=== PATIENT | male | born 1930 | race African-American/Black ===

== ENCOUNTER 2017-08-06 17:49 | Inpatient (IN) | payer MEDICARE, BC ==
[2017-08-06] MEDS ORDERED: SODIUM CHLORIDE 0.9% 1,000 ML IV STA ×2 (17:52)
[2017-08-06 18:19] LABS: Basophils % (A) 0 %; Eosinophils # (A) 0.1 k/uL (0-0.7); Eosinophils % (A) 3 %; HCT 37.2 % (39.0-53.0); HGB 11.6 gm/dL (13.0-17.5); Hypochromasia Slight; Lymphocytes # (A) 0.7 k/uL (1.0-4.8); Lymphocytes % (A) 13 %; MCH 28.9 pg (25.0-35.0); MCHC 31.3 g/dL (31.0-37.0); MCV 92.4 fL (80.0-100.0); Mean Platelet Volume 8.9; Monocytes # (A) 0.3 k/uL (0-1.0); Monocytes % (A) 6 %; Neutrophils # (A) 3.9 k/uL (1.3-7.7); Neutrophils % (A) 78 %; Platelet Count 197 k/uL (150-450); RBC 4.03 m/uL (4.30-5.90); RDW 12.7 % (11.5-15.5)
[2017-08-06 18:29] LABS: Albumin 2.3 g/dL (3.5-5.0); Calcium 7.7 mg/dL (8.4-10.2); Magnesium 2.5 mg/dL (1.6-2.3); Potassium 5.9 mmol/L (3.5-5.1); Total Bilirubin 1.3 mg/dL (0.2-1.3); Total Protein 5.1 g/dL (6.3-8.2)
[2017-08-06 18:39] LABS: INR 1.3 (<1.2); Partial Thromboplastin Time 25.7 sec (22.0-30.0); Prothrombin Time 12.4 sec (9.0-12.0)
[2017-08-06 18:50] LABS: Creatine Kinase MB 1.2 ng/mL (0.0-2.4); Troponin I 0.021 ng/mL (0.000-0.034)
--- NOTE | 2017-08-06 19:01 | XR ---
EXAMINATION TYPE: XR abdomen acute w cxr DATE OF EXAM: 08/06/2017 COMPARISON: 12/07/2015 HISTORY: 87-year-old male rectal bleed, pain TECHNIQUE: 3 views FINDINGS: Frontal view of the chest shows borderline heart size. Aorta and pulmonary vasculature within normal limits. Right hilar nodularity appears to correspond to thoracic spondylotic change given slight curtis ent rotation and rightward scoliosis. No consolidation or pleural effusion. No evidence for free intraperitoneal air. No dilated small bowel or air-fluid levels. Gaseous small and large bowel loops. Surgical clips in the upper abdomen. Degenerative changes lower lumbar spine. Partially visualized bilateral total hip arthroplasties, prominent heterotopic ossification on the le ft, and eccentric wear of the plastic liner at the right hip and periprosthetic lucency along the thomas tabular cup component on the right. IMPRESSION: 1. Chest: Borderline heart size. Thoracic spondylosis projecting at the right hilar region accounting for the nodular densities. 2. Abdomen: No evidence for free air or bowel obstruction. Gaseous bowel loops. 3. Note severe wear of the plastic liner at the right hip replacement. Possible particle disease kourtney g the superior aspect of the acetabular cup component.
--- NOTE | 2017-08-06 19:26 | ED ---
GI Bleed HPI - General Chief complaint: GI Bleed Stated complaint: Rectal Bleeding Time Seen by Provider: 08/06/17 17:49 Source: patient, RN notes reviewed Mode of arrival: EMS Limitations: no limitations - History of Present Illness Initial comments: This is a 87-year-old male with a history of heart disease and [place] hypertension and hyperlipidemia bilateral hip repairs/replacement who is brought in by EMS tonight because of the onset of GI bleeding. Per his son and the patient patient started having burgundy colored stools earlier today. He does complain some episodes being tired no chest pain fevers chills nausea vomiting sweats. No prior history of GI bleeds upper or lower. No other modifying conditions MD complaint: gross hematochezia - Related Data Home Medications Medication Instructions Recorded Confirmed Atorvastatin Calcium [Lipitor] 20 mg PO HS 12/07/15 08/06/17 Brimonidine Tartrate/Timolol 1 drop RIGHT EYE BID 12/07/15 08/06/17 [Combigan 0.2%-0.5% Eye Drops] Latanoprost Ophth [Xalatan 0.005%] 1 drop RIGHT EYE HS 12/07/15 08/06/17 Lisinopril [Zestril] 10 mg PO DAILY 12/07/15 08/06/17 Magnesium Oxide [Mag-Ox] 400 mg PO HS 12/07/15 08/06/17 Aspirin [Adult Low Dose Aspirin EC] 81 mg PO 08/06/17 Ergocalciferol (Vitamin D2) 50,000 unit PO 08/06/17 [Vitamin D2] Furosemide [Lasix] 20 mg PO DAILY 08/06/17 08/06/17 Allergies Allergy/AdvReac Type Severity Reaction Status Date / Time No Known Allergies Allergy Verified 12/07/15 16:48 Review of Systems ROS Statement: Those systems with pertinent positive or pertinent negative responses have been documented in the HPI. ROS Other: All systems not noted in ROS Statement are negative. 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 Pt has hx of stomach ulcers and hx of osteogenesis imperfecta. Last Myocardial Infarction Date:: 01/2014 History of Any Multi-Drug Resistant Organisms: None Reported Past Surgical History: Joint Replacement, Orthopedic Surgery Additional Past Surgical History / Comment(s): Pt has had b/l hip replacement 6 times and elbow surgery. 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 Pt is unable to straighten arms completely. Past Anesthesia/Blood Transfusion Reactions: No Reported Reaction Past Psychological History: No Psychological Hx Reported Smoking Status: Former smoker Past Alcohol Use History: None Reported Past Drug Use History: None Reported General Exam - General Exam Comments Initial Comments: This is a well-developed sec appearing male with some evidence of contractures. Limitations: no limitations General appearance: alert, lethargic Head exam: Present: atraumatic, normocephalic, normal inspection Eye exam: Present: normal appearance, PERRL, EOMI. Absent: scleral icterus, conjunctival injection, periorbital swelling ENT exam: Present: mucous membranes dry Neck exam: Present: normal inspection. Absent: tenderness, meningismus, lymphadenopathy Respiratory exam: Present: decreased breath sounds. Absent: respiratory distress, wheezes, rales, rhonchi, stridor Cardiovascular Exam: Present: regular rate, normal rhythm, normal heart sounds. Absent: systolic murmur, diastolic murmur, rubs, gallop, clicks GI/Abdominal exam: Present: soft, normal bowel sounds. Absent: distended, tenderness, guarding, rebound, rigid, bruit, pulsatile mass, hernia Rectal exam: Present: other (Gross burgundy-colored stool seen on the patient. Anal area as well as on his diaper.). Absent: normal inspection Extremities exam: Present: normal inspection, full ROM, normal capillary refill. Absent: tenderness, pedal edema, joint swelling, calf tenderness Back exam: Present: normal inspection Neurological exam: Present: alert, oriented X3, CN II-XII intact Psychiatric exam: Present: normal affect, normal mood Skin exam: Present: warm, dry, intact, normal color. Absent: rash Course Vital Signs 08/06/17 08/06/17 08/06/17 17:56 18:56 20:00 Temperature 97.3 F L 97.4 F L Pulse Rate 75 68 72 Respiratory 18 18 18 Rate Blood Pressure 107/53 152/68 165/73 O2 Sat by Pulse 100 98 98 Oximetry Medical Decision Making - Medical Decision Making I did discuss findings with the patient family members patient will be admitted for evaluation of GI bleed. He is a visiting physician patient will be admitted to the hospitalist service with GI consultation - Lab Data Result diagrams: 08/06/17 18:05 08/06/17 18:05 Lab Results 08/06/17 08/06/17 08/06/17 Range/Units 18:05 18:05 18:05 WBC 5.0 (3.8-10.6) k/uL RBC 4.03 L (4.30-5.90) m/uL Hgb 11.6 L (13.0-17.5) gm/dL Hct 37.2 L (39.0-53.0) % MCV 92.4 (80.0-100.0) fL MCH 28.9 (25.0-35.0) pg MCHC 31.3 (31.0-37.0) g/dL RDW 12.7 (11.5-15.5) % Plt Count 197 (150-450) k/uL Neutrophils % 78 % Lymphocytes % 13 % Monocytes % 6 % Eosinophils % 3 % Basophils % 0 % Neutrophils # 3.9 (1.3-7.7) k/uL Lymphocytes # 0.7 L (1.0-4.8) k/uL Monocytes # 0.3 (0-1.0) k/uL Eosinophils # 0.1 (0-0.7) k/uL Basophils # 0.0 (0-0.2) k/uL Hypochromasia Slight PT (9.0-12.0) sec INR (<1.2) APTT (22.0-30.0) sec Sodium 142 (137-145) mmol/L Potassium 5.9 H (3.5-5.1) mmol/L Chloride 98 (98-107) mmol/L Carbon Dioxide 39 H (22-30) mmol/L Anion Gap 5 mmol/L BUN 60 H (9-20) mg/dL Creatinine 1.00 (0.66-1.25) mg/dL Est GFR (CKD-EPI)AfAm 79 (>60 ml/min/1.73 sqM) Est GFR (CKD-EPI)NonAf 68 (>60 ml/min/1.73 sqM) Glucose 98 (74-99) mg/dL Calcium 7.7 L (8.4-10.2) mg/dL Magnesium 2.5 H (1.6-2.3) mg/dL Total Bilirubin 1.3 (0.2-1.3) mg/dL AST 17 (17-59) U/L ALT 20 L (21-72) U/L Alkaline Phosphatase 40 (38-126) U/L Ammonia (<30) umol/L Total Creatine Kinase 47 L (55-170) U/L CK-MB (CK-2) 1.2 (0.0-2.4) ng/mL CK-MB (CK-2) Rel Index 2.6 Troponin I 0.021 (0.000-0.034) ng/mL Total Protein 5.1 L (6.3-8.2) g/dL Albumin 2.3 L (3.5-5.0) g/dL Lipase 68 (23-300) U/L Blood Type Blood Type Confirm Blood Type Recheck Antibody Screen Spec Expiration Date 08/06/17 08/06/17 08/06/17 Range/Units 18:05 18:05 18:05 WBC (3.8-10.6) k/uL RBC (4.30-5.90) m/uL Hgb (13.0-17.5) gm/dL Hct (39.0-53.0) % MCV (80.0-100.0) fL MCH (25.0-35.0) pg MCHC (31.0-37.0) g/dL RDW (11.5-15.5) % Plt Count (150-450) k/uL Neutrophils % % Lymphocytes % % Monocytes % % Eosinophils % % Basophils % % Neutrophils # (1.3-7.7) k/uL Lymphocytes # (1.0-4.8) k/uL Monocytes # (0-1.0) k/uL Eosinophils # (0-0.7) k/uL Basophils # (0-0.2) k/uL Hypochromasia PT 12.4 H (9.0-12.0) sec INR 1.3 H (<1.2) APTT 25.7 (22.0-30.0) sec Sodium (137-145) mmol/L Potassium (3.5-5.1) mmol/L Chloride (98-107) mmol/L Carbon Dioxide (22-30) mmol/L Anion Gap mmol/L BUN (9-20) mg/dL Creatinine (0.66-1.25) mg/dL Est GFR (CKD-EPI)AfAm (>60 ml/min/1.73 sqM) Est GFR (CKD-EPI)NonAf (>60 ml/min/1.73 sqM) Glucose (74-99) mg/dL Calcium (8.4-10.2) mg/dL Magnesium (1.6-2.3) mg/dL Total Bilirubin (0.2-1.3) mg/dL AST (17-59) U/L ALT (21-72) U/L Alkaline Phosphatase (38-126) U/L Ammonia <9 (<30) umol/L Total Creatine Kinase (55-170) U/L CK-MB (CK-2) (0.0-2.4) ng/mL CK-MB (CK-2) Rel Index Troponin I (0.000-0.034) ng/mL Total Protein (6.3-8.2) g/dL Albumin (3.5-5.0) g/dL Lipase (23-300) U/L Blood Type B Positive Blood Type Confirm Blood Type Recheck CABO Indicated Antibody Screen NEGATIVE Spec Expiration Date 08/09/2017 - 230408/06/17 Range/Units 18:08 WBC (3.8-10.6) k/uL RBC (4.30-5.90) m/uL Hgb (13.0-17.5) gm/dL Hct (39.0-53.0) % MCV (80.0-100.0) fL MCH (25.0-35.0) pg MCHC (31.0-37.0) g/dL RDW (11.5-15.5) % Plt Count (150-450) k/uL Neutrophils % % Lymphocytes % % Monocytes % % Eosinophils % % Basophils % % Neutrophils # (1.3-7.7) k/uL Lymphocytes # (1.0-4.8) k/uL Monocytes # (0-1.0) k/uL Eosinophils # (0-0.7) k/uL Basophils # (0-0.2) k/uL Hypochromasia PT (9.0-12.0) sec INR (<1.2) APTT (22.0-30.0) sec Sodium (137-145) mmol/L Potassium (3.5-5.1) mmol/L Chloride (98-107) mmol/L Carbon Dioxide (22-30) mmol/L Anion Gap mmol/L BUN (9-20) mg/dL Creatinine (0.66-1.25) mg/dL Est GFR (CKD-EPI)AfAm (>60 ml/min/1.73 sqM) Est GFR (CKD-EPI)NonAf (>60 ml/min/1.73 sqM) Glucose (74-99) mg/dL Calcium (8.4-10.2) mg/dL Magnesium (1.6-2.3) mg/dL Total Bilirubin (0.2-1.3) mg/dL AST (17-59) U/L ALT (21-72) U/L Alkaline Phosphatase (38-126) U/L Ammonia (<30) umol/L Total Creatine Kinase (55-170) U/L CK-MB (CK-2) (0.0-2.4) ng/mL CK-MB (CK-2) Rel Index Troponin I (0.000-0.034) ng/mL Total Protein (6.3-8.2) g/dL Albumin (3.5-5.0) g/dL Lipase (23-300) U/L Blood Type Blood Type Confirm B Positive Blood Type Recheck Antibody Screen Spec Expiration Date - Radiology Data Radiology results: report reviewed (Imaging shows no acute findings), image reviewed Disposition Clinical Impression: GI bleed, Chronic anemia, Prerenal azotemia Disposition: ADMITTED IP TO THIS [facility] Condition: Stable Referrals: Wellington Beck MD [Primary Care Provider] - 1-2 days
[2017-08-06] MEDS ORDERED: PANTOPRAZOLE 40 MG/10 ML VIAL IVP STA (20:14)
[2017-08-06] MEDS ORDERED: ONDANSETRON 4 MG/2 ML VIAL IVP PRN (20:15)
[2017-08-06] MEDS ORDERED: NALOXONE 0.4 MG/ML 1 ML VIAL IV PRN (20:15)
[2017-08-06] MEDS: LATANOPROST 0.005% OPHTH DROPS 2.5 ML BTL RIGHT EYE SCH (22:34)
[2017-08-06] MEDS: TIMOLOL 0.5% OPHTH DROPS 5 ML BTL RIGHT EYE SCH (22:34)
[2017-08-06] MEDS: SODIUM CHLORIDE 0.9% 1,000 ML IV SCH (22:34)
[2017-08-06] MEDS: BRIMONIDINE TARTRATE 0.2% DROPS 5 ML BTL RIGHT EYE SCH (22:34)
[2017-08-06] MEDS: PANTOPRAZOLE 40 MG/10 ML VIAL IV SCH (22:34)
[2017-08-06 22:59] LABS: Glucose,Whole Blood 114 mg/dL (75-99)
[2017-08-06 23:35] LABS: Basophils % (A) 0 %; Eosinophils # (A) 0.1 k/uL (0-0.7); Eosinophils % (A) 1 %; HCT 27.6 % (39.0-53.0); Hypochromasia Slight; Lymphocytes # (A) 0.9 k/uL (1.0-4.8); Lymphocytes % (A) 15 %; MCH 28.8 pg (25.0-35.0); MCHC 31.1 g/dL (31.0-37.0); MCV 92.7 fL (80.0-100.0); Mean Platelet Volume 8.3; Monocytes # (A) 0.3 k/uL (0-1.0); Monocytes % (A) 5 %; Neutrophils # (A) 4.5 k/uL (1.3-7.7); Neutrophils % (A) 78 %; Platelet Count 181 k/uL (150-450); RBC 2.97 m/uL (4.30-5.90); RDW 12.4 % (11.5-15.5); WBC 5.8 k/uL (3.8-10.6)
[2017-08-06 23:37] LABS: HGB 8.6 gm/dL (13.0-17.5)
[2017-08-07 02:57] LABS: Appearance,Urine Clear (Clear); Bilirubin,Urine Negative (Negative); Blood,Urine Negative (Negative); Color,Urine Yellow; Glucose,Urine (UA) Negative (Negative); Ketones,Urine Negative (Negative); Leukocyte Esterase,Urine Negative (Negative); Nitrite,Urine Negative (Negative); PH, Urine 5.5 (5.0-8.0); Protein,Urine Negative (Negative); Specific Gravity,Urine 1.019 (1.001-1.035); Urobilinogen,Urine <2.0 mg/dL (<2.0)
[2017-08-07 04:04] LABS: Basophils % (A) 0 %; Eosinophils # (A) 0.1 k/uL (0-0.7); Eosinophils % (A) 2 %; HCT 29.6 % (39.0-53.0); HGB 8.9 gm/dL (13.0-17.5); Hypochromasia Marked; Lymphocytes # (A) 0.5 k/uL (1.0-4.8); Lymphocytes % (A) 11 %; MCH 28.3 pg (25.0-35.0); MCHC 29.9 g/dL (31.0-37.0); MCV 94.7 fL (80.0-100.0); Mean Platelet Volume 8.6; Monocytes # (A) 0.2 k/uL (0-1.0); Monocytes % (A) 5 %; Neutrophils # (A) 4.1 k/uL (1.3-7.7); Neutrophils % (A) 82 %; Platelet Count 185 k/uL (150-450); RBC 3.13 m/uL (4.30-5.90); RDW 12.8 % (11.5-15.5); WBC 4.9 k/uL (3.8-10.6)
[2017-08-07 04:13] LABS: Calcium 7.1 mg/dL (8.4-10.2); Magnesium 2.4 mg/dL (1.6-2.3); Phosphorus 3.3 mg/dL (2.5-4.5)
[2017-08-07] MEDS ORDERED: INSULIN REGULAR 100 UNIT/ML VIAL IV ONE (06:36)
[2017-08-07] MEDS ORDERED: SODIUM BICARB 8.4% 50 ML VIAL (1 MEQ/ML) IV ONE (06:37)
[2017-08-07] MEDS ORDERED: DEXTROSE 50%-WATER 50 ML SYRINGE IVP STA (06:38)
[2017-08-07] MEDS ORDERED: CALCIUM GLUCONATE 1,000 MG in SODIUM CHLORIDE 0.9% 100 ML IVPB ONE (06:38)
[2017-08-07 06:50] LABS: Glucose,Whole Blood 105 mg/dL (75-99)
[2017-08-07] MEDS ORDERED: SODIUM BICARB 8.4% 50 ML SYR (1 MEQ/ML) IV ONE (07:00)
[2017-08-07] MEDS: SODIUM CHLORIDE 0.9% 1,000 ML IV SCH ×3 (07:11→21:43)
[2017-08-07] MEDS: PANTOPRAZOLE 40 MG/10 ML VIAL IV SCH ×2 (08:24→21:44)
[2017-08-07] MEDS: BRIMONIDINE TARTRATE 0.2% DROPS 5 ML BTL RIGHT EYE SCH ×2 (08:24→21:44)
[2017-08-07] MEDS: TIMOLOL 0.5% OPHTH DROPS 5 ML BTL RIGHT EYE SCH ×2 (08:24→21:44)
[2017-08-07] MEDS ORDERED: SODIUM CHLORIDE 0.9% 1,000 ML IV ONE ×3 (10:17→17:27)
--- NOTE | 2017-08-07 10:28 | P.CNPUL ---
History of Present Illness Consult date: 08/07/17 History of present illness: This is a very lethargic 87-year-old male patient who was brought in yesterday to the [facility] department because of episodes of GI bleed. The patient presented to the emergency department with painless GI bleed. The patient apparently had burgundy colored stool earlier on that day. On admission, he had a normal blood pressure of 107/53 would doubt any tachycardia. Initial hemoglobin was 11.6. His BUN was elevated at 60 and he had a potassium level of 5.9. Subsequently, he had 3 further episodes of bloody stool that occurred in the intensive care unit overnight. Hemoglobin dropped down to 8.9 and the patient has not been transfused yet. Overall he has received a total of 1 L of IV fluid and the patient is currently on a maintenance of 125 mL an hour. No coffee-ground emesis. No hematemesis. No bright red blood per rectum. The patient does not volunteer much of history. According to him he doesn't drink alcohol in excess. He has been on a combination of aspirin and Plavix regarding previous history of cardiac disease and coronary artery disease and previous [place]. Apparently had refused further care and I'm not sure if he has had any previous cardiac catheterization on evaluations. The patient coags were slightly elevated with an INR of 1.3, PTT was within normal limits, platelets are also within normal limits. He is slow in answering questions. He knows that he is in the hospital. He denies having any major chest pain or respiratory distress. Cardiac enzymes were negative. EKG not showing any acute abnormalities. No open wounds or sores. According to the history is been on oxygen at home and probably his underlying COPD and addition. Currently is on oxygen at 3 L/m nasal cannula. He is moving all 4 extremities. No focal neurological deficit. He is currently nothing by mouth for now. He has remote history of gastric ulcers however he hasn't had any recent history of bleeding. I interviewed the son and I was told that the patient is able to walk however his gait has been progressively getting worse and he has become unsteady. He always was a finger his current BMI 16.2. Apparently his been able to eat well and swallow without any major difficulties. Review of Systems Constitutional: Reports lethargy, Reports weakness Eyes: right blurred vision, right decreased vision, right loss of vision, left bulging eye Ears: deny: ear discharge, earache, tinnitus Ears, nose, mouth and throat: Denies headache, Denies sore throat Cardiovascular: Denies chest pain, Denies shortness of breath Respiratory: Denies cough Gastrointestinal: Reports BRBPR Genitourinary: Reports as per HPI Musculoskeletal: Reports as per HPI Musculoskeletal: absent: ankle pain, ankle stiffness, ankle swelling Integumentary: Denies pruritus, Denies rash Neurological: Reports weakness Psychiatric: Denies anxiety, Denies depression Endocrine: Denies fatigue, Denies weight change Hematologic/Lymphatic: Reports as per HPI Allergic/Immunologic: Reports as per HPI Past Medical History Past Medical History: Coronary Artery Disease (CAD), Eye Disorder, Hyperlipidemia, Hypertension, Myocardial Infarction ([place]) Additional Past Medical History / Comment(s): COPD and chronic hypoxic respiratory failure maintained on oxygen at 3 L at home, Pt had CAD and a previous [place] in Jan 2014 maintained on a combination of ASA and plavix, gastric/ stomach ulcers and hx of osteogenesis imperfecta, Blind in the right eye, HTn, hyperlipidemia and he is a exsmoker. Last Myocardial Infarction Date:: 01/2014 History of Any Multi-Drug Resistant Organisms: None Reported Past Surgical History: Joint Replacement, Orthopedic Surgery Additional Past Surgical History / Comment(s): Pt has had b/l hip replacement 6 times and elbow surgery. 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 Pt is unable to straighten arms completely. Past Anesthesia/Blood Transfusion Reactions: No Reported Reaction Past Psychological History: No Psychological Hx Reported Smoking Status: Former smoker Past Alcohol Use History: None Reported Past Drug Use History: None Reported Medications and Allergies Home Medications Medication Instructions Recorded Confirmed Type Atorvastatin Calcium [Lipitor] 20 mg PO DAILY 12/07/15 08/07/17 History Magnesium Oxide [Mag-Ox] 400 mg PO DAILY 12/07/15 08/07/17 History Ergocalciferol (Vitamin D2) 50,000 unit PO Q7D 08/06/17 08/07/17 History [Vitamin D2] Furosemide [Lasix] 20 mg PO DAILY 08/06/17 08/07/17 History Aspirin EC [Ecotrin Low Dose] 81 mg PO DAILY 08/07/17 08/07/17 History Budesonide [Pulmicort] 0.5 mg INHALATION RT-QID PRN 08/07/17 08/07/17 History Carvedilol [Coreg] 12.5 mg PO BID 08/07/17 08/07/17 History Clopidogrel [Plavix] 75 mg PO DAILY 08/07/17 08/07/17 History Ipratropium-Albuterol Nebulize 3 ml INHALATION RT-QID PRN 08/07/17 08/07/17 History [Duoneb 0.5 mg-3 mg/3 ml Soln] Lisinopril [Zestril] 10 mg PO DAILY 08/07/17 08/07/17 History Allergies Allergy/AdvReac Type Severity Reaction Status Date / Time No Known Allergies Allergy Verified 08/07/17 09:09 Physical Exam Vitals: Vital Signs Temp Pulse Pulse Pulse Resp BP BP 08/07/17 08:30 76 16 115/36 08/07/17 08:00 97.8 F 78 20 97/30 08/07/17 07:00 76 36 H 118/48 08/07/17 06:30 77 24 146/35 08/07/17 06:00 74 9 L 149/46 08/07/17 05:30 75 25 H 121/29 08/07/17 05:00 76 46 H 107/26 08/07/17 04:30 73 23 110/34 08/07/17 04:00 96 F L 73 70 23 145/45 08/07/17 03:30 73 64 H 96/40 08/07/17 03:00 73 25 H 123/42 08/07/17 02:30 72 58 H 102/38 08/07/17 02:00 80 57 H 112/50 08/07/17 01:30 70 22 105/47 08/07/17 01:00 73 18 91/31 08/07/17 00:30 70 21 100/30 08/07/17 00:00 71 53 H 108/37 08/06/17 23:36 71 23 106/45 08/06/17 23:30 73 20 106/45 08/06/17 23:20 73 26 H 08/06/17 23:10 73 18 08/06/17 23:00 98.3 F 73 70 20 106/43 08/06/17 22:56 08/06/17 22:20 98.2 F 82 106/69 08/06/17 20:45 98.2 F 72 16 153/67 08/06/17 20:00 97.4 F L 72 18 165/73 08/06/17 18:56 68 18 152/68 08/06/17 17:56 97.3 F L 75 18 107/53 Pulse Ox 08/07/17 08:30 100 08/07/17 08:00 99 08/07/17 07:00 100 08/07/17 06:30 96 08/07/17 06:00 95 08/07/17 05:30 96 08/07/17 05:00 98 08/07/17 04:30 08/07/17 04:00 98 08/07/17 03:30 99 08/07/17 03:00 95 08/07/17 02:30 98 08/07/17 02:00 100 08/07/17 01:30 100 08/07/17 01:00 99 08/07/17 00:30 98 08/07/17 00:00 100 08/06/17 23:36 100 08/06/17 23:30 100 08/06/17 23:20 100 08/06/17 23:10 100 08/06/17 23:00 100 08/06/17 22:56 87 L 08/06/17 22:20 08/06/17 20:45 99 08/06/17 20:00 98 08/06/17 18:56 98 08/06/17 17:56 100 Intake and Output 08/06/17 08/07/17 08/07/17 22:59 06:59 14:59 Intake Total 875 375 Output Total 270 45 Balance 605 330 Intake: IV 875 375 Sodium Chloride 0.9% 1, 875 375 000 ml @ 125 mls/hr IV . Q8H [facility] Rx#:[id number] Output: Urine 270 45 Other: Voiding Method Self-Catheterization Indwelling Catheter Weight 46.72 kg 45.5 kg 45.5 kg The patient is very cachectic and emaciated with a body mass index of 16.2. He is a bit lethargic yet he is arousable and he follows some simple commands. His very slow in answering questions. He is aware of his surroundings and he knows that he is in the hospital. No agitation. Resting comfortably in bed. The patient has temporal wasting. The patient has diffuse muscle atrophy and significant loss in total body protein mass both in his upper and lower extremities. Head exam was generally normal. There was no scleral icterus or corneal arcus. Mucous membranes were moist.Neck was supple and without jugular venous distension, thyromegaly, or carotid bruits. Carotids were easily palpable bilaterally. There was no adenopathy.Lungs were clear to auscultation and percussion, and with normal diaphragmatic excursion. No wheezes or rales were noted. Breath sounds are diminished in lung bases and there is no wheezes or rhonchi this point.Cardiac exam revealed the PMI to be normally situated and sized. The rhythm was regular and no extrasystoles were noted during several minutes of auscultation. The first and second heart sounds were normal and physiologic splitting of the second heart sound was noted. There were no murmurs , rubs, clicks, or gallops. Abdomen is soft and there is a pulsatile aorta can be felt in the midabdomen however this is probably a reflection of his underlying significant weight loss and absent abdominal fat. No direct tenderness or rebound tensile guarding at this point.Examination of the extremities revealed easily palpable radial, femoral and pedal pulses. There was no cyanosis, clubbing or edema.Examination of the skin revealed no evidence of significant rashes, suspicious appearing nevi or other concerning lesions. Neurologically is awake and alert and is following commands and moving all 4 extremities without any limitation. Results - Laboratory Findings CBC and BMP: 08/07/17 03:29 08/07/17 03:29 PT/INR, D-dimer PT 12.4 sec (9.0-12.0) H 08/06/17 18:05 INR 1.3 (<1.2) H 08/06/17 18:05 Abnormal lab findings: Abnormal Labs 08/06/17 08/06/17 08/06/17 18:05 18:05 18:05 RBC 4.03 L Hgb 11.6 L Hct 37.2 L MCHC Lymphocytes # 0.7 L PT INR Potassium 5.9 H Carbon Dioxide 39 H BUN 60 H Glucose POC Glucose (mg/dL) Calcium 7.7 L Magnesium 2.5 H ALT 20 L Total Creatine Kinase 47 L Total Protein 5.1 L Albumin 2.3 L 04/15/18 04/15/18 04/15/18 18:05 22:57 23:13 RBC 2.97 L Hgb 8.6 L D Hct 27.6 L MCHC Lymphocytes # 0.9 L PT 12.4 H INR 1.3 H Potassium Carbon Dioxide BUN Glucose POC Glucose (mg/dL) 114 H Calcium Magnesium ALT Total Creatine Kinase Total Protein Albumin 08/07/17 08/07/17 08/07/17 03:29 03:29 06:47 RBC 3.13 L Hgb 8.9 L Hct 29.6 L MCHC 29.9 L Lymphocytes # 0.5 L PT INR Potassium 6.0 H Carbon Dioxide 37 H BUN 64 H Glucose 122 H POC Glucose (mg/dL) 105 H Calcium 7.1 L Magnesium 2.4 H ALT Total Creatine Kinase Total Protein Albumin - Diagnostic Findings Chest x-ray: image reviewed Assessment and Plan Plan: Assessment 1 GI bleeding likely of an upper GI source. The patient is known to have gastric ulcer. Currently is on a combination of aspirin and Plavix. No significant coagulopathy. Liver function tests and platelet count is also within normal limits. The patient had several episodes of GI bleed and current hemoglobin is down to 8.9. 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 Repeat potassium levels. Monitor hemoglobin. No transfusion unless there is a further drop in hemoglobin. GI is on the case and were planning an EGD within next 24-48 hours. Keep the patient nothing by mouth for now. SCDs to the lower extremities. IV Protonix. Hold aspirin. Hold Plavix. Continue oxygen at 3 L/ m nasal cannula. We'll continue to follow. He'll be kept in ICU for further monitoring.
--- NOTE | 2017-08-07 10:58 | P.CONS ---
History of Present Illness - Reason for Consult Consult date: 08/07/17 GI bleed Requesting physician: Dimas Whitten - History of Present Illness 87-year-old gentleman PMH CAD, COPD, hyperlipidemia, [place], hypertension, possible peptic ulcer disease, right eye blindness, admitted with burgundy colored bowel movements. Patient is obtunded unable to provide history. History obtained from medical records and nursing staff. Apparently patient's son witnessed burgundy colored bowel movements yesterday. Nursing states he had 2 bowel movements burgundy in color this morning. Unsure if patient has a history of EGD colonoscopy or GI bleeds. Patient's temperature was low placed on Irena hugger overnight. Admission hemoglobin 11.6 presently 8.9. MCV 94. Platelet 185. INR 1.3. BUN 60. Creatinine 1.0. No blood transfusions. Hemodynamically stable. No reports of hematemesis or melena. His overall appearance is cachectic with a BMI of 16; 45.5 kg. Home medications include Plavix and baby aspirin daily. Review of Systems Reviewed from medical records Constitutional: Denies fever, chills, sweats, weight gain, or loss. Son reports weakness. HEENT: Negative for migraines, blurred vision or loss, earaches, drainage, tinnitus, oral mucosal lesions, dysphagia, or odynophagia. Cardiac: Negative for chest pain, arrhythmias, or palpitation. Respiratory: Negative for shortness of breath, hemoptysis, cough, or sputum production. Gastrointestinal: See HPI for pertinent findings. Genitourinary: Negative for hematuria, urgency, frequency, polyuria, dysuria, or penile discharge. Musculoskeletal: Negative for muscle aches, swelling, arthritis, and arthralgias. Neurologic: Negative for stroke or TIA. Endocrine: Negative for thyroid problems. Skin: Negative for rash or itching. Psychiatric: Negative history for depression and anxiety ROS unobtainable: due to mental status Past Medical History Past Medical History: Coronary Artery Disease (CAD), Eye Disorder, Hyperlipidemia, Hypertension, Myocardial Infarction ([place]) Additional Past Medical History / Comment(s): COPD and chronic hypoxic respiratory failure maintained on oxygen at 3 L at home, Pt had CAD and a previous [place] in Jan 2014 maintained on a combination of ASA and plavix, gastric/ stomach ulcers and hx of osteogenesis imperfecta, Blind in the right eye, HTn, hyperlipidemia and he is a exsmoker. Last Myocardial Infarction Date:: 01/2014 History of Any Multi-Drug Resistant Organisms: None Reported Past Surgical History: Joint Replacement, Orthopedic Surgery Additional Past Surgical History / Comment(s): Pt has had b/l hip replacement 6 times and elbow surgery. 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 Pt is unable to straighten arms completely. Past Anesthesia/Blood Transfusion Reactions: No Reported Reaction Past Psychological History: No Psychological Hx Reported Smoking Status: Former smoker Past Alcohol Use History: None Reported Past Drug Use History: None Reported Medications and Allergies Home Medications Medication Instructions Recorded Confirmed Type Atorvastatin Calcium [Lipitor] 20 mg PO DAILY 12/07/15 08/07/17 History Magnesium Oxide [Mag-Ox] 400 mg PO DAILY 12/07/15 08/07/17 History Ergocalciferol (Vitamin D2) 50,000 unit PO Q7D 08/06/17 08/07/17 History [Vitamin D2] Furosemide [Lasix] 20 mg PO DAILY 08/06/17 08/07/17 History Aspirin EC [Ecotrin Low Dose] 81 mg PO DAILY 08/07/17 08/07/17 History Budesonide [Pulmicort] 0.5 mg INHALATION RT-QID PRN 08/07/17 08/07/17 History Carvedilol [Coreg] 12.5 mg PO BID 08/07/17 08/07/17 History Clopidogrel [Plavix] 75 mg PO DAILY 08/07/17 08/07/17 History Ipratropium-Albuterol Nebulize 3 ml INHALATION RT-QID PRN 08/07/17 08/07/17 History [Duoneb 0.5 mg-3 mg/3 ml Soln] Lisinopril [Zestril] 10 mg PO DAILY 08/07/17 08/07/17 History Allergies Allergy/AdvReac Type Severity Reaction Status Date / Time No Known Allergies Allergy Verified 08/07/17 09:09 Physical Exam Vitals: Vital Signs Temp Pulse Pulse Pulse Resp BP BP 08/07/17 08:30 76 16 115/36 08/07/17 08:00 97.8 F 78 20 97/30 08/07/17 07:00 76 36 H 118/48 08/07/17 06:30 77 24 146/35 08/07/17 06:00 74 9 L 149/46 08/07/17 05:30 75 25 H 121/29 08/07/17 05:00 76 46 H 107/26 08/07/17 04:30 73 23 110/34 08/07/17 04:00 96 F L 73 70 23 145/45 08/07/17 03:30 73 64 H 96/40 08/07/17 03:00 73 25 H 123/42 08/07/17 02:30 72 58 H 102/38 08/07/17 02:00 80 57 H 112/50 08/07/17 01:30 70 22 105/47 08/07/17 01:00 73 18 91/31 08/07/17 00:30 70 21 100/30 08/07/17 00:00 71 53 H 108/37 08/06/17 23:36 71 23 106/45 08/06/17 23:30 73 20 106/45 08/06/17 23:20 73 26 H 08/06/17 23:10 73 18 08/06/17 23:00 98.3 F 73 70 20 106/43 08/06/17 22:56 08/06/17 22:20 98.2 F 82 106/69 08/06/17 20:45 98.2 F 72 16 153/67 08/06/17 20:00 97.4 F L 72 18 165/73 08/06/17 18:56 68 18 152/68 08/06/17 17:56 97.3 F L 75 18 107/53 Pulse Ox 08/07/17 08:30 100 08/07/17 08:00 99 08/07/17 07:00 100 08/07/17 06:30 96 08/07/17 06:00 95 08/07/17 05:30 96 08/07/17 05:00 98 08/07/17 04:30 08/07/17 04:00 98 08/07/17 03:30 99 08/07/17 03:00 95 08/07/17 02:30 98 08/07/17 02:00 100 08/07/17 01:30 100 08/07/17 01:00 99 08/07/17 00:30 98 08/07/17 00:00 100 08/06/17 23:36 100 08/06/17 23:30 100 08/06/17 23:20 100 08/06/17 23:10 100 08/06/17 23:00 100 08/06/17 22:56 87 L 08/06/17 22:20 08/06/17 20:45 99 08/06/17 20:00 98 08/06/17 18:56 98 08/06/17 17:56 100 Intake and Output 08/06/17 08/07/17 08/07/17 22:59 06:59 14:59 Intake Total 875 375 Output Total 270 45 Balance 605 330 Intake: IV 875 375 Sodium Chloride 0.9% 1, 875 375 000 ml @ 125 mls/hr IV . Q8H [facility] Rx#:[id number] Output: Urine 270 45 Other: Voiding Method Self-Catheterization Indwelling Catheter Weight 46.72 kg 45.5 kg 45.5 kg General appearance: The patient is confused unable to converse does respond to his name. Overall appearance is cachectic. HET: Head is normocephalic and atraumatic. Pupils are equal and reactive. Oropharynx is clear without lesions. Neck: Supple without lymphadenopathy. Trachea midline. Heart: S1 S2. Regular rate and rhythm. Lungs: No crackles or wheezes are heard. Abdomen: Soft, nontender, nondistended with bowel sounds. No peritoneal signs. No palpable organomegaly or masses. Extremities: Normal skin color and turgor. No cyanosis, rash, ulceration, clubbing, or edema. Radial and pedal pulses are 2/4 bilaterally. Neurological: No focal deficits. Strength and sensation are grossly intact. Results CBC & Chem 7: 08/07/17 03:29 08/07/17 03:29 Labs: Abnormal Lab Results - Last 24 Hours (Table) 08/06/17 08/06/17 08/06/17 Range/Units 18:05 18:05 18:05 RBC 4.03 L (4.30-5.90) m/uL Hgb 11.6 L (13.0-17.5) gm/dL Hct 37.2 L (39.0-53.0) % MCHC (31.0-37.0) g/dL Lymphocytes # 0.7 L (1.0-4.8) k/uL PT (9.0-12.0) sec INR (<1.2) Potassium 5.9 H (3.5-5.1) mmol/L Carbon Dioxide 39 H (22-30) mmol/L BUN 60 H (9-20) mg/dL Glucose (74-99) mg/dL POC Glucose (mg/dL) (75-99) mg/dL Calcium 7.7 L (8.4-10.2) mg/dL Magnesium 2.5 H (1.6-2.3) mg/dL ALT 20 L (21-72) U/L Total Creatine Kinase 47 L (55-170) U/L Total Protein 5.1 L (6.3-8.2) g/dL Albumin 2.3 L (3.5-5.0) g/dL 08/06/17 08/06/17 08/06/17 Range/Units 18:05 22:57 23:13 RBC 2.97 L (4.30-5.90) m/uL Hgb 8.6 L D (13.0-17.5) gm/dL Hct 27.6 L (39.0-53.0) % MCHC (31.0-37.0) g/dL Lymphocytes # 0.9 L (1.0-4.8) k/uL PT 12.4 H (9.0-12.0) sec INR 1.3 H (<1.2) Potassium (3.5-5.1) mmol/L Carbon Dioxide (22-30) mmol/L BUN (9-20) mg/dL Glucose (74-99) mg/dL POC Glucose (mg/dL) 114 H (75-99) mg/dL Calcium (8.4-10.2) mg/dL Magnesium (1.6-2.3) mg/dL ALT (21-72) U/L Total Creatine Kinase (55-170) U/L Total Protein (6.3-8.2) g/dL Albumin (3.5-5.0) g/dL 08/07/17 08/07/17 08/07/17 Range/Units 03:29 03:29 06:47 RBC 3.13 L (4.30-5.90) m/uL Hgb 8.9 L (13.0-17.5) gm/dL Hct 29.6 L (39.0-53.0) % MCHC 29.9 L (31.0-37.0) g/dL Lymphocytes # 0.5 L (1.0-4.8) k/uL PT (9.0-12.0) sec INR (<1.2) Potassium 6.0 H (3.5-5.1) mmol/L Carbon Dioxide 37 H (22-30) mmol/L BUN 64 H (9-20) mg/dL Glucose 122 H (74-99) mg/dL POC Glucose (mg/dL) 105 H (75-99) mg/dL Calcium 7.1 L (8.4-10.2) mg/dL Magnesium 2.4 H (1.6-2.3) mg/dL ALT (21-72) U/L Total Creatine Kinase (55-170) U/L Total Protein (6.3-8.2) g/dL Albumin (3.5-5.0) g/dL Assessment and Plan (1) GI bleed Narrative/Plan: 87-year-old male presents with burgundy colored bowel movements etiology unclear possible colonic diverticular bleed possible peptic ulcer disease. Current Visit: Yes Status: Acute Code(s): K92.2 - GASTROINTESTINAL HEMORRHAGE, UNSPECIFIED SNOMED Code(s): 89391005 (2) Acute blood loss anemia Current Visit: Yes Status: Acute Code(s): D62 - ACUTE POSTHEMORRHAGIC ANEMIA SNOMED Code(s): 376244907 (3) Cachexia Current Visit: Yes Status: Acute Code(s): R64 - CACHEXIA SNOMED Code(s): 358472111 Plan: 1. Continue Protonix 40 mg twice daily. CBC BMP at noon. At this time colonoscopy is not recommended considering patient's confusion; most likely will not drink/tolerate prep. Consideration for inpatient EGD if agreeable with his son; tinge in on clinical course. If patient has accelerated rectal bleeding recommended tagged RBC scan rule out colonic source. We'll continue to follow with you. Thank you for this kind referral and the opportunity to participate in the care of your patient. This consultation was discussed with Dr. Mancuso. The impression and plan of care have been directed as dictated.
[2017-08-07] MEDS ORDERED: IPRATROPIUM-ALBUTEROL 3 ML NEB INHALATION PRN (12:06)
[2017-08-07] MEDS ORDERED: BUDESONIDE 0.5 MG/2 ML NEBU INHALATION PRN (12:06)
[2017-08-07 12:11] LABS: Basophils % (A) 0 %; Eosinophils # (A) 0.1 k/uL (0-0.7); Eosinophils % (A) 0 %; HCT 26.3 % (39.0-53.0); HGB 7.8 gm/dL (13.0-17.5); Hypochromasia Marked; Lymphocytes # (A) 0.8 k/uL (1.0-4.8); Lymphocytes % (A) 7 %; MCH 28.2 pg (25.0-35.0); MCHC 29.8 g/dL (31.0-37.0); MCV 94.7 fL (80.0-100.0); Mean Platelet Volume 10.2; Monocytes # (A) 0.6 k/uL (0-1.0); Monocytes % (A) 5 %; Neutrophils # (A) 9.7 k/uL (1.3-7.7); Neutrophils % (A) 87 %; Platelet Count 183 k/uL (150-450); RBC 2.77 m/uL (4.30-5.90); WBC 11.2 k/uL (3.8-10.6)
[2017-08-07] MEDS ORDERED: DEXTROSE 50%-WATER 50 ML SYRINGE IVP ONE (12:49)
[2017-08-07 13:07] LABS: Glucose,Whole Blood 233 mg/dL (75-99)
--- NOTE | 2017-08-07 13:50 | P.HPIM ---
History of Present Illness 87-year-old male came in with 3 episodes of dark burgundy stools. Patient is admitted for upper GI bleed. Patient is poor his poor historian patient apparently had acute myocardial infarction and patient was started on aspirin and Plavix no intervention was done at the time I have to get in touch with the family members regarding his overall goals of care patient came from home appears to have some baseline dementia patient barely use many history denied any abdominal pain denied any nausea vomiting. Patient's hemoglobin dropped from 10.5-8.7 patient is on IV fluids at this time patient is presently untreated as far today here does use oxygen at home for COPD. This was evaluated by gastroneurology as well as pulmonology. Review of Systems Unable to obtain due to his clinical condition Past Medical History Past Medical History: Coronary Artery Disease (CAD), Eye Disorder, Hyperlipidemia, Hypertension, Myocardial Infarction ([place]) Additional Past Medical History / Comment(s): COPD and chronic hypoxic respiratory failure maintained on oxygen at 3 L at home, Pt had CAD and a previous [place] in Jan 2014 maintained on a combination of ASA and plavix, gastric/ stomach ulcers and hx of osteogenesis imperfecta, Blind in the right eye, HTn, hyperlipidemia and he is a exsmoker. Last Myocardial Infarction Date:: 01/2014 History of Any Multi-Drug Resistant Organisms: None Reported Past Surgical History: Joint Replacement, Orthopedic Surgery Additional Past Surgical History / Comment(s): Pt has had b/l hip replacement 6 times and elbow surgery. 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 Pt is unable to straighten arms completely. Past Anesthesia/Blood Transfusion Reactions: No Reported Reaction Past Psychological History: No Psychological Hx Reported Smoking Status: Former smoker Past Alcohol Use History: None Reported Past Drug Use History: None Reported Medications and Allergies Home Medications Medication Instructions Recorded Confirmed Type Atorvastatin Calcium [Lipitor] 20 mg PO DAILY 12/07/15 08/07/17 History Magnesium Oxide [Mag-Ox] 400 mg PO DAILY 12/07/15 08/07/17 History Ergocalciferol (Vitamin D2) 50,000 unit PO Q7D 08/06/17 08/07/17 History [Vitamin D2] Furosemide [Lasix] 20 mg PO DAILY 08/06/17 08/07/17 History Aspirin EC [Ecotrin Low Dose] 81 mg PO DAILY 08/07/17 08/07/17 History Budesonide [Pulmicort] 0.5 mg INHALATION RT-QID PRN 08/07/17 08/07/17 History Carvedilol [Coreg] 12.5 mg PO BID 08/07/17 08/07/17 History Clopidogrel [Plavix] 75 mg PO DAILY 08/07/17 08/07/17 History Ipratropium-Albuterol Nebulize 3 ml INHALATION RT-QID PRN 08/07/17 08/07/17 History [Duoneb 0.5 mg-3 mg/3 ml Soln] Lisinopril [Zestril] 10 mg PO DAILY 08/07/17 08/07/17 History Allergies Allergy/AdvReac Type Severity Reaction Status Date / Time No Known Allergies Allergy Verified 08/07/17 09:09 Physical Exam Vitals: Vital Signs Temp Pulse Pulse Pulse Resp BP BP 08/07/17 11:00 71 24 129/49 08/07/17 10:00 79 20 122/39 08/07/17 09:00 78 20 110/39 08/07/17 08:30 76 16 115/36 08/07/17 08:00 97.8 F 78 20 97/30 08/07/17 07:00 76 36 H 118/48 08/07/17 06:30 77 24 146/35 08/07/17 06:00 74 9 L 149/46 08/07/17 05:30 75 25 H 121/29 08/07/17 05:00 76 46 H 107/26 08/07/17 04:30 73 23 110/34 08/07/17 04:00 96 F L 73 70 23 145/45 08/07/17 03:30 73 64 H 96/40 08/07/17 03:00 73 25 H 123/42 08/07/17 02:30 72 58 H 102/38 08/07/17 02:00 80 57 H 112/50 08/07/17 01:30 70 22 105/47 08/07/17 01:00 73 18 91/31 08/07/17 00:30 70 21 100/30 08/07/17 00:00 71 53 H 108/37 08/06/17 23:36 71 23 106/45 08/06/17 23:30 73 20 106/45 08/06/17 23:20 73 26 H 04/15/18 23:10 73 18 08/06/17 23:00 98.3 F 73 70 20 106/43 08/06/17 22:56 08/06/17 22:20 98.2 F 82 106/69 08/06/17 20:45 98.2 F 72 16 153/67 08/06/17 20:00 97.4 F L 72 18 165/73 08/06/17 18:56 68 18 152/68 08/06/17 17:56 97.3 F L 75 18 107/53 Pulse Ox 08/07/17 11:00 100 08/07/17 10:00 100 08/07/17 09:00 100 08/07/17 08:30 100 08/07/17 08:00 99 08/07/17 07:00 100 08/07/17 06:30 96 08/07/17 06:00 95 08/07/17 05:30 96 08/07/17 05:00 98 08/07/17 04:30 08/07/17 04:00 98 08/07/17 03:30 99 08/07/17 03:00 95 08/07/17 02:30 98 08/07/17 02:00 100 08/07/17 01:30 100 08/07/17 01:00 99 08/07/17 00:30 98 08/07/17 00:00 100 08/06/17 23:36 100 08/06/17 23:30 100 08/06/17 23:20 100 08/06/17 23:10 100 08/06/17 23:00 100 08/06/17 22:56 87 L 08/06/17 22:20 08/06/17 20:45 99 08/06/17 20:00 98 08/06/17 18:56 98 08/06/17 17:56 100 Intake and Output 08/06/17 08/07/17 08/07/17 22:59 06:59 14:59 Intake Total 875 500 Output Total 270 75 Balance 605 425 Intake: IV 875 500 Sodium Chloride 0.9% 1, 875 500 000 ml @ 125 mls/hr IV . Q8H [facility] Rx#:[id number] Output: Urine 270 75 Other: Voiding Method Self-Catheterization Indwelling Catheter Weight 46.72 kg 45.5 kg 45.5 kg PHYSICAL EXAMINATION: GENERAL: The patient is drowsy arousable unable test his orientation, not in any acute distress. Thin built HEENT: Pupils are round and equally reacting to light. EOMI. No scleral icterus. Patient does have conjunctival pallor. Normocephalic, atraumatic. No pharyngeal erythema. No thyromegaly. CARDIOVASCULAR: S1 and S2 present. No murmurs, rubs, or gallops. PULMONARY: Chest is clear to auscultation, no wheezing or crackles. ABDOMEN: Soft, nontender, nondistended, normoactive bowel sounds. No palpable organomegaly. MUSCULOSKELETAL: No joint swelling or deformity. EXTREMITIES: No cyanosis, clubbing, or pedal edema. NEUROLOGICAL: Gross neurological examination did not reveal any focal deficits. SKIN: No rashes. Results CBC & Chem 7: 08/07/17 12:00 08/07/17 12:00 Labs: Abnormal Lab Results - Last 24 Hours (Table) 08/06/17 08/06/17 08/06/17 Range/Units 18:05 18:05 18:05 WBC (3.8-10.6) k/uL RBC 4.03 L (4.30-5.90) m/uL Hgb 11.6 L (13.0-17.5) gm/dL Hct 37.2 L (39.0-53.0) % MCHC (31.0-37.0) g/dL Neutrophils # (1.3-7.7) k/uL Lymphocytes # 0.7 L (1.0-4.8) k/uL PT (9.0-12.0) sec INR (<1.2) Sodium (137-145) mmol/L Potassium 5.9 H (3.5-5.1) mmol/L Chloride (98-107) mmol/L Carbon Dioxide 39 H (22-30) mmol/L BUN 60 H (9-20) mg/dL Glucose (74-99) mg/dL POC Glucose (mg/dL) (75-99) mg/dL Calcium 7.7 L (8.4-10.2) mg/dL Magnesium 2.5 H (1.6-2.3) mg/dL ALT 20 L (21-72) U/L Total Creatine Kinase 47 L (55-170) U/L Total Protein 5.1 L (6.3-8.2) g/dL Albumin 2.3 L (3.5-5.0) g/dL 08/06/17 08/06/17 08/06/17 Range/Units 18:05 22:57 23:13 WBC (3.8-10.6) k/uL RBC 2.97 L (4.30-5.90) m/uL Hgb 8.6 L D (13.0-17.5) gm/dL Hct 27.6 L (39.0-53.0) % MCHC (31.0-37.0) g/dL Neutrophils # (1.3-7.7) k/uL Lymphocytes # 0.9 L (1.0-4.8) k/uL PT 12.4 H (9.0-12.0) sec INR 1.3 H (<1.2) Sodium (137-145) mmol/L Potassium (3.5-5.1) mmol/L Chloride (98-107) mmol/L Carbon Dioxide (22-30) mmol/L BUN (9-20) mg/dL Glucose (74-99) mg/dL POC Glucose (mg/dL) 114 H (75-99) mg/dL Calcium (8.4-10.2) mg/dL Magnesium (1.6-2.3) mg/dL ALT (21-72) U/L Total Creatine Kinase (55-170) U/L Total Protein (6.3-8.2) g/dL Albumin (3.5-5.0) g/dL 08/07/17 08/07/17 08/07/17 Range/Units 03:29 03:29 06:47 WBC (3.8-10.6) k/uL RBC 3.13 L (4.30-5.90) m/uL Hgb 8.9 L (13.0-17.5) gm/dL Hct 29.6 L (39.0-53.0) % MCHC 29.9 L (31.0-37.0) g/dL Neutrophils # (1.3-7.7) k/uL Lymphocytes # 0.5 L (1.0-4.8) k/uL PT (9.0-12.0) sec INR (<1.2) Sodium (137-145) mmol/L Potassium 6.0 H (3.5-5.1) mmol/L Chloride (98-107) mmol/L Carbon Dioxide 37 H (22-30) mmol/L BUN 64 H (9-20) mg/dL Glucose 122 H (74-99) mg/dL POC Glucose (mg/dL) 105 H (75-99) mg/dL Calcium 7.1 L (8.4-10.2) mg/dL Magnesium 2.4 H (1.6-2.3) mg/dL ALT (21-72) U/L Total Creatine Kinase (55-170) U/L Total Protein (6.3-8.2) g/dL Albumin (3.5-5.0) g/dL 08/07/17 08/07/17 08/07/17 Range/Units 12:00 12:00 13:05 WBC 11.2 H (3.8-10.6) k/uL RBC 2.77 L (4.30-5.90) m/uL Hgb 7.8 L (13.0-17.5) gm/dL Hct 26.3 L (39.0-53.0) % MCHC 29.8 L (31.0-37.0) g/dL Neutrophils # 9.7 H (1.3-7.7) k/uL Lymphocytes # 0.8 L (1.0-4.8) k/uL PT (9.0-12.0) sec INR (<1.2) Sodium 148 H (137-145) mmol/L Potassium (3.5-5.1) mmol/L Chloride 108 H (98-107) mmol/L Carbon Dioxide 36 H (22-30) mmol/L BUN 57 H (9-20) mg/dL Glucose 41 L* (74-99) mg/dL POC Glucose (mg/dL) 233 H (75-99) mg/dL Calcium 7.0 L (8.4-10.2) mg/dL Magnesium (1.6-2.3) mg/dL ALT (21-72) U/L Total Creatine Kinase (55-170) U/L Total Protein (6.3-8.2) g/dL Albumin (3.5-5.0) g/dL Microbiology - Last 24 Hours (Table) 08/07/17 02:10 Urine Culture - Preliminary Urine,Catheterized Thrombosis Risk Factor Assmnt - Choose All That Apply Any of the Below Risk Factors Present?: No Other Risk Factors: Yes Each Risk Factor Represents 2 Points: Age 61-74 years Other congenital or acquired thrombophilia - If yes, enter type in comment: No Thrombosis Risk Factor Assessment Total Risk Factor Score: 2 Thrombosis Risk Factor Assessment Level: Low Risk Assessment and Plan Plan: -Acute blood last anemia from GI bleed most probably upper GI bleed aspirin and Plavix will be held patient on Protonix -Coronary artery disease without any previous intervention antiplatelet therapy need to be held because of the GI bleed -Acute kidney injury secondary to GI bleed continue with IV fluids -COPD without any acute exacerbation and patient does have chronic hypercapnic respiratory failure and uses 2 L -Coronary artery disease -Hyperlipidemia -Hypertension History of osteogenesis imperfecta Hyperkalemia patient is on normal saline and also received calcium gluconate and D50 because of the multiple bowel movements are not giving him any Rate at this time we'll repeat lites tomorrow -Moderate protein calorie malnutrition -Possible baseline moderate to severe dementia
[2017-08-07 13:57] LABS: Glucose,Whole Blood 165 mg/dL (75-99)
[2017-08-07 16:07] LABS: Glucose,Whole Blood 127 mg/dL (75-99)
[2017-08-07 19:39] LABS: Glucose,Whole Blood 95 mg/dL (75-99)
[2017-08-07] MEDS: LATANOPROST 0.005% OPHTH DROPS 2.5 ML BTL RIGHT EYE SCH (21:44)
[2017-08-08 00:40] LABS: Glucose,Whole Blood 89 mg/dL (75-99)
[2017-08-08 03:24] LABS: Basophils % (A) 0 %; Eosinophils # (A) 0.1 k/uL (0-0.7); Eosinophils % (A) 1 %; HCT 24.1 % (39.0-53.0); HGB 7.4 gm/dL (13.0-17.5); Hypochromasia Marked; Lymphocytes # (A) 0.7 k/uL (1.0-4.8); Lymphocytes % (A) 5 %; MCHC 30.6 g/dL (31.0-37.0); MCV 94.8 fL (80.0-100.0); Mean Platelet Volume 8.5; Monocytes # (A) 0.6 k/uL (0-1.0); Monocytes % (A) 4 %; Neutrophils # (A) 11.2 k/uL (1.3-7.7); Neutrophils % (A) 89 %; Platelet Count 210 k/uL (150-450); RBC 2.54 m/uL (4.30-5.90); RDW 12.9 % (11.5-15.5); WBC 12.6 k/uL (3.8-10.6)
[2017-08-08 03:35] LABS: Calcium 6.7 mg/dL (8.4-10.2); Magnesium 2.1 mg/dL (1.6-2.3); Phosphorus 3.5 mg/dL (2.5-4.5)
[2017-08-08 04:24] LABS: Glucose,Whole Blood 90 mg/dL (75-99)
[2017-08-08] MEDS: SODIUM CHLORIDE 0.9% 1,000 ML IV SCH (06:23)
[2017-08-08 08:01] LABS: Glucose,Whole Blood 86 mg/dL (75-99)
--- NOTE | 2017-08-08 08:12 | XR ---
EXAMINATION TYPE: XR chest 1V DATE OF EXAM: 08/08/2017 COMPARISON: Prior chest x-ray 08/06/2017, 12/07/2015 HISTORY: Exertional dyspnea TECHNIQUE: Single frontal view of the chest is obtained. FINDINGS: Increased density at the lung bases obscures the hemidiaphragms. No evident pneumothorax. Heart is enlarged. Prominent lung volume may be indicative of underlying COPD. There are overlying ca rdiac leads. Thoracic spondylosis again noted. IMPRESSION: There may be basilar atelectasis versus pneumonia and associated effusion. Cardiomegaly. Follow-up recommended.
[2017-08-08] MEDS: TIMOLOL 0.5% OPHTH DROPS 5 ML BTL RIGHT EYE SCH ×2 (08:17→21:48)
[2017-08-08] MEDS: PANTOPRAZOLE 40 MG/10 ML VIAL IV SCH ×2 (08:17→21:48)
[2017-08-08] MEDS: BRIMONIDINE TARTRATE 0.2% DROPS 5 ML BTL RIGHT EYE SCH ×2 (08:18→21:47)
--- NOTE | 2017-08-08 10:47 | P.PN ---
Subjective Progress Note Date: 08/08/17 Principal diagnosis: GI bleed No further bleeding greater than 24 hours. Hemoglobin 7.4. More alert talking answering questions appropriately. BUN and creatinine improved. Afebrile. Denies abdominal pain. Objective - Vital Signs Vital signs: Vital Signs Temp 98 F 08/08/17 08:00 Pulse 86 08/08/17 10:00 Resp 24 08/08/17 10:00 BP 132/39 08/08/17 10:00 Pulse Ox 99 08/08/17 10:00 Intake & Output 08/07/17 08/08/17 08/08/17 18:59 06:59 18:59 Intake Total 2625 1875 400 Output Total 285 510 205 Balance 2340 1365 195 Weight 45.5 kg 52.7 kg Intake: IV 2625 1875 400 Dextrose 5% in Water 1, 150 000 ml @ 75 mls/hr IV . [id number] Rx#:[id number] Sodium Chloride 0.9% 1, 1125 1375 250 000 ml @ 125 mls/hr IV . Q8H [facility] Rx#:[id number] Sodium Chloride 0.9% 1, 1500 500 000 ml @ 500 mls/hr IV . Q2H [facility] Rx#:[id number] Output: Urine 285 510 205 Other: Voiding Method Indwelling Catheter Indwelling Catheter Indwelling Catheter - Exam General appearance: The patient is alert, oriented, in no acute distress. Overall cachectic appearance. HET: Head is normocephalic and atraumatic. Pupils are equal and reactive. Oropharynx is clear without lesions. Neck: Supple without lymphadenopathy. Trachea midline. Heart: S1 S2. Regular rate and rhythm. Lungs: No crackles or wheezes are heard. Abdomen: Soft, nontender, nondistended with bowel sounds. No peritoneal signs. No palpable organomegaly or masses. Extremities: Normal skin color and turgor. No cyanosis, rash, ulceration, clubbing, or edema. Radial and pedal pulses are 2/4 bilaterally. Neurological: No focal deficits. Strength and sensation are grossly intact. - Labs CBC & Chem 7: 08/08/17 03:11 08/08/17 03:11 Labs: Abnormal Lab Results - Last 24 Hours (Table) 08/07/17 08/07/17 08/07/17 Range/Units 12:00 12:00 13:05 WBC 11.2 H (3.8-10.6) k/uL RBC 2.77 L (4.30-5.90) m/uL Hgb 7.8 L (13.0-17.5) gm/dL Hct 26.3 L (39.0-53.0) % MCHC 29.8 L (31.0-37.0) g/dL Neutrophils # 9.7 H (1.3-7.7) k/uL Lymphocytes # 0.8 L (1.0-4.8) k/uL Sodium 148 H (137-145) mmol/L Chloride 108 H (98-107) mmol/L Carbon Dioxide 36 H (22-30) mmol/L BUN 57 H (9-20) mg/dL Glucose 41 L* (74-99) mg/dL POC Glucose (mg/dL) 233 H (75-99) mg/dL Calcium 7.0 L (8.4-10.2) mg/dL 08/07/17 08/07/17 08/08/17 Range/Units 13:55 16:04 03:11 WBC 12.6 H (3.8-10.6) k/uL RBC 2.54 L (4.30-5.90) m/uL Hgb 7.4 L (13.0-17.5) gm/dL Hct 24.1 L (39.0-53.0) % MCHC 30.6 L (31.0-37.0) g/dL Neutrophils # 11.2 H (1.3-7.7) k/uL Lymphocytes # 0.7 L (1.0-4.8) k/uL Sodium (137-145) mmol/L Chloride (98-107) mmol/L Carbon Dioxide (22-30) mmol/L BUN (9-20) mg/dL Glucose (74-99) mg/dL POC Glucose (mg/dL) 165 H 127 H (75-99) mg/dL Calcium (8.4-10.2) mg/dL 08/08/17 Range/Units 03:11 WBC (3.8-10.6) k/uL RBC (4.30-5.90) m/uL Hgb (13.0-17.5) gm/dL Hct (39.0-53.0) % MCHC (31.0-37.0) g/dL Neutrophils # (1.3-7.7) k/uL Lymphocytes # (1.0-4.8) k/uL Sodium 149 H (137-145) mmol/L Chloride 114 H (98-107) mmol/L Carbon Dioxide (22-30) mmol/L BUN 48 H (9-20) mg/dL Glucose (74-99) mg/dL POC Glucose (mg/dL) (75-99) mg/dL Calcium 6.7 L (8.4-10.2) mg/dL Microbiology - Last 24 Hours (Table) 08/07/17 02:10 Urine Culture - Preliminary Urine,Catheterized Assessment and Plan (1) GI bleed Narrative/Plan: 87-year-old male presents with burgundy colored bowel movements etiology unclear possible colonic diverticular bleed possible peptic ulcer disease. Current Visit: Yes Status: Acute Code(s): K92.2 - GASTROINTESTINAL HEMORRHAGE, UNSPECIFIED SNOMED Code(s): 82901484 (2) Acute blood loss anemia Current Visit: Yes Status: Acute Code(s): D62 - ACUTE POSTHEMORRHAGIC ANEMIA SNOMED Code(s): 866138419 (3) Cachexia Current Visit: Yes Status: Acute Code(s): R64 - CACHEXIA SNOMED Code(s): 523470845 Plan: 1. Clear liquid diet today. Will evaluate daily. Possible EGD colonoscopy 2- 3 days contingent on clinical course. Assessment and plan a care was discussed with aircraft maintenance manager Dr. Madden. Continue to monitor CBC and continue GI prophylaxis. Assessment and plan a care discussed with Dr. Mancuso
[2017-08-08] MEDS: DEXTROSE 5% IN WATER 1,000 ML IV SCH ×2 (11:39→21:51)
[2017-08-08 12:01] LABS: Glucose,Whole Blood 108 mg/dL (75-99)
--- NOTE | 2017-08-08 12:35 | P.PN ---
Subjective Progress Note Date: 08/08/17 Principal diagnosis: GI bleeding, clammy upper GI source. Blood loss anemia, acute kidney injury This is a very lethargic 87-year-old male patient who was brought in yesterday to the [facility] department because of episodes of GI bleed. The patient presented to the emergency department with painless GI bleed. The patient apparently had burgundy colored stool earlier on that day. On admission, he had a normal blood pressure of 107/53 would doubt any tachycardia. Initial hemoglobin was 11.6. His BUN was elevated at 60 and he had a potassium level of 5.9. Subsequently, he had 3 further episodes of bloody stool that occurred in the intensive care unit overnight. Hemoglobin dropped down to 8.9 and the patient has not been transfused yet. Overall he has received a total of 1 L of IV fluid and the patient is currently on a maintenance of 125 mL an hour. No coffee-ground emesis. No hematemesis. No bright red blood per rectum. The patient does not volunteer much of history. According to him he doesn't drink alcohol in excess. He has been on a combination of aspirin and Plavix regarding previous history of cardiac disease and coronary artery disease and previous SD. Apparently had refused further care and I'm not sure if he has had any previous cardiac catheterization on evaluations. The patient coags were slightly elevated with an INR of 1.3, PTT was within normal limits, platelets are also within normal limits. He is slow in answering questions. He knows that he is in the hospital. He denies having any major chest pain or respiratory distress. Cardiac enzymes were negative. EKG not showing any acute abnormalities. No open wounds or sores. According to the history is been on oxygen at home and probably his underlying COPD and addition. Currently is on oxygen at 3 L/m nasal cannula. He is moving all 4 extremities. No focal neurological deficit. He is currently nothing by mouth for now. He has remote history of gastric ulcers however he hasn't had any recent history of bleeding. I interviewed the son and I was told that the patient is able to walk however his gait has been progressively getting worse and he has become unsteady. He always was a finger his current BMI 16.2. Apparently his been able to eat well and swallow without any major difficulties. 08/08/2017 patient seen in follow-up in the intensive care unit. He is more awake and alert, and more responsive today. Denies any distress, denies any chest pain or dyspnea, denies any abdominal discomfort. He has not had any further episodes of GI bleeding, no hematemesis, no melena. He has remained hemodynamically stable, has not required any vasopressor support, has not required any blood transfusions this admission. Today's hemoglobin is 7.4, it is stable, WBCs 12.6. Renal profile is improving, BUN is down to 48, creatinine is down to 1.20. Serum sodium is up to 149, patient was given 2 L of IV 0.9 normal saline boluses yesterday. He remains nothing by mouth at this time, GI service is Following. We'll possibly do an EGD and possible colonoscopy once the patient is more stable, and physically less debilitated. Will initiate clear liquid diet today. We'll continue to monitor hemoglobin, and continue monitoring for recurrence of GI bleeding. Patient is currently on 2 L per nasal cannula with O2 sat at 98%. Lung sounds are positive for bibasilar rhonchi, patient will begin incentive spirometry, but denies any respiratory complaints at this time. Objective - Vital Signs Vital signs: Vital Signs Temp 98 F 08/08/17 08:00 Pulse 86 08/08/17 10:00 Resp 24 08/08/17 10:00 BP 132/39 08/08/17 10:00 Pulse Ox 99 08/08/17 10:00 Intake & Output 08/07/17 08/08/17 08/08/17 18:59 06:59 18:59 Intake Total 2625 1875 400 Output Total 285 510 205 Balance 2340 1365 195 Weight 45.5 kg 52.7 kg Intake: IV 2625 1875 400 Dextrose 5% in Water 1, 150 000 ml @ 75 mls/hr IV . [id number] [facility] Rx#:[id number] Sodium Chloride 0.9% 1, 1125 1375 250 000 ml @ 125 mls/hr IV . Q8H [facility] Rx#:[id number] Sodium Chloride 0.9% 1, 1500 500 000 ml @ 500 mls/hr IV . Q2H [facility] Rx#:[id number] Output: Urine 285 510 205 Other: Voiding Method Indwelling Catheter Indwelling Catheter Indwelling Catheter - Exam The patient is very cachectic and emaciated with a body mass index of 16.2. He is more arousable. More responsive. He is aware of his surroundings and he knows that he is in the hospital. No agitation. Resting comfortably in bed. The patient has temporal wasting. The patient has diffuse muscle atrophy and significant loss in total body protein mass both in his upper and lower extremities. Head exam was generally normal. There was no scleral icterus or corneal arcus. Mucous membranes were moist.Neck was supple and without jugular venous distension, thyromegaly, or carotid bruits. Carotids were easily palpable bilaterally. There was no adenopathy.Lungs sounds are positive for a few scattered rhonchi in bilateral bases, and with normal diaphragmatic excursion. No wheezes or rales were noted. Breath sounds are diminished in lung bases and there is no wheezes or rhonchi this point.Cardiac exam revealed the PMI to be normally situated and sized. The rhythm was regular and no extrasystoles were noted during several minutes of auscultation. The first and second heart sounds were normal and physiologic splitting of the second heart sound was noted. There were no murmurs, rubs, clicks, or gallops. Abdomen is soft and there is a pulsatile aorta can be felt in the midabdomen however this is probably a reflection of his underlying significant weight loss and absent abdominal fat. No direct tenderness or rebound tensile guarding at this point.Examination of the extremities revealed easily palpable radial, femoral and pedal pulses. There was no cyanosis, clubbing or edema.Examination of the skin revealed no evidence of significant rashes, suspicious appearing nevi or other concerning lesions. Neurologically is awake and alert and is following commands and moving all 4 extremities without any limitation. - Labs CBC & Chem 7: 08/08/17 03:11 08/08/17 03:11 Labs: Abnormal Lab Results - Last 24 Hours (Table) 08/07/17 08/07/17 08/07/17 Range/Units 12:00 13:05 13:55 WBC (3.8-10.6) k/uL RBC (4.30-5.90) m/uL Hgb (13.0-17.5) gm/dL Hct (39.0-53.0) % MCHC (31.0-37.0) g/dL Neutrophils # (1.3-7.7) k/uL Lymphocytes # (1.0-4.8) k/uL Sodium 148 H (137-145) mmol/L Chloride 108 H (98-107) mmol/L Carbon Dioxide 36 H (22-30) mmol/L BUN 57 H (9-20) mg/dL Glucose 41 L* (74-99) mg/dL POC Glucose (mg/dL) 233 H 165 H (75-99) mg/dL Calcium 7.0 L (8.4-10.2) mg/dL 08/07/17 08/08/17 08/08/17 Range/Units 16:04 03:11 03:11 WBC 12.6 H (3.8-10.6) k/uL RBC 2.54 L (4.30-5.90) m/uL Hgb 7.4 L (13.0-17.5) gm/dL Hct 24.1 L (39.0-53.0) % MCHC 30.6 L (31.0-37.0) g/dL Neutrophils # 11.2 H (1.3-7.7) k/uL Lymphocytes # 0.7 L (1.0-4.8) k/uL Sodium 149 H (137-145) mmol/L Chloride 114 H (98-107) mmol/L Carbon Dioxide (22-30) mmol/L BUN 48 H (9-20) mg/dL Glucose (74-99) mg/dL POC Glucose (mg/dL) 127 H (75-99) mg/dL Calcium 6.7 L (8.4-10.2) mg/dL 08/08/17 Range/Units 11:59 WBC (3.8-10.6) k/uL RBC (4.30-5.90) m/uL Hgb (13.0-17.5) gm/dL Hct (39.0-53.0) % MCHC (31.0-37.0) g/dL Neutrophils # (1.3-7.7) k/uL Lymphocytes # (1.0-4.8) k/uL Sodium (137-145) mmol/L Chloride (98-107) mmol/L Carbon Dioxide (22-30) mmol/L BUN (9-20) mg/dL Glucose (74-99) mg/dL POC Glucose (mg/dL) 108 H (75-99) mg/dL Calcium (8.4-10.2) mg/dL Microbiology - Last 24 Hours (Table) 08/07/17 02:10 Urine Culture - Final Urine,Catheterized Assessment and Plan Plan: Assessment: 1 GI bleeding likely of an upper GI source. The patient is known to have gastric ulcer. Patient looks remain on hold. No significant coagulopathy. Liver function tests and platelet count is also within normal limits. The patient had several episodes of GI bleed and current hemoglobin is down to 7.4. Hemodynamically stable 2 acute kidney injury, with elevation of the BUN, likely secondary to GI bleed 3 blood loss anemia with a hemoglobin of 7.4 4 acute hyperkalemia doubt any EKG changes, treated with calcium gluconate and D50 and insulin and he is also being hydrated with IV fluids and the repeat potassium will be obtained. 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 Hemoglobin is stable, at 7.4. Remains hemodynamically stable, has not required any blood transfusions this admission. Appears to be more alert, and responsive today's exam. Denies any acute complaints, denies any dyspnea and chest pain. We spoke to the GI service today, 30 in the plan is to initiate clear liquid diet today, and monitor for recurrence of GI bleeding. Continue monitor hemoglobin, signs, patient is stable to be transferred out of intensive care unit today to a monitored bed. I performed a history & physical examination of the patient and discussed their management with my nurse practitioner, Anya Barahona. I reviewed the nurse practitioner's note and agree with the documented findings and plan of care. Lung sounds are positive for a few rhonchi. The findings and the impression was discussed with the patient. I attest to the documentation by the nurse practitioner. Time with Patient: Greater than 30
--- NOTE | 2017-08-08 15:48 | P.PN ---
Subjective 85-year-old the female admitted for right GI bleed patient doesn't have any more bleed since patient patient will be transferred out of ICU patient's hemoglobin remained stable patient started eating today. I do not know his baseline mental status unable to discuss with the the son. CODE STATUS was discussed with his son by Dr. Madden. Unsure whether patient has dementia whether it's advanced are not. For now but I saw the patient patient is eating well. Probably the best idea would be once he is stable enough patient can be resumed on antiplatelet therapy if agreeable by gastroenterology and discharged to subacute rehabilitation. Patient mostly nonverbal Objective - Vital Signs Vital signs: Vital Signs Temp 97.9 F 08/08/17 12:00 Pulse 77 08/08/17 15:00 Resp 21 08/08/17 15:00 BP 128/49 08/08/17 15:00 Pulse Ox 91 L 08/08/17 15:00 Intake & Output 08/07/17 08/08/17 08/08/17 18:59 06:59 18:59 Intake Total 2625 1875 775 Output Total 285 510 400 Balance 2340 1365 375 Weight 45.5 kg 52.7 kg Intake: IV 2625 1875 775 Dextrose 5% in Water 1, 525 000 ml @ 75 mls/hr IV . [id number] [facility] Rx#:[id number] Sodium Chloride 0.9% 1, 1125 1375 250 000 ml @ 125 mls/hr IV . Q8H [facility] Rx#:[id number] Sodium Chloride 0.9% 1, 1500 500 000 ml @ 500 mls/hr IV . Q2H [facility] Rx#:[id number] Output: Urine 285 510 400 Other: Voiding Method Indwelling Catheter Indwelling Catheter Indwelling Catheter - Exam PHYSICAL EXAMINATION: GENERAL: The patient is alert, unable to assess his orientation patient is a severely cachectic thin built with temporal wasting diffuse muscle atrophy HEENT: Pupils are round and equally reacting to light. EOMI. No scleral icterus. No conjunctival pallor. Normocephalic, atraumatic. No pharyngeal erythema. No thyromegaly. CARDIOVASCULAR: S1 and S2 present. No murmurs, rubs, or gallops. PULMONARY: Chest is clear to auscultation, no wheezing or crackles. ABDOMEN: Soft, nontender, nondistended, normoactive bowel sounds. No palpable organomegaly. MUSCULOSKELETAL: No joint swelling or deformity. EXTREMITIES: No cyanosis, clubbing, or pedal edema. NEUROLOGICAL: Unable to assess SKIN: No rashes. - Labs CBC & Chem 7: 08/08/17 03:11 08/08/17 03:11 Labs: Abnormal Lab Results - Last 24 Hours (Table) 08/07/17 08/08/17 08/08/17 Range/Units 16:04 03:11 03:11 WBC 12.6 H (3.8-10.6) k/uL RBC 2.54 L (4.30-5.90) m/uL Hgb 7.4 L (13.0-17.5) gm/dL Hct 24.1 L (39.0-53.0) % MCHC 30.6 L (31.0-37.0) g/dL Neutrophils # 11.2 H (1.3-7.7) k/uL Lymphocytes # 0.7 L (1.0-4.8) k/uL Sodium 149 H (137-145) mmol/L Chloride 114 H (98-107) mmol/L BUN 48 H (9-20) mg/dL POC Glucose (mg/dL) 127 H (75-99) mg/dL Calcium 6.7 L (8.4-10.2) mg/dL 08/08/17 Range/Units 11:59 WBC (3.8-10.6) k/uL RBC (4.30-5.90) m/uL Hgb (13.0-17.5) gm/dL Hct (39.0-53.0) % MCHC (31.0-37.0) g/dL Neutrophils # (1.3-7.7) k/uL Lymphocytes # (1.0-4.8) k/uL Sodium (137-145) mmol/L Chloride (98-107) mmol/L BUN (9-20) mg/dL POC Glucose (mg/dL) 108 H (75-99) mg/dL Calcium (8.4-10.2) mg/dL Microbiology - Last 24 Hours (Table) 08/07/17 02:10 Urine Culture - Final Urine,Catheterized Assessment and Plan Plan: -Acute blood last anemia from GI bleed most probably upper GI bleed aspirin and Plavix will be held patient on Protonix . Whenever gastroenterology believes it 's appropriate patient can be resumed back on aspirin and/or Plavix. No more GI bleed patient will transfer out of ICU -Coronary artery disease without any previous intervention antiplatelet therapy need to be held because of the GI bleed -Acute kidney injury secondary to GI bleed continue with IV fluids -COPD without any acute exacerbation and patient does have chronic hypercapnic respiratory failure and uses 2 L -Coronary artery disease -Hyperlipidemia -Hypertension History of osteogenesis imperfecta Hyperkalemia patient is on normal saline and also received calcium gluconate and D50 because of the multiple bowel movements are not giving him any Rate at this time we'll repeat lites tomorrow -Moderate protein calorie malnutrition -Possible baseline moderate dementia
[2017-08-08 16:58] LABS: Glucose,Whole Blood 158 mg/dL (75-99)
[2017-08-08 21:45] LABS: Glucose,Whole Blood 163 mg/dL (75-99)
[2017-08-08] MEDS: LATANOPROST 0.005% OPHTH DROPS 2.5 ML BTL RIGHT EYE SCH (21:48)
[2017-08-09 05:32] LABS: Glucose,Whole Blood 247 mg/dL (75-99)
[2017-08-09] MEDS: INSULIN ASPART 100 UNIT/ML 1 ML 10 ML VIAL SQ SCH ×4 (06:07→21:06)
[2017-08-09 08:15] LABS: Basophils % (A) 0 %; Eosinophils # (A) 0.1 k/uL (0-0.7); Eosinophils % (A) 1 %; HCT 22.5 % (39.0-53.0); Hypochromasia Marked; Lymphocytes # (A) 0.6 k/uL (1.0-4.8); Lymphocytes % (A) 5 %; MCH 27.8 pg (25.0-35.0); MCHC 28.5 g/dL (31.0-37.0); MCV 97.6 fL (80.0-100.0); Mean Platelet Volume 8.6; Monocytes # (A) 0.5 k/uL (0-1.0); Monocytes % (A) 4 %; Neutrophils # (A) 11.2 k/uL (1.3-7.7); Neutrophils % (A) 91 %; Platelet Count 232 k/uL (150-450); RBC 2.31 m/uL (4.30-5.90); RDW 13.6 % (11.5-15.5); WBC 12.3 k/uL (3.8-10.6)
[2017-08-09 08:17] LABS: HGB 6.4 gm/dL (13.0-17.5)
--- NOTE | 2017-08-09 08:24 | XR ---
EXAMINATION TYPE: XR chest 1V DATE OF EXAM: 08/09/2017 COMPARISON: Prior chest x-ray 08/08/2017 HISTORY: Exertional dyspnea TECHNIQUE: Single frontal view of the chest is obtained. FINDINGS: Retrocardiac density obscures the left hemidiaphragm. Increased density also noted at the right lung base. Surgical clips are present in the upper abdomen. Heart remains enlarged. No evident pneumothorax. Patient is rotated. IMPRESSION: Basilar effusions and associated atelectasis, correlate to exclude pneumonia. [facility]omega ly. Follow-up recommended.
[2017-08-09 08:27] LABS: Magnesium 2.3 mg/dL (1.6-2.3); Phosphorus 2.5 mg/dL (2.5-4.5); Potassium 4.6 mmol/L (3.5-5.1)
[2017-08-09 08:33] LABS: Calcium 6.4 mg/dL (8.4-10.2)
--- NOTE | 2017-08-09 09:04 | P.PN ---
Subjective Progress Note Date: 08/09/17 Principal diagnosis: GI bleed No further bleeding however hemoglobin decreased to 6.4 this morning. BUN slightly improved to 42. Alert talking answering questions appropriately. BUN and creatinine improved. Afebrile. Denies abdominal pain. Objective - Vital Signs Vital signs: Vital Signs Temp 97.9 F 08/09/17 07:26 Pulse 65 08/09/17 07:26 Resp 20 08/09/17 07:26 BP 103/49 08/09/17 07:26 Pulse Ox 96 08/09/17 07:26 Intake & Output 08/08/17 08/09/17 08/09/17 18:59 06:59 18:59 Intake Total 850 1200 Output Total 490 600 Balance 360 600 Intake: IV 775 1200 Dextrose 5% in Water 1, 525 1200 000 ml @ 75 mls/hr IV . [id number] [facility] Rx#:[id number] Sodium Chloride 0.9% 1, 250 000 ml @ 125 mls/hr IV . Q8H [facility] Rx#:[id number] Intake, IV Titration 75 Amount Dextrose 5% in Water 1, 75 000 ml @ 75 mls/hr IV . [id number] [facility] Rx#:[id number] Output: Urine 490 600 Other: Voiding Method Indwelling Catheter Indwelling Catheter - Exam General appearance: The patient is alert, oriented, in no acute distress. Overall cachectic appearance. HET: Head is normocephalic and atraumatic. Pupils are equal and reactive. Oropharynx is clear without lesions. Neck: Supple without lymphadenopathy. Trachea midline. Heart: S1 S2. Regular rate and rhythm. Lungs: No crackles or wheezes are heard. Abdomen: Soft, nontender, nondistended with bowel sounds. No peritoneal signs. No palpable organomegaly or masses. Extremities: Normal skin color and turgor. No cyanosis, rash, ulceration, clubbing, or edema. Radial and pedal pulses are 2/4 bilaterally. Neurological: No focal deficits. Strength and sensation are grossly intact. - Labs CBC & Chem 7: 08/09/17 07:24 08/09/17 07:24 Labs: Abnormal Lab Results - Last 24 Hours (Table) 08/06/17 08/08/17 08/08/17 Range/Units 18:05 11:59 16:37 WBC (3.8-10.6) k/uL RBC (4.30-5.90) m/uL Hgb (13.0-17.5) gm/dL Hct (39.0-53.0) % MCHC (31.0-37.0) g/dL Neutrophils # (1.3-7.7) k/uL Lymphocytes # (1.0-4.8) k/uL Sodium (137-145) mmol/L Chloride (98-107) mmol/L Carbon Dioxide (22-30) mmol/L BUN (9-20) mg/dL Glucose (74-99) mg/dL POC Glucose (mg/dL) 108 H 158 H (75-99) mg/dL Calcium (8.4-10.2) mg/dL Crossmatch See Detail 08/08/17 08/09/17 08/09/17 Range/Units 21:35 05:30 07:24 WBC 12.3 H (3.8-10.6) k/uL RBC 2.31 L (4.30-5.90) m/uL Hgb 6.4 L* (13.0-17.5) gm/dL Hct 22.5 L (39.0-53.0) % MCHC 28.5 L (31.0-37.0) g/dL Neutrophils # 11.2 H (1.3-7.7) k/uL Lymphocytes # 0.6 L (1.0-4.8) k/uL Sodium (137-145) mmol/L Chloride (98-107) mmol/L Carbon Dioxide (22-30) mmol/L BUN (9-20) mg/dL Glucose (74-99) mg/dL POC Glucose (mg/dL) 163 H 247 H (75-99) mg/dL Calcium (8.4-10.2) mg/dL Crossmatch 08/09/17 Range/Units 07:24 WBC (3.8-10.6) k/uL RBC (4.30-5.90) m/uL Hgb (13.0-17.5) gm/dL Hct (39.0-53.0) % MCHC (31.0-37.0) g/dL Neutrophils # (1.3-7.7) k/uL Lymphocytes # (1.0-4.8) k/uL Sodium 146 H (137-145) mmol/L Chloride 110 H (98-107) mmol/L Carbon Dioxide 33 H (22-30) mmol/L BUN 42 H (9-20) mg/dL Glucose 152 H (74-99) mg/dL POC Glucose (mg/dL) (75-99) mg/dL Calcium 6.4 L* (8.4-10.2) mg/dL Crossmatch Microbiology - Last 24 Hours (Table) 08/07/17 02:10 Urine Culture - Final Urine,Catheterized Assessment and Plan (1) GI bleed Narrative/Plan: 87-year-old male presents with burgundy colored bowel movements etiology unclear possible colonic diverticular bleed possible peptic ulcer disease. Current Visit: Yes Status: Acute Code(s): K92.2 - GASTROINTESTINAL HEMORRHAGE, UNSPECIFIED SNOMED Code(s): 55852955 (2) Acute blood loss anemia Narrative/Plan: Hemoglobin dropped to 6.4 this morning without overt bleeding. Current Visit: Yes Status: Acute Code(s): D62 - ACUTE POSTHEMORRHAGIC ANEMIA SNOMED Code(s): 606836489 (3) Cachexia Current Visit: Yes Status: Acute Code(s): R64 - CACHEXIA SNOMED Code(s): 829800928 Plan: 1. Nothing by mouth except medications. Continue with IV Protonix twice daily. CBC every 6 hours. EGD evaluation tomorrow possible colonoscopy during this hospitalization pending EGD evaluation. Blood transfusion ordered. We'll follow closely. Assessment and plan a care discussed with Dr. Mancuso
[2017-08-09] MEDS: PANTOPRAZOLE 40 MG/10 ML VIAL IV SCH ×2 (09:44→21:28)
[2017-08-09] MEDS: TIMOLOL 0.5% OPHTH DROPS 5 ML BTL RIGHT EYE SCH ×2 (09:44→21:29)
[2017-08-09] MEDS: BRIMONIDINE TARTRATE 0.2% DROPS 5 ML BTL RIGHT EYE SCH ×2 (09:44→21:29)
[2017-08-09 11:42] LABS: Glucose,Whole Blood 74 mg/dL (75-99)
[2017-08-09] MEDS: DEXTROSE 5% IN WATER 1,000 ML IV SCH (14:49)
[2017-08-09] MEDS: CALCIUM GLUCONATE 1,000 MG in SODIUM CHLORIDE 0.9% 100 ML IVPB SCH ×2 (15:37→21:23)
[2017-08-09 16:02] LABS: Glucose,Whole Blood 76 mg/dL (75-99)
--- NOTE | 2017-08-09 16:49 | P.PN ---
Subjective Progress Note Date: 08/09/17 Principal diagnosis: GI bleeding. Anemia. Acute kidney injury. This is a very lethargic 87-year-old male patient who was brought in yesterday to the [facility] department because of episodes of GI bleed. The patient presented to the emergency department with painless GI bleed. The patient apparently had burgundy colored stool earlier on that day. On admission, he had a normal blood pressure of 107/53 would doubt any tachycardia. Initial hemoglobin was 11.6. His BUN was elevated at 60 and he had a potassium level of 5.9. Subsequently, he had 3 further episodes of bloody stool that occurred in the intensive care unit overnight. Hemoglobin dropped down to 8.9 and the patient has not been transfused yet. Overall he has received a total of 1 L of IV fluid and the patient is currently on a maintenance of 125 mL an hour. No coffee-ground emesis. No hematemesis. No bright red blood per rectum. The patient does not volunteer much of history. According to him he doesn't drink alcohol in excess. He has been on a combination of aspirin and Plavix regarding previous history of cardiac disease and coronary artery disease and previous TX. Apparently had refused further care and I'm not sure if he has had any previous cardiac catheterization on evaluations. The patient coags were slightly elevated with an INR of 1.3, PTT was within normal limits, platelets are also within normal limits. He is slow in answering questions. He knows that he is in the hospital. He denies having any major chest pain or respiratory distress. Cardiac enzymes were negative. EKG not showing any acute abnormalities. No open wounds or sores. According to the history is been on oxygen at home and probably his underlying COPD and addition. Currently is on oxygen at 3 L/m nasal cannula. He is moving all 4 extremities. No focal neurological deficit. He is currently nothing by mouth for now. He has remote history of gastric ulcers however he hasn't had any recent history of bleeding. I interviewed the son and I was told that the patient is able to walk however his gait has been progressively getting worse and he has become unsteady. He always was a finger his current BMI 16.2. Apparently his been able to eat well and swallow without any major difficulties. 08/08/2017 patient seen in follow-up in the intensive care unit. He is more awake and alert, and more responsive today. Denies any distress, denies any chest pain or dyspnea, denies any abdominal discomfort. He has not had any further episodes of GI bleeding, no hematemesis, no melena. He has remained hemodynamically stable, has not required any vasopressor support, has not required any blood transfusions this admission. Today's hemoglobin is 7.4, it is stable, WBCs 12.6. Renal profile is improving, BUN is down to 48, creatinine is down to 1.20. Serum sodium is up to 149, patient was given 2 L of IV 0.9 normal saline boluses yesterday. He remains nothing by mouth at this time, GI service is Following. We'll possibly do an EGD and possible colonoscopy once the patient is more stable, and physically less debilitated. Will initiate clear liquid diet today. We'll continue to monitor hemoglobin, and continue monitoring for recurrence of GI bleeding. Patient is currently on 2 L per nasal cannula with O2 sat at 98%. Lung sounds are positive for bibasilar rhonchi, patient will begin incentive spirometry, but denies any respiratory complaints at this time. The patient is seen again today 08/09/2017 in follow-up on the selective care unit. He was quite lethargic earlier today but is currently awake and alert. He is answering questions appropriately. He is confused as to place and time however. His hemoglobin dropped again today to 6.4. He is on his second unit of packed red blood cells. He has been hemodynamically stable thus far. He is maintaining good O2 saturations in the upper 90s on 3 L/m per nasal cannula. He denies any shortness of breath, cough or congestion. No fever. He is currently on D5W at 75 and muscles per hour. Receiving Protonix 40 mg IV twice a day. The plan is for EGD/colonoscopy in the a.m. Objective - Vital Signs Vital signs: Vital Signs Temp 97.6 F 08/09/17 14:48 Pulse 67 08/09/17 14:48 Resp 16 08/09/17 14:48 BP 110/43 08/09/17 14:48 Pulse Ox 98 08/09/17 13:03 Intake & Output 08/08/17 08/09/17 08/09/17 18:59 06:59 18:59 Intake Total 850 1200 1070 Output Total 490 600 Balance 980 702 4562 Weight 52.7 kg Intake: IV 775 1200 Dextrose 5% in Water 1, 525 1200 000 ml @ 75 mls/hr IV . [id number] [facility] Rx#:[id number] Sodium Chloride 0.9% 1, 250 000 ml @ 125 mls/hr IV . Q8H [facility] Rx#:[id number] Intake, IV Titration 75 450 Amount Dextrose 5% in Water 1, 75 450 000 ml @ 75 mls/hr IV . [id number] [facility] Rx#:[id number] Blood Product 620 Rc As-1 Unit 310 [id number] Rc As-1 Unit 310 [id number] Output: Urine 490 600 Other: Voiding Method Indwelling Catheter Indwelling Catheter Indwelling Catheter - Exam The patient is very cachectic and emaciated with a body mass index of 16.2. He is more arousable today. More responsive and answering questions appropriately. He is confused to place and time however.. No agitation. Resting comfortably in bed. The patient has temporal wasting. The patient has diffuse muscle atrophy and significant loss in total body protein mass both in his upper and lower extremities. Head exam was generally normal. There was no scleral icterus or corneal arcus. Mucous membranes were moist.Neck was supple and without jugular venous distension, thyromegaly, or carotid bruits. Carotids were easily palpable bilaterally. There was no adenopathy.Lungs sounds are positive for a few scattered rhonchi in bilateral bases, and with normal diaphragmatic excursion. No wheezes or rales were noted. Breath sounds are diminished in lung bases and there is no wheezes or rhonchi this point.Cardiac exam revealed the PMI to be normally situated and sized. The rhythm was regular and no extrasystoles were noted during several minutes of auscultation. The first and second heart sounds were normal and physiologic splitting of the second heart sound was noted. There were no murmurs, rubs, clicks, or gallops. Abdomen is soft and there is a pulsatile aorta can be felt in the midabdomen however this is probably a reflection of his underlying significant weight loss and absent abdominal fat. No direct tenderness or rebound tensile guarding at this point.Examination of the extremities revealed easily palpable radial, femoral and pedal pulses. There was no cyanosis, clubbing or edema.Examination of the skin revealed no evidence of significant rashes, suspicious appearing nevi or other concerning lesions. Neurologically is awake and alert and is following commands and moving all 4 extremities without any limitation. - Labs CBC & Chem 7: 08/09/17 07:24 08/09/17 07:24 Labs: Abnormal Lab Results - Last 24 Hours (Table) 08/06/17 08/08/17 08/08/17 Range/Units 18:05 16:37 21:35 WBC (3.8-10.6) k/uL RBC (4.30-5.90) m/uL Hgb (13.0-17.5) gm/dL Hct (39.0-53.0) % MCHC (31.0-37.0) g/dL Neutrophils # (1.3-7.7) k/uL Lymphocytes # (1.0-4.8) k/uL Sodium (137-145) mmol/L Chloride (98-107) mmol/L Carbon Dioxide (22-30) mmol/L BUN (9-20) mg/dL Glucose (74-99) mg/dL POC Glucose (mg/dL) 158 H 163 H (75-99) mg/dL Calcium (8.4-10.2) mg/dL Crossmatch See Detail 08/09/17 08/09/17 08/09/17 Range/Units 05:30 07:24 07:24 WBC 12.3 H (3.8-10.6) k/uL RBC 2.31 L (4.30-5.90) m/uL Hgb 6.4 L* (13.0-17.5) gm/dL Hct 22.5 L (39.0-53.0) % MCHC 28.5 L (31.0-37.0) g/dL Neutrophils # 11.2 H (1.3-7.7) k/uL Lymphocytes # 0.6 L (1.0-4.8) k/uL Sodium 146 H (137-145) mmol/L Chloride 110 H (98-107) mmol/L Carbon Dioxide 33 H (22-30) mmol/L BUN 42 H (9-20) mg/dL Glucose 152 H (74-99) mg/dL POC Glucose (mg/dL) 247 H (75-99) mg/dL Calcium 6.4 L* (8.4-10.2) mg/dL Crossmatch 08/09/17 Range/Units 11:30 WBC (3.8-10.6) k/uL RBC (4.30-5.90) m/uL Hgb (13.0-17.5) gm/dL Hct (39.0-53.0) % MCHC (31.0-37.0) g/dL Neutrophils # (1.3-7.7) k/uL Lymphocytes # (1.0-4.8) k/uL Sodium (137-145) mmol/L Chloride (98-107) mmol/L Carbon Dioxide (22-30) mmol/L BUN (9-20) mg/dL Glucose (74-99) mg/dL POC Glucose (mg/dL) 74 L (75-99) mg/dL Calcium (8.4-10.2) mg/dL Crossmatch Assessment and Plan Assessment: Assessment: 1 GI bleeding likely of an upper GI source. The patient is known to have gastric ulcer. No significant coagulopathy. Liver function tests and platelet count is also within normal limits. The patient had several episodes of GI bleed and current hemoglobin is down to 6.4. He did receive 2 units of packed red blood cells. Follow-up hemoglobin pending. Hemodynamically stable 2 acute kidney injury, with elevation of the BUN at 42, likely secondary to GI bleed, improving current creatinine 1.13. 3 blood loss anemia with a hemoglobin of 6.4 4 acute hyperkalemia doubt any EKG changes, treated with calcium gluconate and D50 and insulin and he is also being hydrated with IV fluids and the repeat potassium will be obtained. 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 Madden. His x-ray revealed basilar effusion and associated atelectasis. Continue bronchodilators. The patient is a bit more awake and alert today. Unfortunately his hemoglobin continued to drop down to 6.4. He is status post 2 units of packed red blood cells. The plan is now for EGD/colonoscopy in the a.m. We'll continue to follow. I, the cosigning physician, performed a history & physical examination of the patient. Lungs sounds crackles in the bilateral posterior bases. Maintaining good O2 saturations in the 90s on 3 L/m per nasal cannula. I discussed the assessment and plan of care with my nurse practitioner, Sunitha Dean. I attest to the above note as dictated by her.
--- NOTE | 2017-08-09 17:41 | P.PN ---
Subjective Progress Note Date: 08/09/17 Progress note being dictated for Dr. Kenney Interval history:85-year-old the female admitted for right GI bleed patient doesn't have any more bleed since patient patient will be transferred out of ICU patient's hemoglobin remained stable patient started eating today. I do not know his baseline mental status unable to discuss with the the son. CODE STATUS was discussed with his son by Dr. Madden. Unsure whether patient has dementia whether it's advanced are not. For now but I saw the patient patient is eating well. Probably the best idea would be once he is stable enough patient can be resumed on antiplatelet therapy if agreeable by gastroenterology and discharged to subacute rehabilitation. Patient mostly nonverbal 08/09/2017 hemoglobin dropped to 6.4, borderline hypotensive with no further bleeding noted. Denies abdominal pain. Patient transferred to telemetry unit, receiving 2 units of packed RBCs. Evaluated by GI and scheduled for EGD tomorrow. Gentle IV fluid hydration with renal function improving. Review systems unable to obtain as patient minimally converses Active Medications Albuterol/Ipratropium (Duoneb 0.5 Mg-3 Mg/3 Ml Soln) 3 ml INHALATION RT-QID [facility] Brimonidine Tartrate (Alphagan P 0.2% Ophth Soln) 1 drops RIGHT EYE BID [facility] Last Admin: 08/09/17 09:44 Dose: 1 drops Budesonide (Pulmicort) 1 mg INHALATION RT-BID [facility] Dextrose/Water (Dextrose 5%-Water Iv Soln) 1,000 mls @ 75 mls/hr IV .[id number] [facility] Last Admin: 08/09/17 14:49 Dose: Not Given Calcium Gluconate 1,000 mg/ (Sodium Chloride) 110 mls @ 100 mls/hr IVPB BID [facility] Stop: 08/09/17 22:05 Last Admin: 08/09/17 15:37 Dose: 100 mls/hr Insulin Aspart (Novolog) 0 unit SQ ACHS [facility] PRN Reason: Protocol Last Admin: 08/09/17 17:10 Dose: Not Given Latanoprost (Xalatan 0.005%) 1 drops RIGHT EYE HS [facility] Last Admin: 08/08/17 21:48 Dose: 1 drops Naloxone HCl (Narcan) 0.2 mg IV Q2M PRN PRN Reason: Opioid Reversal Ondansetron HCl (Zofran) 4 mg IVP Q8HR PRN PRN Reason: Nausea And Vomiting Pantoprazole Sodium (Protonix) 40 mg IV BID [facility] Last Admin: 08/09/17 09:44 Dose: 40 mg Timolol Maleate (Timoptic) 1 drops RIGHT EYE BID [facility] Last Admin: 08/09/17 09:44 Dose: 1 drops Objective - Vital Signs Vital signs: Vital Signs Temp 98.0 F 08/09/17 16:00 Pulse 70 08/09/17 16:00 Resp 15 08/09/17 16:00 BP 123/39 08/09/17 16:00 Pulse Ox 98 08/09/17 16:00 Intake & Output 08/08/17 08/09/17 08/09/17 18:59 06:59 18:59 Intake Total 850 1200 1070 Output Total 490 600 Balance 307 967 3707 Weight 52.7 kg Intake: IV 775 1200 Dextrose 5% in Water 1, 525 1200 000 ml @ 75 mls/hr IV . [id number] [facility] Rx#:[id number] Sodium Chloride 0.9% 1, 250 000 ml @ 125 mls/hr IV . Q8H [facility] Rx#:[id number] Intake, IV Titration 75 450 Amount Dextrose 5% in Water 1, 75 450 000 ml @ 75 mls/hr IV . [id number] [facility] Rx#:[id number] Blood Product 620 As-1 Unit 310 [id number] As-1 Unit 310 [id number] Output: Urine 490 600 Other: Voiding Method Indwelling Catheter Indwelling Catheter Indwelling Catheter - Exam GENERAL: The patient is alert, unable to assess his orientation patient is a severely cachectic thin built with temporal wasting diffuse muscle atrophy HEENT: Pupils are round and equally reacting to light. EOMI. No scleral icterus. No conjunctival pallor. Normocephalic, atraumatic. No pharyngeal erythema. No thyromegaly. CARDIOVASCULAR: S1 and S2 present. No murmurs, rubs, or gallops. PULMONARY: Chest is clear to auscultation, no wheezing or crackles. ABDOMEN: Soft, nontender, nondistended, normoactive bowel sounds. No palpable organomegaly. MUSCULOSKELETAL: No joint swelling or deformity. EXTREMITIES: No cyanosis, clubbing, or pedal edema. NEUROLOGICAL: Unable to assess SKIN: No rashes. - Labs CBC & Chem 7: 08/09/17 07:24 08/09/17 07:24 Labs: Abnormal Lab Results - Last 24 Hours (Table) 08/06/17 08/08/17 08/09/17 Range/Units 18:05 21:35 05:30 WBC (3.8-10.6) k/uL RBC (4.30-5.90) m/uL Hgb (13.0-17.5) gm/dL Hct (39.0-53.0) % MCHC (31.0-37.0) g/dL Neutrophils # (1.3-7.7) k/uL Lymphocytes # (1.0-4.8) k/uL Sodium (137-145) mmol/L Chloride (98-107) mmol/L Carbon Dioxide (22-30) mmol/L BUN (9-20) mg/dL Glucose (74-99) mg/dL POC Glucose (mg/dL) 163 H 247 H (75-99) mg/dL Calcium (8.4-10.2) mg/dL Crossmatch See Detail 08/09/17 08/09/17 08/09/17 Range/Units 07:24 07:24 11:30 WBC 12.3 H (3.8-10.6) k/uL RBC 2.31 L (4.30-5.90) m/uL Hgb 6.4 L* (13.0-17.5) gm/dL Hct 22.5 L (39.0-53.0) % MCHC 28.5 L (31.0-37.0) g/dL Neutrophils # 11.2 H (1.3-7.7) k/uL Lymphocytes # 0.6 L (1.0-4.8) k/uL Sodium 146 H (137-145) mmol/L Chloride 110 H (98-107) mmol/L Carbon Dioxide 33 H (22-30) mmol/L BUN 42 H (9-20) mg/dL Glucose 152 H (74-99) mg/dL POC Glucose (mg/dL) 74 L (75-99) mg/dL Calcium 6.4 L* (8.4-10.2) mg/dL Crossmatch Assessment and Plan Assessment: -Acute blood last anemia from GI bleed most probably upper GI bleed aspirin and Plavix will be held patient on Protonix . Whenever gastroenterology believes it 's appropriate patient can be resumed back on aspirin and/or Plavix. -Coronary artery disease without any previous intervention antiplatelet therapy need to be held because of the GI bleed -Acute kidney injury secondary to GI bleed -COPD without any acute exacerbation and patient does have chronic hypercapnic respiratory failure and uses 2 L -Coronary artery disease -Hyperlipidemia -Hypertension History of osteogenesis imperfecta -Moderate protein calorie malnutrition -Possible baseline moderate dementia -Hypocalcemia Plan: Continue on current medication regime , PPI, monitoring and symptomatic treatment. Patient to receive 2 units of packed RBCs. Calcium gluconate ordered. EGD scheduled for tomorrow as per GI. Close monitoring of hemoglobin with serial CBC every 6h. The impression and plan of care has been dictated as directed. : I performed a history and examination of this patient, discussed the same with the dictator. I agree with the dictator's note ,documented as a scribe. Any additional findings or plans will be noted.
[2017-08-09 18:23] LABS: Basophils % (A) 0 %; Eosinophils # (A) 0.3 k/uL (0-0.7); Eosinophils % (A) 2 %; HCT 29.6 % (39.0-53.0); Hypochromasia Marked; Lymphocytes # (A) 1.1 k/uL (1.0-4.8); Lymphocytes % (A) 6 %; MCH 29.3 pg (25.0-35.0); MCV 94.6 fL (80.0-100.0); Mean Platelet Volume 8.6; Monocytes # (A) 0.7 k/uL (0-1.0); Monocytes % (A) 4 %; Neutrophils # (A) 15.2 k/uL (1.3-7.7); Neutrophils % (A) 88 %; Platelet Count 197 k/uL (150-450); Poikilocytosis Slight; RBC 3.13 m/uL (4.30-5.90); WBC 17.3 k/uL (3.8-10.6)
[2017-08-09 18:24] LABS: HGB 9.2 gm/dL (13.0-17.5)
[2017-08-09] MEDS: cefTRIAXone IN SWFI 1,000 MG/10 ML SYRINGE IVP SCH (18:56)
[2017-08-09] MEDS: BUDESONIDE 1 MG/2 ML NEBU INHALATION SCH (19:05)
[2017-08-09] MEDS: IPRATROPIUM-ALBUTEROL 3 ML NEB INHALATION SCH (19:05)
[2017-08-09 20:26] LABS: Glucose,Whole Blood 40 mg/dL (75-99)
[2017-08-09] MEDS ORDERED: DEXTROSE 50%-WATER 50 ML SYRINGE IVP ONE ×2 (20:30→21:02)
[2017-08-09 20:51] LABS: Glucose,Whole Blood 84 mg/dL (75-99)
[2017-08-09] MEDS: LATANOPROST 0.005% OPHTH DROPS 2.5 ML BTL RIGHT EYE SCH (21:29)
[2017-08-09] MEDS: LACTATED RINGERS 1,000 ML IV SCH (23:28)
[2017-08-09 23:56] LABS: Glucose,Whole Blood 149 mg/dL (75-99)
[2017-08-10 00:10] LABS: Basophils % (A) 0 %; Eosinophils # (A) 0.3 k/uL (0-0.7); Eosinophils % (A) 2 %; HCT 28.4 % (39.0-53.0); HGB 8.4 gm/dL (13.0-17.5); Hypochromasia Marked; Lymphocytes # (A) 0.7 k/uL (1.0-4.8); Lymphocytes % (A) 6 %; MCH 28.7 pg (25.0-35.0); MCHC 29.7 g/dL (31.0-37.0); MCV 96.4 fL (80.0-100.0); Mean Platelet Volume 8.7; Monocytes # (A) 0.6 k/uL (0-1.0); Monocytes % (A) 4 %; Neutrophils # (A) 11.7 k/uL (1.3-7.7); Neutrophils % (A) 88 %; Platelet Count 196 k/uL (150-450); Poikilocytosis Slight; RBC 2.94 m/uL (4.30-5.90); RDW 14.1 % (11.5-15.5); WBC 13.3 k/uL (3.8-10.6)
[2017-08-10] MEDS: DEXTROSE 5% IN WATER 1,000 ML IV SCH ×2 (01:34→17:26)
[2017-08-10 03:56] LABS: Glucose,Whole Blood 132 mg/dL (75-99)
[2017-08-10 06:30] LABS: Basophils % (A) 0 %; Eosinophils # (A) 0.1 k/uL (0-0.7); Eosinophils % (A) 1 %; HCT 28.9 % (39.0-53.0); HGB 8.7 gm/dL (13.0-17.5); Hypochromasia Marked; Lymphocytes # (A) 0.8 k/uL (1.0-4.8); Lymphocytes % (A) 6 %; MCH 29.2 pg (25.0-35.0); MCHC 30.1 g/dL (31.0-37.0); MCV 96.9 fL (80.0-100.0); Mean Platelet Volume 8.2; Monocytes # (A) 0.7 k/uL (0-1.0); Monocytes % (A) 5 %; Neutrophils # (A) 11.3 k/uL (1.3-7.7); Neutrophils % (A) 87 %; Platelet Count 221 k/uL (150-450); Poikilocytosis Slight; RBC 2.99 m/uL (4.30-5.90); WBC 13.1 k/uL (3.8-10.6)
[2017-08-10] MEDS: INSULIN ASPART 100 UNIT/ML 1 ML 10 ML VIAL SQ SCH ×4 (06:35→20:33)
[2017-08-10 06:41] LABS: Calcium 6.9 mg/dL (8.4-10.2); Magnesium 2.3 mg/dL (1.6-2.3); Phosphorus 2.1 mg/dL (2.5-4.5); Potassium 4.8 mmol/L (3.5-5.1)
[2017-08-10] MEDS: BUDESONIDE 1 MG/2 ML NEBU INHALATION SCH ×2 (07:22→18:57)
[2017-08-10] MEDS: IPRATROPIUM-ALBUTEROL 3 ML NEB INHALATION SCH ×4 (07:22→18:57)
[2017-08-10 08:15] LABS: Glucose,Whole Blood 131 mg/dL (75-99)
[2017-08-10] MEDS: BRIMONIDINE TARTRATE 0.2% DROPS 5 ML BTL RIGHT EYE SCH ×2 (10:19→20:34)
[2017-08-10] MEDS: PANTOPRAZOLE 40 MG/10 ML VIAL IV SCH ×2 (10:19→20:35)
[2017-08-10] MEDS: TIMOLOL 0.5% OPHTH DROPS 5 ML BTL RIGHT EYE SCH ×2 (10:22→20:34)
--- NOTE | 2017-08-10 10:44 | XR ---
EXAMINATION TYPE: XR chest 1V DATE OF EXAM: 08/10/2017 COMPARISON: Prior chest x-ray 08/09/2017 HISTORY: Exertional dyspnea TECHNIQUE: Single frontal view of the chest is obtained. FINDINGS: Bibasilar increased density persists. Heart size is stable. There are overlying cardiac le ads and the patient is again rotated. No evident pneumothorax. IMPRESSION: Findings are similar to prior exam. Basilar effusions and associated atelectasis. Border line enlarged cardiac size suspected. Postop changes.
--- NOTE | 2017-08-10 11:36 | P.PN ---
Subjective Progress Note Date: 08/10/17 Progress note being dictated for Dr. Kenney Interval history:85-year-old the female admitted for right GI bleed patient doesn't have any more bleed since patient patient will be transferred out of ICU patient's hemoglobin remained stable patient started eating today. I do not know his baseline mental status unable to discuss with the the son. CODE STATUS was discussed with his son by Dr. Madden. Unsure whether patient has dementia whether it's advanced are not. For now but I saw the patient patient is eating well. Probably the best idea would be once he is stable enough patient can be resumed on antiplatelet therapy if agreeable by gastroenterology and discharged to subacute rehabilitation. Patient mostly nonverbal 08/09/2017 hemoglobin dropped to 6.4, borderline hypotensive with no further bleeding noted. Denies abdominal pain. Patient transferred to telemetry unit, receiving 2 units of packed RBCs. Evaluated by GI and scheduled for EGD tomorrow. Gentle IV fluid hydration with renal function improving. Review systems unable to obtain as patient minimally converses Active Medications Albuterol/Ipratropium (Duoneb 0.5 Mg-3 Mg/3 Ml Soln) 3 ml INHALATION RT-QID [facility] Brimonidine Tartrate (Alphagan P 0.2% Ophth Soln) 1 drops RIGHT EYE BID [facility] Last Admin: 08/09/17 09:44 Dose: 1 drops Budesonide (Pulmicort) 1 mg INHALATION RT-BID [facility] Dextrose/Water (Dextrose 5%-Water Iv Soln) 1,000 mls @ 75 mls/hr IV .[id number] [facility] Last Admin: 08/09/17 14:49 Dose: Not Given Calcium Gluconate 1,000 mg/ (Sodium Chloride) 110 mls @ 100 mls/hr IVPB BID [facility] Stop: 08/09/17 22:05 Last Admin: 08/09/17 15:37 Dose: 100 mls/hr Insulin Aspart (Novolog) 0 unit SQ ACHS [facility] PRN Reason: Protocol Last Admin: 08/09/17 17:10 Dose: Not Given Latanoprost (Xalatan 0.005%) 1 drops RIGHT EYE HS [facility] Last Admin: 08/08/17 21:48 Dose: 1 drops Naloxone HCl (Narcan) 0.2 mg IV Q2M PRN PRN Reason: Opioid Reversal Ondansetron HCl (Zofran) 4 mg IVP Q8HR PRN PRN Reason: Nausea And Vomiting Pantoprazole Sodium (Protonix) 40 mg IV BID [facility] Last Admin: 08/09/17 09:44 Dose: 40 mg Timolol Maleate (Timoptic) 1 drops RIGHT EYE BID [facility] Last Admin: 08/09/17 09:44 Dose: 1 drops 08/10/2017 NPO, awaiting EGD today. No signs or symptoms of bleeding. Received 2 units of packed RBCs yesterday for hemoglobin 6.4.Hemoglobin currently 8.7. Systolic blood pressure improved. Telemetry sinus rhythm. Renal function improving. Denies chest pain, palpitations or increased shortness of breath. Objective - Vital Signs Vital signs: Vital Signs Temp 97.1 F L 08/10/17 07:50 Pulse 63 08/10/17 08:38 Resp 17 08/10/17 08:38 BP 119/39 08/10/17 10:44 Pulse Ox 95 08/10/17 08:09 Intake & Output 08/09/17 08/10/17 08/10/17 18:59 06:59 18:59 Intake Total 1070 775 600 Output Total 400 400 Balance 670 375 600 Weight 52.7 kg 53 kg Intake: IV 675 600 Dextrose 5% in Water 1, 675 600 000 ml @ 75 mls/hr IV . [id number] [facility] Rx#:[id number] Intake, IV Titration 450 100 Amount Calcium Gluconate 1,000 100 mg In Sodium Chloride 0.9 % 100 ml @ 100 mls/hr IVPB BID [facility] Rx#: [id number] Dextrose 5% in Water 1, 450 000 ml @ 75 mls/hr IV . [id number] [facility] Rx#:[id number] Oral 0 Blood Product 620 As-1 Unit 310 [id number] As-1 Unit 310 [id number] Output: Urine 400 400 Other: Voiding Method Indwelling Catheter Indwelling Catheter Indwelling Catheter # Voids 300 - Exam GENERAL: The patient is alert, unable to assess his orientation patient is a severely cachectic thin built with temporal wasting diffuse muscle atrophy, minimally converses. HEENT: Pupils are round and equally reacting to light. EOMI. No scleral icterus. No conjunctival pallor. Normocephalic, atraumatic. No pharyngeal erythema. No thyromegaly. CARDIOVASCULAR: S1 and S2 present. No murmurs, rubs, or gallops. PULMONARY: Chest is clear to auscultation, no wheezing or crackles. ABDOMEN: Soft, nontender, nondistended, normoactive bowel sounds. No palpable organomegaly. MUSCULOSKELETAL: No joint swelling or deformity. EXTREMITIES: No cyanosis, clubbing, or pedal edema. NEUROLOGICAL: Unable to assess SKIN: No rashes. - Labs CBC & Chem 7: 08/10/17 05:51 08/10/17 05:51 Labs: Abnormal Lab Results - Last 24 Hours (Table) 08/06/17 08/09/17 08/09/17 Range/Units 18:05 11:30 18:00 WBC 17.3 H (3.8-10.6) k/uL RBC 3.13 L (4.30-5.90) m/uL Hgb 9.2 L D (13.0-17.5) gm/dL Hct 29.6 L (39.0-53.0) % MCHC (31.0-37.0) g/dL Neutrophils # 15.2 H (1.3-7.7) k/uL Lymphocytes # (1.0-4.8) k/uL Chloride (98-107) mmol/L BUN (9-20) mg/dL Glucose (74-99) mg/dL POC Glucose (mg/dL) 74 L (75-99) mg/dL Calcium (8.4-10.2) mg/dL Phosphorus (2.5-4.5) mg/dL Crossmatch See Detail 08/09/17 08/09/17 08/09/17 Range/Units 20:25 23:46 23:54 WBC 13.3 H (3.8-10.6) k/uL RBC 2.94 L (4.30-5.90) m/uL Hgb 8.4 L (13.0-17.5) gm/dL Hct 28.4 L (39.0-53.0) % MCHC 29.7 L (31.0-37.0) g/dL Neutrophils # 11.7 H (1.3-7.7) k/uL Lymphocytes # 0.7 L (1.0-4.8) k/uL Chloride (98-107) mmol/L BUN (9-20) mg/dL Glucose (74-99) mg/dL POC Glucose (mg/dL) 40 L 149 H (75-99) mg/dL Calcium (8.4-10.2) mg/dL Phosphorus (2.5-4.5) mg/dL Crossmatch 08/10/17 08/10/17 08/10/17 Range/Units 03:54 05:51 05:51 WBC 13.1 H (3.8-10.6) k/uL RBC 2.99 L (4.30-5.90) m/uL Hgb 8.7 L (13.0-17.5) gm/dL Hct 28.9 L (39.0-53.0) % MCHC 30.1 L (31.0-37.0) g/dL Neutrophils # 11.3 H (1.3-7.7) k/uL Lymphocytes # 0.8 L (1.0-4.8) k/uL Chloride 109 H (98-107) mmol/L BUN 35 H (9-20) mg/dL Glucose 128 H (74-99) mg/dL POC Glucose (mg/dL) 132 H (75-99) mg/dL Calcium 6.9 L (8.4-10.2) mg/dL Phosphorus 2.1 L (2.5-4.5) mg/dL Crossmatch 08/10/17 Range/Units 08:14 WBC (3.8-10.6) k/uL RBC (4.30-5.90) m/uL Hgb (13.0-17.5) gm/dL Hct (39.0-53.0) % MCHC (31.0-37.0) g/dL Neutrophils # (1.3-7.7) k/uL Lymphocytes # (1.0-4.8) k/uL Chloride (98-107) mmol/L BUN (9-20) mg/dL Glucose (74-99) mg/dL POC Glucose (mg/dL) 131 H (75-99) mg/dL Calcium (8.4-10.2) mg/dL Phosphorus (2.5-4.5) mg/dL Crossmatch Assessment and Plan Assessment: -Acute blood last anemia from GI bleed most probably upper GI bleed aspirin and Plavix will be held and resumed as per GI. Status post transfusion of packed RBCs. EGD pending -Coronary artery disease without any previous intervention antiplatelet therapy need to be held because of the GI bleed -Acute kidney injury secondary to GI bleed -COPD without any acute exacerbation -chronic hypercapnic respiratory failure,uses 2 L -Coronary artery disease -Hyperlipidemia -Hypertension History of osteogenesis imperfecta -Moderate protein calorie malnutrition -Possible baseline moderate dementia -Hypocalcemia Plan: Continue on current medication regime , PPI, monitoring and symptomatic treatment. EGD today. Follow closely with GI. PT/OT. The impression and plan of care has been dictated as directed. : I performed a history and examination of this patient, discussed the same with the dictator. I agree with the dictator's note ,documented as a scribe. Any additional findings or plans will be noted.
[2017-08-10 12:15] LABS: Glucose,Whole Blood 101 mg/dL (75-99)
--- NOTE | 2017-08-10 14:04 | P.PN ---
Subjective Progress Note Date: 08/10/17 Principal diagnosis: GI bleeding, clammy upper GI source. Blood loss anemia, acute kidney injury This is a very lethargic 87-year-old male patient who was brought in yesterday to the [facility] department because of episodes of GI bleed. The patient presented to the emergency department with painless GI bleed. The patient apparently had burgundy colored stool earlier on that day. On admission, he had a normal blood pressure of 107/53 would doubt any tachycardia. Initial hemoglobin was 11.6. His BUN was elevated at 60 and he had a potassium level of 5.9. Subsequently, he had 3 further episodes of bloody stool that occurred in the intensive care unit overnight. Hemoglobin dropped down to 8.9 and the patient has not been transfused yet. Overall he has received a total of 1 L of IV fluid and the patient is currently on a maintenance of 125 mL an hour. No coffee-ground emesis. No hematemesis. No bright red blood per rectum. The patient does not volunteer much of history. According to him he doesn't drink alcohol in excess. He has been on a combination of aspirin and Plavix regarding previous history of cardiac disease and coronary artery disease and previous ND. Apparently had refused further care and I'm not sure if he has had any previous cardiac catheterization on evaluations. The patient coags were slightly elevated with an INR of 1.3, PTT was within normal limits, platelets are also within normal limits. He is slow in answering questions. He knows that he is in the hospital. He denies having any major chest pain or respiratory distress. Cardiac enzymes were negative. EKG not showing any acute abnormalities. No open wounds or sores. According to the history is been on oxygen at home and probably his underlying COPD and addition. Currently is on oxygen at 3 L/m nasal cannula. He is moving all 4 extremities. No focal neurological deficit. He is currently nothing by mouth for now. He has remote history of gastric ulcers however he hasn't had any recent history of bleeding. I interviewed the son and I was told that the patient is able to walk however his gait has been progressively getting worse and he has become unsteady. He always was a finger his current BMI 16.2. Apparently his been able to eat well and swallow without any major difficulties. 08/08/2017 patient seen in follow-up in the intensive care unit. He is more awake and alert, and more responsive today. Denies any distress, denies any chest pain or dyspnea, denies any abdominal discomfort. He has not had any further episodes of GI bleeding, no hematemesis, no melena. He has remained hemodynamically stable, has not required any vasopressor support, has not required any blood transfusions this admission. Today's hemoglobin is 7.4, it is stable, WBCs 12.6. Renal profile is improving, BUN is down to 48, creatinine is down to 1.20. Serum sodium is up to 149, patient was given 2 L of IV 0.9 normal saline boluses yesterday. He remains nothing by mouth at this time, GI service is Following. We'll possibly do an EGD and possible colonoscopy once the patient is more stable, and physically less debilitated. Will initiate clear liquid diet today. We'll continue to monitor hemoglobin, and continue monitoring for recurrence of GI bleeding. Patient is currently on 2 L per nasal cannula with O2 sat at 98%. Lung sounds are positive for bibasilar rhonchi, patient will begin incentive spirometry, but denies any respiratory complaints at this time. On 08/10/2017 patient seen in follow-up on selective care unit. She hasn't had recurrence of GI bleeding after he was started on oral feedings. The patient's hemoglobin dipped down to 6.4, and the patient was transfused with 2 units of PRBCs, and today's hemoglobin is 8.7. Patient appears to be more lethargic on today's exam, opens eyes, but is not very conversant, and drifts back to sleep. Does not appear to be in any acute distress, denies any chest pain, dyspnea or abdominal discomfort. The plan today is to proceed with the EGD today. In the patient remains nothing by mouth at this time. Today's chest x-ray was reviewed, shows basilar effusions and associated atelectasis. Objective - Vital Signs Vital signs: Vital Signs Temp 96.8 F L 08/10/17 12:00 Pulse 70 08/10/17 12:00 Resp 17 08/10/17 12:00 BP 99/38 08/10/17 12:00 Pulse Ox 99 08/10/17 12:00 Intake & Output 08/09/17 08/10/17 08/10/17 18:59 06:59 18:59 Intake Total 1070 775 600 Output Total 400 400 Balance 670 375 600 Weight 52.7 kg 53 kg Intake: IV 675 600 Dextrose 5% in Water 1, 675 600 000 ml @ 75 mls/hr IV . [id number] [facility] Rx#:[id number] Intake, IV Titration 450 100 Amount Calcium Gluconate 1,000 100 mg In Sodium Chloride 0.9 % 100 ml @ 100 mls/hr IVPB BID [facility] Rx#: [id number] Dextrose 5% in Water 1, 450 000 ml @ 75 mls/hr IV . [id number] [facility] Rx#:[id number] Oral 0 Blood Product 620 Rc As-1 Unit 310 [id number] Rc As-1 Unit 310 [id number] Output: Urine 400 400 Other: Voiding Method Indwelling Catheter Indwelling Catheter Indwelling Catheter # Voids 300 - Exam The patient is very cachectic and emaciated with a body mass index of 16.2. He is more arousable. More responsive. He is aware of his surroundings and he knows that he is in the hospital. No agitation. Resting comfortably in bed. The patient has temporal wasting. The patient has diffuse muscle atrophy and significant loss in total body protein mass both in his upper and lower extremities. Head exam was generally normal. There was no scleral icterus or corneal arcus. Mucous membranes were moist.Neck was supple and without jugular venous distension, thyromegaly, or carotid bruits. Carotids were easily palpable bilaterally. There was no adenopathy.Lungs sounds are positive for a few scattered rhonchi in bilateral bases, and with normal diaphragmatic excursion. No wheezes or rales were noted. Breath sounds are diminished in lung bases and there is no wheezes or rhonchi this point.Cardiac exam revealed the PMI to be normally situated and sized. The rhythm was regular and no extrasystoles were noted during several minutes of auscultation. The first and second heart sounds were normal and physiologic splitting of the second heart sound was noted. There were no murmurs, rubs, clicks, or gallops. Abdomen is soft and there is a pulsatile aorta can be felt in the midabdomen however this is probably a reflection of his underlying significant weight loss and absent abdominal fat. No direct tenderness or rebound tensile guarding at this point.Examination of the extremities revealed easily palpable radial, femoral and pedal pulses. There was no cyanosis, clubbing or edema.Examination of the skin revealed no evidence of significant rashes, suspicious appearing nevi or other concerning lesions. Neurologically is awake and alert and is following commands and moving all 4 extremities without any limitation. - Labs CBC & Chem 7: 08/10/17 05:51 08/10/17 05:51 Labs: Abnormal Lab Results - Last 24 Hours (Table) 08/06/17 08/09/17 08/09/17 Range/Units 18:05 18:00 20:25 WBC 17.3 H (3.8-10.6) k/uL RBC 3.13 L (4.30-5.90) m/uL Hgb 9.2 L D (13.0-17.5) gm/dL Hct 29.6 L (39.0-53.0) % MCHC (31.0-37.0) g/dL Neutrophils # 15.2 H (1.3-7.7) k/uL Lymphocytes # (1.0-4.8) k/uL Chloride (98-107) mmol/L BUN (9-20) mg/dL Glucose (74-99) mg/dL POC Glucose (mg/dL) 40 L (75-99) mg/dL Calcium (8.4-10.2) mg/dL Phosphorus (2.5-4.5) mg/dL Crossmatch See Detail 08/09/17 08/09/17 08/10/17 Range/Units 23:46 23:54 03:54 WBC 13.3 H (3.8-10.6) k/uL RBC 2.94 L (4.30-5.90) m/uL Hgb 8.4 L (13.0-17.5) gm/dL Hct 28.4 L (39.0-53.0) % MCHC 29.7 L (31.0-37.0) g/dL Neutrophils # 11.7 H (1.3-7.7) k/uL Lymphocytes # 0.7 L (1.0-4.8) k/uL Chloride (98-107) mmol/L BUN (9-20) mg/dL Glucose (74-99) mg/dL POC Glucose (mg/dL) 149 H 132 H (75-99) mg/dL Calcium (8.4-10.2) mg/dL Phosphorus (2.5-4.5) mg/dL Crossmatch 08/10/17 08/10/17 08/10/17 Range/Units 05:51 05:51 08:14 WBC 13.1 H (3.8-10.6) k/uL RBC 2.99 L (4.30-5.90) m/uL Hgb 8.7 L (13.0-17.5) gm/dL Hct 28.9 L (39.0-53.0) % MCHC 30.1 L (31.0-37.0) g/dL Neutrophils # 11.3 H (1.3-7.7) k/uL Lymphocytes # 0.8 L (1.0-4.8) k/uL Chloride 109 H (98-107) mmol/L BUN 35 H (9-20) mg/dL Glucose 128 H (74-99) mg/dL POC Glucose (mg/dL) 131 H (75-99) mg/dL Calcium 6.9 L (8.4-10.2) mg/dL Phosphorus 2.1 L (2.5-4.5) mg/dL Crossmatch 08/10/17 Range/Units 11:58 WBC (3.8-10.6) k/uL RBC (4.30-5.90) m/uL Hgb (13.0-17.5) gm/dL Hct (39.0-53.0) % MCHC (31.0-37.0) g/dL Neutrophils # (1.3-7.7) k/uL Lymphocytes # (1.0-4.8) k/uL Chloride (98-107) mmol/L BUN (9-20) mg/dL Glucose (74-99) mg/dL POC Glucose (mg/dL) 101 H (75-99) mg/dL Calcium (8.4-10.2) mg/dL Phosphorus (2.5-4.5) mg/dL Crossmatch Assessment and Plan Plan: Assessment: 1 GI bleeding likely of an upper GI source. The patient is known to have gastric ulcer. Liver function tests and platelet count is also within normal limits. The patient had several episodes of GI bleed and was transfused with 2 units of PRBCs, awaiting EGD today 2 acute kidney injury, with elevation of the BUN, likely secondary to GI bleed 3 blood loss anemia with a hemoglobin of 7.4 4 acute hyperkalemia doubt any EKG changes, treated with calcium gluconate and D50 and insulin and he is also being hydrated with IV fluids and the repeat potassium will be obtained. 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 Currently is nothing by mouth for EGD today. Patient appears to be lethargic, overall prognosis remains guarded. I performed a history & physical examination of the patient and discussed their management with my nurse practitioner, Anya Barahona. I reviewed the nurse practitioner's note and agree with the documented findings and plan of care. Lung sounds are positive for a few rhonchi. The findings and the impression was discussed with the patient. I attest to the documentation by the nurse practitioner. Time with Patient: Less than 30
[2017-08-10 15:24] LABS: Glucose,Whole Blood 92 mg/dL (75-99)
[2017-08-10] MEDS ORDERED: LIDOCAINE 1% INJ 10MG/ML (20 ML MDV) ONE (15:47)
[2017-08-10] MEDS ORDERED: PROPOFOL 10 MG/ML 20 ML VIAL IV ONE (15:47)
[2017-08-10] MEDS ORDERED: IV FLUID CONTINUATION 1,000 ML IV ONE (15:51)
--- NOTE | 2017-08-10 16:29 | P.PCN ---
Date of Procedure: 08/10/17 Procedure(s) Performed: Procedure: Esophagogastroduodenoscopy and biopsy. Preoperative diagnosis: GI bleeding and anemia. Postoperative diagnosis: 1. Duodenitis with duodenal bulb ulcers not showing active bleeding at this time or stigmata of recent bleeding. 2. Antral gastritis, biopsies obtained to rule out H. pylori infection. Preparation and sedation: Were provided by anesthesia. Brief clinical history: The patient is an 87-year-old male with PMH of CAD, COPD , hyperlipidemia, MD, hypertension, possible peptic ulcer disease, right eye blindness, admitted with burgundy colored bowel movements. Patient was obtunded unable to provide history. History obtained from medical records and nursing staff. Apparently patient's son witnessed burgundy colored bowel movements the day prior. Nursing states he had 2 bowel movements burgundy in color after admission. Unsure if patient has a history of EGD, colonoscopy or GI bleeds. Patient's temperature was low placed on Irena hugger overnight. Admission hemoglobin 11.6 presently 8.9. MCV 94. Platelet 185. INR 1.3. BUN 60. Creatinine 1.0. No blood transfusions. Hemodynamically stable. No reports of hematemesis or melena. His overall appearance is cachectic with a BMI of 16; 45.5 kg. Home medications include Plavix and baby aspirin daily. His lowest hemoglobin was yesterday and it was 6.4. He was transfused. His hemoglobin is now stable at 8.7. Other details are summarized in the history and physical and dictated consultations and progress notes. Procedure: With the patient on his left lateral decubitus position and after informed consent and adequate sedation, I passed the Olympus-GIF 160 video upper endoscope through the cricopharyngeus down the esophagus. The esophagus did not show any obvious erosions, ulcers, strictures or Mo's esophagus. No mucosal tears or varices or active bleeding. There was a small hiatal hernia then the endoscope was advanced to the rest of the stomach which was insufflated with air and inspected in detail including the retroflex view in the cardia. There was some mottling and erythema in the antrum but no ulcers or erosions. Pyloric channel, duodenal bulb, post bulbar area and descending duodenum were then examined. There were couple ulcers in the duodenal bulb with surrounding edema and erythema of the mucosa but no dark protuberances, clots or oozing of blood. Post bulbar area and descending duodenum appeared healthy. There was no evidence of bleeding in the duodenum or in the stomach. I obtained biopsies from the antrum, to rule out H. pylori infection, then the endoscope was withdrawn. The patient tolerated the procedure well. Plan: The patient was reassured. Consideration can be given for lower GI workup for the possibility that this bleeding originated in the large intestine , especially, if his hemoglobin drops again and if he manifests evidence of ongoing bleeding. I would discuss with you and follow with you with interest.
[2017-08-10 17:17] LABS: Glucose,Whole Blood 97 mg/dL (75-99)
[2017-08-10] MEDS: cefTRIAXone IN SWFI 1,000 MG/10 ML SYRINGE IVP SCH (17:25)
[2017-08-10 20:27] LABS: Glucose,Whole Blood 94 mg/dL (75-99)
[2017-08-10] MEDS: LATANOPROST 0.005% OPHTH DROPS 2.5 ML BTL RIGHT EYE SCH (20:35)
[2017-08-10] MEDS: LACTATED RINGERS 1,000 ML IV SCH (20:35)
[2017-08-11 00:11] LABS: Glucose,Whole Blood 115 mg/dL (75-99)
[2017-08-11 03:46] LABS: Glucose,Whole Blood 83 mg/dL (75-99)
[2017-08-11] MEDS: DEXTROSE 5% IN WATER 1,000 ML IV SCH (04:42)
[2017-08-11] MEDS: INSULIN ASPART 100 UNIT/ML 1 ML 10 ML VIAL SQ SCH ×4 (06:26→23:39)
[2017-08-11] MEDS: IPRATROPIUM-ALBUTEROL 3 ML NEB INHALATION SCH ×4 (07:13→20:32)
[2017-08-11] MEDS: BUDESONIDE 1 MG/2 ML NEBU INHALATION SCH ×2 (07:13→20:32)
[2017-08-11 07:41] LABS: Basophils % (A) 0 %; Eosinophils # (A) 0.1 k/uL (0-0.7); Eosinophils % (A) 1 %; HCT 25.1 % (39.0-53.0); HGB 7.9 gm/dL (13.0-17.5); Hypochromasia Slight; Lymphocytes # (A) 0.8 k/uL (1.0-4.8); Lymphocytes % (A) 8 %; MCH 29.4 pg (25.0-35.0); MCHC 31.6 g/dL (31.0-37.0); MCV 93.2 fL (80.0-100.0); Mean Platelet Volume 7.9; Monocytes # (A) 0.7 k/uL (0-1.0); Monocytes % (A) 6 %; Neutrophils # (A) 8.9 k/uL (1.3-7.7); Neutrophils % (A) 84 %; Platelet Count 250 k/uL (150-450); RBC 2.69 m/uL (4.30-5.90); RDW 13.7 % (11.5-15.5); WBC 10.6 k/uL (3.8-10.6)
[2017-08-11 07:59] LABS: Anion Gap 5 mmol/L; Blood Urea Nitrogen 22 mg/dL (9-20); Calcium 6.8 mg/dL (8.4-10.2); Carbon Dioxide 31 mmol/L (22-30); Chloride 102 mmol/L (98-107); Glucose 92 mg/dL (74-99); Magnesium 2.2 mg/dL (1.6-2.3); Phosphorus 1.9 mg/dL (2.5-4.5); Potassium 4.4 mmol/L (3.5-5.1); Sodium 138 mmol/L (137-145)
[2017-08-11] MEDS: PANTOPRAZOLE 40 MG/10 ML VIAL IV SCH ×2 (08:04→23:39)
[2017-08-11] MEDS: BRIMONIDINE TARTRATE 0.2% DROPS 5 ML BTL RIGHT EYE SCH ×2 (08:04→23:38)
[2017-08-11] MEDS: TIMOLOL 0.5% OPHTH DROPS 5 ML BTL RIGHT EYE SCH ×2 (08:04→23:38)
--- NOTE | 2017-08-11 08:26 | XR ---
EXAMINATION TYPE: XR chest 1V DATE OF EXAM: 08/11/2017 COMPARISON: Prior chest x-ray 08/10/2017 HISTORY: Exertional dyspnea TECHNIQUE: Single frontal view of the chest is obtained. FINDINGS: Heart remains enlarged. No evident pneumothorax. Basilar increased density again noted. Th ere are overlying cardiac leads and the patient is rotated. IMPRESSION: Findings are similar to prior exam. Correlate to exclude pneumonia with possible parapne umonic effusion versus atelectasis or edema
[2017-08-11 08:40] LABS: Glucose,Whole Blood 92 mg/dL (75-99)
[2017-08-11] MEDS ORDERED: ACETAMINOPHEN TAB 325 MG TAB PO PRN (09:42)
[2017-08-11 12:03] LABS: Glucose,Whole Blood 92 mg/dL (75-99)
--- NOTE | 2017-08-11 13:05 | P.PN ---
Subjective Progress Note Date: 08/11/17 This is a very lethargic 87-year-old male patient who was brought in yesterday to the [facility] department because of episodes of GI bleed. The patient presented to the emergency department with painless GI bleed. The patient apparently had burgundy colored stool earlier on that day. On admission, he had a normal blood pressure of 107/53 would doubt any tachycardia. Initial hemoglobin was 11.6. His BUN was elevated at 60 and he had a potassium level of 5.9. Subsequently, he had 3 further episodes of bloody stool that occurred in the intensive care unit overnight. Hemoglobin dropped down to 8.9 and the patient has not been transfused yet. Overall he has received a total of 1 L of IV fluid and the patient is currently on a maintenance of 125 mL an hour. No coffee-ground emesis. No hematemesis. No bright red blood per rectum. The patient does not volunteer much of history. According to him he doesn't drink alcohol in excess. He has been on a combination of aspirin and Plavix regarding previous history of cardiac disease and coronary artery disease and previous DC. Apparently had refused further care and I'm not sure if he has had any previous cardiac catheterization on evaluations. The patient coags were slightly elevated with an INR of 1.3, PTT was within normal limits, platelets are also within normal limits. He is slow in answering questions. He knows that he is in the hospital. He denies having any major chest pain or respiratory distress. Cardiac enzymes were negative. EKG not showing any acute abnormalities. No open wounds or sores. According to the history is been on oxygen at home and probably his underlying COPD and addition. Currently is on oxygen at 3 L/m nasal cannula. He is moving all 4 extremities. No focal neurological deficit. He is currently nothing by mouth for now. He has remote history of gastric ulcers however he hasn't had any recent history of bleeding. I interviewed the son and I was told that the patient is able to walk however his gait has been progressively getting worse and he has become unsteady. He always was a finger his current BMI 16.2. Apparently his been able to eat well and swallow without any major difficulties. 08/08/2017 patient seen in follow-up in the intensive care unit. He is more awake and alert, and more responsive today. Denies any distress, denies any chest pain or dyspnea, denies any abdominal discomfort. He has not had any further episodes of GI bleeding, no hematemesis, no melena. He has remained hemodynamically stable, has not required any vasopressor support, has not required any blood transfusions this admission. Today's hemoglobin is 7.4, it is stable, WBCs 12.6. Renal profile is improving, BUN is down to 48, creatinine is down to 1.20. Serum sodium is up to 149, patient was given 2 L of IV 0.9 normal saline boluses yesterday. He remains nothing by mouth at this time, GI service is Following. We'll possibly do an EGD and possible colonoscopy once the patient is more stable, and physically less debilitated. Will initiate clear liquid diet today. We'll continue to monitor hemoglobin, and continue monitoring for recurrence of GI bleeding. Patient is currently on 2 L per nasal cannula with O2 sat at 98%. Lung sounds are positive for bibasilar rhonchi, patient will begin incentive spirometry, but denies any respiratory complaints at this time. On 08/10/2017 patient seen in follow-up on selective care unit. She hasn't had recurrence of GI bleeding after he was started on oral feedings. The patient's hemoglobin dipped down to 6.4, and the patient was transfused with 2 units of PRBCs, and today's hemoglobin is 8.7. Patient appears to be more lethargic on today's exam, opens eyes, but is not very conversant, and drifts back to sleep. Does not appear to be in any acute distress, denies any chest pain, dyspnea or abdominal discomfort. The plan today is to proceed with the EGD today. In the patient remains nothing by mouth at this time. Today's chest x-ray was reviewed, shows basilar effusions and associated atelectasis. On 08/11/2017 the patient is stable, comfortable likely distress. EGD was completed yesterday and there was evidence of any acute bleeding. Hemoglobin remains stable. The patient was started on diet. He is a bit more and for active compared to yesterday and less lethargic. No other significant events otherwise. No active pulmonary or critical care issues. No plans to undergo colonoscopy due to his age and impaired based on performance and functional status and his inability to undergo the colonic prep. The patient was found to have duodenitis and duodenal bulb ulcer not showing any acute bleeding and the patient was also found to have antral gastritis. Objective - Vital Signs Vital signs: Vital Signs Temp 98.5 F 08/11/17 08:55 Pulse 86 08/11/17 11:36 Resp 16 08/11/17 08:55 BP 135/62 08/11/17 08:55 Pulse Ox 95 08/11/17 08:55 Intake & Output 08/10/17 08/11/17 08/11/17 18:59 06:59 18:59 Intake Total 1150 275 800 Output Total 650 450 Balance 1150 -375 350 Weight 56.5 kg 56.5 kg Intake: IV 1150 275 500 Dextrose 5% in Water 1, 1100 275 500 000 ml @ 75 mls/hr IV . [id number] [facility] Rx#:[id number] Oral 0 0 300 Output: Urine 650 450 Other: Voiding Method Indwelling Catheter Indwelling Catheter Indwelling Catheter # Voids 1 - Exam The patient is very cachectic and emaciated with a body mass index of 20.1. He is more arousable. More responsive. He is aware of his surroundings and he knows that he is in the hospital. No agitation. Resting comfortably in bed. The patient has temporal wasting. The patient has diffuse muscle atrophy and significant loss in total body protein mass both in his upper and lower extremities. Head exam was generally normal. There was no scleral icterus or corneal arcus. Mucous membranes were moist.Neck was supple and without jugular venous distension, thyromegaly, or carotid bruits. Carotids were easily palpable bilaterally. There was no adenopathy.Lungs sounds are positive for a few scattered rhonchi in bilateral bases, and with normal diaphragmatic excursion. No wheezes or rales were noted. Breath sounds are diminished in lung bases and there is no wheezes or rhonchi this point.Cardiac exam revealed the PMI to be normally situated and sized. The rhythm was regular and no extrasystoles were noted during several minutes of auscultation. The first and second heart sounds were normal and physiologic splitting of the second heart sound was noted. There were no murmurs, rubs, clicks, or gallops. Abdomen is soft and there is a pulsatile aorta can be felt in the midabdomen however this is probably a reflection of his underlying significant weight loss and absent abdominal fat. No direct tenderness or rebound tensile guarding at this point.Examination of the extremities revealed easily palpable radial, femoral and pedal pulses. There was no cyanosis, clubbing or edema.Examination of the skin revealed no evidence of significant rashes, suspicious appearing nevi or other concerning lesions. Neurologically is awake and alert and is following commands and moving all 4 extremities without any limitation. - Labs CBC & Chem 7: 08/11/17 06:46 08/11/17 06:46 Labs: Abnormal Lab Results - Last 24 Hours (Table) 08/11/17 08/11/17 08/11/17 Range/Units 00:10 06:46 06:46 RBC 2.69 L (4.30-5.90) m/uL Hgb 7.9 L (13.0-17.5) gm/dL Hct 25.1 L (39.0-53.0) % Neutrophils # 8.9 H (1.3-7.7) k/uL Lymphocytes # 0.8 L (1.0-4.8) k/uL Carbon Dioxide 31 H (22-30) mmol/L BUN 22 H (9-20) mg/dL POC Glucose (mg/dL) 115 H (75-99) mg/dL Calcium 6.8 L (8.4-10.2) mg/dL Phosphorus 1.9 L (2.5-4.5) mg/dL Assessment and Plan Plan: Assessment 1 GI bleeding likely of an upper GI source. Colonoscopy was not done. EGD was done and that showed duodenal ulcer that was not bleeding and there was also evidence of duodenitis and antral gastritis. Hemoglobin remains stable. The patient was started on regular diet. 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 No active pulmonary or critical care issue he had no recurrent bleed. The patient on the medical floor. We'll sign off the case.
[2017-08-11 16:54] LABS: Glucose,Whole Blood 88 mg/dL (75-99)
[2017-08-11] MEDS: cefTRIAXone IN SWFI 1,000 MG/10 ML SYRINGE IVP SCH (17:34)
[2017-08-11] MEDS: SUCRALFATE 1 GM TAB PO SCH ×2 (17:34→23:38)
--- NOTE | 2017-08-11 18:42 | P.PN ---
Subjective Progress Note Date: 08/11/17 Progress note being dictated for Dr. Kenney Interval history:85-year-old the female admitted for right GI bleed patient doesn't have any more bleed since patient patient will be transferred out of ICU patient's hemoglobin remained stable patient started eating today. I do not know his baseline mental status unable to discuss with the the son. CODE STATUS was discussed with his son by Dr. Madden. Unsure whether patient has dementia whether it's advanced are not. For now but I saw the patient patient is eating well. Probably the best idea would be once he is stable enough patient can be resumed on antiplatelet therapy if agreeable by gastroenterology and discharged to subacute rehabilitation. Patient mostly nonverbal 08/09/2017 hemoglobin dropped to 6.4, borderline hypotensive with no further bleeding noted. Denies abdominal pain. Patient transferred to telemetry unit, receiving 2 units of packed RBCs. Evaluated by GI and scheduled for EGD tomorrow. Gentle IV fluid hydration with renal function improving. Review systems unable to obtain as patient minimally converses Active Medications Albuterol/Ipratropium (Duoneb 0.5 Mg-3 Mg/3 Ml Soln) 3 ml INHALATION RT-QID JOCELYN Brimonidine Tartrate (Alphagan P 0.2% Ophth Soln) 1 drops RIGHT EYE BID JOCELYN Last Admin: 08/09/17 09:44 Dose: 1 drops Budesonide (Pulmicort) 1 mg INHALATION RT-BID JOCELYN Dextrose/Water (Dextrose 5%-Water Iv Soln) 1,000 mls @ 75 mls/hr IV .[id number] JOCELYN Last Admin: 08/09/17 14:49 Dose: Not Given Calcium Gluconate 1,000 mg/ (Sodium Chloride) 110 mls @ 100 mls/hr IVPB BID JOCELYN Stop: 08/09/17 22:05 Last Admin: 08/09/17 15:37 Dose: 100 mls/hr Insulin Aspart (Novolog) 0 unit SQ ACHS JOCELYN PRN Reason: Protocol Last Admin: 08/09/17 17:10 Dose: Not Given Latanoprost (Xalatan 0.005%) 1 drops RIGHT EYE HS [facility] Last Admin: 08/08/17 21:48 Dose: 1 drops Naloxone HCl (Narcan) 0.2 mg IV Q2M PRN PRN Reason: Opioid Reversal Ondansetron HCl (Zofran) 4 mg IVP Q8HR PRN PRN Reason: Nausea And Vomiting Pantoprazole Sodium (Protonix) 40 mg IV BID [facility] Last Admin: 08/09/17 09:44 Dose: 40 mg Timolol Maleate (Timoptic) 1 drops RIGHT EYE BID [facility] Last Admin: 08/09/17 09:44 Dose: 1 drops 08/10/2017 NPO, awaiting EGD today. No signs or symptoms of bleeding. Received 2 units of packed RBCs yesterday for hemoglobin 6.4.Hemoglobin currently 8.7. Systolic blood pressure improved. Telemetry sinus rhythm. Renal function improving. Denies chest pain, palpitations or increased shortness of breath. 08/11/2017 underwent EGD yesterday reporting duodenitis with duodenal bulb ulcers without active bleed, antral gastritis, biopsies obtained. Tolerated procedure well. No bleeding reported. Hemoglobin up to 7.9. More alert, diet intake improving. Chest x-ray similar. Objective - Vital Signs Vital signs: Vital Signs Temp 98.5 F 08/11/17 08:55 Pulse 86 08/11/17 11:36 Resp 16 08/11/17 08:55 BP 135/62 08/11/17 08:55 Pulse Ox 95 08/11/17 08:55 Intake & Output 08/10/17 08/11/17 08/11/17 18:59 06:59 18:59 Intake Total 1150 275 800 Output Total 650 450 Balance 1150 -375 350 Weight 56.5 kg 56.5 kg Intake: IV 1150 275 500 Dextrose 5% in Water 1, 1100 275 500 000 ml @ 75 mls/hr IV . [id number] [facility] Rx#:[id number] Oral 0 0 300 Output: Urine 650 450 Other: Voiding Method Indwelling Catheter Indwelling Catheter Indwelling Catheter # Voids 1 - Labs CBC & Chem 7: 08/11/17 06:46 08/11/17 06:46 Labs: Abnormal Lab Results - Last 24 Hours (Table) 08/11/17 08/11/17 08/11/17 Range/Units 00:10 06:46 06:46 RBC 2.69 L (4.30-5.90) m/uL Hgb 7.9 L (13.0-17.5) gm/dL Hct 25.1 L (39.0-53.0) % Neutrophils # 8.9 H (1.3-7.7) k/uL Lymphocytes # 0.8 L (1.0-4.8) k/uL Carbon Dioxide 31 H (22-30) mmol/L BUN 22 H (9-20) mg/dL POC Glucose (mg/dL) 115 H (75-99) mg/dL Calcium 6.8 L (8.4-10.2) mg/dL Phosphorus 1.9 L (2.5-4.5) mg/dL Assessment and Plan Assessment: -Acute blood last anemia from GI bleed most probably upper GI bleed aspirin and Plavix will be held and resumed as per GI. Status post transfusion of packed RBCs. EGD reported duodenitis with duodenal bulb ulcers without active bleed, antral gastritis, biopsies obtained. -Coronary artery disease without any previous intervention antiplatelet therapy need to be held because of the GI bleed -Acute kidney injury secondary to GI bleed -COPD without any acute exacerbation -chronic hypercapnic respiratory failure,uses 2 L -Coronary artery disease -Hyperlipidemia -Hypertension History of osteogenesis imperfecta -Moderate protein calorie malnutrition -Possible baseline moderate dementia -Hypocalcemia Plan: Continue on current medication regime , PPI, monitoring and symptomatic treatment. PT/OT. Increase ambulation as tolerated. Close monitoring of hemoglobin with repeat labs ordered for a.m. phosphorous supplemented. The impression and plan of care has been dictated as directed. : I performed a history and examination of this patient, discussed the same with the dictator. I agree with the dictator's note ,documented as a scribe. Any additional findings or plans will be noted.
[2017-08-11] MEDS ORDERED: SODIUM PHOSPHATE 10 MMOL in SODIUM CHLORIDE 0.9% 250 ML IVPB ONE (19:00)
[2017-08-11 20:03] LABS: Glucose,Whole Blood 76 mg/dL (75-99)
[2017-08-11 22:15] LABS: Glucose,Whole Blood 103 mg/dL (75-99)
[2017-08-11] MEDS: LACTATED RINGERS 1,000 ML IV SCH (23:37)
[2017-08-11] MEDS: LATANOPROST 0.005% OPHTH DROPS 2.5 ML BTL RIGHT EYE SCH (23:39)
[2017-08-12 00:08] LABS: Glucose,Whole Blood 179 mg/dL (75-99)
[2017-08-12 04:16] LABS: Glucose,Whole Blood 91 mg/dL (75-99)
[2017-08-12] MEDS: INSULIN ASPART 100 UNIT/ML 1 ML 10 ML VIAL SQ SCH ×4 (06:44→20:21)
[2017-08-12] MEDS: SUCRALFATE 1 GM TAB PO SCH ×4 (06:45→20:22)
[2017-08-12 07:09] LABS: Basophils % (A) 0 %; Eosinophils # (A) 0.1 k/uL (0-0.7); Eosinophils % (A) 2 %; HCT 24.5 % (39.0-53.0); HGB 8.1 gm/dL (13.0-17.5); Lymphocytes # (A) 0.9 k/uL (1.0-4.8); Lymphocytes % (A) 11 %; MCH 29.1 pg (25.0-35.0); MCHC 32.9 g/dL (31.0-37.0); MCV 88.5 fL (80.0-100.0); Mean Platelet Volume 9.7; Monocytes # (A) 0.6 k/uL (0-1.0); Monocytes % (A) 7 %; Neutrophils # (A) 6.1 k/uL (1.3-7.7); Neutrophils % (A) 79 %; Platelet Count 227 k/uL (150-450); RBC 2.77 m/uL (4.30-5.90); WBC 7.7 k/uL (3.8-10.6)
[2017-08-12 07:30] LABS: Anion Gap 2 mmol/L; Blood Urea Nitrogen 16 mg/dL (9-20); Calcium 6.8 mg/dL (8.4-10.2); Carbon Dioxide 33 mmol/L (22-30); Chloride 105 mmol/L (98-107); Glucose 83 mg/dL (74-99); Potassium 4.6 mmol/L (3.5-5.1); Sodium 140 mmol/L (137-145)
[2017-08-12] MEDS: BUDESONIDE 1 MG/2 ML NEBU INHALATION SCH ×2 (07:48→19:50)
[2017-08-12] MEDS: IPRATROPIUM-ALBUTEROL 3 ML NEB INHALATION SCH ×4 (07:48→19:51)
[2017-08-12] MEDS: TIMOLOL 0.5% OPHTH DROPS 5 ML BTL RIGHT EYE SCH ×2 (08:14→20:22)
[2017-08-12] MEDS: PANTOPRAZOLE 40 MG/10 ML VIAL IV SCH ×2 (08:14→20:21)
[2017-08-12] MEDS: BRIMONIDINE TARTRATE 0.2% DROPS 5 ML BTL RIGHT EYE SCH ×2 (08:14→20:22)
[2017-08-12 08:44] LABS: Glucose,Whole Blood 81 mg/dL (75-99)
[2017-08-12 11:53] LABS: Glucose,Whole Blood 138 mg/dL (75-99)
[2017-08-12] MEDS: IOPAMIDOL-300 CONTRAST 30 ML VIAL (ORAL USE) PO PRN ×2 (12:22→13:32)
[2017-08-12 12:45] LABS: Basophils % (A) 0 %; Eosinophils # (A) 0.1 k/uL (0-0.7); Eosinophils % (A) 2 %; HCT 25.2 % (39.0-53.0); HGB 7.7 gm/dL (13.0-17.5); Hypochromasia Moderate; Lymphocytes # (A) 0.6 k/uL (1.0-4.8); Lymphocytes % (A) 8 %; MCH 28.7 pg (25.0-35.0); MCHC 30.5 g/dL (31.0-37.0); Mean Platelet Volume 8.2; Monocytes # (A) 0.5 k/uL (0-1.0); Monocytes % (A) 7 %; Neutrophils # (A) 6.1 k/uL (1.3-7.7); Neutrophils % (A) 83 %; Platelet Count 261 k/uL (150-450); RBC 2.68 m/uL (4.30-5.90); RDW 13.9 % (11.5-15.5); WBC 7.4 k/uL (3.8-10.6)
[2017-08-12 16:54] LABS: Glucose,Whole Blood 128 mg/dL (75-99)
[2017-08-12] MEDS: cefTRIAXone IN SWFI 1,000 MG/10 ML SYRINGE IVP SCH (17:33)
--- NOTE | 2017-08-12 17:57 | PN ---
PROGRESS NOTE DATE OF SERVICE: 08/12/2017 This 87-year-old gentleman admitted with multiple medical problems, had upper gastrointestinal bleeding. Endoscopy showed multiple duodenal ulcers and the patient is being closely monitored. The sensorium has improved, but today the patient had a large significant amount of black, tarry stool also. Patient also had shortness of breath. Chest x-ray showed some right lower lobe lesion also. PAST MEDICAL HISTORY: Reviewed. REVIEW OF SYSTEMS: Could not be taken. The patient is slightly drowsy. CURRENT MEDICATIONS: Reviewed and include: 1. Tylenol 650 q.6h p.r.n. 2. DuoNeb q.i.d. and p.r.n. 3. Alphagan 2% right eye b.i.d. 4. Pulmicort 1 mg b.i.d. 5. Rocephin 1 g daily. 6. NovoLog scale. 7. Xalatan 1 drop daily. 8. Narcan 0.2 q.2h p.r.n. 9. Zofran. 10.Protonix. 11.Carafate. 12.Timoptic. PHYSICAL EXAMINATION: Patient is alert, oriented x3. Pulse 71, blood pressure 134/70, respiration 18, temperature normal, pulse ox 98% on 3 L. HEENT: Conjunctivae normal. NECK: No jugular venous distention. CARDIOVASCULAR: S1, S2. RESPIRATORY: Breath sounds diminished in the bases. A few scattered rhonchi and crackles. ABDOMEN: Soft, mild diffuse discomfort. No guarding. No mass palpable. LEGS: No edema. NERVOUS SYSTEM: No focal deficits. LABS: Hemoglobin 7.7 and glucose 138. ASSESSMENT: 1. Acute blood-loss anemia from GI bleed secondary to duodenal ulcer, status post EGD. 2. Coronary artery disease. 3. Right pleural effusion, rule out pneumonia. 4. Acute kidney injury. 5. Chronic obstructive pulmonary disease. 6. Chronic hypercapnic respiratory failure. 7. Coronary artery disease. 8. Hypertension. 9. Hyperlipidemia. 11.Moderate protein calorie malnutrition. 12.Baseline moderate dementia. 13.Hypocalcemia. 14.FULL CODE. RECOMMENDATIONS AND DISCUSSION: In this 87-year-old gentleman who presented with multiple complex medical issues , we will monitor the patient closely. Continue the current management and symptomatic treatment. The patient has significant bleeding at this time, which could indicate old in blood also, but will recommend a stat hemoglobin and also CT scan of the abdomen pelvis and also chest also. The patient also had right lower lobe density as well. Follow closely with multiple consultants including Gastroenterology as well as Neurology and Pulmonology. Prognosis guarded because of multiple complex medical issues. Further recommendations to follow. MMGRETAL / CHARLYN: [id number] / MTDD
[2017-08-12 19:58] LABS: Basophils % (A) 0 %; Eosinophils # (A) 0.2 k/uL (0-0.7); Eosinophils % (A) 2 %; HCT 25.9 % (39.0-53.0); Hypochromasia Slight; Lymphocytes # (A) 0.9 k/uL (1.0-4.8); Lymphocytes % (A) 10 %; MCH 28.4 pg (25.0-35.0); MCHC 30.7 g/dL (31.0-37.0); MCV 92.2 fL (80.0-100.0); Mean Platelet Volume 10.4; Monocytes # (A) 0.5 k/uL (0-1.0); Monocytes % (A) 6 %; Neutrophils % (A) 81 %; Platelet Count 195 k/uL (150-450); RBC 2.81 m/uL (4.30-5.90); RDW 14.1 % (11.5-15.5); WBC 8.7 k/uL (3.8-10.6)
[2017-08-12 20:07] LABS: Glucose,Whole Blood 112 mg/dL (75-99)
[2017-08-12] MEDS: LATANOPROST 0.005% OPHTH DROPS 2.5 ML BTL RIGHT EYE SCH (20:22)
[2017-08-12] MEDS: LACTATED RINGERS 1,000 ML IV SCH (20:23)
--- NOTE | 2017-08-12 22:26 | CT ---
EXAMINATION TYPE: CT ChestAbdPelvis wo con DATE OF EXAM: 08/12/2017 COMPARISON: Chest x-ray from yesterday HISTORY: Right-sided pneumonia? And GI bleed CT DLP: 345.6 mGycm. Automated Exposure Control for Dose Reduction was Utilized. TECHNIQUE: CT scan of the thorax, abdomen and pelvis is performed with oral but without IV contrast. FINDINGS: Within the limitations of a noncontrast study, the following observations are made. Patient has very little intra-abdominal fat making evaluation suboptimal. LUNGS: Evaluation is suboptimal as there is significant respiratory motion artifact degradation. Ther e are moderate sized bilateral pleural effusions with associated compressive atelectasis in both lowe r lungs. No pneumothorax is seen bilaterally. Mild to moderate underlying emphysematous change is fel t present. MEDIASTINUM: There are no greater than 1 cm noncalcified hilar or mediastinal lymph nodes. There are prominent calcified left hilar and subcarinal lymph nodes. There are small to moderate-sized pericar dial effusion measuring up to 1.0 cm in thickness anteriorly and inferiorly on axial image 45. Cardi omegaly is present. There is moderate to severe three-vessel coronary artery calcification which is n oted marker for coronary artery disease. Left thyroid is surgically absent or markedly atrophic. OTHER: No additional significant abnormality is seen. LIVER/GB: Calcification in the intrahepatic dome is present. Cholecystectomy clips are seen. Biliary system is not well visualized. PANCREAS: No significant abnormality is seen. SPLEEN: Some calcifications and spleen are also present. ADRENALS: Adrenal glands are not well seen. KIDNEYS: There is simple appearing 3.7 cm cyst anteriorly upper pole of the right kidney. BOWEL: The oral contrast reaches level of sigmoid colon. Visualized bowel shows no suspicious small o r large bowel dilatation. Fairly moderate to severe gastric wall thickening is felt present. GENITAL ORGANS: There is suboptimal evaluation of uterus due to metallic hip arthroplasties. LYMPH NODES: No greater than 1cm abdominal or pelvic lymph nodes are appreciated. OSSEOUS STRUCTURES: Metallic artifact from bilateral hip arthroplasty causes streak artifact limiting evaluation of pelvic structures. Osseous structures are demineralized. S-shaped scoliosis is present . There is moderate to severe multilevel spurring in the thoracolumbar spine. There is multilevel mod erate to severe disc space narrowing in the lumbar spine. There is spinal canal stenosis L2-L3 level due to disc herniation and facet arthropathy. OTHER: There is moderate diffuse soft tissue anasarca. There is abnormal fluid or soft tissue presacr al space axial image 102 incompletely evaluated due to artifact from metallic hip surgery. IMPRESSION: 1. Suboptimal study due to lack of IV contrast and patient having virtual no fat. 2. There is cardiomegaly with fairly moderate sized bilateral pleural effusions, correlate for CHF ex acerbation . There is associated bibasilar compressive atelectasis, underlying infiltrates are not ex cluded. Background of chronic emphysematous change and old granulomatous disease is noted. 3. Suboptimal evaluation for acute GI bleed without giving IV contrast and getting positive enteric o r oral contrast agent. Moderate to severe gastric wall thickening is felt present, correlate for messi ritis. No bowel obstruction is noted.
[2017-08-12 23:59] LABS: Glucose,Whole Blood 135 mg/dL (75-99)
[2017-08-13 04:05] LABS: Glucose,Whole Blood 92 mg/dL (75-99)
[2017-08-13] MEDS: INSULIN ASPART 100 UNIT/ML 1 ML 10 ML VIAL SQ SCH ×4 (06:35→22:27)
[2017-08-13] MEDS: SUCRALFATE 1 GM TAB PO SCH ×4 (06:35→22:35)
[2017-08-13] MEDS: PANTOPRAZOLE 40 MG/10 ML VIAL IV SCH ×2 (07:41→22:35)
[2017-08-13] MEDS: BRIMONIDINE TARTRATE 0.2% DROPS 5 ML BTL RIGHT EYE SCH ×2 (07:41→22:35)
[2017-08-13] MEDS: TIMOLOL 0.5% OPHTH DROPS 5 ML BTL RIGHT EYE SCH ×2 (07:42→22:36)
[2017-08-13 08:34] LABS: Basophils % (A) 0 %; Eosinophils # (A) 0.1 k/uL (0-0.7); Eosinophils % (A) 2 %; HCT 24.2 % (39.0-53.0); HGB 7.5 gm/dL (13.0-17.5); Hypochromasia Moderate; Lymphocytes # (A) 0.8 k/uL (1.0-4.8); Lymphocytes % (A) 11 %; MCHC 30.8 g/dL (31.0-37.0); MCV 94.1 fL (80.0-100.0); Mean Platelet Volume 7.7; Monocytes # (A) 0.6 k/uL (0-1.0); Monocytes % (A) 8 %; Neutrophils # (A) 5.3 k/uL (1.3-7.7); Neutrophils % (A) 78 %; Platelet Count 264 k/uL (150-450); RBC 2.57 m/uL (4.30-5.90); RDW 14.2 % (11.5-15.5); WBC 6.8 k/uL (3.8-10.6)
[2017-08-13] MEDS: BUDESONIDE 1 MG/2 ML NEBU INHALATION SCH ×2 (08:34→20:35)
[2017-08-13] MEDS: IPRATROPIUM-ALBUTEROL 3 ML NEB INHALATION SCH ×4 (08:34→20:36)
[2017-08-13 09:03] LABS: Anion Gap 3 mmol/L; Blood Urea Nitrogen 12 mg/dL (9-20); Calcium 6.6 mg/dL (8.4-10.2); Carbon Dioxide 33 mmol/L (22-30); Chloride 102 mmol/L (98-107); Glucose 84 mg/dL (74-99); Potassium 4.3 mmol/L (3.5-5.1); Sodium 138 mmol/L (137-145)
[2017-08-13 11:42] LABS: Glucose,Whole Blood 94 mg/dL (75-99)
[2017-08-13] MEDS ORDERED: FUROSEMIDE 10 MG/ML 4 ML VIAL IV PRN (12:59)
[2017-08-13] MEDS: FUROSEMIDE 10 MG/ML 2 ML VIAL IV SCH (15:04)
[2017-08-13 17:18] LABS: Glucose,Whole Blood 89 mg/dL (75-99)
[2017-08-13] MEDS: cefTRIAXone IN SWFI 1,000 MG/10 ML SYRINGE IVP SCH (17:41)
--- NOTE | 2017-08-13 17:58 | PN ---
PROGRESS NOTE DATE OF SERVICE: 08/13/17 This 87-year-old gentleman admitted with multiple medical problems, upper gastrointestinal bleeding. The patient had multiple duodenal ulcers and duodenitis for EGD. CT scan showed thickening of the stomach. No chest pain. No palpitations. Patient also had bilateral pleural effusion also. PAST MEDICAL HISTORY: Reviewed. REVIEW OF SYSTEMS: Could not be taken. The patient currently confused. CURRENT MEDICATIONS ARE: 1. Tylenol 650 q.6h p.r.n. 2. DuoNeb q.i.d. p.r.n. 3. Alphagan 0.25% right eye b.i.d. 5. Rocephin 1 g daily. 6. Lasix 40 mg IV b.i.d. 7. NovoLog q.a.c. and q.h.s. 8. Lactated Ringer's. 9. Xalatan 1 drop q.h.s. 10.Narcan 0.2 q.2h p.r.n. 11.Zofran. 12.Protonix. 13.Carafate. 14.Timoptic. PHYSICAL EXAM: Patient is alert, oriented x2. Pulse is 73, blood pressure 140/65, respirations 18, temperature 97 degrees. Pulse ox 100% on 2 L. HEENT: Conjunctivae normal. Oral mucosa moist. Neck is no jugular venous distention. No carotid bruit. No lymph node enlargement. Cardiovascular S1-S2, No S3, no S4. Respiratory: Breath sounds diminished in the bases. A few scattered rhonchi. No crackles. ABDOMEN: Soft, nontender. No mass palpable. LEGS: Minimal leg edema. Nervous system: Diffusely weak. LAB STUDIES: WBC 6.8, hemoglobin 7.5, sodium 130, potassium 4.3. ASSESSMENT: 1. Acute blood-loss anemia from possibly gastrointestinal bleed secondary to duodenal ulcer, status post EGD. 2. Bilateral pleural effusions, possibly congestive heart failure. 3. History of coronary artery disease. 4. Stomach wall thickening in the CT scan. 5. Right pleural effusion, rule out pneumonia underlying. 6. Acute kidney injury. 7. Chronic obstructive pulmonary disease. 8. Chronic hypercapnic respiratory failure. 9. Coronary artery disease. 10.Hypertension. 11.Hyperlipidemia. 12.Moderate protein calorie malnutrition. 13.Gait dysfunction. 14.Baseline moderate dementia. 15.Hypocalcemia. 16.FULL CODE. RECOMMENDATIONS AND DISCUSSION: Recommend to continue current medications, continue to monitor. Symptomatic treatment. Otherwise, at this time, I recommend continue with empiric antibiotics. Add diuretics to the current regimen. PT/OT evaluation, possible ECF rehab. Otherwise Carafate. Monitor hemoglobin closely. Prognosis is extremely guarded because of multiple complex medical issues. Further recommendations to follow. MMODL / IJN: [id number] / MTDD
[2017-08-13 20:30] LABS: HCT 29.3 % (39.0-53.0); Hypochromasia Moderate; MCH 29.6 pg (25.0-35.0); MCHC 31.5 g/dL (31.0-37.0); Mean Platelet Volume 7.9; Platelet Count 291 k/uL (150-450); RBC 3.12 m/uL (4.30-5.90); RDW 14.4 % (11.5-15.5); WBC 8.3 k/uL (3.8-10.6)
[2017-08-13 20:33] LABS: HGB 9.2 gm/dL (13.0-17.5)
[2017-08-13 20:58] LABS: Glucose,Whole Blood 150 mg/dL (75-99)
[2017-08-13] MEDS: LATANOPROST 0.005% OPHTH DROPS 2.5 ML BTL RIGHT EYE SCH (22:35)
[2017-08-14] MEDS: LACTATED RINGERS 1,000 ML IV SCH ×2 (03:25→23:50)
[2017-08-14 06:31] LABS: Glucose,Whole Blood 81 mg/dL (75-99)
[2017-08-14 06:38] LABS: Basophils % (A) 0 %; Eosinophils # (A) 0.1 k/uL (0-0.7); Eosinophils % (A) 1 %; HCT 28.8 % (39.0-53.0); HGB 9.3 gm/dL (13.0-17.5); Lymphocytes # (A) 0.7 k/uL (1.0-4.8); Lymphocytes % (A) 8 %; MCH 29.6 pg (25.0-35.0); MCHC 32.5 g/dL (31.0-37.0); MCV 91.3 fL (80.0-100.0); Mean Platelet Volume 7.3; Monocytes # (A) 0.5 k/uL (0-1.0); Monocytes % (A) 6 %; Neutrophils # (A) 7.2 k/uL (1.3-7.7); Neutrophils % (A) 84 %; Platelet Count 318 k/uL (150-450); Poikilocytosis Slight; RBC 3.15 m/uL (4.30-5.90); RDW 14.4 % (11.5-15.5); WBC 8.6 k/uL (3.8-10.6)
[2017-08-14] MEDS: INSULIN ASPART 100 UNIT/ML 1 ML 10 ML VIAL SQ SCH ×4 (06:38→22:15)
[2017-08-14] MEDS: SUCRALFATE 1 GM TAB PO SCH ×4 (06:39→20:43)
[2017-08-14 06:46] LABS: Anion Gap 3 mmol/L; Blood Urea Nitrogen 13 mg/dL (9-20); Calcium 6.8 mg/dL (8.4-10.2); Carbon Dioxide 37 mmol/L (22-30); Chloride 98 mmol/L (98-107); Glucose 87 mg/dL (74-99); Potassium 3.9 mmol/L (3.5-5.1); Sodium 138 mmol/L (137-145)
[2017-08-14] MEDS: FUROSEMIDE 10 MG/ML 2 ML VIAL IV SCH (08:25)
[2017-08-14] MEDS: BRIMONIDINE TARTRATE 0.2% DROPS 5 ML BTL RIGHT EYE SCH ×2 (08:25→20:43)
[2017-08-14] MEDS: PANTOPRAZOLE 40 MG/10 ML VIAL IV SCH ×2 (08:25→20:43)
[2017-08-14] MEDS: TIMOLOL 0.5% OPHTH DROPS 5 ML BTL RIGHT EYE SCH ×2 (08:25→20:43)
[2017-08-14] MEDS: IPRATROPIUM-ALBUTEROL 3 ML NEB INHALATION SCH ×4 (09:39→20:20)
[2017-08-14] MEDS: BUDESONIDE 1 MG/2 ML NEBU INHALATION SCH ×2 (09:39→20:20)
--- NOTE | 2017-08-14 11:22 | ECHOF ---
Referral Reason:CAD MEASUREMENTS -------- HEIGHT: 165.1 cm WEIGHT: 51.7 kg BP: 180/61 RVIDd: 3.9 cm (< 3.3) IVSd: 1.4 cm (0.6 - 1.1) LVIDd: 4.5 cm (3.9 - 5.3) LVPWd: 1.7 cm (0.6 - 1.1) IVSs: 1.8 cm LVIDs: 3.2 cm LVPWs: 1.7 cm LA Diam: 3.8 cm (2.7 - 3.8) LAESV Index (A-L): 45.67 ml/m MV EXCURSION: 26.725 mm (> 18.000) MV EF SLOPE: 92 mm/s (70 - 150) EPSS: 2.5 cm MV E Haile: 0.47 m/s MV DecT: 218 ms MV A Haile: 0.76 m/s MV E/A Ratio: 0.62 AR PHT: 448 ms RAP: 5.00 mmHg RVSP: 17.21 mmHg FINDINGS -------- Sinus rhythm. This was a technically good study. The left ventricular size is normal. There is mild concentric left ventricular hypertrophy. Overa ll left ventricular systolic function is mild-moderately impaired with, an EF between 40 - 45 %. An terseptal Hypokinesis The right ventricle is moderately enlarged. The left atrial size is normal. LA is severely dilated >40 ml/m2 The right atrial size is normal. There is mild aortic valve sclerosis. There is [id number] aortic regurgitation. Mild mitral annular calcification present. Mild mitral regurgitation is present. Mild tricuspid regurgitation present. There is no evidence of pulmonary hypertension. The right v entricular systolic pressure, as measured by Doppler, is 17.21mmHg. There is no pulmonic regurgitation present. The aortic root size is normal. There is a small, generalized pericardial effusion present. Large Pleural Effusion. CONCLUSIONS -------- 1. The left ventricular size is normal. 2. There is mild concentric left ventricular hypertrophy. 3. Overall left ventricular systolic function is mild-moderately impaired with, an EF between 40 - 45 %. 4. Anterseptal Hypokinesis 5. The right ventricle is moderately enlarged. 6. LA is severely dilated >40 ml/m2 7. There is mild aortic valve sclerosis. 8. There is qoqercni-vj-wyicrs aortic regurgitation. 9. Mild mitral annular calcification present. 10. Mild mitral regurgitation is present. 11. Mild tricuspid regurgitation present. 12. There is no evidence of pulmonary hypertension. 13. The right ventricular systolic pressure, as measured by Doppler, is 17.21mmHg. 14. There is no pulmonic regurgitation present. 15. The aortic root size is normal. 16. There is a small, generalized pericardial effusion present. 17. Large Pleural Effusion. [employer] SERVICE: Esperanza Burns RDCS
[2017-08-14 11:23] VITALS: BMI 18.5
[2017-08-14 11:47] LABS: Glucose,Whole Blood 109 mg/dL (75-99)
[2017-08-14] MEDS: cefTRIAXone IN SWFI 1,000 MG/10 ML SYRINGE IVP SCH (16:36)
[2017-08-14 16:45] LABS: Glucose,Whole Blood 125 mg/dL (75-99)
[2017-08-14] MEDS ORDERED: Magnesium Replacement Protocol 1 EACH MISC MISCELLANE PRN (19:20)
[2017-08-14] MEDS ORDERED: Potassium Replacement Protocol 1 EACH MISC MISCELLANE PRN (19:20)
--- NOTE | 2017-08-14 19:20 | P.PN ---
Subjective Progress Note Date: 08/14/17 Progress note being dictated for Dr. Kenney Interval history:85-year-old the female admitted for right GI bleed patient doesn't have any more bleed since patient patient will be transferred out of ICU patient's hemoglobin remained stable patient started eating today. I do not know his baseline mental status unable to discuss with the the son. CODE STATUS was discussed with his son by Dr. Madden. Unsure whether patient has dementia whether it's advanced are not. For now but I saw the patient patient is eating well. Probably the best idea would be once he is stable enough patient can be resumed on antiplatelet therapy if agreeable by gastroenterology and discharged to subacute rehabilitation. Patient mostly nonverbal 08/09/2017 hemoglobin dropped to 6.4, borderline hypotensive with no further bleeding noted. Denies abdominal pain. Patient transferred to telemetry unit, receiving 2 units of packed RBCs. Evaluated by GI and scheduled for EGD tomorrow. Gentle IV fluid hydration with renal function improving. Review systems unable to obtain as patient minimally converses Active Medications Albuterol/Ipratropium (Duoneb 0.5 Mg-3 Mg/3 Ml Soln) 3 ml INHALATION RT-QID JOCELYN Brimonidine Tartrate (Alphagan P 0.2% Ophth Soln) 1 drops RIGHT EYE BID JOCELYN Last Admin: 08/09/17 09:44 Dose: 1 drops Budesonide (Pulmicort) 1 mg INHALATION RT-BID JOCELYN Dextrose/Water (Dextrose 5%-Water Iv Soln) 1,000 mls @ 75 mls/hr IV .[id number] JOCELYN Last Admin: 08/09/17 14:49 Dose: Not Given Calcium Gluconate 1,000 mg/ (Sodium Chloride) 110 mls @ 100 mls/hr IVPB BID JOCELYN Stop: 08/09/17 22:05 Last Admin: 08/09/17 15:37 Dose: 100 mls/hr Insulin Aspart (Novolog) 0 unit SQ ACHS JOCELYN PRN Reason: Protocol Last Admin: 08/09/17 17:10 Dose: Not Given Latanoprost (Xalatan 0.005%) 1 drops RIGHT EYE HS [facility] Last Admin: 08/08/17 21:48 Dose: 1 drops Naloxone HCl (Narcan) 0.2 mg IV Q2M PRN PRN Reason: Opioid Reversal Ondansetron HCl (Zofran) 4 mg IVP Q8HR PRN PRN Reason: Nausea And Vomiting Pantoprazole Sodium (Protonix) 40 mg IV BID [facility] Last Admin: 08/09/17 09:44 Dose: 40 mg Timolol Maleate (Timoptic) 1 drops RIGHT EYE BID [facility] Last Admin: 08/09/17 09:44 Dose: 1 drops 08/10/2017 NPO, awaiting EGD today. No signs or symptoms of bleeding. Received 2 units of packed RBCs yesterday for hemoglobin 6.4.Hemoglobin currently 8.7. Systolic blood pressure improved. Telemetry sinus rhythm. Renal function improving. Denies chest pain, palpitations or increased shortness of breath. 08/11/2017 underwent EGD yesterday reporting duodenitis with duodenal bulb ulcers without active bleed, antral gastritis, biopsies obtained. Tolerated procedure well. No bleeding reported. Hemoglobin up to 7.9. More alert, diet intake improving. Chest x-ray similar. 08/14/2017 much more alert, in a diet intake improved. No further signs or symptoms of bleeding. Positive bowel movement, brown. Advance diet to soft. Denies chest pain, palpitations or increasing shortness of breath. Hemoglobin 9.3. Echo reporting mild to-moderately impaired LV function with EF 40-45%, anterior septal hypokinesis, severely dilated LA, moderate to severe aortic regurgitation, large pleural effusion. Objective - Vital Signs Vital signs: Vital Signs Temp 98.4 F 08/14/17 16:15 Pulse 74 08/14/17 16:21 Resp 18 08/14/17 16:15 BP 191/75 08/14/17 16:15 Pulse Ox 96 08/14/17 16:15 Intake & Output 08/13/17 08/14/17 08/14/17 18:59 06:59 18:59 Intake Total 620 960 Output Total 900 1900 Balance -280 -1900 960 Weight 52 kg 52 kg Intake: IV 310 prbc 310 Oral 960 Blood Product 310 Rc As-1 Unit 310 [id number] Output: Urine 900 1900 Other: Voiding Method Indwelling Catheter Indwelling Catheter Urinal Diaper # Voids 3 # Bowel Movements 3 0 1 - Exam GENERAL: Sitting up in bed, alert and oriented 3, severely cachectic, conversing HEENT: Pupils are round and equally reacting to light. EOMI. No scleral icterus. No conjunctival pallor. Normocephalic, atraumatic. No pharyngeal erythema. No thyromegaly. CARDIOVASCULAR: S1 and S2 present. No murmurs, rubs, or gallops. PULMONARY: Chest is clear to auscultation, occasional scattered rhonchi, no wheezing or crackles. ABDOMEN: Soft, nontender, nondistended, normoactive bowel sounds. No palpable organomegaly. MUSCULOSKELETAL: No joint swelling or deformity. EXTREMITIES: No cyanosis, clubbing, minimal pedal edema. NEUROLOGICAL: Generalized diffuse weakness, no focal deficit - Labs CBC & Chem 7: 08/14/17 06:29 08/14/17 06:29 Labs: Abnormal Lab Results - Last 24 Hours (Table) 08/13/17 08/13/17 08/14/17 Range/Units 19:56 20:57 06:29 RBC 3.12 L 3.15 L (4.30-5.90) m/uL Hgb 9.2 L D 9.3 L (13.0-17.5) gm/dL Hct 29.3 L 28.8 L (39.0-53.0) % Lymphocytes # 0.7 L (1.0-4.8) k/uL Carbon Dioxide (22-30) mmol/L POC Glucose (mg/dL) 150 H (75-99) mg/dL Calcium (8.4-10.2) mg/dL 08/14/17 08/14/17 08/14/17 Range/Units 06:29 11:37 16:35 RBC (4.30-5.90) m/uL Hgb (13.0-17.5) gm/dL Hct (39.0-53.0) % Lymphocytes # (1.0-4.8) k/uL Carbon Dioxide 37 H (22-30) mmol/L POC Glucose (mg/dL) 109 H 125 H (75-99) mg/dL Calcium 6.8 L (8.4-10.2) mg/dL Assessment and Plan Assessment: -Acute blood last anemia from GI bleed secondary to duodenal ulcers, status post EGD -Coronary artery disease without any previous intervention antiplatelet therapy need to be held because of the GI bleed -Acute kidney injury secondary to GI bleed -COPD without any acute exacerbation -chronic hypercapnic respiratory failure,uses 2 L -Coronary artery disease -Hyperlipidemia -Hypertension History of osteogenesis imperfecta -Moderate protein calorie malnutrition -Possible baseline moderate dementia -Hypocalcemia -Bilateral pleural effusions Plan: Continue on current medication regime , PPI, monitoring and symptomatic treatment. PT/OT. Increase ambulation as tolerated. Possible ECF rehab at discharge as recommended per physical therapy. Hypertensive, beta raheel resumed. Echo reporting large pleural effusion, chest ultrasound ordered. Discharge planning in progress. The impression and plan of care has been dictated as directed. : I performed a history and examination of this patient, discussed the same with the dictator. I agree with the dictator's note ,documented as a scribe. Any additional findings or plans will be noted.
[2017-08-14] MEDS: LATANOPROST 0.005% OPHTH DROPS 2.5 ML BTL RIGHT EYE SCH (20:43)
[2017-08-14] MEDS: CARVEDILOL 12.5 MG TAB PO SCH (20:47)
[2017-08-14 21:03] LABS: Glucose,Whole Blood 151 mg/dL (75-99)
[2017-08-14 23:32] VITALS: RESP 16
[2017-08-15] MEDS: SUCRALFATE 1 GM TAB PO SCH ×2 (06:32→12:19)
[2017-08-15] MEDS: CARVEDILOL 12.5 MG TAB PO SCH (06:32)
[2017-08-15] MEDS: INSULIN ASPART 100 UNIT/ML 1 ML 10 ML VIAL SQ SCH ×2 (06:34→12:05)
[2017-08-15 06:45] LABS: Calcium 6.7 mg/dL (8.4-10.2); Magnesium 1.9 mg/dL (1.6-2.3); Potassium 4.4 mmol/L (3.5-5.1)
[2017-08-15 06:46] LABS: Glucose,Whole Blood 87 mg/dL (75-99)
[2017-08-15 06:51] LABS: Basophils % (A) 0 %; Eosinophils # (A) 0.1 k/uL (0-0.7); Eosinophils % (A) 1 %; HCT 28.1 % (39.0-53.0); HGB 9.1 gm/dL (13.0-17.5); Lymphocytes # (A) 0.6 k/uL (1.0-4.8); Lymphocytes % (A) 8 %; MCH 29.6 pg (25.0-35.0); MCHC 32.4 g/dL (31.0-37.0); MCV 91.4 fL (80.0-100.0); Mean Platelet Volume 7.4; Monocytes # (A) 0.5 k/uL (0-1.0); Monocytes % (A) 7 %; Neutrophils # (A) 6.2 k/uL (1.3-7.7); Neutrophils % (A) 84 %; Platelet Count 332 k/uL (150-450); RBC 3.07 m/uL (4.30-5.90); RDW 14.5 % (11.5-15.5); WBC 7.4 k/uL (3.8-10.6)
[2017-08-15 08:19] VITALS: TEMP 97.1
[2017-08-15] MEDS: FUROSEMIDE 10 MG/ML 2 ML VIAL IV SCH (08:35)
[2017-08-15] MEDS: TIMOLOL 0.5% OPHTH DROPS 5 ML BTL RIGHT EYE SCH (08:35)
[2017-08-15] MEDS: PANTOPRAZOLE 40 MG/10 ML VIAL IV SCH (08:35)
[2017-08-15] MEDS: BRIMONIDINE TARTRATE 0.2% DROPS 5 ML BTL RIGHT EYE SCH (08:35)
--- NOTE | 2017-08-15 08:44 | US ---
EXAMINATION TYPE: US chest DATE OF EXAM: 08/15/2017 COMPARISON: CT, XRAY CLINICAL HISTORY: pl/ effusion L R. EXAM MEASUREMENTS: Right Pleural Effusion fluid pocket: 2.9 cm Right skin to fluid thickness: 2.1 cm Left Pleural Effusion fluid pocket: 2.5 cm Left skin to fluid thickness: 1.6 cm Right side marked for possible thoracentesis outside the dept. Left side marked for possible thoracentesis outside the dept. Pulmonologists are able to review the images in the patient?s EMR. IMPRESSIONS: Bilateral small pleural effusions
[2017-08-15] MEDS: BUDESONIDE 1 MG/2 ML NEBU INHALATION SCH (08:59)
[2017-08-15] MEDS: IPRATROPIUM-ALBUTEROL 3 ML NEB INHALATION SCH ×2 (09:00→11:47)
--- NOTE | 2017-08-15 09:15 | XR ---
EXAMINATION TYPE: XR chest 1V portable DATE OF EXAM: 08/15/2017 COMPARISON: 08/11/2017 HISTORY: Pleural effusion TECHNIQUE: Single frontal view of the chest is obtained. FINDINGS: Bilateral consolidation and pleural effusion. Cardiomegaly noted. Postsurgical change of t he abdomen. No pneumothorax. Arthropathy of the shoulders and diffuse osteopenia. IMPRESSION: 1. Bilateral consolidation and pleural effusion. 2. Cardiomegaly
[2017-08-15 12:05] VITALS: PULSE 62
[2017-08-15 12:16] LABS: Glucose,Whole Blood 107 mg/dL (75-99)
[2017-08-15 12:38] VITALS: BP 92/48
--- NOTE | 2017-08-15 12:48 | P.DS ---
Providers Date of admission: 08/06/17 20:20 Expected date of discharge: 08/15/17 Attending physician: Dimas Kenney Consults: 08/06/17 22:44 Consult Physician Stat Consulting Provider: Aly Springer Reason/Comments: ICU management Do you want consulting provider notified?: Yes Primary care physician: MD Dr. Isela Haji Hospital Course: Final Diagnoses: -Acute blood last anemia from GI bleed secondary to duodenal ulcers, status post EGD -Coronary artery disease without any previous intervention antiplatelet therapy need to be held because of the GI bleed -Acute kidney injury secondary to GI bleed -COPD without any acute exacerbation -chronic hypercapnic respiratory failure,uses 2 L -Coronary artery disease -Hyperlipidemia -Hypertension History of osteogenesis imperfecta -Moderate protein calorie malnutrition -Possible baseline moderate dementia -Hypocalcemia -Bilateral pleural effusions, -Acute CHF Exac., Systolic Dysfx., EF 40-45% Hospital COurse:85-year-old the gentleman admitted for right GI bleed, acute renal failure, bilateral pleural effusions, acute CHF and multiple other medical issues. Evaluated by GI, Pulmonology.Received gentle iv fluid hydration , transfused with RBCs. Renal function improved.Underwent EGD yesterday reporting duodenitis with duodenal bulb ulcers without active bleed, antral gastritis, biopsies obtained.ASA and Plavix have been placed on hold for 2 weeks , then re-eval HGb., and slowly resume. Echo reporting mild to-moderately impaired LV function with EF 40-45%, anterior septal hypokinesis, severely dilated LA, moderate to severe aortic regurgitation, large pleural effusion.Chest US perfomed, reporting right pleural effusion 2.9cm, Left pleural effusion 2.5cm. evaluated by pulmonary with no intervention at this time. SIgnificant CLinical IOMprovement. CLeared by all consults for discharge. Patient is being discharge to [facility] in a stable condition with a guarded prognosis. PHYSICAL EXAM: GENERAL: VSS, NO acute distress, ALert & Oriented X3, cachectic, CARDIOVASCULAR: S1 and S2 present. No murmurs, rubs, or gallops. PULMONARY: Chest is clear to auscultation, occasional scattered rhonchi, no wheezing or crackles. ABDOMEN: Soft, nontender, nondistended, normoactive bowel sounds. No palpable organomegaly. NEUROLOGICAL: Generalized diffuse weakness, no focal deficit The impression and plan of care has been dictated as directed. : I performed a history and examination of this patient, discussed the same with the dictator. I agree with the dictator's note ,documented as a scribe. Any additional findings or plans will be noted. Time Taken : 35 MIN Patient Condition at Discharge: Stable Plan - Discharge Summary Discharge Rx Participant: No New Discharge Prescriptions: New Sucralfate [Carafate] 1 gm PO BID #28 tab Cefuroxime Axetil [Ceftin] 500 mg PO BID #10 tab Acetaminophen Tab [Tylenol] 650 mg PO Q6HR PRN tab PRN Reason: Fever And/ Or Pain Brimonidine Tartrate [Alphagan P 0.2% Ophth Soln] 1 drops RIGHT EYE BID ml Ipratropium-Albuterol Nebulize [Duoneb 0.5 mg-3 mg/3 ml Soln] 3 ml INHALATION RT-QID ampul.maki Latanoprost Ophth [Xalatan 0.005%] 1 drops RIGHT EYE HS ml Pantoprazole Sodium [Protonix] 40 mg PO BID #60 tablet. Timolol 0.5% Ophth Soln [Timoptic 0.5% Ophth Soln] 1 drops RIGHT EYE BID ml Carvedilol [Coreg] 3.125 mg PO DAILY #1 tablet Continue Magnesium Oxide [Mag-Ox] 400 mg PO DAILY Atorvastatin Calcium [Lipitor] 20 mg PO DAILY Ergocalciferol (Vitamin D2) [Vitamin D2] 50,000 unit PO Q7D Budesonide [Pulmicort] 0.5 mg INHALATION RT-QID PRN PRN Reason: Shortness Of Breath Furosemide [Lasix] 20 mg PO DAILY #0 Discontinued Ipratropium-Albuterol Nebulize [Duoneb 0.5 mg-3 mg/3 ml Soln] 3 ml INHALATION RT-QID PRN PRN Reason: Shortness Of Breath Discharge Medication List Atorvastatin Calcium [Lipitor] 20 mg PO DAILY 12/07/15 [History] Magnesium Oxide [Mag-Ox] 400 mg PO DAILY 12/07/15 [History] Ergocalciferol (Vitamin D2) [Vitamin D2] 50,000 unit PO Q7D 08/06/17 [History] Budesonide [Pulmicort] 0.5 mg INHALATION RT-QID PRN 08/07/17 [History] Acetaminophen Tab [Tylenol] 650 mg PO Q6HR PRN tab 08/15/17 [Rx] Brimonidine Tartrate [Alphagan P 0.2% Ophth Soln] 1 drops RIGHT EYE BID ml [Rx] Carvedilol [Coreg] 3.125 mg PO DAILY #1 tablet 08/15/17 [Rx] Cefuroxime Axetil [Ceftin] 500 mg PO BID #10 tab 08/15/17 [Rx] Furosemide [Lasix] 20 mg PO DAILY #0 08/15/17 [Rx] Ipratropium-Albuterol Nebulize [Duoneb 0.5 mg-3 mg/3 ml Soln] 3 ml INHALATION RT -QID ampul.neb 08/15/17 [Rx] Latanoprost Ophth [Xalatan 0.005%] 1 drops RIGHT EYE HS ml 08/15/17 [Rx] Pantoprazole Sodium [Protonix] 40 mg PO BID #60 tablet.dr 08/15/17 [Rx] Sucralfate [Carafate] 1 gm PO BID #28 tab 08/15/17 [Rx] Timolol 0.5% Ophth Soln [Timoptic 0.5% Ophth Soln] 1 drops RIGHT EYE BID ml [Rx] Follow up Appointment(s)/Referral(s): [facility] Visiting Nurse, [NON-STAFF] - Jeovany Mancuso MD [STAFF PHYSICIAN] - 2 Weeks Moises Bliss MD [STAFF PHYSICIAN] - 3 Days Bri Garrett MD [STAFF PHYSICIAN] - 10 Days Activity/Diet/Wound Care/Special Instructions: Diet:Dysph. Level 3 Activity: as tolerated cbc,bmp in 3 days
--- NOTE | 2017-08-16 08:14 | DS ---
DISCHARGE SUMMARY DATE OF SERVICE: 08/15/2017 This 87-year-old gentleman was admitted with multiple problems including acute blood loss anemia, GI bleed and duodenal ulcers. The patient will be transferred ECF at this time. Total time taken 35 minutes. Please refer to the previous dictation for details of medications and as well as diagnosis. The prognosis is extremely guarded because of multiple complex medical issues. Hold antiplatelet agents at this time because of the significant findings and as well as the potential for bleeding. MMODL / IJN: [id number] /
--- NOTE | 2017-08-16 16:16 | CDI ---
Last Revision, March 2017 Documentation Clarification Form Date: 08/16/17 From: Olesya Jansen Phone: If you have a question regarding this query, please contact Yulia Chavira at [phone] between 8am and 5pm Admit Date: 08/06/2017 8:20:00 PM Patient Name: Tylor Dempsey Visit Number: [id number] Discharge Date: 08/15/17 ATTENTION: The Clinical Documentation Specialists (CDI) and [facility] Coding Staff appreciate your assistance in clarifying documentation. Please respond to the clarification below the line at the bottom and electronically sign. The CDI & [facility] Coding staff will review the response and follow-up if needed. Please note: Queries are made part of the Legal Health Record. If you have any questions, please contact the author of this message via ITS. Dr. Hui Kenney Acute blood loss anemia from GI bleed secondary to duodenal ulcers is documented in the discharge summary. Patient history/risk factors: Patient has a history of peptic ulcer disease. Clinical Indicators: GI bleed and acute blood loss anemia. EGD Report: Duodenitis with duodenal bulb ulcers not showing active bleeding at this time or stigmata of recent bleeding. Vital Signs: T. 97.3, P. 75, R. 18, BP 107/53 Treatment: IV Protonix In your professional opinion, can you please clarify the acuity of the duodenal ulcer? Acute Chronic Other, please specify Unable to determine Unable to determine MTDD
--- NOTE | 2017-08-16 16:25 | CDI ---
Last Revision, March 2017 Documentation Clarification Form Date: 08/16/17 From: Olesya Jansen Phone: If you have a question regarding this query, please contact Yulia Chavira at [phone] between 8am and 5pm Admit Date: 08/06/2017 8:20:00 PM Patient Name: Tylor Dempsey Visit Number: [id number] Discharge Date: 08/15/17 ATTENTION: The Clinical Documentation Specialists (CDI) and [facility] Coding Staff appreciate your assistance in clarifying documentation. Please respond to the clarification below the line at the bottom and electronically sign. The CDI & [facility] Coding staff will review the response and follow-up if needed. Please note: Queries are made part of the Legal Health Record. If you have any questions, please contact the author of this message via ITS. Dr. Hui Kenney Antral gastritis is documented in the progress notes from 08/11 - 08/14 and in the discharge summary Patient history/risk factors: Patient has a history of peptic ulcer disease. Clinical Indicators: GI bleed and acute blood loss anemia. EGD Report: Postop diagnosis: Antral gastritis Vital Signs: T. 97.3, P. 75, R. 18, BP 107/53 Treatment: IV Protonix In your professional opinion, can you please clarify the acuity of the gastritis ? Acute Chronic Other, please specify Unable to determine Unable to determine MTDD
--- NOTE | 2017-08-16 16:31 | CDI ---
Last Revision, March 2017 Documentation Clarification Form Date: 08/16/17 From: Olesya Jansen Phone: If you have a question regarding this query, please call Yulia Chavira at [phone] between 8am and 5pm Admit Date: 08/06/2017 8:20:00 PM Patient Name: Tlyor Dempsey Visit Number: [id number] Discharge Date: 08/15/17 ATTENTION: The Clinical Documentation Specialists (CDI) and [facility] Coding Staff appreciate your assistance in clarifying documentation. Please respond to the clarification below the line at the bottom and electronically sign. The CDI & [facility] Coding staff will review the response and follow-up if needed. Please note: Queries are made part of the Legal Health Record. If you have any questions, please contact the author of this message via ITS. Dr. Hui Kenney Duodenitis is documented in the discharge summary and the progress notes from 08/14. Patient history/risk factors: Patient has a history of peptic ulcer disease. Clinical Indicators: GI bleed and acute blood loss anemia. EGD Report: Duodenitis with duodenal bulb ulcers not showing active bleeding at this time or stigmata of recent bleeding. Vital Signs: T. 97.3, P. 75, R. 18, BP 107/53 Treatment: IV Protonix In your professional opinion, can you please clarify the acuity of the duodenitis? Acute Chronic Other, please specify Unable to determine Unable to determine MTDD
== END 2017-08-15 16:12 | DRG 377 ==
LOC: EC 17:49 → 5MS5E 20:20 → 6ICU 22:23 → 5MS5E 08-08 19:42 → 6SEL 08-09 08:51
PROVIDERS: ADMIT Internal Medicine; ATTEND Internal Medicine
PROC: 30233N1 Transfusion of Nonautologous Red Blood Cells into Peripheral Vein, Percutaneous Approach (ICD-10-PCS; 2017-08-09)
PROC: 0DB78ZX Excision of Stomach, Pylorus, Via Natural or Artificial Opening Endoscopic, Diagnostic (ICD-10-PCS; principal; 2017-08-10 13:30)
DX: K26.4 Chronic or unspecified duodenal ulcer with hemorrhage (principal); I50.23 Acute on chronic systolic (congestive) heart failure; E44.0 Moderate protein-calorie malnutrition; J96.11 Chronic respiratory failure with hypoxia; J96.12 Chronic respiratory failure with hypercapnia; E87.0 Hyperosmolality and hypernatremia; D62 Acute posthemorrhagic anemia; Q78.0 Osteogenesis imperfecta; J98.11 Atelectasis; Z68.1 Body mass index [BMI] 19.9 or less, adult; I95.9 Hypotension, unspecified; E87.5 Hyperkalemia; E83.51 Hypocalcemia; E78.5 Hyperlipidemia, unspecified; F03.90 Unspecified dementia, unspecified severity, without behavioral disturbance, psychotic disturbance, mood disturbance, and anxiety; I11.0 Hypertensive heart disease with heart failure; I25.10 Atherosclerotic heart disease of native coronary artery without angina pectoris; I25.2 Old myocardial infarction; I35.1 Nonrheumatic aortic (valve) insufficiency; J44.9 Chronic obstructive pulmonary disease, unspecified; K44.9 Diaphragmatic hernia without obstruction or gangrene; R26.9 Unspecified abnormalities of gait and mobility; H54.61 Unqualified visual loss, right eye, normal vision left eye; Z79.02 Long term (current) use of antithrombotics/antiplatelets; Z79.82 Long term (current) use of aspirin; Z79.899 Other long term (current) drug therapy; Z99.81 Dependence on supplemental oxygen; Z87.891 Personal history of nicotine dependence; Z96.643 Presence of artificial hip joint, bilateral; Z98.41 Cataract extraction status, right eye
CPT/HCPCS: 00000; 36415; 43239; 71045; 71250; 74022; 74176; 76604; 80048; 80053; 81003; 82140; 82533; 82550; 82553; 83690; 83735; 84100; 84484; 85025; 85027; 85610; 85730; 86850; 86900; 86901; 86920; 87086; 88305; 88342; 93306; 94640; 94760; 96361; 96374; 96375; 99285

== ENCOUNTER 2017-08-16 23:06 | Emergency (ER) | payer MEDICARE, BC ==
[2017-08-16] MEDS ORDERED: SODIUM CHLORIDE 0.9% 500 ML IV STA (23:45)
--- NOTE | 2017-08-16 23:48 | ED ---
Abdominal Pain HPI - General Chief Complaint: Abdominal Pain Stated Complaint: Abdominal Pain Time Seen by Provider: 08/16/17 23:23 Source: patient, EMS Mode of arrival: EMS Limitations: altered mental status - History of Present Illness Initial Comments: 87-year-old male patient presents to the emergency department today for evaluation of abdominal pain. Patient does have a history of dementia and is a poor historian. Patient is reporting lower and upper abdominal pain. States he is also having some chest discomfort. Patient is unsure when this started, he reports his been going on for the last "6 years". Reports from [facility] and rehab state that patient had abdominal pain upon palpation, they attempted to give Tylenol and Mylanta without relief. Patient was recently admitted for GI bleed and discharged for rehab. Patient denies any vomiting or diarrhea. Denies any constipation or diarrhea. Denies any hematochezia or melena. Patient denies any recent rash, fever, chills, shortness breath, back pain, numbness, tingling, dizziness, weakness, hematuria, dysuria, urinary urgency, urinary frequency, headache, visual changes, or any other complaints. - Related Data Home Medications Medication Instructions Recorded Confirmed Atorvastatin Calcium [Lipitor] 20 mg PO HS 12/07/15 08/16/17 Magnesium Oxide [Mag-Ox] 400 mg PO DAILY 12/07/15 08/16/17 Ergocalciferol (Vitamin D2) 50,000 unit PO Q7D 08/06/17 08/16/17 [Vitamin D2] Budesonide [Pulmicort] 0.5 mg INHALATION RT-QID PRN 08/07/17 08/16/17 Bisacodyl [Dulcolax] 10 mg RECTAL DAILY PRN 08/16/17 08/16/17 Magnesium Hydroxide [Milk of 2,400 mg PO DAILY PRN 08/16/17 08/16/17 Magnesia] Na Phos,M-B/Na Phos,Di-Ba [Fleet 133 ml RECTAL ONCE PRN 08/16/17 08/16/17 Adult] Previous Rx's Medication Instructions Recorded Acetaminophen Tab [Tylenol] 650 mg PO Q6HR PRN tab 08/15/17 Brimonidine Tartrate [Alphagan P 1 drops RIGHT EYE BID ml 08/15/17 0.2% Ophth Soln] Carvedilol [Coreg] 3.125 mg PO DAILY #1 tablet 08/15/17 Cefuroxime Axetil [Ceftin] 500 mg PO BID #10 tab 08/15/17 Furosemide [Lasix] 20 mg PO DAILY #0 08/15/17 Ipratropium-Albuterol Nebulize 3 ml INHALATION RT-QID ampul.neb 08/15/17 [Duoneb 0.5 mg-3 mg/3 ml Soln] Latanoprost Ophth [Xalatan 0.005%] 1 drops RIGHT EYE HS ml 08/15/17 Pantoprazole Sodium [Protonix] 40 mg PO BID #60 tablet.dr 08/15/17 Sucralfate [Carafate] 1 gm PO BID #28 tab 08/15/17 Timolol 0.5% Ophth Soln [Timoptic 1 drops RIGHT EYE BID ml 08/15/17 0.5% Ophth Soln] Allergies Allergy/AdvReac Type Severity Reaction Status Date / Time No Known Allergies Allergy Verified 08/16/17 23:21 Review of Systems ROS Statement: Those systems with pertinent positive or pertinent negative responses have been documented in the HPI. ROS Other: All systems not noted in ROS Statement are negative. Past Medical History Past Medical History: Coronary Artery Disease (CAD), Dementia, Eye Disorder, GI Bleed, Hyperlipidemia, Hypertension, Myocardial Infarction ([place]) Additional Past Medical History / Comment(s): COPD and chronic hypoxic respiratory failure maintained on oxygen at 3 L at home, Pt had CAD and a previous [place] in Jan 2014 maintained on a combination of ASA and plavix, gastric/ stomach ulcers and hx of osteogenesis imperfecta, Blind in the right eye, HTn, hyperlipidemia and he is a exsmoker. Last Myocardial Infarction Date:: 01/2014 History of Any Multi-Drug Resistant Organisms: None Reported Past Surgical History: Joint Replacement, Orthopedic Surgery Additional Past Surgical History / Comment(s): Pt has had b/l hip replacement 6 times and elbow surgery. 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 Pt is unable to straighten arms completely. Past Anesthesia/Blood Transfusion Reactions: No Reported Reaction Past Psychological History: No Psychological Hx Reported Smoking Status: Former smoker Past Alcohol Use History: None Reported Past Drug Use History: None Reported - Past Family History Father History Unknown: Yes Family Medical History: Unable to Obtain General Exam Limitations: altered mental status General appearance: alert, in no apparent distress, other (This is a well- developed, thin appearing elderly male patient in no acute distress. Vital signs upon presentation are temperature 98.1F, pulse 78, respirations 18, blood pressure 173/67, pulse ox 96% on room air.) Eye exam: Present: normal appearance, PERRL, EOMI. Absent: scleral icterus, conjunctival injection, periorbital swelling Respiratory exam: Present: normal lung sounds bilaterally. Absent: respiratory distress, wheezes, rales, rhonchi, stridor Cardiovascular Exam: Present: regular rate, normal rhythm, normal heart sounds. Absent: systolic murmur, diastolic murmur, rubs, gallop, clicks GI/Abdominal exam: Present: soft, tenderness (Midepigastric tenderness. Left lower quadrant tenderness.), normal bowel sounds. Absent: distended, guarding, rebound, rigid Neurological exam: Present: alert, CN II-XII intact. Absent: oriented X3 ( Oriented 2) Psychiatric exam: Present: normal affect, normal mood Skin exam: Present: warm, dry, intact, normal color. Absent: rash Course Vital Signs 08/16/17 08/17/17 23:09 00:41 Temperature 98.1 F 97.0 F L Pulse Rate 78 76 Respiratory 18 18 Rate Blood Pressure 173/67 168/71 O2 Sat by Pulse 96 98 Oximetry Medical Decision Making - Medical Decision Making 87-year-old male patient presents to the emergency department today for evaluation of abdominal pain. Physical examination does show some diffuse nonspecific abdominal tenderness. Labs reviewed and showed an elevated white blood cell count at 13.7. Hemoglobin is 11.3 which is improved from his last discharge. Urinalysis is negative for any evidence of infection. KUB x-ray was performed and showed an overall nonobstructive bowel gas pattern. There was evidence of some gassy distention of the bowel which could contribute to his symptoms. Patient was not tender any specific region of his abdomen. He is afebrile, vitals are stable. He will be discharged back to [facility] at this time. They're instructed to follow-up with the primary care physician for recheck in 1-2 days. Instructed to return here immediately for any new, worsening, or concerning symptoms. Son and patient verbalize understanding and agree with this plan. - Lab Data Result diagrams: 08/16/17 23:30 08/16/17 23:30 Lab Results 08/16/17 08/16/17 08/16/17 Range/Units 23:30 23:30 23:30 WBC 13.7 H (3.8-10.6) k/uL RBC 3.89 L (4.30-5.90) m/uL Hgb 11.3 L (13.0-17.5) gm/dL Hct 35.9 L (39.0-53.0) % MCV 92.3 (80.0-100.0) fL MCH 29.2 (25.0-35.0) pg MCHC 31.6 (31.0-37.0) g/dL RDW 14.2 (11.5-15.5) % Plt Count 386 (150-450) k/uL Neutrophils % 92 % Lymphocytes % 3 % Monocytes % 4 % Eosinophils % 1 % Basophils % 0 % Neutrophils # 12.6 H (1.3-7.7) k/uL Lymphocytes # 0.4 L (1.0-4.8) k/uL Monocytes # 0.6 (0-1.0) k/uL Eosinophils # 0.1 (0-0.7) k/uL Basophils # 0.0 (0-0.2) k/uL Hypochromasia Slight PT (9.0-12.0) sec INR (<1.2) APTT (22.0-30.0) sec Sodium 138 (137-145) mmol/L Potassium 4.4 (3.5-5.1) mmol/L Chloride 92 L (98-107) mmol/L Carbon Dioxide 36 H (22-30) mmol/L Anion Gap 10 mmol/L BUN 27 H (9-20) mg/dL Creatinine 1.20 (0.66-1.25) mg/dL Est GFR (CKD-EPI)AfAm 64 (>60 ml/min/1.73 sqM) Est GFR (CKD-EPI)NonAf 55 (>60 ml/min/1.73 sqM) Glucose 113 H (74-99) mg/dL Calcium 7.4 L (8.4-10.2) mg/dL Total Bilirubin 1.8 H (0.2-1.3) mg/dL AST 35 (17-59) U/L ALT 24 (21-72) U/L Alkaline Phosphatase 90 (38-126) U/L Total Creatine Kinase 103 (55-170) U/L CK-MB (CK-2) 1.1 (0.0-2.4) ng/mL CK-MB (CK-2) Rel Index 1.1 Troponin I 0.013 (0.000-0.034) ng/mL Total Protein 6.4 (6.3-8.2) g/dL Albumin 3.1 L (3.5-5.0) g/dL Amylase 80 (30-110) U/L Lipase 43 (23-300) U/L Urine Color Urine Appearance (Clear) Urine pH (5.0-8.0) Ur Specific [place] (1.001-1.035) Urine Protein (Negative) Urine Glucose (UA) (Negative) Urine Ketones (Negative) Urine Blood (Negative) Urine Nitrite (Negative) Urine Bilirubin (Negative) Urine Urobilinogen (<2.0) mg/dL Ur Leukocyte Esterase (Negative) 08/16/17 08/17/17 Range/Units 23:30 00:24 WBC (3.8-10.6) k/uL RBC (4.30-5.90) m/uL Hgb (13.0-17.5) gm/dL Hct (39.0-53.0) % MCV (80.0-100.0) fL MCH (25.0-35.0) pg MCHC (31.0-37.0) g/dL RDW (11.5-15.5) % Plt Count (150-450) k/uL Neutrophils % % Lymphocytes % % Monocytes % % Eosinophils % % Basophils % % Neutrophils # (1.3-7.7) k/uL Lymphocytes # (1.0-4.8) k/uL Monocytes # (0-1.0) k/uL Eosinophils # (0-0.7) k/uL Basophils # (0-0.2) k/uL Hypochromasia PT 10.2 (9.0-12.0) sec INR 1.0 (<1.2) APTT 22.2 (22.0-30.0) sec Sodium (137-145) mmol/L Potassium (3.5-5.1) mmol/L Chloride (98-107) mmol/L Carbon Dioxide (22-30) mmol/L Anion Gap mmol/L BUN (9-20) mg/dL Creatinine (0.66-1.25) mg/dL Est GFR (CKD-EPI)AfAm (>60 ml/min/1.73 sqM) Est GFR (CKD-EPI)NonAf (>60 ml/min/1.73 sqM) Glucose (74-99) mg/dL Calcium (8.4-10.2) mg/dL Total Bilirubin (0.2-1.3) mg/dL AST (17-59) U/L ALT (21-72) U/L Alkaline Phosphatase (38-126) U/L Total Creatine Kinase (55-170) U/L CK-MB (CK-2) (0.0-2.4) ng/mL CK-MB (CK-2) Rel Index Troponin I (0.000-0.034) ng/mL Total Protein (6.3-8.2) g/dL Albumin (3.5-5.0) g/dL Amylase (30-110) U/L Lipase (23-300) U/L Urine Color Yellow Urine Appearance Clear (Clear) Urine pH 5.5 (5.0-8.0) Ur Specific [place] 1.009 (1.001-1.035) Urine Protein Negative (Negative) Urine Glucose (UA) Negative (Negative) Urine Ketones Negative (Negative) Urine Blood Negative (Negative) Urine Nitrite Negative (Negative) Urine Bilirubin Negative (Negative) Urine Urobilinogen <2.0 (<2.0) mg/dL Ur Leukocyte Esterase Negative (Negative) - Radiology Data Radiology results: report reviewed, image reviewed KUB x-ray of the abdomen shows no sign of intestinal obstruction or pneumoperitoneum. Fecal pattern is normal. There are clips from cholecystectomy. There are bilateral hip prostheses. The right femoral head is not centered on the prosthetic acetabulum. Impression by Dr. Mejia shows nonacute abdomen. Abnormal right hip prosthesis consistent with where her partial dislocation. No change compared to last exam. Disposition Clinical Impression: Abdominal pain Disposition: HOME SELF-CARE Condition: Good Instructions: Abdominal Pain (ED) Additional Instructions: Increase fluids. Follow up with primary care physician for recheck in 1-2 days. Return here immediately for any new, worsening, or concerning symptoms. Is patient prescribed a controlled substance at d/c from ED?: No Referrals: Wellington Beck MD [Primary Care Provider] - 1-2 days Time of Disposition: 01:29
[2017-08-16 23:56] LABS: Basophils % (A) 0 %; Eosinophils # (A) 0.1 k/uL (0-0.7); Eosinophils % (A) 1 %; HCT 35.9 % (39.0-53.0); HGB 11.3 gm/dL (13.0-17.5); Hypochromasia Slight; Lymphocytes # (A) 0.4 k/uL (1.0-4.8); Lymphocytes % (A) 3 %; MCH 29.2 pg (25.0-35.0); MCHC 31.6 g/dL (31.0-37.0); MCV 92.3 fL (80.0-100.0); Mean Platelet Volume 7.8; Monocytes # (A) 0.6 k/uL (0-1.0); Monocytes % (A) 4 %; Neutrophils # (A) 12.6 k/uL (1.3-7.7); Neutrophils % (A) 92 %; Platelet Count 386 k/uL (150-450); RBC 3.89 m/uL (4.30-5.90); RDW 14.2 % (11.5-15.5); WBC 13.7 k/uL (3.8-10.6)
[2017-08-17 00:10] LABS: Albumin 3.1 g/dL (3.5-5.0); Calcium 7.4 mg/dL (8.4-10.2); Potassium 4.4 mmol/L (3.5-5.1); Total Bilirubin 1.8 mg/dL (0.2-1.3); Total Protein 6.4 g/dL (6.3-8.2)
[2017-08-17] MEDS ORDERED: LIDOCAINE URO-JET JELLY 2% 5 ML KIT URETHRAL ONE (00:12)
[2017-08-17 00:13] LABS: Partial Thromboplastin Time 22.2 sec (22.0-30.0); Prothrombin Time 10.2 sec (9.0-12.0)
[2017-08-17 00:31] LABS: Appearance,Urine Clear (Clear); Bilirubin,Urine Negative (Negative); Blood,Urine Negative (Negative); Color,Urine Yellow; Glucose,Urine (UA) Negative (Negative); Ketones,Urine Negative (Negative); Leukocyte Esterase,Urine Negative (Negative); Nitrite,Urine Negative (Negative); PH, Urine 5.5 (5.0-8.0); Protein,Urine Negative (Negative); Specific Gravity,Urine 1.009 (1.001-1.035); Urobilinogen,Urine <2.0 mg/dL (<2.0)
--- NOTE | 2017-08-17 00:31 | XR ---
EXAMINATION TYPE: XR KUB DATE OF EXAM: 08/17/2017 COMPARISON: 08/06/2017 HISTORY: Left upper quadrant pain TECHNIQUE: Single view FINDINGS: There is no sign of intestinal obstruction or pneumoperitoneum. Fecal pattern is normal. Th ere are clips from cholecystectomy. There are bilateral hip prostheses. The right femoral head is not centered on the prosthetic acetabulum. IMPRESSION: Nonacute abdomen. Abnormal right hip prosthesis consistent with wear or partial dislocati on. No change compared to last exam.
[2017-08-17 00:32] LABS: Creatine Kinase MB 1.1 ng/mL (0.0-2.4); Troponin I 0.013 ng/mL (0.000-0.034)
[2017-08-17 02:30] VITALS: BP 164/67; PULSE 77; RESP 20; TEMP 96.8
== END 2017-08-17 02:46 | disposition home or self-care (01) ==
LOC: EC 23:06
DX: R10.84 Generalized abdominal pain (principal); D72.829 Elevated white blood cell count, unspecified; R07.89 Other chest pain; E78.5 Hyperlipidemia, unspecified; R41.82 Altered mental status, unspecified; Z87.891 Personal history of nicotine dependence; Z79.899 Other long term (current) drug therapy
CPT/HCPCS: 36415; 74018; 80053; 81003; 82150; 82550; 82553; 83690; 84484; 85025; 85610; 85730; 93005; 96360; 99285

== ENCOUNTER 2017-09-04 09:50 | Inpatient (IN) | payer MEDICARE, BC ==
[2017-09-04] MEDS ORDERED: SODIUM CHLORIDE 0.9% 1,000 ML IV STA (10:00)
[2017-09-04 10:30] LABS: Albumin 2.3 g/dL (3.5-5.0); Magnesium 1.8 mg/dL (1.6-2.3); Phosphorus 4.5 mg/dL (2.5-4.5); Potassium 4.1 mmol/L (3.5-5.1); Total Bilirubin 0.8 mg/dL (0.2-1.3); Total Protein 4.9 g/dL (6.3-8.2)
[2017-09-04 10:32] LABS: Calcium 5.9 mg/dL (8.4-10.2)
[2017-09-04 10:38] LABS: HCT 26.6 % (39.0-53.0); HGB 8.3 gm/dL (13.0-17.5); Hypochromasia Marked; MCH 28.8 pg (25.0-35.0); MCHC 31.1 g/dL (31.0-37.0); MCV 92.5 fL (80.0-100.0); Mean Platelet Volume 8.4; Platelet Count 280 k/uL (150-450); RBC 2.87 m/uL (4.30-5.90); RDW 14.2 % (11.5-15.5); WBC 17.1 k/uL (3.8-10.6)
[2017-09-04 10:42] LABS: INR 1.4 (<1.2); Prothrombin Time 13.1 sec (9.0-12.0)
--- NOTE | 2017-09-04 10:43 | ED ---
General Adult HPI - General Chief complaint: Shortness of Breath Stated complaint: Syncope Time Seen by Provider: 09/04/17 10:00 Source: patient, RN notes reviewed, old records reviewed Mode of arrival: ambulatory Limitations: no limitations - History of Present Illness Initial comments: This is an 87-year-old male poor strain coming in for evaluation today. Patient 's brought in by EMS for passing out syncopal event. Patient only complains of mild shortness of breath currently. History obtained from EMS and patient's chart - Related Data Home Medications Medication Instructions Recorded Confirmed Atorvastatin Calcium [Lipitor] 20 mg PO HS 12/07/15 09/04/17 Magnesium Oxide [Mag-Ox] 400 mg PO DAILY 12/07/15 09/04/17 Ergocalciferol (Vitamin D2) 50,000 unit PO Q7D 08/06/17 09/04/17 [Vitamin D2] Previous Rx's Medication Instructions Recorded Acetaminophen Tab [Tylenol] 650 mg PO Q6HR PRN tab 08/15/17 Brimonidine Tartrate [Alphagan P 1 drops RIGHT EYE BID ml 08/15/17 0.2% Ophth Soln] Carvedilol [Coreg] 3.125 mg PO DAILY #1 tablet 08/15/17 Furosemide [Lasix] 20 mg PO DAILY #0 08/15/17 Ipratropium-Albuterol Nebulize 3 ml INHALATION RT-QID ampul.neb 08/15/17 [Duoneb 0.5 mg-3 mg/3 ml Soln] Latanoprost Ophth [Xalatan 0.005%] 1 drops RIGHT EYE HS ml 08/15/17 Timolol 0.5% Ophth Soln [Timoptic 1 drops RIGHT EYE BID ml 08/15/17 0.5% Ophth Soln] Allergies Allergy/AdvReac Type Severity Reaction Status Date / Time No Known Allergies Allergy Verified 09/04/17 10:26 Review of Systems ROS Statement: Those systems with pertinent positive or pertinent negative responses have been documented in the HPI. ROS Other: All systems not noted in ROS Statement are negative. Past Medical History Past Medical History: Coronary Artery Disease (CAD), Dementia, Eye Disorder, GI Bleed, Hyperlipidemia, Hypertension, Myocardial Infarction (MS) Additional Past Medical History / Comment(s): COPD and chronic hypoxic respiratory failure maintained on oxygen at 3 L at home, Pt had CAD and a previous MS in Jan 2014 maintained on a combination of ASA and plavix, gastric/ stomach ulcers and hx of osteogenesis imperfecta, Blind in the right eye, HTn, hyperlipidemia and he is a exsmoker. Last Myocardial Infarction Date:: 01/2014 History of Any Multi-Drug Resistant Organisms: None Reported Past Surgical History: Joint Replacement, Orthopedic Surgery Additional Past Surgical History / Comment(s): Pt has had b/l hip replacement 6 times and elbow surgery. 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 Pt is unable to straighten arms completely. Past Anesthesia/Blood Transfusion Reactions: No Reported Reaction Past Psychological History: No Psychological Hx Reported Smoking Status: Former smoker Past Alcohol Use History: None Reported Past Drug Use History: None Reported - Past Family History Father History Unknown: Yes Family Medical History: Unable to Obtain General Exam Limitations: no limitations General appearance: alert, in no apparent distress, cachectic Head exam: Present: atraumatic, normocephalic, normal inspection Eye exam: Present: normal appearance, PERRL, EOMI. Absent: scleral icterus, conjunctival injection, periorbital swelling ENT exam: Present: normal exam, mucous membranes moist Neck exam: Present: normal inspection. Absent: tenderness, meningismus, lymphadenopathy Respiratory exam: Present: normal lung sounds bilaterally, wheezes. Absent: respiratory distress, rales, rhonchi, stridor Cardiovascular Exam: Present: regular rate, normal rhythm, normal heart sounds. Absent: systolic murmur, diastolic murmur, rubs, gallop, clicks GI/Abdominal exam: Present: soft, normal bowel sounds. Absent: distended, tenderness, guarding, rebound, rigid Extremities exam: Present: normal inspection, full ROM, normal capillary refill. Absent: tenderness, pedal edema, joint swelling, calf tenderness Back exam: Present: normal inspection Neurological exam: Present: alert, oriented X3, CN II-XII intact Psychiatric exam: Present: normal affect, normal mood Skin exam: Present: warm, dry, intact, normal color. Absent: rash Course Vital Signs 09/04/17 09/04/17 09:59 12:25 Temperature 97.0 F L Pulse Rate 108 H 98 Respiratory 18 18 Rate Blood Pressure 107/55 96/52 O2 Sat by Pulse 97 94 L Oximetry EKG Findings - EKG Comments: EKG Findings:: EKG shows sinus rhythm rate of 97, PA 110, QRS 82, QTc 482 Medical Decision Making - Medical Decision Making 87 male the ER with syncopal event or weakness, patient has severe dehydration on exam, positive pneumonia on x-ray with elevated white blood cell count, patient will be admitted for IV antibiotics continue monitoring of cardiopulmonary state - Lab Data Result diagrams: 09/04/17 10:12 09/04/17 10:12 Lab Results 09/04/17 09/04/17 09/04/17 Range/Units 10:12 10:12 10:12 WBC 17.1 H (3.8-10.6) k/uL RBC 2.87 L (4.30-5.90) m/uL Hgb 8.3 L (13.0-17.5) gm/dL Hct 26.6 L (39.0-53.0) % MCV 92.5 (80.0-100.0) fL MCH 28.8 (25.0-35.0) pg MCHC 31.1 (31.0-37.0) g/dL RDW 14.2 (11.5-15.5) % Plt Count 280 (150-450) k/uL Neutrophils % (Manual) 59 % Band Neutrophils % 8 % Lymphocytes % (Manual) 4 % Monocytes % (Manual) 2 % Eosinophils % (Manual) 1 % Metamyelocytes % 14 % Myelocytes % 14 % Neutrophils # (Manual) 11.40 H (1.3-7.7) k/uL Lymphocytes # (Manual) 0.68 L (1.0-4.8) k/uL Monocytes # (Manual) 0.34 (0-1.0) k/uL Eosinophils # (Manual) 0.17 (0-0.7) k/uL Metamyelocytes # (Man) 2.39 H (0) k/uL Myelocytes # (Manual) 2.39 H (0) k/uL Nucleated RBCs 0 (0-0) /100 WBC Manual Slide Review Performed Toxic Vacuolation Present Hypochromasia Marked PT (9.0-12.0) sec INR (<1.2) APTT (22.0-30.0) sec D-Dimer (<0.60) mg/L FEU Sodium 144 (137-145) mmol/L Potassium 4.1 (3.5-5.1) mmol/L Chloride 104 (98-107) mmol/L Carbon Dioxide 30 (22-30) mmol/L Anion Gap 10 mmol/L BUN 40 H (9-20) mg/dL Creatinine 1.74 H (0.66-1.25) mg/dL Est GFR (CKD-EPI)AfAm 41 (>60 ml/min/1.73 sqM) Est GFR (CKD-EPI)NonAf 35 (>60 ml/min/1.73 sqM) Glucose 72 L (74-99) mg/dL Calcium 5.9 L* (8.4-10.2) mg/dL Phosphorus 4.5 (2.5-4.5) mg/dL Magnesium 1.8 (1.6-2.3) mg/dL Total Bilirubin 0.8 (0.2-1.3) mg/dL AST 38 (17-59) U/L ALT 37 (21-72) U/L Alkaline Phosphatase 118 (38-126) U/L Total Creatine Kinase 72 (55-170) U/L CK-MB (CK-2) 0.8 (0.0-2.4) ng/mL CK-MB (CK-2) Rel Index 1.1 Troponin I 0.447 H* (0.000-0.034) ng/mL Total Protein 4.9 L (6.3-8.2) g/dL Albumin 2.3 L (3.5-5.0) g/dL 09/04/17 Range/Units 10:12 WBC (3.8-10.6) k/uL RBC (4.30-5.90) m/uL Hgb (13.0-17.5) gm/dL Hct (39.0-53.0) % MCV (80.0-100.0) fL MCH (25.0-35.0) pg MCHC (31.0-37.0) g/dL RDW (11.5-15.5) % Plt Count (150-450) k/uL Neutrophils % (Manual) % Band Neutrophils % % Lymphocytes % (Manual) % Monocytes % (Manual) % Eosinophils % (Manual) % Metamyelocytes % % Myelocytes % % Neutrophils # (Manual) (1.3-7.7) k/uL Lymphocytes # (Manual) (1.0-4.8) k/uL Monocytes # (Manual) (0-1.0) k/uL Eosinophils # (Manual) (0-0.7) k/uL Metamyelocytes # (Man) (0) k/uL Myelocytes # (Manual) (0) k/uL Nucleated RBCs (0-0) /100 WBC Manual Slide Review Toxic Vacuolation Hypochromasia PT 13.1 H (9.0-12.0) sec INR 1.4 H (<1.2) APTT 25.0 (22.0-30.0) sec D-Dimer 27.78 H (<0.60) mg/L FEU Sodium (137-145) mmol/L Potassium (3.5-5.1) mmol/L Chloride (98-107) mmol/L Carbon Dioxide (22-30) mmol/L Anion Gap mmol/L BUN (9-20) mg/dL Creatinine (0.66-1.25) mg/dL Est GFR (CKD-EPI)AfAm (>60 ml/min/1.73 sqM) Est GFR (CKD-EPI)NonAf (>60 ml/min/1.73 sqM) Glucose (74-99) mg/dL Calcium (8.4-10.2) mg/dL Phosphorus (2.5-4.5) mg/dL Magnesium (1.6-2.3) mg/dL Total Bilirubin (0.2-1.3) mg/dL AST (17-59) U/L ALT (21-72) U/L Alkaline Phosphatase (38-126) U/L Total Creatine Kinase (55-170) U/L CK-MB (CK-2) (0.0-2.4) ng/mL CK-MB (CK-2) Rel Index Troponin I (0.000-0.034) ng/mL Total Protein (6.3-8.2) g/dL Albumin (3.5-5.0) g/dL - Radiology Data Radiology results: report reviewed (Chest x-ray positive for CHF, VQ scan is indeterminate), image reviewed Disposition Clinical Impression: Chronic anemia, Syncope, Acute pulmonary edema, Community acquired pneumonia Disposition: ADMITTED IP TO THIS [facility] Condition: Serious Referrals: Wellington Beck MD [Primary Care Provider] - 1-2 days
[2017-09-04 10:47] LABS: D-Dimer 27.78 mg/L FEU (<0.60)
[2017-09-04 10:55] LABS: Creatine Kinase MB 0.8 ng/mL (0.0-2.4)
[2017-09-04 11:03] LABS: Troponin I 0.447 ng/mL (0.000-0.034)
[2017-09-04 11:04] LABS: Band Neutrophils % 8 %; Eosinophils # (M) 0.17 k/uL (0-0.7); Lymphocytes # (M) 0.68 k/uL (1.0-4.8); Metamyelocytes # (M) 2.39 k/uL (0); Metamyelocytes % 14 %; Monocytes # (M) 0.34 k/uL (0-1.0); Myelocytes # (M) 2.39 k/uL (0); Myelocytes % 14 %; Neutrophils % (M) 59 %; Nucleated Red Blood Cells 0 /100 WBC (0-0); Total Cells Counted 200
[2017-09-04 11:05] LABS: Toxic Vacuolation Present
--- NOTE | 2017-09-04 12:21 | XR ---
EXAMINATION TYPE: XR chest 2V DATE OF EXAM: 09/04/2017 COMPARISON: Chest x-ray August 15, 2017. CT chest abdomen and pelvis August 12, 2017 HISTORY: Shortness of breath TECHNIQUE: Frontal and lateral views of the chest are obtained. FINDINGS: The osseous structures are intact. There is persistent cardiomegaly with bibasilar opacity felt to reflect small to moderate-sized bilateral pleural effusions and associated compressive atele ctasis and/or infiltrate. Upper lungs remain clear without pneumothorax. Background chronic emphysema tous change is noted on CT. Surgical clips and sutures in the visualized abdomen are redemonstrated. IMPRESSION: Correlate for CHF exacerbation as there is cardiomegaly with small to moderate-sized corrine ateral pleural effusions redemonstrated. Associated bibasilar atelectasis and/or infiltrate is seen.
--- NOTE | 2017-09-04 12:28 | NM ---
EXAMINATION TYPE: NM pul perfusion DATE OF EXAM: 09/04/2017 COMPARISON: Same day chest x-ray HISTORY: Shortness of breath rule out pulmonary embolism Following administration of 4.9 mCi Tc 99m MAA. Images obtained post injection. FINDINGS: Some scattered small peripheral defects are identified bilaterally. Unable to classify as low or inte rmediate probability without dedicated ventilation images. IMPRESSION: As above
[2017-09-04] MEDS ORDERED: PNEUMONIA PROTOCOL UTILIZED 1 EACH MISC PO PRN (13:05)
[2017-09-04] MEDS ORDERED: PIPERACILLIN-TAZOBACTAM 3.375 GM in DEXTROSE/WATER 1 50ML.BAG IVPB STA (13:05)
[2017-09-04] MEDS ORDERED: LEVOFLOXACIN 750MG-D5W PMX 750 MG in DEXTROSE/WATER 1 150ML.BAG IVPB STA (13:05)
[2017-09-04] MEDS ORDERED: SODIUM CHLORIDE 0.9% 1,000 ML IV SCH (13:15)
[2017-09-04] MEDS ORDERED: IPRATROPIUM-ALBUTEROL 3 ML NEB INHALATION SCH (16:00)
[2017-09-04] MEDS ORDERED: IPRATROPIUM-ALBUTEROL 3 ML NEB INHALATION PRN (17:16)
[2017-09-04] MEDS: PIPERACILLIN-TAZOBACTAM 3.375 GM in DEXTROSE/WATER 1 50ML.BAG IVPB SCH (17:16)
[2017-09-04] MEDS: SODIUM CHLORIDE 0.9% 1,000 ML IV SCH (20:34)
[2017-09-04] MEDS: IPRATROPIUM-ALBUTEROL 3 ML NEB INHALATION SCH (21:29)
[2017-09-04] MEDS: TIMOLOL 0.5% OPHTH DROPS 5 ML BTL RIGHT EYE SCH (21:39)
[2017-09-04] MEDS: BRIMONIDINE TARTRATE 0.2% DROPS 5 ML BTL RIGHT EYE SCH (21:39)
[2017-09-04] MEDS: LATANOPROST 0.005% OPHTH DROPS 2.5 ML BTL RIGHT EYE SCH (21:39)
[2017-09-04] MEDS: ATORVASTATIN 20 MG TAB PO SCH (21:43)
--- NOTE | 2017-09-04 22:39 | HP ---
HISTORY AND PHYSICAL DATE OF SERVICE: 09/04/2017 PRESENTING COMPLAINT: Decreased consciousness. HISTORY OF PRESENTING COMPLAINT: This is an 87-year-old patient who was recently at the [facility], then was discharged home. Follows with Dr. Wellington Beck. Chronic stable medical conditions include duodenal ulcer, coronary artery disease, COPD, on home oxygen 2 L, congestive heart failure, EF 40%, blind in the right eye, some dementia. EMS was called because patient had decreased responsiveness. Here patient is running a low blood pressure in the 80s systolic. He is also running a fever of 101. Patient was felt to have a pneumonia and was started on Levaquin and Zosyn in the ER. Patient is rather lethargic with a systolic blood pressure in the 80s and not able to give really much of a history. REVIEW OF SYSTEMS: Patient is lethargic. PAST MEDICAL HISTORY: 1. Duodenal ulcer. 2. Coronary artery disease. 3. COPD, on home oxygen. 4. Hyperlipidemia. 5. Hypertension. 6. Osteogenesis imperfecta. 7. Congestive heart failure, EF 40%. 8. Dementia. 9. Blind in the right eye. 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 PAST SURGICAL HISTORY: 1. Joint replacement. 2. EGD. 3. Bilateral cataracts removed. 4. Bilateral hip replacement. 5. 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 SOCIAL HISTORY: Patient lives at home with his son. Uses a walker. Has home care, home oxygen. Patient quit smoking in the '70s. FAMILY HISTORY: Patient's father had osteogenesis imperfecta. HOME MEDICATIONS: 1. Timoptic 0.5% one drop to right eye b.i.d. 2. Magnesium oxide 400 mg p.o. daily. 3. Xalatan 0.005% one drop to right eye at bedtime. 4. DuoNeb q.i.d. 5. Lasix 20 mg a day. 6. Vitamin D2 50,000 units every 7 days. 7. Coreg 3.125 p.o. daily. 8. Alphagan 0.2% one drop to right eye b.i.d. 9. Lipitor 20 mg at bedtime. 10.Tylenol 650 mg q.6 p.r.n. ALLERGIES: NONE. PHYSICAL EXAMINATION: Temperature 101, pulse 103, respiration 28, blood pressure 86/36, pulse ox 100% on 3 L. GENERAL APPEARANCE: Thin build; BMI 21. Sitting up, lethargic. EYES: Pupils equal. Conjunctiva dirty-appearing. HEENT: External appearance of nose and ears normal. Oral cavity dry mucous membrane. Parched tongue. NECK: JVD not raised. Mass not palpable. RESPIRATORY: Effort increased. LUNGS: Decreased breath sounds. CARDIOVASCULAR: First and second sounds normal. Edema present. ABDOMEN: Soft, nontender. Liver and spleen not palpable. LYMPHATIC: No lymph node palpable in neck or axillae. PSYCHIATRY: The patient is lethargic but arousable. NEUROLOGICAL: Pupils equal. No facial asymmetry. Not really following commands, as patient is rather lethargic. INVESTIGATIONS: White count 17.1, hemoglobin 8.3, increased neutrophils. Platelets normal. Potassium 4.1, BUN 40, creatinine 1.74, calcium 5.9, glucose 72, troponin 0.447, albumin 2.3. Patient's BUN and creatinine were 25 and 1.12 on 08/28/2017. Chest x-ray shows some venous prominence and moderate-sized pleural effusion; looks more so on the left. ASSESSMENT: 1. Pneumonia; suspect Gram-negative organism with pleural effusion causing sepsis. Suspect could be having underlying parapneumonic effusion. 2. Acute metabolic encephalopathy from sepsis. 3. Coronary artery disease. 4. Ischemic cardiomyopathy, ejection fraction 40%. 5. Chronic obstructive pulmonary disease in an ex-smoker. 6. Chronic hypoxic respiratory failure from underlying chronic obstructive pulmonary disease. 7. Hyperlipidemia. 8. Chronic osteogenesis imperfecta. 9. 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 10.Decreased vision in the right eye. 11.Acute renal failure; could be acute tubular necrosis from sepsis or with a prerenal component. PLAN: Patient was started on IV Levaquin and Zosyn from the ER. Because patient is hypoglycemic, will change the IV fluids to D5 0.45. Will maintain aspiration precautions. Will also get a pulmonary consultation with a view to possible paracentesis and if in the next few days patient may need a chest tube. Consultation to ID, Pulmonary and Cardiology done. Did tell the nurse to check with the family about patient's code status. Prognosis guarded. MMODL / IJN: [id number] /
[2017-09-04] MEDS ORDERED: DEXTROSE 50%-WATER 50 ML SYRINGE IVP ONE (23:36)
[2017-09-04 23:37] LABS: Glucose,Whole Blood 62 mg/dL (75-99)
[2017-09-04 23:51] LABS: Glucose,Whole Blood 219 mg/dL (75-99)
[2017-09-04 23:51] LABS: Glucose,Whole Blood 207 mg/dL (75-99)
[2017-09-04] MEDS ORDERED: PROPOFOL 100 ML IV ONE (23:51)
[2017-09-04] MEDS ORDERED: SODIUM CHLORIDE 0.9% 1,000 ML IV ONE (23:51)
[2017-09-04] MEDS ORDERED: NOREPINEPHRIN 4 MG-0.9% NS PMX 4 MG/250 ML ML IV ONE (23:52)
[2017-09-05] MEDS ORDERED: ETOMIDATE 2 MG/ML 10 ML VIAL ONE ×2 (00:05→00:15)
[2017-09-05] MEDS: NOREPINEPHRIN 4 MG-0.9% NS PMX 4 MG/250 ML ML IV SCH ×3 (00:12→18:58)
[2017-09-05 00:17] LABS: HCT 23.6 % (39.0-53.0); Hypochromasia Marked; MCHC 29.7 g/dL (31.0-37.0); MCV 94.2 fL (80.0-100.0); Mean Platelet Volume 7.8; Platelet Count 211 k/uL (150-450); RBC 2.51 m/uL (4.30-5.90); RDW 14.2 % (11.5-15.5); WBC 22.5 k/uL (3.8-10.6)
[2017-09-05 00:21] LABS: Appearance,Urine Cloudy (Clear); Bacteria,Urine Many /hpf; Bilirubin,Urine Negative (Negative); Blood,Urine Small (Negative); Color,Urine Yellow; Glucose,Urine (UA) Negative (Negative); Ketones,Urine Negative (Negative); Leukocyte Esterase,Urine Large (Negative); Mucus,Urine Rare /hpf; Nitrite,Urine Positive (Negative); Protein,Urine Trace (Negative); RBC,Urine 3 /hpf (0-5); Specific Gravity,Urine 1.007 (1.001-1.035); Urobilinogen,Urine <2.0 mg/dL (<2.0); WBC,Urine 105 /hpf (0-5)
[2017-09-05 00:22] LABS: INR 1.9 (<1.2); Partial Thromboplastin Time 30.6 sec (22.0-30.0); Prothrombin Time 17.7 sec (9.0-12.0)
[2017-09-05 00:28] LABS: Albumin 1.9 g/dL (3.5-5.0); Magnesium 1.7 mg/dL (1.6-2.3); Phosphorus 5.3 mg/dL (2.5-4.5); Potassium 4.7 mmol/L (3.5-5.1); Total Bilirubin 1.1 mg/dL (0.2-1.3); Total Protein 4.4 g/dL (6.3-8.2)
[2017-09-05] MEDS ORDERED: ACETAMINOPHEN IV (For NPO) 1,000 MG in EMPTY BAG 1 BAG IVPB PRN (00:29)
[2017-09-05] MEDS ORDERED: NALOXONE 0.4 MG/ML 1 ML VIAL IV PRN (00:29)
[2017-09-05] MEDS: CHLORHEXIDINE GLUCONATE 15 ML CUP MUCOUS MEM SCH ×3 (00:30→21:53)
[2017-09-05 00:34] LABS: Calcium 5.4 mg/dL (8.4-10.2)
--- NOTE | 2017-09-05 00:40 | XR ---
EXAMINATION TYPE: XR chest 1V portable DATE OF EXAM: 09/05/2017 COMPARISON: 09/04/2017 HISTORY: Tube placement TECHNIQUE: Single frontal view of the chest is obtained. FINDINGS: Endotracheal tube is low and in the origin right main stem bronchus. This should be pulled back 3 to 4 cm. Heart is shifted slightly to the left side. There is probably developing atelectasis in the left lung. There is mild pulmonary congestion. There is slight blunting of costophrenic angle s. IMPRESSION: Mild heart failure. Small pleural effusions. Endotracheal tube should be pulled back. Na sogastric tube noted. This appears in good position.
[2017-09-05 00:44] LABS: ABG Base Excess -2.8 mmol/L; ABG HCO3 23 mmol/L (21-25); ABG PCO2 42 mmHg (35-45); ABG PH 7.35 (7.35-7.45); ABG PO2 392 mmHg (83-108); ABG TCO2 24 mmol/L (19-24)
[2017-09-05 00:50] LABS: Band Neutrophils % 27 %; Lymphocytes # (M) 1.13 k/uL (1.0-4.8); Monocytes # (M) 1.35 k/uL (0-1.0); Myelocytes # (M) 0.23 k/uL (0); Myelocytes % 1 %; Neutrophils % (M) 61 %; Nucleated Red Blood Cells 0 /100 WBC (0-0); Total Cells Counted 200
[2017-09-05 00:51] LABS: Toxic Vacuolation Present
[2017-09-05] MEDS: PROPOFOL 1,000 MG in EMPTY BAG 1 BAG IV SCH ×2 (01:00→15:06)
[2017-09-05] MEDS ORDERED: CALCIUM CHLORIDE 1,000 MG in SODIUM CHLORIDE 0.9% 100 ML IVPB ONE ×2 (02:00→09:00)
[2017-09-05] MEDS: MAGNESIUM SULFATE-D5W PMX 1 GM in DEXTROSE/WATER 1 100ML.BAG IVPB SCH ×2 (02:09→03:00)
[2017-09-05 04:50] LABS: Glucose,Whole Blood 92 mg/dL (75-99)
[2017-09-05 04:50] LABS: HCT 25.4 % (39.0-53.0); HGB 7.7 gm/dL (13.0-17.5); Hypochromasia Marked; MCH 28.9 pg (25.0-35.0); MCHC 30.5 g/dL (31.0-37.0); MCV 94.9 fL (80.0-100.0); Mean Platelet Volume 8.1; Platelet Count 219 k/uL (150-450); RBC 2.68 m/uL (4.30-5.90); RDW 14.4 % (11.5-15.5)
[2017-09-05 04:53] LABS: WBC 31.3 k/uL (3.8-10.6)
[2017-09-05] MEDS ORDERED: SODIUM CHLORIDE 0.9% 1,000 ML IV ONE (05:15)
[2017-09-05] MEDS ORDERED: FUROSEMIDE 10 MG/ML 4 ML VIAL IV STA (05:39)
[2017-09-05 05:40] LABS: Band Neutrophils % 25 %; Monocytes # (M) 1.25 k/uL (0-1.0); Myelocytes # (M) 2.82 k/uL (0); Myelocytes % 9 %; Neutrophils % (M) 62 %; Nucleated Red Blood Cells 0 /100 WBC (0-0); Total Cells Counted 200
[2017-09-05 05:41] LABS: RBC Fragments Present
[2017-09-05 05:42] LABS: Toxic Vacuolation Present
[2017-09-05 05:56] LABS: Ionized Calcium 3.8 mg/dL (4.5-5.3)
[2017-09-05 06:06] LABS: Magnesium 2.2 mg/dL (1.6-2.3); Potassium 5.1 mmol/L (3.5-5.1)
[2017-09-05 06:17] LABS: Calcium 6.2 mg/dL (8.4-10.2)
[2017-09-05] MEDS: IPRATROPIUM-ALBUTEROL 3 ML NEB INHALATION SCH ×4 (07:30→19:42)
[2017-09-05 08:11] LABS: ABG Base Excess -2.3 mmol/L; ABG HCO3 23 mmol/L (21-25); ABG PCO2 40 mmHg (35-45); ABG PH 7.37 (7.35-7.45); ABG PO2 159 mmHg (83-108); ABG TCO2 24 mmol/L (19-24)
--- NOTE | 2017-09-05 08:11 | XR ---
EXAMINATION TYPE: XR chest 1V portable DATE OF EXAM: 09/05/2017 COMPARISON: Prior chest x-ray 09/05/2017 HISTORY: Intubated TECHNIQUE: Single frontal view of the chest is obtained. FINDINGS: Endotracheal tube is overlying the tracheal air column, NG tube is present with the distal tip not included on the exam but coursing towards the stomach. Heart remains enlarged. Pleural paren chymal changes are stable. There are overlying cardiac leads. IMPRESSION: Findings are similar to prior exam. Cardiomegaly, there may be basilar atelectasis versu s edema or pneumonia and associated effusions.
--- NOTE | 2017-09-05 08:22 | US ---
EXAMINATION TYPE: US chest DATE OF EXAM: 09/05/2017 COMPARISON: Previous chest ultrasound 08/15/2017, chest x-ray 09/05/2017 CLINICAL HISTORY: pl. effusion for marking. Bilateral pleural effusions EXAM MEASUREMENTS: Right Pleural Effusion fluid pocket: 3.0 cm Left Pleural Effusion fluid pocket: 3.9 cm Pulmonologists are able to review the images in the patient?s EMR. Patient was scanned portable in the ICU. Patient is unable to sit upright. Bilateral chest not marked due to small pockets. IMPRESSIONS: Bilateral pleural effusions
[2017-09-05] MEDS: SODIUM CHLORIDE 0.9% 1,000 ML IV SCH ×3 (08:26→20:15)
[2017-09-05] MEDS ORDERED: CARVEDILOL 3.125 MG TAB PO SCH (09:00)
[2017-09-05] MEDS ORDERED: ENOXAPARIN 40 MG/0.4 ML SYRINGE SQ SCH (09:00)
[2017-09-05] MEDS: BRIMONIDINE TARTRATE 0.2% DROPS 5 ML BTL RIGHT EYE SCH ×2 (09:06→21:53)
[2017-09-05] MEDS: TIMOLOL 0.5% OPHTH DROPS 5 ML BTL RIGHT EYE SCH ×2 (09:40→21:53)
[2017-09-05] MEDS: MAGNESIUM OXIDE 400 MG TAB PO SCH (09:41)
[2017-09-05] MEDS: PANTOPRAZOLE 40 MG/10 ML VIAL IV SCH (09:42)
--- NOTE | 2017-09-05 10:10 | P.CRDCN ---
History of Present Illness Consult date: 09/05/17 History of present illness: This is a 87-year-old gentleman with history of hypertension, dyslipidemia, and also aortic regurgitation who is admitted to the hospital with complaints of altered mental status, weakness and shortness of breath. Patient was initially admitted to the hospital with a diagnosis of pneumonia and possible CHF. Apparently patient became hypotensive and more unresponsive on the floor and was transferred to intensive care unit. Patient was intubated and her on respirator since last night. Apparently he is also found to have evidence of urinary tract infection and also gram-negative bacteremia. His lactic acid is high. He is being treated with antibiotics and also IV fluids. His chest x- ray showed evidence of possible pneumonia and atelectasis. No arrhythmias are detected. 1. Troponin values mildly abnormal. This picture is more consistent with sepsis. We'll continue with current management. I'll obtain an echocardiogram to assess LV function and also aortic regurgitation. Further recommendations depend upon clinical course. Prognosis is guarded Review of Systems Not obtained Past Medical History Past Medical History: Coronary Artery Disease (CAD), Heart Failure, COPD, Dementia, Eye Disorder, GI Bleed, Hyperlipidemia, Hypertension, Myocardial Infarction (RI) Additional Past Medical History / Comment(s): Pt recently admitted to [facility] on with acute blood loss anemia, GI bleed, duodenal ulcers,with dark burgundy stools, protein calorie malnutrition, hyperkalemia. 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 Past Anesthesia/Blood Transfusion Reactions: No Reported Reaction Additional Past Anesthesia/Blood Transfusion Reaction / Comment(s): Pt has received blood without reaction. Smoking Status: Former smoker - Past Family History Father History Unknown: Yes Family Medical History: Unable to Obtain Additional Family Medical History / Comment(s): Father had osteogenesis imperfecta. Mother Family Medical History: No Reported History Medications and Allergies Home Medications Medication Instructions Recorded Confirmed Type Atorvastatin Calcium [Lipitor] 20 mg PO HS 12/07/15 09/04/17 History Magnesium Oxide [Mag-Ox] 400 mg PO DAILY 12/07/15 09/04/17 History Ergocalciferol (Vitamin D2) 50,000 unit PO Q7D 08/06/17 09/04/17 History [Vitamin D2] Acetaminophen Tab [Tylenol] 650 mg PO Q6HR PRN tab 08/15/17 09/04/17 Rx Brimonidine Tartrate [Alphagan P 1 drops RIGHT EYE BID ml 08/15/17 09/04/17 Rx 0.2% Ophth Soln] Carvedilol [Coreg] 3.125 mg PO DAILY #1 tablet 08/15/17 09/04/17 Rx Furosemide [Lasix] 20 mg PO DAILY #0 08/15/17 09/04/17 Rx Ipratropium-Albuterol Nebulize 3 ml INHALATION RT-QID ampul.neb 08/15/17 Rx [Duoneb 0.5 mg-3 mg/3 ml Soln] Latanoprost Ophth [Xalatan 0.005%] 1 drops RIGHT EYE HS ml 08/15/17 09/04/17 Rx Timolol 0.5% Ophth Soln [Timoptic 1 drops RIGHT EYE BID ml 08/15/17 09/04/17 Rx 0.5% Ophth Soln] Allergies Allergy/AdvReac Type Severity Reaction Status Date / Time No Known Allergies Allergy Verified 09/04/17 10:26 Physical Exam Vitals: Vital Signs Temp Pulse Pulse Resp BP BP Pulse Ox 09/05/17 09:00 92 18 111/53 97 09/05/17 08:45 98 22 121/59 100 09/05/17 08:30 99 18 140/58 97 09/05/17 08:15 102 H 22 136/57 100 09/05/17 08:00 98 16 140/59 100 09/05/17 07:56 100 09/05/17 07:45 101 H 20 154/60 100 09/05/17 07:31 99 09/05/17 07:30 104 H 24 132/55 100 09/05/17 07:15 101 H 17 136/55 99 09/05/17 07:00 101 H 16 137/60 94 L 09/05/17 06:45 102 H 16 134/59 98 09/05/17 06:30 98 16 134/57 93 L 09/05/17 06:15 97 15 145/59 96 09/05/17 06:00 99 22 128/59 97 09/05/17 05:45 96 16 137/66 100 09/05/17 05:30 97 21 110/64 100 09/05/17 05:15 98 23 117/56 92 L 09/05/17 05:00 101 H 20 123/59 98 09/05/17 04:45 97 18 111/50 98 09/05/17 04:30 99.8 F H 105 H 20 131/56 95 09/05/17 04:15 98 19 114/53 98 09/05/17 04:00 101 H 18 148/61 99 09/05/17 03:45 107 H 20 127/54 95 09/05/17 03:30 100 17 127/56 98 09/05/17 03:15 105 H 17 143/83 98 09/05/17 03:00 104 H 17 137/60 97 09/05/17 02:45 108 H 16 126/56 99 09/05/17 02:30 101 H 18 123/54 96 09/05/17 02:15 109 H 16 128/58 100 09/05/17 02:00 112 H 16 131/54 99 09/05/17 01:45 108 H 19 117/56 95 09/05/17 01:30 110 H 16 114/56 96 09/05/17 01:15 103 H 18 98/54 100 09/05/17 01:10 100 18 84/47 100 09/05/17 01:00 105 H 16 104/56 100 09/05/17 00:50 109 H 21 108/55 100 09/05/17 00:40 112 H 21 119/70 100 09/05/17 00:30 109 H 21 92/55 100 09/05/17 00:20 100.1 F H 104 H 25 H 99/52 100 09/05/17 00:10 105 H 30 H 93/48 100 09/05/17 00:00 105 H 30 H 104/51 98 05/14/18 23:50 94 24 65/41 90 L 09/04/17 23:40 99.8 F H 91 25 H 63/38 97 09/04/17 23:12 99.6 F 97 16 74/43 99 09/04/17 23:00 97 16 09/04/17 21:42 100.3 F H 104 H 27 H 95/50 99 09/04/17 21:41 100 09/04/17 21:32 100 09/04/17 20:00 101 F H 103 H 28 H 86/36 100 09/04/17 15:00 98.3 F 104 H 16 93/58 93 L 09/04/17 14:54 97.0 F L 100 18 109/54 94 L 09/04/17 14:34 100 18 109/54 94 L 09/04/17 13:48 99 20 104/55 95 09/04/17 12:25 98 18 96/52 94 L Intake and Output 09/04/17 09/05/17 09/05/17 22:59 06:59 14:59 Intake Total 236 2708.633 1011.207 Output Total 603 225 Balance 236 2105.633 786.207 Intake: IV 2550 875 Calcium Chloride 1,000 mg 100 In Sodium Chloride 0.9% 100 ml @ 100 mls/hr IVPB ONCE ONE Rx#:[id number] Magnesium Sulfate-D5w Pmx 200 1 gm In Dextrose/Water 1 100ml.bag @ 100 mls/hr IVPB Q1H [facility] Rx#: [id number] Sodium Chloride 0.9% 1, 750 375 000 ml @ 125 mls/hr IV . Q8H [facility] Rx#:[id number] Sodium Chloride 0.9% 1, 1500 500 000 ml @ 999 mls/hr IV . Q1H1M [facility] Rx#:[id number] Intake, IV Titration 158.633 136.207 Amount Norepinephrin 4 mg-0.9% 148.25 119.437 Ns Pmx 4 mg In 250 ml @ Titrate IV .Q0M [facility] Rx#: [id number] Propofol 1,000 mg In 10.383 16.77 Empty Bag 1 bag @ Per Protocol IV .Q0M [facility] Rx#: [id number] Oral 236 Output: Urine 603 225 Stool 0 Other: Voiding Method Diaper Indwelling Catheter # Voids 1 Weight 62.6 kg GENERAL EXAM: Patient is intubated and sedated. HEENT: Normocephalic. Nor CHEST: No chest wall deformity. LUNGS: [Diminished breath sounds at both bases HEART: [S1 and S2 normal ABDOMEN: Soft SKIN: No rashes CENTRAL NERVOUS SYSTEM: Patient is sedated and intubated EXTREMITIES: [Mild edema] Results 09/05/17 04:30 09/05/17 05:25 Cardiac Enzymes 09/04/17 09/04/17 09/04/17 Range/Units 10:12 10:12 Unknown AST 38 40 (17-59) U/L CK-MB (CK-2) 0.8 (0.0-2.4) ng/mL Troponin I 0.447 H* (0.000-0.034) ng/mL Coagulation 09/04/17 09/04/17 Range/Units 10:12 Unknown PT 13.1 H 17.7 H (9.0-12.0) sec APTT 25.0 30.6 H (22.0-30.0) sec CBC 09/04/17 09/04/17 09/05/17 Range/Units 10:12 Unknown 04:30 WBC 17.1 H 22.5 H 31.3 H* (3.8-10.6) k/uL RBC 2.87 L 2.51 L 2.68 L (4.30-5.90) m/uL Hgb 8.3 L 7.0 L* 7.7 L (13.0-17.5) gm/dL Hct 26.6 L 23.6 L 25.4 L (39.0-53.0) % Plt Count 280 211 219 (150-450) k/uL Comprehensive Metabolic Panel 09/04/17 09/04/17 09/05/17 Range/Units 10:12 Unknown 04:30 Sodium 144 141 Cancelled (137-145) mmol/L Potassium 4.1 4.7 Cancelled (3.5-5.1) mmol/L Chloride 104 105 Cancelled (98-107) mmol/L Carbon Dioxide 30 25 Cancelled (22-30) mmol/L BUN 40 H 44 H Cancelled (9-20) mg/dL Creatinine 1.74 H 2.10 H Cancelled (0.66-1.25) mg/dL Glucose 72 L 155 H Cancelled (74-99) mg/dL Calcium 5.9 L* 5.4 L* Cancelled (8.4-10.2) mg/dL AST 38 40 (17-59) U/L ALT 37 36 (21-72) U/L Alkaline Phosphatase 118 68 (38-126) U/L Total Protein 4.9 L 4.4 L (6.3-8.2) g/dL Albumin 2.3 L 1.9 L (3.5-5.0) g/dL 09/05/17 Range/Units 05:25 Sodium 143 (137-145) mmol/L Potassium 5.1 (3.5-5.1) mmol/L Chloride 107 (98-107) mmol/L Carbon Dioxide 22 (22-30) mmol/L BUN 43 H (9-20) mg/dL Creatinine 2.00 H (0.66-1.25) mg/dL Glucose 76 (74-99) mg/dL Calcium 6.2 L* (8.4-10.2) mg/dL AST (17-59) U/L ALT (21-72) U/L Alkaline Phosphatase (38-126) U/L Total Protein (6.3-8.2) g/dL Albumin (3.5-5.0) g/dL Current Medications Generic Name Dose Route Start Last Admin Trade Name Freq PRN Reason Stop Dose Admin Albuterol/Ipratropium 3 ml 09/04/17 20:00 09/05/17 07:30 Duoneb 0.5 Mg-3 Mg/3 Ml Soln INHALATION 3 ml RT-QID JOCELYN Administration Albuterol/Ipratropium 3 ml 09/04/17 17:16 Duoneb 0.5 Mg-3 Mg/3 Ml Soln INHALATION RT-Q4H PRN Shortness Of Breath Atorvastatin Calcium 20 mg 09/04/17 21:00 09/04/17 21:43 Lipitor PO Not Given HS [facility] Brimonidine Tartrate 1 drops 09/04/17 21:00 09/05/17 09:06 Alphagan P 0.2% Ophth Soln RIGHT EYE 1 drops BID JOCELYN Administration Chlorhexidine Gluconate 15 ml 09/05/17 00:30 09/05/17 09:41 Peridex MUCOUS MEM 15 ml BID JOCELYN Administration Enoxaparin Sodium 40 mg 09/05/17 09:00 Lovenox SQ DAILY JOCELYN Levofloxacin 750 mg/ IV 150 mls @ 100 mls/hr 09/05/17 21:00 Solution IVPB 09/17/17 21:01 Q48H JOCELYN Piperacillin/Tazobactam/ 50 mls @ 12.5 mls/hr 09/05/17 00:00 09/04/17 17:16 Dextrose 3.375 gm/ IV Solution IVPB 09/15/17 00:01 12.5 mls/hr Q8HR JOCELYN Administration Sodium Chloride 1,000 mls @ 125 mls/hr 09/04/17 20:15 09/05/17 08:26 Saline 0.9% IV 125 mls/hr .Q8H JOCELYN Administration Acetaminophen 1,000 mg/ IV 100 mls @ 400 mls/hr 09/05/17 00:29 Solution IVPB ONCE PRN Fever and/ or Pain Norepinephrine Bitartrate 4 mg in 250 mls @ 0 mls/hr 09/05/17 00:30 09/05/17 09:50 Levophed-0.9% Nacl 4 Mg/250ml Pmx IV 5 mcg/min .Q0M JOCELYN 18.75 mls/hr Protocol Titration Titrate Propofol 1,000 mg/ IV Solution 100 mls @ 0 mls/hr 09/05/17 00:20 09/05/17 09: 50 IV 19.43 mcg/kg/min .Q0M JOCELYN 7.3 mls/hr Protocol Titration Per Protocol Calcium Chloride 1,000 mg/ 110 mls @ 100 mls/hr 09/05/17 09:00 09/05/17 09:06 Sodium Chloride IVPB 09/05/17 10:05 100 mls/hr ONCE ONE Administration Latanoprost 1 drops 09/04/17 21:00 09/04/17 21:39 Xalatan 0.005% RIGHT EYE 1 drops HS JOCELYN Administration Magnesium Oxide 400 mg 09/05/17 09:00 09/05/17 09:41 Mag-Ox PO 400 mg DAILY JOCELYN Administration Miscellaneous Information 1 each 09/04/17 13:05 Pneumonia Protocol Utilized PO ONCE PRN Per Protocol Naloxone HCl 0.2 mg 09/05/17 00:29 Narcan IV Q2M PRN Opioid Reversal Pantoprazole Sodium 40 mg 09/05/17 09:00 09/05/17 09:42 Protonix IV 40 mg DAILY JOCELYN Administration Timolol Maleate 1 drops 09/04/17 21:00 09/05/17 09:40 Timoptic RIGHT EYE 1 drops BID JOCELYN Administration Intake and Output 09/04/17 09/05/17 09/05/17 22:59 06:59 14:59 Intake Total 236 2708.633 1011.207 Output Total 603 225 Balance 236 2105.633 786.207 Intake: IV 2550 875 Calcium Chloride 1,000 mg 100 In Sodium Chloride 0.9% 100 ml @ 100 mls/hr IVPB ONCE ONE Rx#:[id number] Magnesium Sulfate-D5w Pmx 200 1 gm In Dextrose/Water 1 100ml.bag @ 100 mls/hr IVPB Q1H [facility] Rx#: [id number] Sodium Chloride 0.9% 1, 750 375 000 ml @ 125 mls/hr IV . Q8H [facility] Rx#:[id number] Sodium Chloride 0.9% 1, 1500 500 000 ml @ 999 mls/hr IV . Q1H1M [facility] Rx#:[id number] Intake, IV Titration 158.633 136.207 Amount Norepinephrin 4 mg-0.9% 148.25 119.437 Ns Pmx 4 mg In 250 ml @ Titrate IV .Q0M [facility] Rx#: [id number] Propofol 1,000 mg In 10.383 16.77 Empty Bag 1 bag @ Per Protocol IV .Q0M [facility] Rx#: [id number] Oral 236 Output: Urine 603 225 Stool 0 Other: Voiding Method Diaper Indwelling Catheter # Voids 1 Weight 62.6 kg 09/05/17 04:30 09/05/17 05:25 EKG Interpretations (text) Sinus rhythm and sinus tachycardia Assessment and Plan (1) Sepsis Current Visit: Yes Status: Acute Code(s): A41.9 - SEPSIS, UNSPECIFIED ORGANISM SNOMED Code(s): 53375212 (2) UTI (urinary tract infection) Current Visit: Yes Status: Acute Code(s): N39.0 - URINARY TRACT INFECTION, SITE NOT SPECIFIED SNOMED Code(s): 70893097 (3) Community acquired pneumonia Current Visit: Yes Status: Acute Code(s): J18.9 - PNEUMONIA, UNSPECIFIED ORGANISM SNOMED Code(s): 411328917 (4) Aortic regurgitation Current Visit: Yes Status: Acute Code(s): I35.1 - NONRHEUMATIC AORTIC (VALVE ) INSUFFICIENCY SNOMED Code(s): 39325463 Plan: Continue current management with IV fluids and antibiotics. I'll get an echocardiogram and BNP levels. Rest of the management as for the family helper. Prognosis is guarded
[2017-09-05] MEDS ORDERED: DEXTROSE 50%-WATER 50 ML SYRINGE IVP STA (10:12)
[2017-09-05] MEDS: PIPERACILLIN-TAZOBACTAM 3.375 GM in DEXTROSE/WATER 1 50ML.BAG IVPB SCH ×2 (10:13→16:36)
[2017-09-05 10:22] LABS: Glucose,Whole Blood 157 mg/dL (75-99)
[2017-09-05 10:22] LABS: Glucose,Whole Blood 62 mg/dL (75-99)
[2017-09-05 10:59] LABS: Glucose,Whole Blood 126 mg/dL (75-99)
--- NOTE | 2017-09-05 11:19 | P.CNPUL ---
History of Present Illness Consult date: 09/05/17 Requesting physician: Lambert Salomon Reason for consult: other (Acute sepsis and hypoxic respiratory failure) Chief complaint: Altered mental status History of present illness: This is an 87-year-old white male with history of multiple medical problems including dementia, coronary artery disease and previous myocardial infarction, aortic regurgitation, patient was last admitted to the hospital on 08/06 and discharged on 08/15/2017, and he was seen at the time by Dr. Madden on consultation. He was also seen by Dr. Springer. His last admission was related to GI bleeding felt to be upper GI source, EGD showed duodenal ulcer that was not bleeding at the time, and there was also evidence of bloody nidus and antral gastritis. His other issues at the time of admission included acute kidney injury, acute hyperkalemia, chronic hypoxic respiratory failure and COPD , osteogenesis imperfecta, and cachexia with protein calorie malnutrition, and his BMI was 20.1. At any rate patient was readmitted this time mostly with complaints of altered mental status, passing out, possible syncopal episode, shortness of breath, and profound weakness. The admitting physician was Dr. Salomon, follow the patient post admission, and he felt that the patient had pneumonia, and pleural effusion, he also raise the possibility of sepsis, and a parapneumonic effusion. Patient was placed empirically on Levaquin and Zosyn, he was also noted to have intermittent episodes of hypoglycemia requiring D 50. Last night, the patient's condition deteriorated, he became hypotensive, less responsive, and I was notified about the patient shortly after he arrived to the ICU. After reviewing the history with the nurse on the phone, I felt the patient needed to be intubated, he was quite lethargic at the time and hypotensive his blood sugar was also around 60. Patient did not improve much after 1 amp of D50, intubated, given fluid boluses, continue to have low blood pressure, hence I recommended starting norepinephrine drip. Empirically continued on antibiotics in the form of Levaquin and Zosyn. I was also notified that the blood cultures are positive for gram-negative bacilli. Today the patient remains on mechanical ventilation, his ventilator settings are tidal volume of 350 assist-control rate of 16 FiO2 of 40% PEEP of 5, is on levo fed at 3 mcg/m, propofol 15 mcg/kg/m, and IV fluid at 1 25 mL per hour in the form of 0.9 normal saline. Patient is sedated, opens eyes to verbal stimuli, unable to follow simple instructions. Hence I will keep him on mechanical ventilation, will start enteral feeding, and we will continue pressors to maintain a mean arterial pressure of 65. His urine output seems to be reasonable at this point. And he received about 3 L of fluid boluses overnight. Review of Systems ROS unobtainable: due to endotracheal tube (Cannot be obtained, review of systems reviewed in the chart, no family members available at bedside.) Past Medical History Past Medical History: Coronary Artery Disease (CAD), Heart Failure, COPD, Dementia, Eye Disorder, GI Bleed, Hyperlipidemia, Hypertension, Myocardial Infarction (NM) Additional Past Medical History / Comment(s): Pt recently admitted to [facility] on with acute blood loss anemia, GI bleed, duodenal ulcers,with dark burgundy stools, protein calorie malnutrition, hyperkalemia. 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 Past Anesthesia/Blood Transfusion Reactions: No Reported Reaction Additional Past Anesthesia/Blood Transfusion Reaction / Comment(s): Pt has received blood without reaction. Smoking Status: Former smoker - Past Family History Father History Unknown: Yes Family Medical History: Unable to Obtain Additional Family Medical History / Comment(s): Father had osteogenesis imperfecta. Mother Family Medical History: No Reported History Medications and Allergies Home Medications Medication Instructions Recorded Confirmed Type Atorvastatin Calcium [Lipitor] 20 mg PO HS 12/07/15 09/04/17 History Magnesium Oxide [Mag-Ox] 400 mg PO DAILY 12/07/15 09/04/17 History Ergocalciferol (Vitamin D2) 50,000 unit PO Q7D 08/06/17 09/04/17 History [Vitamin D2] Acetaminophen Tab [Tylenol] 650 mg PO Q6HR PRN tab 08/15/17 09/04/17 Rx Brimonidine Tartrate [Alphagan P 1 drops RIGHT EYE BID ml 08/15/17 09/04/17 Rx 0.2% Ophth Soln] Carvedilol [Coreg] 3.125 mg PO DAILY #1 tablet 08/15/17 09/04/17 Rx Furosemide [Lasix] 20 mg PO DAILY #0 08/15/17 09/04/17 Rx Ipratropium-Albuterol Nebulize 3 ml INHALATION RT-QID ampul.neb 08/15/17 Rx [Duoneb 0.5 mg-3 mg/3 ml Soln] Latanoprost Ophth [Xalatan 0.005%] 1 drops RIGHT EYE HS ml 08/15/17 09/04/17 Rx Timolol 0.5% Ophth Soln [Timoptic 1 drops RIGHT EYE BID ml 08/15/17 09/04/17 Rx 0.5% Ophth Soln] Allergies Allergy/AdvReac Type Severity Reaction Status Date / Time No Known Allergies Allergy Verified 09/04/17 10:26 Physical Exam Vitals: Vital Signs Temp Pulse Pulse Resp BP BP Pulse Ox 09/05/17 09:00 92 18 111/53 97 09/05/17 08:45 98 22 121/59 100 09/05/17 08:30 99 18 140/58 97 09/05/17 08:15 102 H 22 136/57 100 09/05/17 08:00 98 16 140/59 100 09/05/17 07:56 100 09/05/17 07:45 101 H 20 154/60 100 09/05/17 07:31 99 09/05/17 07:30 104 H 24 132/55 100 09/05/17 07:15 101 H 17 136/55 99 09/05/17 07:00 101 H 16 137/60 94 L 09/05/17 06:45 102 H 16 134/59 98 09/05/17 06:30 98 16 134/57 93 L 09/05/17 06:15 97 15 145/59 96 09/05/17 06:00 99 22 128/59 97 05/15/18 05:45 96 16 137/66 100 09/05/17 05:30 97 21 110/64 100 09/05/17 05:15 98 23 117/56 92 L 09/05/17 05:00 101 H 20 123/59 98 09/05/17 04:45 97 18 111/50 98 09/05/17 04:30 99.8 F H 105 H 20 131/56 95 09/05/17 04:15 98 19 114/53 98 09/05/17 04:00 101 H 18 148/61 99 09/05/17 03:45 107 H 20 127/54 95 09/05/17 03:30 100 17 127/56 98 09/05/17 03:15 105 H 17 143/83 98 09/05/17 03:00 104 H 17 137/60 97 09/05/17 02:45 108 H 16 126/56 99 09/05/17 02:30 101 H 18 123/54 96 09/05/17 02:15 109 H 16 128/58 100 09/05/17 02:00 112 H 16 131/54 99 09/05/17 01:45 108 H 19 117/56 95 09/05/17 01:30 110 H 16 114/56 96 09/05/17 01:15 103 H 18 98/54 100 09/05/17 01:10 100 18 84/47 100 09/05/17 01:00 105 H 16 104/56 100 09/05/17 00:50 109 H 21 108/55 100 09/05/17 00:40 112 H 21 119/70 100 09/05/17 00:30 109 H 21 92/55 100 09/05/17 00:20 100.1 F H 104 H 25 H 99/52 100 09/05/17 00:10 105 H 30 H 93/48 100 09/05/17 00:00 105 H 30 H 104/51 98 09/04/17 23:50 94 24 65/41 90 L 09/04/17 23:40 99.8 F H 91 25 H 63/38 97 /18 23:12 99.6 F 97 16 74/43 99 18 23:00 97 16 09/04/17 21:42 100.3 F H 104 H 27 H 95/50 99 09/04/17 21:41 100 09/04/17 21:32 100 09/04/17 20:00 101 F H 103 H 28 H 86/36 100 09/04/17 15:00 98.3 F 104 H 16 93/58 93 L 09/04/17 14:54 97.0 F L 100 18 109/54 94 L 09/04/17 14:34 100 18 109/54 94 L 09/04/17 13:48 99 20 104/55 95 09/04/17 12:25 98 18 96/52 94 L Intake and Output 09/04/17 09/05/17 09/05/17 22:59 06:59 14:59 Intake Total 236 2708.633 1031.179 Output Total 603 225 Balance 236 2105.633 806.179 Intake: IV 2550 875 Calcium Chloride 1,000 mg 100 In Sodium Chloride 0.9% 100 ml @ 100 mls/hr IVPB ONCE ONE Rx#:[id number] Magnesium Sulfate-D5w Pmx 200 1 gm In Dextrose/Water 1 100ml.bag @ 100 mls/hr IVPB Q1H [facility] Rx#: [id number] Sodium Chloride 0.9% 1, 750 375 000 ml @ 125 mls/hr IV . Q8H [facility] Rx#:[id number] Sodium Chloride 0.9% 1, 1500 500 000 ml @ 999 mls/hr IV . Q1H1M ONE Rx#:[id number] Intake, IV Titration 158.633 156.179 Amount Norepinephrin 4 mg-0.9% 148.25 133.812 Ns Pmx 4 mg In 250 ml @ Titrate IV .Q0M [facility] Rx#: [id number] Propofol 1,000 mg In 10.383 22.367 Empty Bag 1 bag @ Per Protocol IV .Q0M [facility] Rx#: [id number] Oral 236 Output: Urine 603 225 Stool 0 Other: Voiding Method Diaper Indwelling Catheter # Voids 1 Weight 62.6 kg 62.6 kg Physical Exam: Revealed an 87-year-old white male, frail looking, chronically ill, on mechanical ventilation, sedated, in no distress. Head: Atraumatic, normocephalic. HEENT: Moist mucous membranes. PERRLA, EOMI. [Neck is supple.] [No neck masses.] [No thyromegaly.] [No JVD.] Endotracheal tube and orogastric tube seem to be intact. Chest: minimal crackles and rhonchi at the bases. Symmetrical chest expansion noted..] Cardiac Exam: [Normal S1 and S2, no S3 gallop, 2/6 systolic murmur. Throughout the precordium.] Abdomen: [Soft, nontender, no megaly, no rebound, no guarding, normal bowel sounds.] Extremities: [No clubbing, no edema, no cyanosis.] Neurological Exam: Cannot be assessed. Patient is presently on propofol drip, opens eyes to verbal stimuli Lymphatics: No lymphadenopathy. Psychiatric: Cannot be assessed. Results - Laboratory Findings CBC and BMP: 09/05/17 04:30 09/05/17 05:25 ABG ABG pH 7.37 (7.35-7.45) 09/05/17 08:03 ABG pCO2 40 mmHg (35-45) 09/05/17 08:03 ABG pO2 159 mmHg (83-108) H 09/05/17 08:03 ABG O2 Saturation 99.0 % (94-97) H 09/05/17 08:03 PT/INR, D-dimer PT 17.7 sec (9.0-12.0) H 09/04/17 Unknown INR 1.9 (<1.2) H 09/04/17 Unknown D-Dimer 27.78 mg/L FEU (<0.60) H 09/04/17 10:12 Abnormal lab findings: Abnormal Labs 09/04/17 09/04/17 09/04/17 00:00 10:12 10:12 WBC 17.1 H RBC 2.87 L Hgb 8.3 L Hct 26.6 L MCHC Neutrophils # (Manual) 11.40 H Lymphocytes # (Manual) 0.68 L Monocytes # (Manual) Metamyelocytes # (Man) 2.39 H Myelocytes # (Manual) 2.39 H PT INR APTT D-Dimer ABG pO2 ABG O2 Saturation BUN Creatinine Glucose POC Glucose (mg/dL) Plasma Lactic Acid Rommel Calcium Ionized Calcium Maria Gu[place]upe Phosphorus Troponin I 0.447 H* Total Protein Albumin Urine Protein Trace H Urine Blood Small H Ur Leukocyte Esterase Large H Urine WBC 105 H Urine Bacteria Many H Urine Mucus Rare H 09/04/17 09/04/17 09/04/17 10:12 10:12 23:36 WBC RBC Hgb Hct MCHC Neutrophils # (Manual) Lymphocytes # (Manual) Monocytes # (Manual) Metamyelocytes # (Man) Myelocytes # (Manual) PT 13.1 H INR 1.4 H APTT D-Dimer 27.78 H ABG pO2 ABG O2 Saturation BUN 40 H Creatinine 1.74 H Glucose 72 L POC Glucose (mg/dL) 62 L Plasma Lactic Acid Rommel Calcium 5.9 L* Ionized Calcium Maria Guadalpue Phosphorus Troponin I Total Protein 4.9 L Albumin 2.3 L Urine Protein Urine Blood Ur Leukocyte Esterase Urine WBC Urine Bacteria Urine Mucus 09/04/17 09/04/17 09/04/17 23:48 23:49 Unknown WBC 22.5 H RBC 2.51 L Hgb 7.0 L* Hct 23.6 L MCHC 29.7 L Neutrophils # (Manual) 19.80 H Lymphocytes # (Manual) Monocytes # (Manual) 1.35 H Metamyelocytes # (Man) Myelocytes # (Manual) 0.23 H PT INR APTT D-Dimer ABG pO2 ABG O2 Saturation BUN Creatinine Glucose POC Glucose (mg/dL) 207 H 219 H Plasma Lactic Acid Rommel Calcium Ionized Calcium Maria [place] Phosphorus Troponin I Total Protein Albumin Urine Protein Urine Blood Ur Leukocyte Esterase Urine WBC Urine Bacteria Urine Mucus 09/04/17 09/04/17 09/04/17 Unknown Unknown Unknown WBC RBC Hgb Hct MCHC Neutrophils # (Manual) Lymphocytes # (Manual) Monocytes # (Manual) Metamyelocytes # (Man) Myelocytes # (Manual) PT 17.7 H INR 1.9 H APTT 30.6 H D-Dimer ABG pO2 ABG O2 Saturation BUN 44 H Creatinine 2.10 H Glucose 155 H POC Glucose (mg/dL) Plasma Lactic Acid Rommel 2.7 H* Calcium 5.4 L* Ionized Calcium Maria Guadalupe Phosphorus 5.3 H Troponin I Total Protein 4.4 L Albumin 1.9 L Urine Protein Urine Blood Ur Leukocyte Esterase Urine WBC Urine Bacteria Urine Mucus 09/05/17 09/05/17 09/05/17 00:42 03:33 04:30 WBC 31.3 H* RBC 2.68 L Hgb 7.7 L Hct 25.4 L MCHC 30.5 L Neutrophils # (Manual) 27.20 H Lymphocytes # (Manual) Monocytes # (Manual) 1.25 H Metamyelocytes # (Man) Myelocytes # (Manual) 2.82 H PT INR APTT D-Dimer ABG pO2 392 H ABG O2 Saturation 100.0 H BUN Creatinine Glucose POC Glucose (mg/dL) Plasma Lactic Acid Rommel 2.7 H* Calcium Ionized Calcium Maria Guadalupe Phosphorus Troponin I Total Protein Albumin Urine Protein Urine Blood Ur Leukocyte Esterase Urine WBC Urine Bacteria Urine Mucus 09/05/17 09/05/17 09/05/17 04:30 05:25 08:03 WBC RBC Hgb Hct MCHC Neutrophils # (Manual) Lymphocytes # (Manual) Monocytes # (Manual) Metamyelocytes # (Man) Myelocytes # (Manual) PT INR APTT D-Dimer ABG pO2 159 H ABG O2 Saturation 99.0 H BUN 43 H Creatinine 2.00 H Glucose POC Glucose (mg/dL) Plasma Lactic Acid Rommel Calcium 6.2 L* Ionized Calcium Maria Guadalupe 3.7 L 3.8 L Phosphorus 6.0 H Troponin I Total Protein Albumin Urine Protein Urine Blood Ur Leukocyte Esterase Urine WBC Urine Bacteria Urine Mucus 09/05/17 09/05/17 09:53 10:19 WBC RBC Hgb Hct MCHC Neutrophils # (Manual) Lymphocytes # (Manual) Monocytes # (Manual) Metamyelocytes # (Man) Myelocytes # (Manual) PT INR APTT D-Dimer ABG pO2 ABG O2 Saturation BUN Creatinine Glucose POC Glucose (mg/dL) 62 L 157 H Plasma Lactic Acid Rommel Calcium Ionized Calcium Maria Gu[place]upe Phosphorus Troponin I Total Protein Albumin Urine Protein Urine Blood Ur Leukocyte Esterase Urine WBC Urine Bacteria Urine Mucus - Diagnostic Findings Chest x-ray: image reviewed (Chest x-ray was reviewed, suspect left lower lobe consolidation and small left pleural effusion. Ultrasound of the chest showed small bilateral pleural effusions left more so than right.) Additional studies: Ultrasound of the chest as noted small bilateral pleural effusions. Assessment and Plan Assessment: Impression: 1 acute gram-negative sepsis and septic shock, likely sources could be urine or pulmonary. 2 left lower lobe pneumonia is strongly suspected, considering the patient's recent admission to the hospital, and referral to ECF, this is likely healthcare acquired pneumonia. 3 acute urinary tract infection 4 bilateral pleural effusions, could be cardiac or parapneumonic related. At this point it is not clear. 5 acute metabolic encephalopathy from sepsis. 6 ischemic cardiomyopathy and ejection fraction of 40% 7 acute on chronic hypoxic respiratory failure, multifactorial, secondary to sepsis, COPD, and some component of systolic congestive heart failure. 8 acute tubular necrosis and acute kidney injury secondary to sepsis and septic shock. 9 history of chronic obstructive pulmonary disease, patient is an ex-smoker. 10 osteoGenesis imperfecta 11 history of Alzheimer's dementia 12 cachexia with significant weight loss and total body protein calorie malnutrition, moderately severe, BMI is in the range of 16 13 history of upper GI bleeding secondary to duodenal ulcer 14 history of coronary artery disease and previous NM. 15 recurrent episodes of hypoglycemia secondary to sepsis, serum cortisol level is pending doubt adrenal insufficiency. Recommendation: Continue present supportive care measures including antibiotics , fluids, ventilatory support, nutritional support, GI and DVT prophylaxis, his ventilator settings were adjusted, FiO2 cut down to 35%, adjust antibiotics according to the final culture from the blood, may or may not require left sided thoracentesis. At this point I believe the most likely source of infection is most likely from the urine. Again it is a gram-negative sepsis with septic shock. Prognosis is definitely guarded, we will continue to follow closely. Critical care time is 45 minutes. Time with Patient: Greater than 30
[2017-09-05 12:10] LABS: Glucose,Whole Blood 96 mg/dL (75-99)
--- NOTE | 2017-09-05 12:22 | ECHOF ---
Referral Reason:Chest pain and cardiomyopathy MEASUREMENTS -------- HEIGHT: 172.7 cm WEIGHT: 62.6 kg BP: 96/47 RVIDd: 4.2 cm (< 3.3) IVSd: 0.6 cm (0.6 - 1.1) LVIDd: 6.0 cm (3.9 - 5.3) LVPWd: 0.7 cm (0.6 - 1.1) IVSs: 0.6 cm LVIDs: 5.5 cm LVPWs: 0.7 cm LAESV Index (A-L): 28.43 ml/m Ao Diam: 3.7 cm (2.0 - 3.7) AV Cusp: 1.8 cm (1.5 - 2.6) LA Diam: 3.4 cm (2.7 - 3.8) MV EXCURSION: 11.106 mm (> 18.000) MV EF SLOPE: 125 mm/s (70 - 150) EPSS: 2.3 cm MV E Haile: 0.98 m/s MV DecT: 237 ms MV A Haile: 0.84 m/s MV E/A Ratio: 1.16 AR PHT: 203 ms RAP: 20.00 mmHg RVSP: 58.51 mmHg FINDINGS -------- Sinus rhythm. This was a technically good study. The left ventricle is mildly dilated. Left ventricular wall thickness is normal. There is severe global hypokinesis of LV . Overall left ventricular systolic function is severely impaired with, an EF between 25 - 30 %. The right ventricle is moderately enlarged. LA is midly dilated 29-33ml/m2. RA appears enlarged. Aortic valve is trileaflet and is mildly thickened. There is moderate aortic regurgitation. Can't exclude possible Bicuspid Aov. The mitral valve leaflets are mildly thickened. Moderate mitral regurgitation is present. Severe tricuspid regurgitation present. There is moderate pulmonary hypertension. The right ventr icular systolic pressure, as measured by Doppler, is 58.51mmHg. There is no pulmonic regurgitation present. The aortic root size is normal. The inferior vena cava is dilated with no significant inspiratory collapse which is consistent estima shira right atrial pressure of >20 mmHg. There is a small, generalized pericardial effusion present. Large Pleural Effusion. CONCLUSIONS -------- 1. Sinus rhythm. 2. This was a technically good study. 3. The left ventricle is mildly dilated. 4. Left ventricular wall thickness is normal. 5. There is severe global hypokinesis of LV . 6. Overall left ventricular systolic function is severely impaired with, an EF between 25 - 30 %. 7. The right ventricle is moderately enlarged. 8. LA is midly dilated 29-33ml/m2. 9. RA appears enlarged. 10. Aortic valve is trileaflet and is mildly thickened. 11. There is moderate aortic regurgitation. 12. Can't exclude possible Bicuspid Aov. 13. The mitral valve leaflets are mildly thickened. 14. Moderate mitral regurgitation is present. 15. Severe tricuspid regurgitation present. 16. There is moderate pulmonary hypertension. 17. There is no pulmonic regurgitation present. 18. The aortic root size is normal. 19. The inferior vena cava is dilated with no significant inspiratory collapse which is consistent es timated right atrial pressure of >20 mmHg. 20. There is a small, generalized pericardial effusion present. 21. Large Pleural Effusion. [employer]ATE SH[employer] HELPER: Ivory Guillen RDCS
[2017-09-05 14:13] LABS: Glucose,Whole Blood 96 mg/dL (75-99)
--- NOTE | 2017-09-05 15:05 | US ---
EXAMINATION TYPE: US abdomen complete DATE OF EXAM: 09/05/2017 COMPARISON: CT chest abdomen pelvis dated 08/12/2017 CLINICAL HISTORY: abd pain , fever. Patient is intubated in ICU EXAM MEASUREMENTS: Liver Length: 16.4 cm Gallbladder Wall: Surgically absent CBD: 1.1 cm Spleen: 9.5 cm Right Kidney: 10.0 x 4.3 x 4.5 cm Left Kidney: 9.8 x 4.2 x 5.4 cm Pancreas: prominent duct = 0.3cm Liver: 0.7cm echogenic foci seen at right dome corresponds to calcification on CT, low level echoes seen within portal vein but good color flow noted, portal vein somewhat ectatic Gallbladder: Surgically absent Evidence for sonographic Serna's sign: unknown CBD: dilated with no obvious obstruction Spleen: limited views due to bowel gas and inability to move Right Kidney: 4.1cm superior pole hypoechoic focus shows some questionable septation, wall thickenin g. Left Kidney: limited views due bowel gas and patient inability to move Upper IVC: wnl Abd Aorta: wnl Cortical medullary differentiation maintained within the kidneys, kidneys appear somewhat echogenic a t the cortex level however. There is minimal ascites. Incidental pleural effusion is noted. IMPRESSION: Prominence of biliary system may be due to postcholecystectomy change. Right pleural effu laith, minimal ascites. Cyst at the superior pole the right kidney does appear to be simple cystic. Co rrelate for medical renal disease. Follow-up recommended. The exam somewhat limited.
[2017-09-05 16:09] LABS: Glucose,Whole Blood 81 mg/dL (75-99)
--- NOTE | 2017-09-05 18:04 | CONS ---
CONSULTATION DATE OF SERVICE: 09/05/2017. REASON FOR CONSULTATION: Sepsis. HISTORY OF PRESENT ILLNESS: The patient is an 87-year-old male who was brought into the ER at [facility] yesterday morning after apparently the patient did have a syncopal episode. The patient was complaining of some shortness of breath. Prior to that the patient subsequently was evaluated by the ER physician and the patient did have a chest x-ray that was suggestive for . The patient's currently has [id number] right-sided pleural effusion. The pulmonary perfusion imaging studies had intermediate probability without acute ventilation images. The patient was afebrile on presentation and subsequently did spike a fever of 101 Fahrenheit last evening with 100.1 around midnight, afebrile since then. The patient did go into respiratory distress and was transferred to the ICU and ended up getting intubated. Patient was hypotensive and put on fluid support and is currently on Levophed 10 mcg. The patient who did have white count 17,000 is up to 31.3 today with a blood culture obtained on admission showing gram-negative bacilli. Infectious Disease was consulted for further recommendation regarding antibiotic therapy. Most of this information has been obtained from review of the chart as the patient is currently on the vent and no family member is available at the bedside. REVIEW OF SYSTEMS: Could not be reliably obtained, although the positive points have been mentioned in the HPI. PAST MEDICAL HISTORY: Significant for coronary artery disease, dementia, GI bleed, hypertension, hyperlipidemia, MT, COPD respiratory failure. PAST SURGICAL HISTORY: Bilateral hip replacement and elbow surgery. SOCIAL HISTORY: Remote history of smoking, no drinking or drug use. FAMILY HISTORY: No pertinent findings noticed. ALLERGIES: No known drug allergies. MEDICATIONS: The patient is currently on Tylenol, DuoNeb, Lipitor, Lovenox, levofloxacin, mag oxide, Narcan, Levophed, Protonix, piperacillin tazobactam, propofol, Timoptic. EXAMINATION: Blood pressure 121/37 with a pulse of 84, temperature of 98.1, T-max is 101 degrees Fahrenheit. He is 100% on 35% FiO2. General description is an elderly male, intubated on the vent. HEENT EXAMINATION: Pallor, no scleral icterus. The patient is orally intubated. Limit examination of the oral cavity. NECK: Trachea is central. No thyromegaly. LUNGS: Unlabored breathing, decreased breath sounds at the bases. No wheeze or crackle. HEART: S1, S2. Regular rate and rhythm. ABDOMEN: Soft, mildly distended. No guarding or rigidity. No organomegaly. EXTREMITIES: No edema of the feet. SKIN: No rash or mass palpable. Neurologically, the patient is sedated on the vent. LABS: Hemoglobin 7.7, white count 31.3, BUN of 43, creatinine 2.0. Electrolytes have been normal. Lactic acid is 2.6. His urine positive many bacteria. Blood cultures with gram-negative rods. Urine culture currently pending. Sputum is pending. DIAGNOSTIC IMPRESSION AND PLAN: Patient with sepsis/septic shock in a patient who does have hypertension requiring pressor support, fever and elevated white count. Source is likely urinary. Underlying abdominal source not entirely excluded. Clinical suspicion is low for underlying pneumonia as the chest x-ray finding was most suspicious for the pulmonary vascular congestion, possible CHF, and no significant secretions through the ED. PLAN: 1. We will obtain ultrasound of the abdomen. The patient currently is to go for a CT of the abdomen and pelvis . 2. Zosyn provide adequate coverage for underlying gram-negative sepsis. 3. Once his condition stabilizes negative, will be recommending a CT of the abdomen and pelvis with oral contrast through the NG to rule out pathology. 4. We will follow up on his clinical condition and to further adjust medications if needed. Thank you for this consultation. We will follow this patient along with you. MMODL / IJN: [id number] /
[2017-09-05 18:27] LABS: Glucose,Whole Blood 93 mg/dL (75-99)
--- NOTE | 2017-09-05 18:37 | PCN ---
PROCEDURE NOTE PROCEDURE PERFORMED: Placement of the right radial arterial line. PREOPERATIVE DIAGNOSIS: Acute septic shock. POSTOPERATIVE DIAGNOSIS: Acute septic shock. ANESTHESIA: None deployed. PROCEDURE: The right wrist was prepared in a sterile fashion and drapes were applied. The right radial artery was palpated, cannulated easily, and a guidewire was placed. A Cook catheter was inserted over the guidewire, the guidewire was removed. The line was secured using 3.0 silk sutures. Good waveform and good blood flow was noted. No evidence of any immediate complications. MMODL / IJN: [id number] /
--- NOTE | 2017-09-05 19:31 | PCN ---
PROCEDURE NOTE OPERATIVE REPORT: Placement of a right femoral triple-lumen catheter. PREOPERATIVE DIAGNOSIS: Acute septic shock. POSTOPERATIVE DIAGNOSIS: Acute septic shock. ANESTHESIA USED: 2 mL of 1% lidocaine. PROCEDURE: The patient was placed in the supine position, and the right groin was prepared in a sterile fashion and drapes were applied. The right femoral vein was cannulated easily medial to the right femoral artery, and I was able to place a guidewire in the right femoral vein. The dilator was used over the guidewire, then a triple-lumen catheter was inserted over the guidewire, and the guidewire was removed. Good blood flow was noted, line was secured using 3.0 silk sutures. All different ports were patent. Procedure was well tolerated. No evidence of any immediate complications. MMODL / IJN: [id number] /
--- NOTE | 2017-09-05 19:31 | PN ---
PROGRESS NOTE DATE OF SERVICE: 09/05/17. PRESENTING COMPLAINT: Intubated. INTERVAL HISTORY: This is a patient who presented with pneumonia, sepsis went into respiratory distress and was intubated. The patient is in the ICU with FiO2 35 and a PEEP of 5, drips include Diprivan of 25 and Levophed 5. Tube feeding started at 10. Patient's nurse informed me that the patient's son wants him to be a FULL CODE. REVIEW OF SYSTEMS: Patient is currently intubated. CURRENT MEDICATIONS: Reviewed that include DuoNeb, IV Levaquin, IV Zosyn, IV propofol and Levophed. PHYSICAL EXAMINATION: On examination, T-max 101, pulse 81, respiration 16, blood pressure 123/34. GENERAL APPEARANCE: Lying in bed intubated. EYES: Pupils equal. Conjunctivae dirty appearing. HEENT: External nose and ears normal. Oral cavity normal. NG tube in place. NECK: JVD unable to assess. Mass not palpable. RESPIRATORY: Effort increased. Lungs, decreased breath sounds. CARDIOVASCULAR: 1st and 2nd sounds normal. Edema present. ABDOMEN: Soft, nontender. Liver and spleen not palpable. NEUROLOGICAL: Pupils are equal. Patient is intubated. INVESTIGATIONS: Lactic acid 2.6, proBNP 122,000. Cortisol 56. Chest ultrasound shows bilateral pleural effusion though small pockets. Renal ultrasound showed some evidence of medical renal disease. 2D echocardiogram showed EF of 25-30%, moderate aortic regurgitation, moderate mitral regurgitation, moderate pulmonary hypertension, large pleural effusion. ASSESSMENT: 1. Pneumonia causing sepsis, septic shock with possible parapneumonic effusion. 2. Acute metabolic encephalopathy from sepsis. 3. Coronary artery disease with ischemic cardiomyopathy, ejection fraction 40%. 4. Chronic obstructive pulmonary disease in an ex-smoker. 5. Chronic hypoxic respiratory failure from underlying chronic obstructive pulmonary disease. 6. Acute hypoxic respiratory failure, patient on ventilator support. 7. Hyperlipidemia. 8. Osteogenesis imperfecta. 9. Alzheimer's dementia. 10.Decreased vision in the right eye. 11.Acute renal failure could be acute tubular necrosis from sepsis. 12.Moderate aortic regurgitation, nonrheumatic. 13.Moderate mitral regurgitation, nonrheumatic. 14.Severe tricuspid regurgitation, nonrheumatic. 15.Moderate secondary pulmonary hypertension secondary to congestive heart failure. PLAN: Prognosis overall guarded. Continue patient on current medication and treatment plan including pressure support, antibiotics. MMODL / IJN: [id number] /
[2017-09-05 19:53] LABS: Glucose,Whole Blood 105 mg/dL (75-99)
[2017-09-05] MEDS: ATORVASTATIN 20 MG TAB PO SCH (21:53)
[2017-09-05] MEDS: LEVOFLOXACIN 750MG-D5W PMX 750 MG in DEXTROSE/WATER 1 150ML.BAG IVPB SCH (21:53)
[2017-09-05] MEDS: LATANOPROST 0.005% OPHTH DROPS 2.5 ML BTL RIGHT EYE SCH (21:53)
[2017-09-05 22:03] LABS: Glucose,Whole Blood 95 mg/dL (75-99)
[2017-09-05 23:57] LABS: Glucose,Whole Blood 97 mg/dL (75-99)
[2017-09-06] MEDS: PIPERACILLIN-TAZOBACTAM 3.375 GM in DEXTROSE/WATER 1 50ML.BAG IVPB SCH ×3 (00:30→16:24)
[2017-09-06 02:24] LABS: Glucose,Whole Blood 85 mg/dL (75-99)
[2017-09-06 04:13] LABS: Glucose,Whole Blood 90 mg/dL (75-99)
[2017-09-06] MEDS: SODIUM CHLORIDE 0.9% 1,000 ML IV SCH ×2 (04:15→20:19)
[2017-09-06 04:47] LABS: Ionized Calcium 4.1 mg/dL (4.5-5.3)
[2017-09-06 05:03] LABS: Phosphorus 5.6 mg/dL (2.5-4.5)
[2017-09-06 05:40] LABS: Calcium 6.1 mg/dL (8.4-10.2)
[2017-09-06 06:03] LABS: Glucose,Whole Blood 91 mg/dL (75-99)
[2017-09-06] MEDS: PROPOFOL 1,000 MG in EMPTY BAG 1 BAG IV SCH ×2 (06:05→13:41)
[2017-09-06 07:07] LABS: HCT 25.6 % (39.0-53.0); HGB 7.7 gm/dL (13.0-17.5); Hypochromasia Marked; MCH 28.9 pg (25.0-35.0); MCHC 30.1 g/dL (31.0-37.0); MCV 96.1 fL (80.0-100.0); Mean Platelet Volume 9.2; Platelet Count 155 k/uL (150-450); RBC 2.67 m/uL (4.30-5.90); RDW 14.5 % (11.5-15.5)
[2017-09-06 07:13] LABS: ABG Base Excess -3.8 mmol/L; ABG HCO3 23 mmol/L (21-25); ABG Oxygen Saturation 98.9 % (94-97); ABG PCO2 45 mmHg (35-45); ABG PH 7.31 (7.35-7.45); ABG PO2 129 mmHg (83-108); ABG TCO2 24 mmol/L (19-24)
[2017-09-06 07:14] LABS: WBC 32.7 k/uL (3.8-10.6)
[2017-09-06] MEDS: IPRATROPIUM-ALBUTEROL 3 ML NEB INHALATION SCH ×4 (07:20→19:36)
[2017-09-06 08:13] LABS: Glucose,Whole Blood 85 mg/dL (75-99)
--- NOTE | 2017-09-06 08:13 | XR ---
EXAMINATION TYPE: XR chest 1V portable DATE OF EXAM: 09/06/2017 COMPARISON: Prior chest x-ray 09/05/2017 HISTORY: Intubated TECHNIQUE: Single frontal view of the chest is obtained. FINDINGS: Endotracheal tube, NG tube are overlying appropriate positions. There are overlying cardia c leads, patient is rotated. Bibasilar increased density persists, there is obscured hemidiaphragms b ilaterally with costophrenic angle blunting. Heart remains enlarged. There is likely a spinal curvatu re. No evident pneumothorax. Postop changes noted in the abdomen. Suspect some groundglass opacity pr ior exam within the lungs. IMPRESSION: Findings are similar to prior exam. There are bilateral pleural effusions and associated atelectasis, correlate for possible edema versus pneumonia. Cardiomegaly. Correlate for congestive f ailure.
[2017-09-06] MEDS: CHLORHEXIDINE GLUCONATE 15 ML CUP MUCOUS MEM SCH ×2 (08:55→20:18)
[2017-09-06] MEDS: PANTOPRAZOLE 40 MG/10 ML VIAL IV SCH (08:55)
[2017-09-06] MEDS: ENOXAPARIN 30 MG/0.3 ML SYRINGE SQ SCH (08:55)
[2017-09-06] MEDS: MAGNESIUM OXIDE 400 MG TAB PO SCH (08:55)
[2017-09-06] MEDS: TIMOLOL 0.5% OPHTH DROPS 5 ML BTL RIGHT EYE SCH ×2 (08:56→20:18)
[2017-09-06] MEDS: BRIMONIDINE TARTRATE 0.2% DROPS 5 ML BTL RIGHT EYE SCH ×2 (08:56→20:18)
[2017-09-06] MEDS: NOREPINEPHRIN 4 MG-0.9% NS PMX 4 MG/250 ML ML IV SCH (08:59)
[2017-09-06] MEDS ORDERED: CALCIUM CHLORIDE 1,000 MG in SODIUM CHLORIDE 0.9% 100 ML IVPB STA (10:20)
[2017-09-06] MEDS ORDERED: FUROSEMIDE 10 MG/ML 4 ML VIAL IV STA (10:20)
--- NOTE | 2017-09-06 11:20 | P.PN ---
Subjective Progress Note Date: 09/06/17 Principal diagnosis: Acute hypoxic respiratory failure and septic shock This is an 87-year-old white male with history of multiple medical problems including dementia, coronary artery disease and previous myocardial infarction, aortic regurgitation, patient was last admitted to the hospital on 08/06 and discharged on 08/15/2017, and he was seen at the time by Dr. Madden on consultation. He was also seen by Dr. Springer. His last admission was related to GI bleeding felt to be upper GI source, EGD showed duodenal ulcer that was not bleeding at the time, and there was also evidence of bloody nidus and antral gastritis. His other issues at the time of admission included acute kidney injury, acute hyperkalemia, chronic hypoxic respiratory failure and COPD , osteogenesis imperfecta, and cachexia with protein calorie malnutrition, and his BMI was 20.1. At any rate patient was readmitted this time mostly with complaints of altered mental status, passing out, possible syncopal episode, shortness of breath, and profound weakness. The admitting physician was Dr. Salomon, follow the patient post admission, and he felt that the patient had pneumonia, and pleural effusion, he also raise the possibility of sepsis, and a parapneumonic effusion. Patient was placed empirically on Levaquin and Zosyn, he was also noted to have intermittent episodes of hypoglycemia requiring D 50. Last night, the patient's condition deteriorated, he became hypotensive, less responsive, and I was notified about the patient shortly after he arrived to the ICU. After reviewing the history with the nurse on the phone, I felt the patient needed to be intubated, he was quite lethargic at the time and hypotensive his blood sugar was also around 60. Patient did not improve much after 1 amp of D50, intubated, given fluid boluses, continue to have low blood pressure, hence I recommended starting norepinephrine drip. Empirically continued on antibiotics in the form of Levaquin and Zosyn. I was also notified that the blood cultures are positive for gram-negative bacilli. Today the patient remains on mechanical ventilation, his ventilator settings are tidal volume of 350 assist-control rate of 16 FiO2 of 40% PEEP of 5, is on levo fed at 3 mcg/m, propofol 15 mcg/kg/m, and IV fluid at 1 25 mL per hour in the form of 0.9 normal saline. Patient is sedated, opens eyes to verbal stimuli, unable to follow simple instructions. Hence I will keep him on mechanical ventilation, will start enteral feeding, and we will continue pressors to maintain a mean arterial pressure of 65. His urine output seems to be reasonable at this point. And he received about 3 L of fluid boluses overnight. Reevaluated today on 09/06/2017, patient remains on mechanical ventilation, his ventilator settings are unchanged except for increase in tidal volume up to 400. His FiO2 is down to 35%, his ABG was noted. PO2 of 129 pCO2 of 45 pH of 7.31. Patient continues to have significant leukocytosis with WBC count of 32.7 , hemoglobin is 7.7. Electrolytes were normal. BUN is 43 creatinine is 2.0. Calcium remains low, more calcium was given, and the patient is now on calcium carbonate via nasogastric tube. Patient remains on enteral feeding. He is on a small dose of norepinephrine being titrated, to maintain a mean arterial pressure of 65. Chest x-ray is showing evidence of interstitial edema and pleural effusions, hence Lasix will be given today. And his IV fluid will be cut down to KVO. Blood cultures were positive for gram-negative bacilli, and the patient is now on Levaquin and Zosyn. Patient denies any specific complaints, arousable, generally weak, follows simple instructions. Objective - Vital Signs Vital signs: Vital Signs Temp 98.3 F 09/06/17 08:00 Pulse 79 09/06/17 11:00 Resp 20 09/06/17 11:00 BP 113/39 09/06/17 11:00 Pulse Ox 100 09/06/17 11:00 Intake & Output 09/05/17 09/06/17 09/06/17 18:59 06:59 18:59 Intake Total 2897.175 2103.737 806.631 Output Total 726 375 245 Balance 2171.175 1728.737 561.631 Weight 65.726 kg 69.2 kg Intake: IV 2225 1525 460 Calcium Chloride 1,000 mg 100 In Sodium Chloride 0.9% 100 ml @ 100 mls/hr IVPB ONCE ONE Rx#:[id number] Levofloxacin 750Mg-D5w 150 Pmx 750 mg In Dextrose/ Water 1 150ml.bag @ 100 mls/hr IVPB Q48H [facility] Rx#: [id number] Sodium Chloride 0.9% 1, 1625 1375 310 000 ml @ 20 mls/hr IV . Q24H [facility] Rx#:[id number] Sodium Chloride 0.9% 1, 500 000 ml @ 999 mls/hr IV . Q1H1M [facility] Rx#:[id number] calcium chloride 100 zosyn 50 Intake, IV Titration 522.175 152.737 188.631 Amount Norepinephrin 4 mg-0.9% 351.750 81.562 168.438 Ns Pmx 4 mg In 250 ml @ Titrate IV .Q0M [facility] Rx#: [id number] Piperacillin-Tazobactam 3 75.0 .375 gm In Dextrose/Water 1 50ml.bag @ 12.5 mls/hr IVPB Q8HR [facility] Rx#: [id number] Propofol 1,000 mg In 95.425 71.175 20.193 Empty Bag 1 bag @ Per Protocol IV .Q0M [facility] Rx#: [id number] Tube Feeding 90 336 128 Other 60 90 30 Output: Urine 726 375 245 Stool 0 Other: Voiding Method Indwelling Catheter Indwelling Catheter # Bowel Movements 1 ABP, PAP, CO, CI - Last Documented Arterial Blood Pressure 136/38 - Exam Physical Exam: Revealed an 87-year-old white male, frail looking, chronically ill, on mechanical ventilation, sedated, in no distress. Head: Atraumatic, normocephalic. HEENT: Moist mucous membranes. PERRLA, EOMI. [Neck is supple.] [No neck masses.] [No thyromegaly.] [No JVD.] Endotracheal tube and orogastric tube seem to be intact. Chest: minimal crackles and rhonchi at the bases. Symmetrical chest expansion noted..] Cardiac Exam: [Normal S1 and S2, no S3 gallop, 2/6 systolic murmur. Throughout the precordium.] Abdomen: [Soft, nontender, no megaly, no rebound, no guarding, normal bowel sounds.] Extremities: [No clubbing, no edema, no cyanosis.] Neurological Exam: Opens eyes, follows simple instructions, remains on a small dose of propofol. Lymphatics: No lymphadenopathy. Psychiatric: Cannot be assessed. - Labs CBC & Chem 7: 09/06/17 04:10 09/06/17 04:10 Labs: Abnormal Lab Results - Last 24 Hours (Table) 09/05/17 09/06/17 09/06/17 Range/Units 19:52 04:10 04:10 WBC 32.7 H* (3.8-10.6) k/uL RBC 2.67 L (4.30-5.90) m/uL Hgb 7.7 L (13.0-17.5) gm/dL Hct 25.6 L (39.0-53.0) % MCHC 30.1 L (31.0-37.0) g/dL ABG pH (7.35-7.45) ABG pO2 (83-108) mmHg ABG O2 Saturation (94-97) % Chloride 111 H (98-107) mmol/L BUN 43 H (9-20) mg/dL Creatinine 2.00 H (0.66-1.25) mg/dL POC Glucose (mg/dL) 105 H (75-99) mg/dL Calcium 6.1 L* (8.4-10.2) mg/dL Ionized Calcium Maria Guadalupe 4.1 L (4.5-5.3) mg/dL Phosphorus 5.6 H (2.5-4.5) mg/dL 09/06/17 Range/Units 07:10 WBC (3.8-10.6) k/uL RBC (4.30-5.90) m/uL Hgb (13.0-17.5) gm/dL Hct (39.0-53.0) % MCHC (31.0-37.0) g/dL ABG pH 7.31 L (7.35-7.45) ABG pO2 129 H (83-108) mmHg ABG O2 Saturation 98.9 H (94-97) % Chloride (98-107) mmol/L BUN (9-20) mg/dL Creatinine (0.66-1.25) mg/dL POC Glucose (mg/dL) (75-99) mg/dL Calcium (8.4-10.2) mg/dL Ionized Calcium Maria Guadalupe (4.5-5.3) mg/dL Phosphorus (2.5-4.5) mg/dL Microbiology - Last 24 Hours (Table) 09/04/17 13:44 Blood Culture Gram Stain - Preliminary Blood Blood Culture - Preliminary Gram Neg Bacilli 09/05/17 01:13 Gram Stain - Preliminary Sputum Sputum Culture - Preliminary 09/04/17 00:00 Urine Culture - Preliminary Urine,Catheterized Assessment and Plan Assessment: Impression: 1 acute gram-negative sepsis and septic shock, likely sources could be urine or pulmonary. 2 left lower lobe pneumonia is strongly suspected, considering the patient's recent admission to the hospital, and referral to [facility], this is likely healthcare acquired pneumonia. 3 acute urinary tract infection 4 bilateral pleural effusions, could be cardiac or parapneumonic related. At this point it is not clear. 5 acute metabolic encephalopathy from sepsis. 6 ischemic cardiomyopathy and ejection fraction of 40% 7 acute on chronic hypoxic respiratory failure, multifactorial, secondary to sepsis, COPD, and some component of systolic congestive heart failure. 8 acute tubular necrosis and acute kidney injury secondary to sepsis and septic shock. 9 history of chronic obstructive pulmonary disease, patient is an ex-smoker. 10 osteoGenesis imperfecta 11 history of Alzheimer's dementia 12 cachexia with significant weight loss and total body protein calorie malnutrition, moderately severe, BMI is in the range of 16 13 history of upper GI bleeding secondary to duodenal ulcer 14 history of coronary artery disease and previous AR. 15 recurrent episodes of hypoglycemia secondary to sepsis, serum cortisol level is pending doubt adrenal insufficiency. Recommendation: Continue present supportive care measures including antibiotics , fluids, ventilatory support, nutritional support, GI and DVT prophylaxis, his ventilator settings were adjusted, adjust antibiotics according to the final culture from the blood, may or may not require left sided thoracentesis. At this point I believe the most likely source of infection is most likely from the urine. Again it is a gram-negative sepsis with septic shock. No family members available today to discuss his condition, however according to the RN his son is made aware of his condition at this point, and the patient remains full code at this point. Prognosis is definitely guarded. Critical care time is 45 minutes. Time with Patient: Greater than 30
[2017-09-06 12:15] LABS: T4, Free (Free Thyroxine) 0.98 ng/dL (0.78-2.19)
[2017-09-06 12:31] LABS: Glucose,Whole Blood 70 mg/dL (75-99)
[2017-09-06] MEDS: IOPAMIDOL-300 CONTRAST 30 ML VIAL (ORAL USE) PO PRN ×2 (12:32→13:32)
[2017-09-06] MEDS: CALCIUM CARBONATE LIQUID 500 MG/5 ML CUP PO SCH ×2 (14:27→17:39)
--- NOTE | 2017-09-06 15:09 | CT ---
EXAMINATION TYPE: CT abdomen pelvis wo con DATE OF EXAM: 09/06/2017 HISTORY: Abdominal tenderness CT DLP: 358.40 mGycm. Automated Exposure Control for Dose Reduction was Utilized. TECHNIQUE: CT scan of the abdomen and pelvis is performed with oral but without IV contrast. COMPARISON: CT chest abdomen and pelvis August 12, 2017. FINDINGS: Within the limitations of a non-contrast study, the following observations are made. LUNG BASES: There is persistent small to moderate-sized bilateral pleural effusions, right greater th an left partially imaged with associated compressive atelectasis. There is persisting cardiomegaly. T here is persistent small to moderate-sized pericardial effusion. There is underlying emphysematous ch elidia felt present. No significant change from prior CT. LIVER/GB: Calcification or foreign body superior liver axial image 15 is stable. Gallbladder is not w ell visualized and presumed contracted or surgically absent. PANCREAS: No significant abnormality is seen. SPLEEN: Stable calcification in spleen on axial image 20. ADRENALS: No significant abnormality is seen. KIDNEYS: Stable 3.7 cm simple appearing cyst anteriorly upper pole level right kidney axial image 20. BOWEL: Evaluation bowel is suboptimal as patient has virtually no intra-abdominal fat. There is new n asogastric tube projecting below diaphragm. Contrast is seen in mildly prominent stomach. There are a djacent clips causing streak artifact including probable cholecystectomy clips. There is no suspiciou s dilatation of contrast-filled duodenal sweep. There is no suspicious small bowel dilatation. Oral c ontrast reaches level of rectum. Colonic loops are not well visualized as there is diffuse soft tissu e anasarca and fluid obscuring normal mesenteric fat. GENITAL ORGANS: Suboptimally evaluated due to streak artifact. LYMPH NODES: No greater than 1cm abdominal or pelvic lymph nodes are appreciated. OSSEOUS STRUCTURES: Metallic artifact from bilateral hip arthroplasties is seen causing streak artifa ct limiting evaluation of pelvic structures. Osseous structures are demineralized. There is moderate to severe multilevel disc space narrowing and spurring throughout the lumbar spine. There is facet ar thropathy lower lumbar levels. Multilevel spinal canal effacement is seen. OTHER: Atherosclerotic change of aorta is present. Ectasia abdominal aorta measuring up to 3.0 cm liat meter axial image 38 is present. There is new right femoral central venous catheter IMPRESSION: Suboptimal study due to severe diffuse persistent soft tissue anasarca and diffuse fluid throughout the mesentery. Cannot exclude diffuse enteritis. No bowel obstruction is seen.
[2017-09-06] MEDS: metroNIDAZOLE 500 MG TAB NG-TUBE SCH ×2 (16:16→21:07)
[2017-09-06 16:32] LABS: Glucose,Whole Blood 71 mg/dL (75-99)
--- NOTE | 2017-09-06 17:17 | P.PN ---
Subjective Progress Note Date: 09/06/17 This is a 87-year-old gentleman with history of hypertension, dyslipidemia and valvar heart disease was admitted to the hospital with hypotension, weakness and evidence of sepsis. His felt that the sepsis could be either from pneumonia or UTI. His echo showed severe cardiomyopathy and impaired LV function with an ejection fraction of 25-30%. Patient also has valvular disease. Patient is still intubated. No cardiac arrhythmias are detected. Patient had a computed tomography scan of the abdomen which was suboptimal. Patient is on multiple antibiotics. The deterioration in LV function is new compared to the previous studies could be activated to sepsis. His blood pressure is more stable. We'll initiate him on beta blockers and ADALID inhibitor as tolerated and also small amount of diuretics. Chest x-ray showed a pleural effusion and possible CHF. Patient prognosis is guarded Objective - Vital Signs Vital signs: Vital Signs Temp 98.2 F 09/06/17 16:00 Pulse 75 09/06/17 16:00 Resp 19 09/06/17 16:00 BP 104/43 09/06/17 15:30 Pulse Ox 100 09/06/17 16:00 Intake & Output 09/05/17 09/06/17 09/06/17 18:59 06:59 18:59 Intake Total 2897.175 2103.737 1124.989 Output Total 042 703 2405 Balance 2171.175 1728.737 -370.011 Weight 65.726 kg 69.2 kg Intake: IV 2225 1525 560 Calcium Chloride 1,000 mg 100 In Sodium Chloride 0.9% 100 ml @ 100 mls/hr IVPB ONCE ONE Rx#:[id number] Levofloxacin 750Mg-D5w 150 Pmx 750 mg In Dextrose/ Water 1 150ml.bag @ 100 mls/hr IVPB Q48H [facility] Rx#: [id number] Sodium Chloride 0.9% 1, 1625 1375 410 000 ml @ 20 mls/hr IV . Q24H [facility] Rx#:[id number] Sodium Chloride 0.9% 1, 500 000 ml @ 999 mls/hr IV . Q1H1M [facility] Rx#:[id number] calcium chloride 100 zosyn 50 Intake, IV Titration 522.175 152.737 216.989 Amount Norepinephrin 4 mg-0.9% 351.750 81.562 168.438 Ns Pmx 4 mg In 250 ml @ Titrate IV .Q0M [facility] Rx#: [id number] Piperacillin-Tazobactam 3 75.0 .375 gm In Dextrose/Water 1 50ml.bag @ 12.5 mls/hr IVPB Q8HR [facility] Rx#: [id number] Propofol 1,000 mg In 95.425 71.175 48.551 Empty Bag 1 bag @ Per Protocol IV .Q0M [facility] Rx#: [id number] Tube Feeding 90 336 288 Other 60 90 60 Output: Urine 675 564 3174 Stool 0 Other: Voiding Method Indwelling Catheter Indwelling Catheter Indwelling Catheter # Voids 1 # Bowel Movements 1 ABP, PAP, CO, CI - Last Documented Arterial Blood Pressure 168/44 - Exam GENERAL EXAM: Patient is intubated HEENT: Normocephalic. Normal reaction of pupils, equal size, normal range of extraocular motion. No erythema or exudates in the throat. NECK: No masses, no nuchal rigidity. CHEST: No chest wall deformity. LUNGS: [Diminished breath sounds at bases HEART: S1 and S2 normal ABDOMEN: No hepatosplenomegaly, normal bowel sounds, no guarding or rigidity. SKIN: No rashes CENTRAL NERVOUS SYSTEM: Deferred. EXTREMITIES: No cyanosis, clubbing or edema. - Labs CBC & Chem 7: 09/06/17 04:10 09/06/17 04:10 Labs: Abnormal Lab Results - Last 24 Hours (Table) 09/05/17 09/06/17 09/06/17 Range/Units 19:52 04:10 04:10 WBC 32.7 H* (3.8-10.6) k/uL RBC 2.67 L (4.30-5.90) m/uL Hgb 7.7 L (13.0-17.5) gm/dL Hct 25.6 L (39.0-53.0) % MCHC 30.1 L (31.0-37.0) g/dL ABG pH (7.35-7.45) ABG pO2 (83-108) mmHg ABG O2 Saturation (94-97) % Chloride 111 H (98-107) mmol/L BUN 43 H (9-20) mg/dL Creatinine 2.00 H (0.66-1.25) mg/dL POC Glucose (mg/dL) 105 H (75-99) mg/dL Calcium 6.1 L* (8.4-10.2) mg/dL Ionized Calcium Maria Guadalupe 4.1 L (4.5-5.3) mg/dL Phosphorus 5.6 H (2.5-4.5) mg/dL TSH (0.465-4.680) mIU/L 09/06/17 09/06/17 09/06/17 Range/Units 04:10 07:10 12:29 WBC (3.8-10.6) k/uL RBC (4.30-5.90) m/uL Hgb (13.0-17.5) gm/dL Hct (39.0-53.0) % MCHC (31.0-37.0) g/dL ABG pH 7.31 L (7.35-7.45) ABG pO2 129 H (83-108) mmHg ABG O2 Saturation 98.9 H (94-97) % Chloride (98-107) mmol/L BUN (9-20) mg/dL Creatinine (0.66-1.25) mg/dL POC Glucose (mg/dL) 70 L (75-99) mg/dL Calcium (8.4-10.2) mg/dL Ionized Calcium Maria Guadalupe (4.5-5.3) mg/dL Phosphorus (2.5-4.5) mg/dL TSH 4.700 H (0.465-4.680) mIU/L 09/06/17 Range/Units 16:30 WBC (3.8-10.6) k/uL RBC (4.30-5.90) m/uL Hgb (13.0-17.5) gm/dL Hct (39.0-53.0) % MCHC (31.0-37.0) g/dL ABG pH (7.35-7.45) ABG pO2 (83-108) mmHg ABG O2 Saturation (94-97) % Chloride (98-107) mmol/L BUN (9-20) mg/dL Creatinine (0.66-1.25) mg/dL POC Glucose (mg/dL) 71 L (75-99) mg/dL Calcium (8.4-10.2) mg/dL Ionized Calcium Maria Guadalupe (4.5-5.3) mg/dL Phosphorus (2.5-4.5) mg/dL TSH (0.465-4.680) mIU/L Microbiology - Last 24 Hours (Table) 09/04/17 00:00 Urine Culture - Preliminary Urine,Catheterized Gram Neg Bacilli 09/05/17 01:13 Gram Stain - Preliminary Sputum Sputum Culture - Preliminary Stephani albicans 09/04/17 13:44 Blood Culture Gram Stain - Preliminary Blood Blood Culture - Preliminary Gram Neg Bacilli Assessment and Plan (1) Sepsis Current Visit: Yes Status: Acute Code(s): A41.9 - SEPSIS, UNSPECIFIED ORGANISM SNOMED Code(s): 60556063 (2) UTI (urinary tract infection) Current Visit: Yes Status: Acute Code(s): N39.0 - URINARY TRACT INFECTION, SITE NOT SPECIFIED SNOMED Code(s): 27989133 (3) Community acquired pneumonia Current Visit: Yes Status: Acute Code(s): J18.9 - PNEUMONIA, UNSPECIFIED ORGANISM SNOMED Code(s): 666636790 (4) Aortic regurgitation Current Visit: Yes Status: Acute Code(s): I35.1 - NONRHEUMATIC AORTIC (VALVE ) INSUFFICIENCY SNOMED Code(s): 62503569 (5) Cardiomyopathy Current Visit: Yes Status: Acute Code(s): I42.9 - CARDIOMYOPATHY, UNSPECIFIED SNOMED Code(s): 92520095 (6) Systolic heart failure Current Visit: Yes Status: Acute Code(s): I50.20 - UNSPECIFIED SYSTOLIC ( CONGESTIVE) HEART FAILURE SNOMED Code(s): 145366805 Plan: Will add small dose of beta raheel in the form of Coreg and also lisinopril along with diuretics. Rest of the management as per the airline counter agent. Prognosis is guarded
[2017-09-06] MEDS: ATORVASTATIN 20 MG TAB PO SCH (20:18)
[2017-09-06] MEDS: LATANOPROST 0.005% OPHTH DROPS 2.5 ML BTL RIGHT EYE SCH (20:18)
[2017-09-06 21:19] LABS: Glucose,Whole Blood 90 mg/dL (75-99)
--- NOTE | 2017-09-06 22:05 | PN ---
PROGRESS NOTE DATE OF SERVICE: 09/06/2017 REASON FOR FOLLOWUP: Gram-negative sepsis, source likely urinary. INTERVAL HISTORY: The patient's fever pattern has improved. No fever has been reported in the last 24 to 48 hours. He is hemodynamically stable, off the pressor support. Remains on the vent. No significant secretion from the ET. Patient has been tolerating his tube feeds. He was unable to provide a history, as he is currently on the vent. PHYSICAL EXAMINATION: Blood pressure 166/47, pulse of 75, temperature 98. He is 100% on 35% FiO2. General description is an elderly male lying in bed in no distress. RESPIRATORY SYSTEM: Unlabored breathing with decreased breath sounds in the bases. No wheeze. HEART: S1, S2. Regular rate and rhythm. ABDOMEN: Mildly distended. No guarding or rigidity. EXTREMITIES: No edema of the feet. LABS: Hemoglobin 7.7, white count 32.7 with BUN of 43, creatinine 2.0. Blood and urine both showing Gram-negative with ID and sensitivities pending. A CT of abdomen and pelvis was done in view of elevated lactic acid and the white count to rule out any intraabdominal pathology. Result was a suboptimal study with diffuse anasarca; cannot exclude diffuse enteritis. No bowel obstruction. DIAGNOSTIC IMPRESSION AND PLAN: Patient with Gram-negative sepsis. Source is likely urinary. Currently covered with Zosyn and Levaquin. That will be continued while waiting for the cultures to finalize to adjust antibiotics further. Continue with supportive care. MMODL / IJN: [id number] /
[2017-09-07 00:03] LABS: Glucose,Whole Blood 94 mg/dL (75-99)
[2017-09-07] MEDS: PROPOFOL 1,000 MG in EMPTY BAG 1 BAG IV SCH ×2 (00:23→08:49)
[2017-09-07] MEDS: PIPERACILLIN-TAZOBACTAM 3.375 GM in DEXTROSE/WATER 1 50ML.BAG IVPB SCH ×3 (00:23→16:11)
[2017-09-07 00:43] LABS: Glucose,Whole Blood 90 mg/dL (75-99)
[2017-09-07 04:29] LABS: HCT 24.3 % (39.0-53.0); Hypochromasia Marked; MCH 30.8 pg (25.0-35.0); MCHC 32.8 g/dL (31.0-37.0); MCV 93.8 fL (80.0-100.0); Mean Platelet Volume 8.5; Platelet Count 132 k/uL (150-450); RBC 2.59 m/uL (4.30-5.90); RDW 14.7 % (11.5-15.5); WBC 24.5 k/uL (3.8-10.6)
[2017-09-07 05:27] LABS: Ionized Calcium 4.4 mg/dL (4.5-5.3)
[2017-09-07 05:40] LABS: Calcium 6.7 mg/dL (8.4-10.2); Magnesium 1.8 mg/dL (1.6-2.3); Potassium 3.3 mmol/L (3.5-5.1)
--- NOTE | 2017-09-07 06:41 | PN ---
PROGRESS NOTE DATE OF SERVICE: September 06, 2017. PRESENTING COMPLAINT: Intubated. INTERVAL HISTORY: This patient was seen by me yesterday evening in ICU. Patient presented with pneumonia, sepsis, went into respiratory distress, was intubated. The patient drips include propofol, Levophed was discontinued around 6:00 pm, FiO2 of 35%, PEEP of 5. The patient is running tube feeding Nepro at 32 mL an hour. Minimal trach secretions. REVIEW OF SYSTEMS: Patient is intubated, though the patient's eyes are open and follows commands. CURRENT MEDICATIONS: Reviewed that include DuoNeb, IV Levaquin, Zosyn and propofol. Levophed discontinued. PHYSICAL EXAMINATION: Temperature 98.2, pulse 77, respiration 18, blood pressure 150/49, pulse ox 100%. GENERAL APPEARANCE: Lying in bed, intubated, awake. Eyes: Pupils equal. Conjunctivae noted. HEENT external appearance of nose and ears normal. Oral cavity NG tube in place. Neck JVD unable to assess. Mass not palpable. Respiratory effort increased. Lungs decreased breath sounds. Cardiovascular first and second sounds normal. Edema present. ABDOMEN: Soft, nontender. Liver and spleen not palpable. Neurological pupils are equal. The patient is following commands. INVESTIGATIONS: White count 32.7, hemoglobin 10.7, BUN 43, creatinine 2.0, ionized calcium 4.1. ASSESSMENT: 1. Pneumonia causing sepsis, septic shock with possible parapneumonic effusion. 2. Acute metabolic encephalopathy from sepsis. 3. Coronary artery disease with ischemic cardiomyopathy, ejection fraction 40%. 4. Chronic obstructive pulmonary disease in an ex-smoker. 5. Chronic hypoxic respiratory failure from underlying chronic obstructive pulmonary disease. 6. Acute hypoxic respiratory failure patient on ventilator support. 7. Hyperlipidemia. 8. Osteogenesis imperfecta. 9. Alzheimer's dementia. 10.Decreased vision in the right eye. 11.Acute renal failure could be acute tubular necrosis from sepsis. 12.Moderate aortic regurgitation nonrheumatic. 13.Moderate mitral regurgitation, nonrheumatic. 14.Severe tricuspid regurgitation, nonrheumatic. 15.Moderate secondary pulmonary hypertension secondary to his congestive heart failure and chronic obstructive pulmonary disease. 16.Both blood and urine cultures growing gram-negative bacilli/E coli. PLAN: Continue current medication and treatment plan. Prognosis is guarded. The patient is on IV Zosyn, Levaquin and propofol. Prognosis guarded. MMODL / IJN: [id number] /
[2017-09-07 07:36] LABS: ABG Base Excess -0.1 mmol/L; ABG HCO3 24 mmol/L (21-25); ABG Oxygen Saturation 99.1 % (94-97); ABG PCO2 35 mmHg (35-45); ABG PH 7.44 (7.35-7.45); ABG PO2 131 mmHg (83-108); ABG TCO2 25 mmol/L (19-24)
[2017-09-07] MEDS: IPRATROPIUM-ALBUTEROL 3 ML NEB INHALATION SCH ×4 (07:47→20:12)
[2017-09-07 07:48] LABS: Glucose,Whole Blood 97 mg/dL (75-99)
--- NOTE | 2017-09-07 08:11 | XR ---
EXAMINATION TYPE: XR chest 1V portable DATE OF EXAM: 09/07/2017 COMPARISON: 09/06/2017 HISTORY: Postintubation TECHNIQUE: Single frontal view of the chest is obtained. FINDINGS: ET and NG tube stable. NG tube could be advanced a couple of centimeters. Bilateral lower lobe consolidation and pleural effusion. The heart is enlarged. No pneumothorax. Interstitium is some what coarsened. Arthropathy of the shoulders and diffuse osteopenia noted. Right paratracheal stripe remains prominent. IMPRESSION: 1. Bilateral consolidation and pleural effusion. Correlate for pneumonia versus CHF.
[2017-09-07] MEDS: MAGNESIUM SULFATE-D5W PMX 1 GM in DEXTROSE/WATER 1 100ML.BAG IVPB SCH ×2 (08:24→09:53)
[2017-09-07] MEDS: CALCIUM CARBONATE LIQUID 500 MG/5 ML CUP PO SCH ×3 (08:24→18:15)
[2017-09-07] MEDS: POTASSIUM BICARBONATE/CIT AC 20 MEQ TABLET.EFF NG-TUBE SCH ×2 (08:25→09:54)
[2017-09-07] MEDS: metroNIDAZOLE 500 MG TAB NG-TUBE SCH ×3 (08:38→21:46)
[2017-09-07] MEDS: TIMOLOL 0.5% OPHTH DROPS 5 ML BTL RIGHT EYE SCH ×2 (08:38→20:49)
[2017-09-07] MEDS: ENOXAPARIN 30 MG/0.3 ML SYRINGE SQ SCH (08:38)
[2017-09-07] MEDS: PANTOPRAZOLE 40 MG/10 ML VIAL IV SCH (08:38)
[2017-09-07] MEDS: CARVEDILOL 3.125 MG TAB PO SCH ×2 (08:38→18:15)
[2017-09-07] MEDS: BRIMONIDINE TARTRATE 0.2% DROPS 5 ML BTL RIGHT EYE SCH ×2 (08:38→20:49)
[2017-09-07] MEDS: CHLORHEXIDINE GLUCONATE 15 ML CUP MUCOUS MEM SCH (08:39)
[2017-09-07] MEDS: FUROSEMIDE 10 MG/ML 4 ML VIAL IV SCH (09:54)
[2017-09-07] MEDS: POTASSIUM CHLORIDE 10 MEQ in WATER FOR INJECTION 1 100ML.BAG IVPB SCH ×2 (11:38→13:19)
[2017-09-07 12:22] LABS: Glucose,Whole Blood 105 mg/dL (75-99)
--- NOTE | 2017-09-07 12:34 | P.PN ---
Subjective Progress Note Date: 09/07/17 Principal diagnosis: Acute hypoxic respiratory failure and septic shock This is an 87-year-old white male with history of multiple medical problems including dementia, coronary artery disease and previous myocardial infarction, aortic regurgitation, patient was last admitted to the hospital on 08/06 and discharged on 08/15/2017, and he was seen at the time by Dr. Madden on consultation. He was also seen by Dr. Springer. His last admission was related to GI bleeding felt to be upper GI source, EGD showed duodenal ulcer that was not bleeding at the time, and there was also evidence of bloody nidus and antral gastritis. His other issues at the time of admission included acute kidney injury, acute hyperkalemia, chronic hypoxic respiratory failure and COPD , osteogenesis imperfecta, and cachexia with protein calorie malnutrition, and his BMI was 20.1. At any rate patient was readmitted this time mostly with complaints of altered mental status, passing out, possible syncopal episode, shortness of breath, and profound weakness. The admitting physician was Dr. Salomon, follow the patient post admission, and he felt that the patient had pneumonia, and pleural effusion, he also raise the possibility of sepsis, and a parapneumonic effusion. Patient was placed empirically on Levaquin and Zosyn, he was also noted to have intermittent episodes of hypoglycemia requiring D 50. Last night, the patient's condition deteriorated, he became hypotensive, less responsive, and I was notified about the patient shortly after he arrived to the ICU. After reviewing the history with the nurse on the phone, I felt the patient needed to be intubated, he was quite lethargic at the time and hypotensive his blood sugar was also around 60. Patient did not improve much after 1 amp of D50, intubated, given fluid boluses, continue to have low blood pressure, hence I recommended starting norepinephrine drip. Empirically continued on antibiotics in the form of Levaquin and Zosyn. I was also notified that the blood cultures are positive for gram-negative bacilli. Today the patient remains on mechanical ventilation, his ventilator settings are tidal volume of 350 assist-control rate of 16 FiO2 of 40% PEEP of 5, is on levo fed at 3 mcg/m, propofol 15 mcg/kg/m, and IV fluid at 1 25 mL per hour in the form of 0.9 normal saline. Patient is sedated, opens eyes to verbal stimuli, unable to follow simple instructions. Hence I will keep him on mechanical ventilation, will start enteral feeding, and we will continue pressors to maintain a mean arterial pressure of 65. His urine output seems to be reasonable at this point. And he received about 3 L of fluid boluses overnight. Reevaluated today on 09/06/2017, patient remains on mechanical ventilation, his ventilator settings are unchanged except for increase in tidal volume up to 400. His FiO2 is down to 35%, his ABG was noted. PO2 of 129 pCO2 of 45 pH of 7.31. Patient continues to have significant leukocytosis with WBC count of 32.7 , hemoglobin is 7.7. Electrolytes were normal. BUN is 43 creatinine is 2.0. Calcium remains low, more calcium was given, and the patient is now on calcium carbonate via nasogastric tube. Patient remains on enteral feeding. He is on a small dose of norepinephrine being titrated, to maintain a mean arterial pressure of 65. Chest x-ray is showing evidence of interstitial edema and pleural effusions, hence Lasix will be given today. And his IV fluid will be cut down to KVO. Blood cultures were positive for gram-negative bacilli, and the patient is now on Levaquin and Zosyn. Patient denies any specific complaints, arousable, generally weak, follows simple instructions. Patient was reevaluated today on 09/07/2017, remains on mechanical ventilation, patient is awake, arousable, and noted to tolerate spontaneous breathing trial quite well on a pressure support of 8 and CPAP. Chest x-ray continues to show bilateral pleural effusions, and mild congestive changes, electrolytes were noted renal profile was noted BUN of 48 creatinine 1.70. ABG showed a pO2 of 131 pCO2 of 35 pH of 7.44 WBC count remains elevated at 24.5 hemoglobin is 8. Patient was given a weaning trial while I was at bedside, and he seemed to tolerate that quite well, hence I proceeded to extubating the patient. Objective - Vital Signs Vital signs: Vital Signs Temp 98.1 F 09/07/17 08:00 Pulse 65 09/07/17 11:43 Resp 22 09/07/17 11:00 BP 112/45 09/07/17 07:00 Pulse Ox 93 L 09/07/17 11:00 Intake & Output 09/06/17 09/07/17 09/07/17 18:59 06:59 18:59 Intake Total 1332.489 860.81 640.360 Output Total 1705 1350 1000 Balance -372.511 -489.19 -359.640 Intake: IV 600 390.0 470 Magnesium Sulfate-D5w Pmx 200 1 gm In Dextrose/Water 1 100ml.bag @ 100 mls/hr IVPB Q1H JOCELYN Rx#: [id number] Piperacillin-Tazobactam 3 50 .375 gm In Dextrose/Water 1 50ml.bag @ 12.5 mls/hr IVPB Q8HR JOCELYN Rx#: [id number] Potassium Chloride 10 meq 100 In Water For Injection 1 100ml.bag @ 100 mls/hr IVPB Q1H JOCELYN Rx#: [id number] Sodium Chloride 0.9% 1, 450 240 120 000 ml @ 20 mls/hr IV . Q24H JOCELYN Rx#:[id number] calcium chloride 100 zosyn 50 150.0 Intake, IV Titration 384.489 88.81 76.360 Amount Norepinephrin 4 mg-0.9% 335.938 Ns Pmx 4 mg In 250 ml @ Titrate IV .Q0M JOCELYN Rx#: [id number] Propofol 1,000 mg In 48.551 88.81 76.360 Empty Bag 1 bag @ Per Protocol IV .Q0M JOCELYN Rx#: [id number] Tube Feeding 288 352 64 Other 60 30 30 Output: Urine 1705 1350 1000 Other: Voiding Method Indwelling Catheter Indwelling Catheter # Voids 1 # Bowel Movements 1 ABP, PAP, CO, CI - Last Documented Arterial Blood Pressure 147/35 - Exam Physical Exam: Revealed an 87-year-old white male, frail looking, chronically ill, on mechanical ventilation, appropriate, follows simple instructions, and tolerating spontaneous breathing trial on his own quite well. Head: Atraumatic, normocephalic. HEENT: Moist mucous membranes. PERRLA, EOMI. [Neck is supple.] [No neck masses.] [No thyromegaly.] [No JVD.] Endotracheal tube and orogastric tube seem to be intact. Chest: minimal crackles and rhonchi at the bases. Symmetrical chest expansion noted..] Cardiac Exam: [Normal S1 and S2, no S3 gallop, 2/6 systolic murmur. Throughout the precordium.] Abdomen: [Soft, nontender, no megaly, no rebound, no guarding, normal bowel sounds.] Extremities: [No clubbing, no edema, no cyanosis.] Neurological Exam: Opens eyes, follows simple instructions, off propofol Lymphatics: No lymphadenopathy. Psychiatric: Cannot be assessed. - Labs CBC & Chem 7: 09/07/17 04:20 09/07/17 04:20 Labs: Abnormal Lab Results - Last 24 Hours (Table) 09/06/17 09/06/17 09/07/17 Range/Units 12:29 16:30 04:20 WBC (3.8-10.6) k/uL RBC (4.30-5.90) m/uL Hgb (13.0-17.5) gm/dL Hct (39.0-53.0) % Plt Count (150-450) k/uL ABG pO2 (83-108) mmHg ABG Total CO2 (19-24) mmol/L ABG O2 Saturation (94-97) % Potassium 3.3 L (3.5-5.1) mmol/L Chloride 109 H (98-107) mmol/L BUN 48 H (9-20) mg/dL Creatinine 1.70 H (0.66-1.25) mg/dL POC Glucose (mg/dL) 70 L 71 L (75-99) mg/dL Calcium 6.7 L (8.4-10.2) mg/dL Ionized Calcium Maria Guadalupe 4.4 L (4.5-5.3) mg/dL Phosphorus 5.0 H (2.5-4.5) mg/dL 09/07/17 09/07/17 09/07/17 Range/Units 04:20 07:29 12:19 WBC 24.5 H (3.8-10.6) k/uL RBC 2.59 L (4.30-5.90) m/uL Hgb 8.0 L (13.0-17.5) gm/dL Hct 24.3 L (39.0-53.0) % Plt Count 132 L (150-450) k/uL ABG pO2 131 H (83-108) mmHg ABG Total CO2 25 H (19-24) mmol/L ABG O2 Saturation 99.1 H (94-97) % Potassium (3.5-5.1) mmol/L Chloride (98-107) mmol/L BUN (9-20) mg/dL Creatinine (0.66-1.25) mg/dL POC Glucose (mg/dL) 105 H (75-99) mg/dL Calcium (8.4-10.2) mg/dL Ionized Calcium Maria Guadalupe (4.5-5.3) mg/dL Phosphorus (2.5-4.5) mg/dL Microbiology - Last 24 Hours (Table) 09/04/17 00:00 Urine Culture - Final Urine,Catheterized Escherichia coli 09/05/17 01:13 Gram Stain - Final Sputum Sputum Culture - Final Stephani albicans 09/04/17 13:44 Blood Culture Gram Stain - Final Blood Blood Culture - Final Escherichia coli Assessment and Plan Assessment: Impression: 1 acute gram-negative sepsis and septic shock, likely sources could be urine or pulmonary. 2 left lower lobe pneumonia is strongly suspected, considering the patient's recent admission to the hospital, and referral to [facility], this is likely healthcare acquired pneumonia. 3 acute urinary tract infection 4 bilateral pleural effusions, could be cardiac or parapneumonic related. At this point it is not clear. 5 acute metabolic encephalopathy from sepsis. 6 ischemic cardiomyopathy and ejection fraction of 40% 7 acute on chronic hypoxic respiratory failure, multifactorial, secondary to sepsis, COPD, and some component of systolic congestive heart failure. 8 acute tubular necrosis and acute kidney injury secondary to sepsis and septic shock. 9 history of chronic obstructive pulmonary disease, patient is an ex-smoker. 10 osteoGenesis imperfecta 11 history of Alzheimer's dementia 12 cachexia with significant weight loss and total body protein calorie malnutrition, moderately severe, BMI is in the range of 16 13 history of upper GI bleeding secondary to duodenal ulcer 14 history of coronary artery disease and previous [place]. 15 recurrent episodes of hypoglycemia secondary to sepsis, serum cortisol level is pending doubt adrenal insufficiency. Recommendation: Continue present supportive care measures including antibiotics , fluids, will extubated the patient to a nasal cannula, will continue diuretics , continue antibiotics, may need a nasogastric tube for nutritional support. We 'll continue to follow closely. Patient will remain in the ICU, he remains relatively critically ill, but more stable today compared to the last couple of days. Critical care time is 35 minutes. Time with Patient: Greater than 30
--- NOTE | 2017-09-07 16:13 | TCOM ---
Last Revision, March 2017 Documentation Clarification Form Date: 09/07/17 6083 From: Mana Bravo RN, CCDS Admit Date: 09/04/2017 1:05:00 PM Patient Name: Tylor Dempsey Visit Number: [id number] ATTENTION: The Clinical Documentation Specialists (CDI) and [facility] Coding Staff appreciate your assistance in clarifying documentation. Please respond to the clarification below the line at the bottom and electronically sign. The CDI & [facility] Coding staff will review the response and follow-up if needed. Please note: Queries are made part of the Legal Health Record. If you have any questions, please contact the author of this message via ITS. Dr. Lambert Salomon The patient has a documented history of chronic anemia and has a low Hgb and Hct this admission. Please document clinical significance History/Risk Factors: Chronic anemia, sepsis with septic shock Clinical indicators: Hemoglobin: 7/7.7/8 Hematocrit: 23.6/25.4/25.6/24.3 Treatment: Labs AM Daily for monitoring In order to capture the severity of condition, please provide a diagnosis and etiology if known: Chronic blood loss anemia Iron deficiency anemia Drug induced anemia Anemia due to malignancy Nutritional anemia Anemia of chronic disease Unable to determine Other, please specify Please continue to document in your progress notes and discharge summary in order to capture severity of illness and risk of mortality. Include clinical findings that support your diagnosis. response in progress note MTDD
[2017-09-07 17:11] LABS: Glucose,Whole Blood 134 mg/dL (75-99)
[2017-09-07] MEDS ORDERED: Potassium Replacement Protocol 1 EACH MISC MISCELLANE PRN (17:36)
--- NOTE | 2017-09-07 18:13 | P.PN ---
Subjective Progress Note Date: 09/07/17 This 87-year-old gentleman is admitted with sepsis. Patient blood culture positive for E. coli. His felt that most probably urinary tract infection is the source of positive blood cultures. His is extubated. He doesn't seem to be in acute distress. His echo Cardigan showed severely impaired LV function. Patient is being started on hydralazine and Imdur combination. Patient is already on Coreg. Rest of the medication to be continued Objective - Vital Signs Vital signs: Vital Signs Temp 97.8 F 09/07/17 16:00 Pulse 75 09/07/17 17:00 Resp 20 09/07/17 17:00 BP 112/45 09/07/17 07:00 Pulse Ox 97 09/07/17 17:00 Intake & Output 09/06/17 09/07/17 09/07/17 18:59 06:59 18:59 Intake Total 1332.489 860.81 840.360 Output Total 1705 1350 2175 Balance -372.511 -489.19 -1334.640 Weight 68.1 kg Intake: IV 600 390.0 670 Magnesium Sulfate-D5w Pmx 200 1 gm In Dextrose/Water 1 100ml.bag @ 100 mls/hr IVPB Q1H JOCELYN Rx#: [id number] Piperacillin-Tazobactam 3 50 .375 gm In Dextrose/Water 1 50ml.bag @ 12.5 mls/hr IVPB Q8HR JOCELYN Rx#: [id number] Potassium Chloride 10 meq 200 In Water For Injection 1 100ml.bag @ 100 mls/hr IVPB Q1H JOCELYN Rx#: [id number] Sodium Chloride 0.9% 1, 450 240 220 000 ml @ 20 mls/hr IV . Q24H JOCELYN Rx#:[id number] calcium chloride 100 zosyn 50 150.0 Intake, IV Titration 384.489 88.81 76.360 Amount Norepinephrin 4 mg-0.9% 335.938 Ns Pmx 4 mg In 250 ml @ Titrate IV .Q0M JOCELYN Rx#: [id number] Propofol 1,000 mg In 48.551 88.81 76.360 Empty Bag 1 bag @ Per Protocol IV .Q0M JOCELYN Rx#: [id number] Tube Feeding 288 352 64 Other 60 30 30 Output: Urine 1705 1350 2175 Other: Voiding Method Indwelling Catheter Indwelling Catheter Indwelling Catheter # Voids 1 # Bowel Movements 1 1 ABP, PAP, CO, CI - Last Documented Arterial Blood Pressure 166/47 - Exam GENERAL EXAM: Patient is extubated, alert and seems oriented. In no acute distress HEENT: Normocephalic. Normal reaction of pupils, equal size, normal range of extraocular motion. No erythema or exudates in the throat. NECK: No masses, no nuchal rigidity. CHEST: No chest wall deformity. LUNGS: [Diminished breath sounds at bases HEART: S1 and S2 normal ABDOMEN: No hepatosplenomegaly, normal bowel sounds, no guarding or rigidity. SKIN: No rashes CENTRAL NERVOUS SYSTEM: Deferred. EXTREMITIES: No cyanosis, clubbing or edema. - Labs CBC & Chem 7: 09/07/17 04:20 09/07/17 16:50 Labs: Abnormal Lab Results - Last 24 Hours (Table) 09/07/17 09/07/17 09/07/17 Range/Units 04:20 04:20 07:29 WBC 24.5 H (3.8-10.6) k/uL RBC 2.59 L (4.30-5.90) m/uL Hgb 8.0 L (13.0-17.5) gm/dL Hct 24.3 L (39.0-53.0) % Plt Count 132 L (150-450) k/uL ABG pO2 131 H (83-108) mmHg ABG Total CO2 25 H (19-24) mmol/L ABG O2 Saturation 99.1 H (94-97) % Potassium 3.3 L (3.5-5.1) mmol/L Chloride 109 H (98-107) mmol/L BUN 48 H (9-20) mg/dL Creatinine 1.70 H (0.66-1.25) mg/dL POC Glucose (mg/dL) (75-99) mg/dL Calcium 6.7 L (8.4-10.2) mg/dL Ionized Calcium Maria Guadalupe 4.4 L (4.5-5.3) mg/dL Phosphorus 5.0 H (2.5-4.5) mg/dL 09/07/17 09/07/17 09/07/17 Range/Units 12:19 16:50 17:09 WBC (3.8-10.6) k/uL RBC (4.30-5.90) m/uL Hgb (13.0-17.5) gm/dL Hct (39.0-53.0) % Plt Count (150-450) k/uL ABG pO2 (83-108) mmHg ABG Total CO2 (19-24) mmol/L ABG O2 Saturation (94-97) % Potassium 3.3 L (3.5-5.1) mmol/L Chloride (98-107) mmol/L BUN (9-20) mg/dL Creatinine (0.66-1.25) mg/dL POC Glucose (mg/dL) 105 H 134 H (75-99) mg/dL Calcium (8.4-10.2) mg/dL Ionized Calcium Maria Guadalupe (4.5-5.3) mg/dL Phosphorus (2.5-4.5) mg/dL Microbiology - Last 24 Hours (Table) 09/04/17 00:00 Urine Culture - Final Urine,Catheterized Escherichia coli 09/05/17 01:13 Gram Stain - Final Sputum Sputum Culture - Final Stephani albicans 09/04/17 13:44 Blood Culture Gram Stain - Final Blood Blood Culture - Final Escherichia coli Assessment and Plan (1) Sepsis Current Visit: Yes Status: Acute Code(s): A41.9 - SEPSIS, UNSPECIFIED ORGANISM SNOMED Code(s): 85311484 (2) UTI (urinary tract infection) Current Visit: Yes Status: Acute Code(s): N39.0 - URINARY TRACT INFECTION, SITE NOT SPECIFIED SNOMED Code(s): 43887066 (3) Community acquired pneumonia Current Visit: Yes Status: Acute Code(s): J18.9 - PNEUMONIA, UNSPECIFIED ORGANISM SNOMED Code(s): 333789807 (4) Aortic regurgitation Current Visit: Yes Status: Acute Code(s): I35.1 - NONRHEUMATIC AORTIC (VALVE ) INSUFFICIENCY SNOMED Code(s): 07361825 (5) Cardiomyopathy Current Visit: Yes Status: Acute Code(s): I42.9 - CARDIOMYOPATHY, UNSPECIFIED SNOMED Code(s): 59903181 (6) Systolic heart failure Current Visit: Yes Status: Acute Code(s): I50.20 - UNSPECIFIED SYSTOLIC ( CONGESTIVE) HEART FAILURE SNOMED Code(s): 450593552 Plan: Continue current medical therapy. We will add hydralazine and Imdur combination. Repeat echocardiogram before discharge
[2017-09-07] MEDS: POTASSIUM CHLORIDE ER 20 MEQ TAB.ER PO SCH ×3 (19:08→22:01)
--- NOTE | 2017-09-07 20:21 | PN ---
PROGRESS NOTE DATE OF SERVICE: 09/07/2017. REASON FOR FOLLOW UP: E. coli bacteremia secondary to the urinary source. INTERVAL HISTORY: The patient is afebrile. The patient has been extubated. He is hemodynamically stable, not on any pressor support. Denies having any chest pain or any abdominal pain. He seems more awake and alert today. EXAMINATION: Blood pressure 131/35 with a pulse of 68, temperature 97.8. He is 97% on 3L nasal cannula. General description is an elderly male lying in bed in no distress. RESPIRATORY SYSTEM: Unlabored breathing. Decreased breath sounds at the bases. No wheeze. HEART: S1, S2. Regular rate and rhythm. ABDOMEN: Soft. No tenderness. LABS: White count is down to 4.5 today. BUN of 48, creatinine is 1.70. DIAGNOSTIC IMPRESSION AND PLAN: Patient with an Escherichia coli bacteremia secondary to the urinary source with acute respiratory failure. Patient has been successfully extubated. We will keep the patient on current dose of antibiotic of Levaquin, hopefully to transition to oral once his improved, as it is sensitive to pathogen. Continue with supportive care. MMODL / IJN: [id number] /
[2017-09-07] MEDS: LEVOFLOXACIN 750MG-D5W PMX 750 MG in DEXTROSE/WATER 1 150ML.BAG IVPB SCH (20:48)
[2017-09-07] MEDS: ATORVASTATIN 20 MG TAB PO SCH (20:48)
[2017-09-07] MEDS: LATANOPROST 0.005% OPHTH DROPS 2.5 ML BTL RIGHT EYE SCH (20:49)
[2017-09-07] MEDS: hydrALAZINE HCL 25 MG TAB PO SCH (20:49)
[2017-09-07] MEDS: SODIUM CHLORIDE 0.9% 1,000 ML IV SCH (20:50)
--- NOTE | 2017-09-08 00:18 | PN ---
PROGRESS NOTE The dictating a progress note on Tylor Dempsey: 1 PRESENTING COMPLAINT: Short of breath. INTERVAL HISTORY: This patient is in the ICU, was extubated this morning, doing well actually tolerating a diet. Lying in bed. The patient's son at the bedside. Current nasal cannula in place, smiling. Does feel weak and tired. REVIEW OF SYSTEMS: Done for constitutional, cardiovascular, GI, pulmonary and relevant findings as above. CURRENT MEDICATIONS: Reviewed that include IV Levaquin and p.o. Flagyl and IV from dog reader in the [facility]. PHYSICAL EXAMINATION: Temperature 98.1 pulse respiration 12, blood pressure 159/40, pulse ox 100% on 3 L. GENERAL APPEARANCE: Sitting on bed awake smiling, eyes look good pale. HEENT external appearance of nose and ears. Oral cavity dry neck JVD unable to assess. Mass not palpable. Respiratory effort increased lungs decreased breath sounds cardiovascular 1st 2nd sounds normal edema present. ABDOMEN: Soft, nontender. Liver and spleen not palpable. Psychiatry awake psychiatry awake, following commands. Answering questions. INVESTIGATIONS: White count 24.5, hemoglobin 8 potassium 3.3, platelets 132, BUN 48, creatinine 1.70. Chest x-ray, bibasilar consolidation. Urine and blood culture both showing E coli. ASSESSMENT: 1. Pneumonia causing sepsis and septic shock. 2. Acute urinary tract infection with sepsis with cultures positive for E coli. 3. Acute metabolic encephalopathy from sepsis, now improved. 4. Coronary artery disease with ischemic cardiomyopathy, ejection fraction 40%. 5. Chronic obstructive pulmonary disease in an ex-smoker. 6. Chronic hypoxic respiratory failure underlying chronic obstructive pulmonary disease. 7. Acute hypoxic respiratory failure patient status post being on the ventilator support on nasal cannula. 8. Hyperlipidemia. 9. Osteogenesis imperfecta. 10.Alzheimer's dementia. 11.Decreased vision in the right eye. 12.Acute renal failure could be acute tubular necrosis from sepsis. 13.Moderate aortic regurgitation, mitral regurgitation, severe tricuspid regurgitation, nontraumatic. 14.Moderate secondary pulmonary hypertension secondary to congestive heart failure and chronic obstructive pulmonary disease. 15.Normocytic anemia, cause undetermined. PLAN: Continue current treatment plan. Continue antibiotics. Will get physical therapy involved. Care was discussed with the son at the bedside. Prognosis is guarded. MMODL / IJN: [id number] /
[2017-09-08] MEDS: PIPERACILLIN-TAZOBACTAM 3.375 GM in DEXTROSE/WATER 1 50ML.BAG IVPB SCH ×4 (00:28→23:23)
[2017-09-08 05:20] LABS: HCT 27.1 % (39.0-53.0); HGB 8.2 gm/dL (13.0-17.5); Hypochromasia Moderate; MCH 28.1 pg (25.0-35.0); MCHC 30.2 g/dL (31.0-37.0); Mean Platelet Volume 9.1; Platelet Count 119 k/uL (150-450); RBC 2.92 m/uL (4.30-5.90); RDW 14.7 % (11.5-15.5); WBC 22.2 k/uL (3.8-10.6)
[2017-09-08 05:24] LABS: Ionized Calcium 4.3 mg/dL (4.5-5.3)
[2017-09-08 05:33] LABS: Calcium 6.8 mg/dL (8.4-10.2); Magnesium 1.9 mg/dL (1.6-2.3); Phosphorus 4.4 mg/dL (2.5-4.5); Potassium 3.6 mmol/L (3.5-5.1)
[2017-09-08] MEDS ORDERED: POTASSIUM CHLORIDE ER 20 MEQ TAB.ER PO SCH (07:00)
[2017-09-08] MEDS: IPRATROPIUM-ALBUTEROL 3 ML NEB INHALATION SCH ×4 (07:25→19:42)
--- NOTE | 2017-09-08 07:43 | XR ---
EXAMINATION TYPE: XR chest 1V portable DATE OF EXAM: 09/08/2017 COMPARISON: 09/07/2017 HISTORY: Tube placement TECHNIQUE: Single frontal view of the chest is obtained. FINDINGS: Bilateral lower lobe consolidation and pleural effusion. The heart is enlarged. No pneumot horax. Interstitium is somewhat coarsened. Arthropathy of the shoulders and diffuse osteopenia noted. Right paratracheal stripe remains prominent. Findings are stable. ET and NG tube have been removed IMPRESSION: Stable bilateral consolidation and pleural effusion. Mild central venous congestion in t he differential diagnosis.
[2017-09-08] MEDS: CARVEDILOL 3.125 MG TAB PO SCH ×2 (07:52→16:46)
[2017-09-08] MEDS: CALCIUM CARBONATE LIQUID 500 MG/5 ML CUP PO SCH ×3 (07:52→16:46)
[2017-09-08] MEDS: MAGNESIUM SULFATE-D5W PMX 1 GM in DEXTROSE/WATER 1 100ML.BAG IVPB SCH ×2 (08:02→09:29)
[2017-09-08] MEDS: FUROSEMIDE 10 MG/ML 4 ML VIAL IV SCH (08:44)
[2017-09-08] MEDS: BRIMONIDINE TARTRATE 0.2% DROPS 5 ML BTL RIGHT EYE SCH ×2 (08:44→20:27)
[2017-09-08] MEDS: ENOXAPARIN 30 MG/0.3 ML SYRINGE SQ SCH (08:44)
[2017-09-08] MEDS: hydrALAZINE HCL 25 MG TAB PO SCH ×2 (08:44→20:28)
[2017-09-08] MEDS: PANTOPRAZOLE 40 MG/10 ML VIAL IV SCH (08:45)
[2017-09-08] MEDS: ISOSORBIDE MONONITRATE ER 15 MG TAB PO SCH (08:45)
[2017-09-08] MEDS: metroNIDAZOLE 500 MG TAB NG-TUBE SCH ×3 (08:45→22:03)
[2017-09-08] MEDS: TIMOLOL 0.5% OPHTH DROPS 5 ML BTL RIGHT EYE SCH ×2 (08:45→20:28)
--- NOTE | 2017-09-08 11:16 | P.PN ---
Subjective Progress Note Date: 09/08/17 Principal diagnosis: Acute hypoxic respiratory failure and septic shock This is an 87-year-old white male with history of multiple medical problems including dementia, coronary artery disease and previous myocardial infarction, aortic regurgitation, patient was last admitted to the hospital on 08/06 and discharged on 08/15/2017, and he was seen at the time by Dr. Madden on consultation. He was also seen by Dr. Springer. His last admission was related to GI bleeding felt to be upper GI source, EGD showed duodenal ulcer that was not bleeding at the time, and there was also evidence of bloody nidus and antral gastritis. His other issues at the time of admission included acute kidney injury, acute hyperkalemia, chronic hypoxic respiratory failure and COPD , osteogenesis imperfecta, and cachexia with protein calorie malnutrition, and his BMI was 20.1. At any rate patient was readmitted this time mostly with complaints of altered mental status, passing out, possible syncopal episode, shortness of breath, and profound weakness. The admitting physician was Dr. Salomon, follow the patient post admission, and he felt that the patient had pneumonia, and pleural effusion, he also raise the possibility of sepsis, and a parapneumonic effusion. Patient was placed empirically on Levaquin and Zosyn, he was also noted to have intermittent episodes of hypoglycemia requiring D 50. Last night, the patient's condition deteriorated, he became hypotensive, less responsive, and I was notified about the patient shortly after he arrived to the ICU. After reviewing the history with the nurse on the phone, I felt the patient needed to be intubated, he was quite lethargic at the time and hypotensive his blood sugar was also around 60. Patient did not improve much after 1 amp of D50, intubated, given fluid boluses, continue to have low blood pressure, hence I recommended starting norepinephrine drip. Empirically continued on antibiotics in the form of Levaquin and Zosyn. I was also notified that the blood cultures are positive for gram-negative bacilli. Today the patient remains on mechanical ventilation, his ventilator settings are tidal volume of 350 assist-control rate of 16 FiO2 of 40% PEEP of 5, is on levo fed at 3 mcg/m, propofol 15 mcg/kg/m, and IV fluid at 1 25 mL per hour in the form of 0.9 normal saline. Patient is sedated, opens eyes to verbal stimuli, unable to follow simple instructions. Hence I will keep him on mechanical ventilation, will start enteral feeding, and we will continue pressors to maintain a mean arterial pressure of 65. His urine output seems to be reasonable at this point. And he received about 3 L of fluid boluses overnight. Reevaluated today on 09/06/2017, patient remains on mechanical ventilation, his ventilator settings are unchanged except for increase in tidal volume up to 400. His FiO2 is down to 35%, his ABG was noted. PO2 of 129 pCO2 of 45 pH of 7.31. Patient continues to have significant leukocytosis with WBC count of 32.7 , hemoglobin is 7.7. Electrolytes were normal. BUN is 43 creatinine is 2.0. Calcium remains low, more calcium was given, and the patient is now on calcium carbonate via nasogastric tube. Patient remains on enteral feeding. He is on a small dose of norepinephrine being titrated, to maintain a mean arterial pressure of 65. Chest x-ray is showing evidence of interstitial edema and pleural effusions, hence Lasix will be given today. And his IV fluid will be cut down to KVO. Blood cultures were positive for gram-negative bacilli, and the patient is now on Levaquin and Zosyn. Patient denies any specific complaints, arousable, generally weak, follows simple instructions. Patient was reevaluated today on 09/07/2017, remains on mechanical ventilation, patient is awake, arousable, and noted to tolerate spontaneous breathing trial quite well on a pressure support of 8 and CPAP. Chest x-ray continues to show bilateral pleural effusions, and mild congestive changes, electrolytes were noted renal profile was noted BUN of 48 creatinine 1.70. ABG showed a pO2 of 131 pCO2 of 35 pH of 7.44 WBC count remains elevated at 24.5 hemoglobin is 8. Patient was given a weaning trial while I was at bedside, and he seemed to tolerate that quite well, hence I proceeded to extubating the patient. Reevaluated today on 09/08/2017, patient was extubated on 09/07/2017, seems to tolerate the extubation quite well. Patient is now on nasal cannula, in no form of respiratory distress. Patient feels great today. He is alert oriented , and denies any specific complaints. His WBC count is improving down to 22.2, hemoglobin is 8.2, electrolytes are improving, renal profile is improving with a BUN of 42 creatinine of 1.50. His urine output is excellent. Blood cultures and urine cultures were positive for E. coli. Chest x-ray continued to show bilateral pleural effusions, and by basilar atelectasis, possibility of pneumonia is not entirely ruled out, but I believe the primary source of this patient's sepsis is his urine since we were able to culture E. coli from both blood and urine. Patient remains on Zosyn and Levaquin. Objective - Vital Signs Vital signs: Vital Signs Temp 97.9 F 09/08/17 08:00 Pulse 65 09/08/17 10:00 Resp 20 09/08/17 10:00 BP 138/46 09/08/17 10:00 Pulse Ox 98 09/08/17 10:00 Intake & Output 09/07/17 09/08/17 09/08/17 18:59 06:59 18:59 Intake Total 860.360 340 217.5 Output Total 2400 1930 603 Balance -1539.640 -1590 -385.5 Weight 68.1 kg 66.1 kg Intake: IV 690 340 117.5 Levofloxacin 750Mg-D5w 100 Pmx 750 mg In Dextrose/ Water 1 150ml.bag @ 100 mls/hr IVPB Q48H JOCELYN Rx#: [id number] Magnesium Sulfate-D5w Pmx 200 1 gm In Dextrose/Water 1 100ml.bag @ 100 mls/hr IVPB Q1H JOC[facility]N Rx#: [id number] Piperacillin-Tazobactam 3 50 37.5 .375 gm In Dextrose/Water 1 50ml.bag @ 12.5 mls/hr IVPB Q8HR [facility]OC[facility] Rx#: [id number] Potassium Chloride 10 meq 200 In Water For Injection 1 100ml.bag @ 100 mls/hr IVPB Q1H JOC[facility] Rx#: [id number] Sodium Chloride 0.9% 1, 240 240 80 000 ml @ 20 mls/hr IV . Q24H JOC[facility]N Rx#:[id number] Intake, IV Titration 76.360 100 Amount Magnesium Sulfate-D5w Pmx 100 1 gm In Dextrose/Water 1 100ml.bag @ 100 mls/hr IVPB Q1H JOC[facility]N Rx#: [id number] Propofol 1,000 mg In 76.360 Empty Bag 1 bag @ Per Protocol IV .Q0M JOC[facility]N Rx#: [id number] Tube Feeding 64 Other 30 Output: Urine 2400 1930 603 Other: Voiding Method Indwelling Catheter Indwelling Catheter Indwelling Catheter # Bowel Movements 1 ABP, PAP, CO, CI - Last Documented Arterial Blood Pressure 166/40 - Exam Physical Exam: Revealed an 87-year-old white male, frail looking, in no distress , off mechanical ventilation. Head: Atraumatic, normocephalic. HEENT: Moist mucous membranes. PERRLA, EOMI. [Neck is supple.] [No neck masses.] [No thyromegaly.] [No JVD.] Chest: minimal crackles and rhonchi at the bases. Symmetrical chest expansion noted..] Cardiac Exam: [Normal S1 and S2, no S3 gallop, 2/6 systolic murmur. Throughout the precordium.] Abdomen: [Soft, nontender, no megaly, no rebound, no guarding, normal bowel sounds.] Extremities: [No clubbing, trace of bipedal edema, no cyanosis.] Neurological Exam: Alert oriented, no gross focal neurologic deficit. Lymphatics: No lymphadenopathy. Psychiatric: Normal mood affect and mental status examination. - Labs CBC & Chem 7: 09/08/17 05:00 09/08/17 05:00 Labs: Abnormal Lab Results - Last 24 Hours (Table) 09/07/17 09/07/17 09/07/17 Range/Units 12:19 16:50 17:09 WBC (3.8-10.6) k/uL RBC (4.30-5.90) m/uL Hgb (13.0-17.5) gm/dL Hct (39.0-53.0) % MCHC (31.0-37.0) g/dL Plt Count (150-450) k/uL Potassium 3.3 L (3.5-5.1) mmol/L BUN (9-20) mg/dL Creatinine (0.66-1.25) mg/dL Glucose (74-99) mg/dL POC Glucose (mg/dL) 105 H 134 H (75-99) mg/dL Calcium (8.4-10.2) mg/dL Ionized Calcium Maria Guadalupe (4.5-5.3) mg/dL 09/08/17 09/08/17 Range/Units 05:00 05:00 WBC 22.2 H (3.8-10.6) k/uL RBC 2.92 L (4.30-5.90) m/uL Hgb 8.2 L (13.0-17.5) gm/dL Hct 27.1 L (39.0-53.0) % MCHC 30.2 L (31.0-37.0) g/dL Plt Count 119 L (150-450) k/uL Potassium (3.5-5.1) mmol/L BUN 42 H (9-20) mg/dL Creatinine 1.50 H (0.66-1.25) mg/dL Glucose 71 L (74-99) mg/dL POC Glucose (mg/dL) (75-99) mg/dL Calcium 6.8 L (8.4-10.2) mg/dL Ionized Calcium Maria Guadalupe 4.3 L (4.5-5.3) mg/dL Microbiology - Last 24 Hours (Table) 09/04/17 00:00 Urine Culture - Final Urine,Catheterized Escherichia coli 09/05/17 01:13 Gram Stain - Final Sputum Sputum Culture - Final Stephani albicans Assessment and Plan Assessment: Impression: 1 acute E. coli sepsis and septic shock, primary source is urine, acute urinary tract infection. Secondary to E. coli. 2 left lower lobe pneumonia is suspected, but not confirmed. Patient does have bilateral pleural effusions and atelectasis. 3 acute urinary tract infection 4 bilateral pleural effusions, could be cardiac or parapneumonic related. Remains unclear etiology. The size of the fluid is not large enough to consider thoracentesis at this point. Hence we'll continue to monitor, if the fluid size in largest may consider thoracentesis. 5 acute metabolic encephalopathy from sepsis. Resolved 6 ischemic cardiomyopathy and ejection fraction of 40% 7 acute on chronic hypoxic respiratory failure, multifactorial, secondary to sepsis, COPD, and some component of systolic congestive heart failure. 8 acute tubular necrosis and acute kidney injury secondary to sepsis and septic shock. Improving 9 history of chronic obstructive pulmonary disease, patient is an ex-smoker. 10 osteoGenesis imperfecta 11 history of Alzheimer's dementia 12 cachexia with significant weight loss and total body protein calorie malnutrition, moderately severe, BMI is in the range of 16 13 history of upper GI bleeding secondary to duodenal ulcer 14 history of coronary artery disease and previous [place]. 15 recurrent episodes of hypoglycemia secondary to sepsis, serum cortisol level is pending doubt adrenal insufficiency. Recommendation: Continue present supportive care measures including antibiotics , bronchodilators, diuretics, GI and DVT prophylaxis, we will continue to monitor for one more day in the ICU, and likely transfer to a monitor bed in the next 24 hours. Time with Patient: Less than 30
--- NOTE | 2017-09-08 15:38 | P.PN ---
Subjective Progress Note Date: 09/08/17 This 87-year-old gentleman is admitted with sepsis. Patient blood culture positive for E. coli. His felt that most probably urinary tract infection is the source of positive blood cultures. His is extubated. He doesn't seem to be in acute distress. His echo Cardigan showed severely impaired LV function. Patient is being started on hydralazine and Imdur combination. Patient is already on Coreg. Rest of the medication to be continued. 09/08/2017: This patient seemed to be much better. Doesn't appear to be in acute distress. His blood pressures running about 110. He is tolerating medications. His continues to be on antibiotics. He is tolerating hydralazine and Imdur along with Coreg. Chest x-ray shows mild CHF and infiltrates. We'll continue current medical therapy. Possible transfer to telemetry unit Objective - Vital Signs Vital signs: Vital Signs Temp 98.4 F 09/08/17 12:00 Pulse 76 09/08/17 15:00 Resp 17 09/08/17 15:00 BP 114/49 09/08/17 15:00 Pulse Ox 94 L 09/08/17 15:00 Intake & Output 09/07/17 09/08/17 09/08/17 18:59 06:59 18:59 Intake Total 860.360 340 690.0 Output Total 2400 1930 1328 Balance -1539.640 -1590 -638.0 Weight 68.1 kg 66.1 kg Intake: IV 690 340 230.0 Levofloxacin 750Mg-D5w 100 Pmx 750 mg In Dextrose/ Water 1 150ml.bag @ 100 mls/hr IVPB Q48H [facility] Rx#: [id number] Magnesium Sulfate-D5w Pmx 200 1 gm In Dextrose/Water 1 100ml.bag @ 100 mls/hr IVPB Q1H [facility] Rx#: [id number] Piperacillin-Tazobactam 3 50 50.0 .375 gm In Dextrose/Water 1 50ml.bag @ 12.5 mls/hr IVPB Q8HR [facility] Rx#: [id number] Potassium Chloride 10 meq 200 In Water For Injection 1 100ml.bag @ 100 mls/hr IVPB Q1H [facility] Rx#: [id number] Sodium Chloride 0.9% 1, 240 240 180 000 ml @ 20 mls/hr IV . Q24H [facility]OC[facility] Rx#:[id number] Intake, IV Titration 76.360 100 Amount Magnesium Sulfate-D5w Pmx 100 1 gm In Dextrose/Water 1 100ml.bag @ 100 mls/hr IVPB Q1H [facility] Rx#: [id number] Propofol 1,000 mg In 76.360 Empty Bag 1 bag @ Per Protocol IV .Q0M [facility] Rx#: [id number] Oral 360 Tube Feeding 64 Other 30 Output: Urine 2400 1930 1328 Other: Voiding Method Indwelling Catheter Indwelling Catheter Indwelling Catheter # Bowel Movements 1 ABP, PAP, CO, CI - Last Documented Arterial Blood Pressure 152/39 - Exam GENERAL EXAM: Patient alert and oriented HEENT: Normocephalic. Normal reaction of pupils, equal size, normal range of extraocular motion. No erythema or exudates in the throat. NECK: No masses, no nuchal rigidity. CHEST: No chest wall deformity. LUNGS: [Diminished breath sounds at bases HEART: S1 and S2 normal ABDOMEN: No hepatosplenomegaly, normal bowel sounds, no guarding or rigidity. SKIN: No rashes CENTRAL NERVOUS SYSTEM: Deferred. EXTREMITIES: No cyanosis, clubbing or edema. - Labs CBC & Chem 7: 09/08/17 05:00 09/08/17 05:00 Labs: Abnormal Lab Results - Last 24 Hours (Table) 09/07/17 09/07/17 09/08/17 Range/Units 16:50 17:09 05:00 WBC (3.8-10.6) k/uL RBC (4.30-5.90) m/uL Hgb (13.0-17.5) gm/dL Hct (39.0-53.0) % MCHC (31.0-37.0) g/dL Plt Count (150-450) k/uL Potassium 3.3 L (3.5-5.1) mmol/L BUN 42 H (9-20) mg/dL Creatinine 1.50 H (0.66-1.25) mg/dL Glucose 71 L (74-99) mg/dL POC Glucose (mg/dL) 134 H (75-99) mg/dL Calcium 6.8 L (8.4-10.2) mg/dL Ionized Calcium Maria Guadalupe 4.3 L (4.5-5.3) mg/dL 09/08/17 Range/Units 05:00 WBC 22.2 H (3.8-10.6) k/uL RBC 2.92 L (4.30-5.90) m/uL Hgb 8.2 L (13.0-17.5) gm/dL Hct 27.1 L (39.0-53.0) % MCHC 30.2 L (31.0-37.0) g/dL Plt Count 119 L (150-450) k/uL Potassium (3.5-5.1) mmol/L BUN (9-20) mg/dL Creatinine (0.66-1.25) mg/dL Glucose (74-99) mg/dL POC Glucose (mg/dL) (75-99) mg/dL Calcium (8.4-10.2) mg/dL Ionized Calcium Maria Guadalupe (4.5-5.3) mg/dL Assessment and Plan (1) Sepsis Current Visit: Yes Status: Acute Code(s): A41.9 - SEPSIS, UNSPECIFIED ORGANISM SNOMED Code(s): 55144504 (2) UTI (urinary tract infection) Current Visit: Yes Status: Acute Code(s): N39.0 - URINARY TRACT INFECTION, SITE NOT SPECIFIED SNOMED Code(s): 03221399 (3) Community acquired pneumonia Current Visit: Yes Status: Acute Code(s): J18.9 - PNEUMONIA, UNSPECIFIED ORGANISM SNOMED Code(s): 693067610 (4) Aortic regurgitation Current Visit: Yes Status: Acute Code(s): I35.1 - NONRHEUMATIC AORTIC (VALVE ) INSUFFICIENCY SNOMED Code(s): 83233052 (5) Cardiomyopathy Current Visit: Yes Status: Acute Code(s): I42.9 - CARDIOMYOPATHY, UNSPECIFIED SNOMED Code(s): 21374897 (6) Systolic heart failure Current Visit: Yes Status: Acute Code(s): I50.20 - UNSPECIFIED SYSTOLIC ( CONGESTIVE) HEART FAILURE SNOMED Code(s): 684553666 Plan: Patient seemed to be getting better. And in no acute distress. We'll continue current medical therapy. There is improvement in creatinine. Possible transfer to telemetry
--- NOTE | 2017-09-08 18:28 | PN ---
PROGRESS NOTE DATE OF SERVICE: 09/08/2017 REASON FOR FOLLOWUP: E coli bacteremia secondary to urinary source. INTERVAL HISTORY: The patient is afebrile. He is more awake, alert. He is breathing comfortably on room air. No chest pain or cough. No abdominal pain or any diarrhea. PHYSICAL EXAMINATION: Blood pressure 114/49, pulse of 76, temperature of 98, 94% on room air. General description is an elderly male up in the chair in no distress. RESPIRATORY SYSTEM: Unlabored breathing. Clear to auscultation anteriorly. HEART: S1, S2. Regular rate and rhythm. ABDOMEN: Soft. No tenderness. LABS: Hemoglobin 8.2, white count of 22.2, BUN of 42, creatinine 1.50. DIAGNOSTIC IMPRESSION AND PLAN: Patient with Escherichia coli bacteremia secondary to abdominal source, as this is a sensitive pathogen. Antibiotic will be adjusted to Rocephin 2 grams daily. Discontinue the Zosyn and Levaquin. Hopefully he will finish therapy with an oral antibiotic on discharge. Continue with supportive care. MMODL / IJN: [id number] /
--- NOTE | 2017-09-08 20:13 | PN ---
PROGRESS NOTE My noted dictated on 09/07/2017 at 2325 hours, date transcribed 09/08/2017, 0009: The date of service should be 09/07/2017. COCO / CHARLYN: [id number] /
--- NOTE | 2017-09-08 20:25 | PN ---
PROGRESS NOTE DATE OF SERVICE: 09/08/2017 PRESENTING COMPLAINT: Short of breath. INTERVAL HISTORY: This patient admitted with pneumonia, UTI with sepsis and positive blood cultures, acute respiratory failure, status post ventilator. Doing better, lying in bed, did tolerate some breakfast. The patient is on nasal cannula. REVIEW OF SYSTEMS: Done for constitutional, cardiovascular, GI, pulmonary; relevant findings as above. CURRENT MEDICATIONS: Reviewed that include: 1. IV Lasix 40 mg. 2. Levaquin and. 3. Zosyn. EXAMINATION: Temperature 98.4, pulse 73, respirations 23, blood pressure 120/47, pulse ox 94% on room air. GENERAL APPEARANCE: Lying in bed, awake. EYES: Pupil equal. Conjunctivae pale. HEENT: External nose and ears normal. Oral cavity normal. NECK: JVD unable to assess. Mass not palpable. RESPIRATORY: Effort increased. LUNGS: Decreased breath sounds. CARDIOVASCULAR: First and second sounds normal. Edema present. ABDOMEN: Soft, nontender. Liver and spleen not palpable. PSYCHIATRY: Awake, answering questions appropriately. INVESTIGATIONS: White count 22.2, hemoglobin 8.2. Potassium 3.6, BUN 42, creatinine 1.50. Phosphorus 4.4, ionized calcium 4.3. ASSESSMENT: 1. Pneumonia, probably from gram-negative organism. 2. Acute urinary tract infection with sepsis with urine and blood cultures positive for Escherichia coli. 3. Acute metabolic encephalopathy from sepsis on presentation, now improved. 4. Coronary artery disease, ischemic cardiomyopathy, ejection fraction 40%. 5. Chronic obstructive pulmonary disease in an ex-smoker. 6. Chronic hypoxic respiratory failure, underlying chronic obstructive pulmonary disease. 7. Acute hypoxic respiratory failure, status post being on the ventilator, currently on nasal cannula. 8. Hyperlipidemia. 9. Osteogenesis imperfecta. 10.Alzheimer dementia. 11.Decreased vision in the right eye. 12.Acute renal failure, could be acute tubular necrosis from sepsis. 13.Moderate aortic regurgitation, mitral regurgitation. 14.Severe tricuspid regurgitation, nonrheumatic. 15.Moderate secondary pulmonary hypertension secondary to congestive heart failure and chronic obstructive pulmonary disease. 16.Normocytic anemia. 17.Hypocalcemia. 18.Decreased ionized hypercalcemia. PLAN: Continue with the treatment plan, antibiotics as per ID. Patient is getting a small dose of IV Lasix. Will give the patient some calcium gluconate and patient also getting oral calcium. We will check the patient's parathyroid hormone and vitamin D levels. MMODL / IJN: [id number] /
[2017-09-08] MEDS: SODIUM CHLORIDE 0.9% 1,000 ML IV SCH (20:27)
[2017-09-08] MEDS: ATORVASTATIN 20 MG TAB PO SCH (20:27)
[2017-09-08] MEDS: LATANOPROST 0.005% OPHTH DROPS 2.5 ML BTL RIGHT EYE SCH (20:28)
[2017-09-09 05:14] LABS: HCT 28.8 % (39.0-53.0); HGB 8.8 gm/dL (13.0-17.5); Hypochromasia Marked; MCH 28.5 pg (25.0-35.0); MCHC 30.6 g/dL (31.0-37.0); MCV 93.1 fL (80.0-100.0); Mean Platelet Volume 9.1; Platelet Count 128 k/uL (150-450); RBC 3.09 m/uL (4.30-5.90); RDW 14.8 % (11.5-15.5)
[2017-09-09 05:22] LABS: WBC 26.4 k/uL (3.8-10.6)
[2017-09-09 05:49] LABS: Ionized Calcium 4.2 mg/dL (4.5-5.3)
[2017-09-09 05:57] LABS: Calcium 6.8 mg/dL (8.4-10.2); Phosphorus 3.9 mg/dL (2.5-4.5); Potassium 3.5 mmol/L (3.5-5.1)
[2017-09-09] MEDS: POTASSIUM CHLORIDE 10 MEQ in WATER FOR INJECTION 1 100ML.BAG IVPB SCH ×2 (06:39→08:32)
--- NOTE | 2017-09-09 07:35 | XR ---
EXAMINATION TYPE: XR chest 1V portable DATE OF EXAM: 09/09/2017 COMPARISON: Prior chest x-ray 09/08/2017 HISTORY: Respiratory failure, follow-up, abnormal chest x-ray TECHNIQUE: Single frontal view of the chest is obtained. FINDINGS: Patient is rotated. There are overlying cardiac leads. Pleural parenchymal changes are sta ble. Heart is enlarged. No pneumothorax. IMPRESSION: Correlate for congestive heart failure, bilateral pleural effusions and associated edema versus pneumonia or atelectasis.
[2017-09-09] MEDS: IPRATROPIUM-ALBUTEROL 3 ML NEB INHALATION SCH ×4 (07:56→21:05)
[2017-09-09] MEDS: CARVEDILOL 3.125 MG TAB PO SCH ×2 (08:27→17:14)
[2017-09-09] MEDS: hydrALAZINE HCL 25 MG TAB PO SCH ×2 (08:27→20:04)
[2017-09-09] MEDS: CALCIUM CARBONATE LIQUID 500 MG/5 ML CUP PO SCH ×3 (08:27→17:14)
[2017-09-09] MEDS: PANTOPRAZOLE 40 MG TABLET PO SCH (08:27)
[2017-09-09] MEDS: ENOXAPARIN 40 MG/0.4 ML SYRINGE SQ SCH (08:27)
[2017-09-09] MEDS: ISOSORBIDE MONONITRATE ER 15 MG TAB PO SCH (08:27)
[2017-09-09] MEDS: FUROSEMIDE 10 MG/ML 4 ML VIAL IV SCH ×3 (08:28→20:04)
[2017-09-09] MEDS: metroNIDAZOLE 500 MG TAB NG-TUBE SCH ×3 (08:28→21:44)
[2017-09-09] MEDS: TIMOLOL 0.5% OPHTH DROPS 5 ML BTL RIGHT EYE SCH ×2 (08:28→20:04)
[2017-09-09] MEDS: BRIMONIDINE TARTRATE 0.2% DROPS 5 ML BTL RIGHT EYE SCH ×2 (08:28→20:04)
[2017-09-09] MEDS: PIPERACILLIN-TAZOBACTAM 3.375 GM in DEXTROSE/WATER 1 50ML.BAG IVPB SCH (08:30)
[2017-09-09] MEDS ORDERED: POTASSIUM CHLORIDE ER 20 MEQ TAB.ER PO STA (11:26)
--- NOTE | 2017-09-09 11:37 | P.PN ---
Subjective Progress Note Date: 09/09/17 Principal diagnosis: Acute hypoxic respiratory failure and septic shock This is an 87-year-old white male with history of multiple medical problems including dementia, coronary artery disease and previous myocardial infarction, aortic regurgitation, patient was last admitted to the hospital on 08/06 and discharged on 08/15/2017, and he was seen at the time by Dr. Madden on consultation. He was also seen by Dr. Springer. His last admission was related to GI bleeding felt to be upper GI source, EGD showed duodenal ulcer that was not bleeding at the time, and there was also evidence of bloody nidus and antral gastritis. His other issues at the time of admission included acute kidney injury, acute hyperkalemia, chronic hypoxic respiratory failure and COPD , osteogenesis imperfecta, and cachexia with protein calorie malnutrition, and his BMI was 20.1. At any rate patient was readmitted this time mostly with complaints of altered mental status, passing out, possible syncopal episode, shortness of breath, and profound weakness. The admitting physician was Dr. Salomon, follow the patient post admission, and he felt that the patient had pneumonia, and pleural effusion, he also raise the possibility of sepsis, and a parapneumonic effusion. Patient was placed empirically on Levaquin and Zosyn, he was also noted to have intermittent episodes of hypoglycemia requiring D 50. Last night, the patient's condition deteriorated, he became hypotensive, less responsive, and I was notified about the patient shortly after he arrived to the ICU. After reviewing the history with the nurse on the phone, I felt the patient needed to be intubated, he was quite lethargic at the time and hypotensive his blood sugar was also around 60. Patient did not improve much after 1 amp of D50, intubated, given fluid boluses, continue to have low blood pressure, hence I recommended starting norepinephrine drip. Empirically continued on antibiotics in the form of Levaquin and Zosyn. I was also notified that the blood cultures are positive for gram-negative bacilli. Today the patient remains on mechanical ventilation, his ventilator settings are tidal volume of 350 assist-control rate of 16 FiO2 of 40% PEEP of 5, is on levo fed at 3 mcg/m, propofol 15 mcg/kg/m, and IV fluid at 1 25 mL per hour in the form of 0.9 normal saline. Patient is sedated, opens eyes to verbal stimuli, unable to follow simple instructions. Hence I will keep him on mechanical ventilation, will start enteral feeding, and we will continue pressors to maintain a mean arterial pressure of 65. His urine output seems to be reasonable at this point. And he received about 3 L of fluid boluses overnight. Reevaluated today on 09/06/2017, patient remains on mechanical ventilation, his ventilator settings are unchanged except for increase in tidal volume up to 400. His FiO2 is down to 35%, his ABG was noted. PO2 of 129 pCO2 of 45 pH of 7.31. Patient continues to have significant leukocytosis with WBC count of 32.7 , hemoglobin is 7.7. Electrolytes were normal. BUN is 43 creatinine is 2.0. Calcium remains low, more calcium was given, and the patient is now on calcium carbonate via nasogastric tube. Patient remains on enteral feeding. He is on a small dose of norepinephrine being titrated, to maintain a mean arterial pressure of 65. Chest x-ray is showing evidence of interstitial edema and pleural effusions, hence Lasix will be given today. And his IV fluid will be cut down to KVO. Blood cultures were positive for gram-negative bacilli, and the patient is now on Levaquin and Zosyn. Patient denies any specific complaints, arousable, generally weak, follows simple instructions. Patient was reevaluated today on 09/07/2017, remains on mechanical ventilation, patient is awake, arousable, and noted to tolerate spontaneous breathing trial quite well on a pressure support of 8 and CPAP. Chest x-ray continues to show bilateral pleural effusions, and mild congestive changes, electrolytes were noted renal profile was noted BUN of 48 creatinine 1.70. ABG showed a pO2 of 131 pCO2 of 35 pH of 7.44 WBC count remains elevated at 24.5 hemoglobin is 8. Patient was given a weaning trial while I was at bedside, and he seemed to tolerate that quite well, hence I proceeded to extubating the patient. Reevaluated today on 09/08/2017, patient was extubated on 09/07/2017, seems to tolerate the extubation quite well. Patient is now on nasal cannula, in no form of respiratory distress. Patient feels great today. He is alert oriented , and denies any specific complaints. His WBC count is improving down to 22.2, hemoglobin is 8.2, electrolytes are improving, renal profile is improving with a BUN of 42 creatinine of 1.50. His urine output is excellent. Blood cultures and urine cultures were positive for E. coli. Chest x-ray continued to show bilateral pleural effusions, and by basilar atelectasis, possibility of pneumonia is not entirely ruled out, but I believe the primary source of this patient's sepsis is his urine since we were able to culture E. coli from both blood and urine. Patient remains on Zosyn and Levaquin. Reevaluated today on 09/09/2017, patient is doing clinically well, diuresing well , however he continues to have bilateral pleural effusions, and I have increased the Lasix today, and I plan to transfer the patient out of the ICU today. Patient is not in any form of distress. Relatively asymptomatic. Tolerating solid diet quite well. WBC count is 26.4 hemoglobin is 8.8. Electrolytes are improving BUN is improving down to 40 creatinine is improving down to 1.40. Patient is still receiving antibiotics for E. coli sepsis,/ septic shock bacteremia, and urinary tract infection. Objective - Vital Signs Vital signs: Vital Signs Temp 98.2 F 09/09/17 08:00 Pulse 69 09/09/17 11:23 Resp 20 09/09/17 10:00 BP 129/47 09/09/17 10:00 Pulse Ox 98 09/09/17 10:00 Intake & Output 09/08/17 09/09/17 09/09/17 18:59 06:59 18:59 Intake Total 907.5 322.5 317.5 Output Total 1653 1315 500 Balance -745.5 -992.5 -182.5 Weight 67 kg Intake: IV 327.5 322.5 97.5 Piperacillin-Tazobactam 3 87.5 62.5 37.5 .375 gm In Dextrose/Water 1 50ml.bag @ 12.5 mls/hr IVPB Q8HR [facility] Rx#: [id number] Sodium Chloride 0.9% 1, 240 260 60 000 ml @ 20 mls/hr IV . Q24H [facility] Rx#:[id number] Intake, IV Titration 100 100 Amount Magnesium Sulfate-D5w Pmx 100 1 gm In Dextrose/Water 1 100ml.bag @ 100 mls/hr IVPB Q1H [facility] Rx#: [id number] Potassium Chloride 10 meq 100 In Water For Injection 1 100ml.bag @ 100 mls/hr IVPB Q1H [facility] Rx#: [id number] Oral 480 120 Output: Urine 1653 1315 500 Other: Voiding Method Indwelling Catheter Indwelling Catheter Indwelling Catheter # Bowel Movements 1 ABP, PAP, CO, CI - Last Documented Arterial Blood Pressure 152/39 - Exam Physical Exam: Revealed an 87-year-old white male, frail looking, in no distress , on few liters nasal cannula. Head: Atraumatic, normocephalic. HEENT: Moist mucous membranes. PERRLA, EOMI. [Neck is supple.] [No neck masses.] [No thyromegaly.] [No JVD.] Chest: minimal crackles and rhonchi at the bases. Symmetrical chest expansion noted..] Cardiac Exam: [Normal S1 and S2, no S3 gallop, 2/6 systolic murmur. Throughout the precordium.] Abdomen: [Soft, nontender, no megaly, no rebound, no guarding, normal bowel sounds.] Extremities: [No clubbing, trace of bipedal edema, no cyanosis.] Neurological Exam: Alert oriented, no gross focal neurologic deficit. Lymphatics: No lymphadenopathy. Psychiatric: Normal mood affect and mental status examination. - Labs CBC & Chem 7: 09/09/17 04:48 09/09/17 10:36 Labs: Abnormal Lab Results - Last 24 Hours (Table) 09/09/17 09/09/17 Range/Units 04:26 04:48 WBC 26.4 H* (3.8-10.6) k/uL RBC 3.09 L (4.30-5.90) m/uL Hgb 8.8 L (13.0-17.5) gm/dL Hct 28.8 L (39.0-53.0) % MCHC 30.6 L (31.0-37.0) g/dL Plt Count 128 L (150-450) k/uL BUN 40 H (9-20) mg/dL Creatinine 1.40 H (0.66-1.25) mg/dL Calcium 6.8 L (8.4-10.2) mg/dL Ionized Calcium Maria Guadalupe 4.2 L (4.5-5.3) mg/dL Assessment and Plan Assessment: Impression: 1 acute E. coli sepsis and septic shock, and bacteremia, primary source is urine , acute urinary tract infection. Secondary to E. coli. 2 left lower lobe pneumonia is suspected, but not confirmed. Patient does have bilateral pleural effusions and atelectasis. 3 acute urinary tract infection 4 bilateral pleural effusions, could be cardiac or parapneumonic related. Remains unclear etiology. The size of the fluid is not large enough to consider thoracentesis at this point. Hence we'll continue to monitor, if the fluid size in largest may consider thoracentesis. May consider repeating the ultrasound of the chest, but the last one I looked at few days ago did not show enough fluid to safely perform thoracentesis. 5 acute metabolic encephalopathy from sepsis. Resolved 6 ischemic cardiomyopathy and ejection fraction of 40% 7 acute on chronic hypoxic respiratory failure, multifactorial, secondary to sepsis, COPD, and some component of systolic congestive heart failure. 8 acute tubular necrosis and acute kidney injury secondary to sepsis and septic shock. Improving 9 history of chronic obstructive pulmonary disease, patient is an ex-smoker. 10 osteoGenesis imperfecta 11 history of Alzheimer's dementia 12 cachexia with significant weight loss and total body protein calorie malnutrition, moderately severe, BMI is in the range of 16 13 history of upper GI bleeding secondary to duodenal ulcer 14 history of coronary artery disease and previous AL. 15 recurrent episodes of hypoglycemia secondary to sepsis, serum cortisol level is pending doubt adrenal insufficiency. Recommendation: Continue present supportive care measures including antibiotics , bronchodilators, increase the dose of diuretics, GI and DVT prophylaxis, we will continue to monitor for one more day in the ICU, and likely transfer to a monitor bed today, and we will continue to follow. Time with Patient: Less than 30
[2017-09-09 12:35] LABS: Vitamin D 25 Hydroxy 40.6 ng/mL (30.0-100.0)
[2017-09-09 12:36] LABS: Parathyroid Hormone Intact 95.8 pg/mL (14.0-72.0)
[2017-09-09] MEDS: cefTRIAXone IN SWFI 2,000 MG/20 ML SYRINGE IVP SCH (12:36)
[2017-09-09] MEDS ORDERED: ACETAMINOPHEN TAB 500 MG TAB PO PRN (14:13)
--- NOTE | 2017-09-09 15:48 | P.PN ---
Subjective Progress Note Date: 09/09/17 This 87-year-old gentleman is admitted with sepsis. Patient blood culture positive for E. coli. His felt that most probably urinary tract infection is the source of positive blood cultures. His is extubated. He doesn't seem to be in acute distress. His echo Cardigan showed severely impaired LV function. Patient is being started on hydralazine and Imdur combination. Patient is already on Coreg. Rest of the medication to be continued. 09/08/2017: This patient seemed to be much better. Doesn't appear to be in acute distress. His blood pressures running about 110. He is tolerating medications. His continues to be on antibiotics. He is tolerating hydralazine and Imdur along with Coreg. Chest x-ray shows mild CHF and infiltrates. We'll continue current medical therapy. Possible transfer to telemetry unit. 09/09/2017: This patient seemed to be clinically very stable. No fevers. Doesn 't appear to be in acute distress. There is feeling fairly well. Dose of the diuretics was increased. Blood pressure stable. Lungs are clear. Patient is being treated for pneumonia and UTI. Patient also has cardiomyopathy and CHF. Overall patient condition stable. Waiting to be transferred to telemetry unit Objective - Vital Signs Vital signs: Vital Signs Temp 98.1 F 09/09/17 12:00 Pulse 72 09/09/17 15:26 Resp 18 09/09/17 12:00 BP 117/43 09/09/17 12:00 Pulse Ox 97 09/09/17 12:00 Intake & Output 09/08/17 09/09/17 09/09/17 18:59 06:59 18:59 Intake Total 907.5 322.5 317.5 Output Total 1653 1315 500 Balance -745.5 -992.5 -182.5 Weight 67 kg Intake: IV 327.5 322.5 97.5 Piperacillin-Tazobactam 3 87.5 62.5 37.5 .375 gm In Dextrose/Water 1 50ml.bag @ 12.5 mls/hr IVPB Q8HR [facility] Rx#: [id number] Sodium Chloride 0.9% 1, 240 260 60 000 ml @ 20 mls/hr IV . Q24H [facility] Rx#:[id number] Intake, IV Titration 100 100 Amount Magnesium Sulfate-D5w Pmx 100 1 gm In Dextrose/Water 1 100ml.bag @ 100 mls/hr IVPB Q1H [facility] Rx#: [id number] Potassium Chloride 10 meq 100 In Water For Injection 1 100ml.bag @ 100 mls/hr IVPB Q1H [facility] Rx#: [id number] Oral 480 120 Output: Urine 1653 1315 500 Other: Voiding Method Indwelling Catheter Indwelling Catheter Indwelling Catheter # Bowel Movements 1 ABP, PAP, CO, CI - Last Documented Arterial Blood Pressure 152/39 - Exam GENERAL EXAM: Patient alert and oriented HEENT: Normocephalic. Normal reaction of pupils, equal size, normal range of extraocular motion. No erythema or exudates in the throat. NECK: No masses, no nuchal rigidity. CHEST: No chest wall deformity. LUNGS: [Diminished breath sounds at bases HEART: S1 and S2 normal ABDOMEN: No hepatosplenomegaly, normal bowel sounds, no guarding or rigidity. SKIN: No rashes CENTRAL NERVOUS SYSTEM: Deferred. EXTREMITIES: No cyanosis, clubbing or edema. - Labs CBC & Chem 7: 09/09/17 04:48 09/09/17 10:36 Labs: Abnormal Lab Results - Last 24 Hours (Table) 09/09/17 09/09/17 Range/Units 04:26 04:48 WBC 26.4 H* (3.8-10.6) k/uL RBC 3.09 L (4.30-5.90) m/uL Hgb 8.8 L (13.0-17.5) gm/dL Hct 28.8 L (39.0-53.0) % MCHC 30.6 L (31.0-37.0) g/dL Plt Count 128 L (150-450) k/uL BUN 40 H (9-20) mg/dL Creatinine 1.40 H (0.66-1.25) mg/dL Calcium 6.8 L (8.4-10.2) mg/dL Ionized Calcium Maria Guadalupe 4.2 L (4.5-5.3) mg/dL Assessment and Plan (1) Sepsis Current Visit: Yes Status: Acute Code(s): A41.9 - SEPSIS, UNSPECIFIED ORGANISM SNOMED Code(s): 23404233 (2) UTI (urinary tract infection) Current Visit: Yes Status: Acute Code(s): N39.0 - URINARY TRACT INFECTION, SITE NOT SPECIFIED SNOMED Code(s): 05430509 (3) Community acquired pneumonia Current Visit: Yes Status: Acute Code(s): J18.9 - PNEUMONIA, UNSPECIFIED ORGANISM SNOMED Code(s): 018481762 (4) Aortic regurgitation Current Visit: Yes Status: Acute Code(s): I35.1 - NONRHEUMATIC AORTIC (VALVE ) INSUFFICIENCY SNOMED Code(s): 36652559 (5) Cardiomyopathy Current Visit: Yes Status: Acute Code(s): I42.9 - CARDIOMYOPATHY, UNSPECIFIED SNOMED Code(s): 92080054 (6) Systolic heart failure Current Visit: Yes Status: Acute Code(s): I50.20 - UNSPECIFIED SYSTOLIC ( CONGESTIVE) HEART FAILURE SNOMED Code(s): 706519829 Plan: Continue current medical therapy. Transfer to telemetry unit. May repeat echocardiogram down the road to assess LV function.
[2017-09-09] MEDS ORDERED: CALCIUM CHLORIDE 1,000 MG in SODIUM CHLORIDE 0.9% 100 ML IVPB STA (18:28)
--- NOTE | 2017-09-09 19:10 | PN ---
PROGRESS NOTE DATE OF SERVICE: September 09, 2017. PRESENTING COMPLAINT: Short of breath. INTERVAL HISTORY: Patient admitted with pneumonia, UTI with sepsis and positive blood cultures. Acute respiratory failure was on the ventilator. Doing much better tolerating a diet. Lying in bed, a bit tired appearing. REVIEW OF SYSTEMS: Done for constitutional, cardiovascular, GI, pulmonary, relevant findings as above. CURRENT MEDICATIONS: Reviewed that include DuoNeb, Coreg, IV ceftriaxone, IV Lasix. PHYSICAL EXAMINATION: Temperature 98.1, pulse 89, respiratory 18, blood pressure 117/43, pulse ox 97% on room air. General: Appearance: Lying in bed. Awake, eyes pupils equal, conjunctivae pale. HEENT: External appearance of nose and ears normal. Oral cavity normal. Neck JVD unable to assess. Mass not palpable. Respiratory effort increased. Lungs decreased breath sounds in the bases. Some crackles in the bases. Cardiovascular: 1st and second sounds normal. Edema present. ABDOMEN: Soft, nontender. Liver and spleen not palpable. Psychiatry: Alert and oriented x3. Mood and affect normal. INVESTIGATIONS: White count 26.4, hemoglobin 8.8. Patient's ionized calcium was 4.2. ASSESSMENT: 1. Pneumonia, probably from gram-negative organism. 2. Acute urinary tract infection with sepsis with urine blood cultures positive for E coli. 3. Acute metabolic encephalopathy from sepsis on presentation, now resolved. 4. Coronary artery disease, ischemic cardiomyopathy, ejection fraction 40%. 5. Chronic obstructive pulmonary disease in an ex-smoker. 6. Chronic hypoxic respiratory failure from underlying chronic obstructive pulmonary disease. 7. Acute hypoxic respiratory failure, status post being on the ventilator on nasal cannula. 8. Hyperlipidemia. 9. Markie Destiny imperfecta. 10.Alzheimer's dementia. 11.Decreased vision in the right eye. 12.Acute renal failure could be acute tubular necrosis from sepsis. 13.Moderate aortic regurgitation, mitral regurgitation, severe tricuspid regurgitation, nonrheumatic. 14.Moderate secondary pulmonary hypertension secondary to congestive heart failure and chronic obstructive pulmonary disease. 15.Normocytic anemia probably nutritional. 16.Hypocalcemia with decreased ionized calcium. 17.Thrombocytopenia from sepsis, expected to recover. PLAN: Continue current medication and treatment plan. Will give patient an amp of calcium gluconate. Other medication and treatment plan is to continue. Overall prognosis guarded. MMODL / IJN: [id number] /
[2017-09-09] MEDS: CALCIUM CARB-VIT D 500MG-200UN 1 EACH TAB PO SCH (19:11)
[2017-09-09] MEDS: LATANOPROST 0.005% OPHTH DROPS 2.5 ML BTL RIGHT EYE SCH (20:04)
[2017-09-09] MEDS: ATORVASTATIN 20 MG TAB PO SCH (20:05)
[2017-09-09] MEDS: POTASSIUM CHLORIDE ER 20 MEQ TAB.ER PO SCH ×2 (20:05→21:44)
[2017-09-09] MEDS ORDERED: LEVOFLOXACIN 750 MG TAB PO SCH (21:00)
[2017-09-10 07:06] LABS: Ionized Calcium 4.2 mg/dL (4.5-5.3)
[2017-09-10 07:09] LABS: Calcium 7.4 mg/dL (8.4-10.2); Magnesium 1.6 mg/dL (1.6-2.3); Phosphorus 3.5 mg/dL (2.5-4.5); Potassium 3.5 mmol/L (3.5-5.1)
[2017-09-10] MEDS ORDERED: Potassium Replacement Protocol 1 EACH MISC MISCELLANE PRN (07:30)
--- NOTE | 2017-09-10 07:37 | XR ---
EXAMINATION TYPE: XR chest 1V portable DATE OF EXAM: 09/10/2017 COMPARISON: Prior chest x-ray 09/09/2017 HISTORY: Respiratory failure, follow-up abnormal chest x-ray TECHNIQUE: Single frontal view of the chest is obtained. FINDINGS: Findings are similar to prior exam. Patient is rotated and there are overlying cardiac marleen ds. There is no pneumothorax. Heart remains enlarged. Bibasilar density obscures the hemidiaphragms. IMPRESSION: Probable basilar effusions and associated atelectasis, correlate to exclude pneumonia ve rsus edema. Cardiomegaly.
[2017-09-10] MEDS: IPRATROPIUM-ALBUTEROL 3 ML NEB INHALATION SCH ×4 (08:21→19:56)
--- NOTE | 2017-09-10 08:51 | P.PN ---
Subjective Progress Note Date: 09/10/17 This 87-year-old gentleman is admitted with sepsis. Patient blood culture positive for E. coli. His felt that most probably urinary tract infection is the source of positive blood cultures. His is extubated. He doesn't seem to be in acute distress. His echo Cardigan showed severely impaired LV function. Patient is being started on hydralazine and Imdur combination. Patient is already on Coreg. Rest of the medication to be continued. 09/08/2017: This patient seemed to be much better. Doesn't appear to be in acute distress. His blood pressures running about 110. He is tolerating medications. His continues to be on antibiotics. He is tolerating hydralazine and Imdur along with Coreg. Chest x-ray shows mild CHF and infiltrates. We'll continue current medical therapy. Possible transfer to telemetry unit. 09/09/2017: This patient seemed to be clinically very stable. No fevers. Doesn 't appear to be in acute distress. There is feeling fairly well. Dose of the diuretics was increased. Blood pressure stable. Lungs are clear. Patient is being treated for pneumonia and UTI. Patient also has cardiomyopathy and CHF. Overall patient condition stable. Waiting to be transferred to telemetry unit. 09/10/2017: The patient is doing well. His blood pressure is well maintained in the range of 1:30 systolic. Maintaining sinus rhythm. Doesn't appear to be in acute distress. I will increase the dose of the Coreg and hydralazine. Continue with rest of the management. Could be transferred to telemetry unit. Objective - Vital Signs Vital signs: Vital Signs Temp 98.3 F 09/10/17 04:00 Pulse 78 09/10/17 08:32 Resp 12 09/10/17 07:00 BP 127/44 09/10/17 07:00 Pulse Ox 99 09/10/17 07:00 Intake & Output 09/09/17 09/10/17 09/10/17 18:59 06:59 18:59 Intake Total 317.5 210 Output Total 500 2750 Balance -182.5 -2540 Weight 66.1 kg Intake: IV 97.5 Piperacillin-Tazobactam 3 37.5 .375 gm In Dextrose/Water 1 50ml.bag @ 12.5 mls/hr IVPB Q8HR [facility] Rx#: [id number] Sodium Chloride 0.9% 1, 60 000 ml @ 20 mls/hr IV . Q24H [facility] Rx#:[id number] Intake, IV Titration 100 Amount Potassium Chloride 10 meq 100 In Water For Injection 1 100ml.bag @ 100 mls/hr IVPB Q1H [facility] Rx#: [id number] Oral 120 210 Output: Urine 500 2750 Other: Voiding Method Indwelling Catheter Indwelling Catheter ABP, PAP, CO, CI - Last Documented Arterial Blood Pressure 152/39 - Exam GENERAL EXAM: Patient alert and oriented HEENT: Normocephalic. Normal reaction of pupils, equal size, normal range of extraocular motion. No erythema or exudates in the throat. NECK: No masses, no nuchal rigidity. CHEST: No chest wall deformity. LUNGS: [Diminished breath sounds at bases HEART: S1 and S2 normal ABDOMEN: No hepatosplenomegaly, normal bowel sounds, no guarding or rigidity. SKIN: No rashes CENTRAL NERVOUS SYSTEM: Deferred. EXTREMITIES: No cyanosis, clubbing or edema. - Labs CBC & Chem 7: 09/09/17 04:48 09/10/17 06:01 Labs: Abnormal Lab Results - Last 24 Hours (Table) 09/09/17 09/09/17 09/10/17 Range/Units 04:26 18:28 06:01 Potassium 3.2 L (3.5-5.1) mmol/L BUN 36 H (9-20) mg/dL Creatinine 1.40 H (0.66-1.25) mg/dL Calcium 7.4 L (8.4-10.2) mg/dL Ionized Calcium Maria Guadalupe 4.2 L (4.5-5.3) mg/dL PTH Intact 95.8 H (14.0-72.0) pg/mL Assessment and Plan (1) Sepsis Current Visit: Yes Status: Acute Code(s): A41.9 - SEPSIS, UNSPECIFIED ORGANISM SNOMED Code(s): 47381099 (2) UTI (urinary tract infection) Current Visit: Yes Status: Acute Code(s): N39.0 - URINARY TRACT INFECTION, SITE NOT SPECIFIED SNOMED Code(s): 11754672 (3) Community acquired pneumonia Current Visit: Yes Status: Acute Code(s): J18.9 - PNEUMONIA, UNSPECIFIED ORGANISM SNOMED Code(s): 139555606 (4) Aortic regurgitation Current Visit: Yes Status: Acute Code(s): I35.1 - NONRHEUMATIC AORTIC (VALVE ) INSUFFICIENCY SNOMED Code(s): 22734920 (5) Cardiomyopathy Current Visit: Yes Status: Acute Code(s): I42.9 - CARDIOMYOPATHY, UNSPECIFIED SNOMED Code(s): 56309638 (6) Systolic heart failure Current Visit: Yes Status: Acute Code(s): I50.20 - UNSPECIFIED SYSTOLIC ( CONGESTIVE) HEART FAILURE SNOMED Code(s): 877977902 Plan: Clinically stable. I will increase the dose of the Coreg. Rest of the medication to be continued. May be transferred to telemetry unit. I will repeat the echocardiogram to assess LV function.
[2017-09-10] MEDS: ENOXAPARIN 40 MG/0.4 ML SYRINGE SQ SCH (08:57)
[2017-09-10] MEDS: BRIMONIDINE TARTRATE 0.2% DROPS 5 ML BTL RIGHT EYE SCH ×2 (08:57→21:13)
[2017-09-10] MEDS: CALCIUM CARB-VIT D 500MG-200UN 1 EACH TAB PO SCH ×2 (08:57→17:11)
[2017-09-10] MEDS: PANTOPRAZOLE 40 MG TABLET PO SCH (08:58)
[2017-09-10] MEDS: CARVEDILOL 3.125 MG TAB PO SCH ×2 (08:58→17:11)
[2017-09-10] MEDS: hydrALAZINE HCL 25 MG TAB PO SCH ×2 (08:58→21:13)
[2017-09-10] MEDS: POTASSIUM CHLORIDE ER 20 MEQ TAB.ER PO SCH ×2 (08:58→10:22)
[2017-09-10] MEDS: ISOSORBIDE MONONITRATE ER 15 MG TAB PO SCH (08:58)
[2017-09-10] MEDS: metroNIDAZOLE 500 MG TAB NG-TUBE SCH (08:58)
[2017-09-10] MEDS: TIMOLOL 0.5% OPHTH DROPS 5 ML BTL RIGHT EYE SCH ×2 (08:59→21:14)
[2017-09-10] MEDS: FUROSEMIDE 10 MG/ML 4 ML VIAL IV SCH ×2 (08:59→21:13)
[2017-09-10] MEDS: MAGNESIUM SULFATE-D5W PMX 1 GM in DEXTROSE/WATER 1 100ML.BAG IVPB SCH ×2 (09:02→10:22)
[2017-09-10] MEDS: cefTRIAXone IN SWFI 2,000 MG/20 ML SYRINGE IVP SCH (09:03)
--- NOTE | 2017-09-10 12:20 | US ---
EXAMINATION TYPE: US chest DATE OF EXAM: 09/10/2017 COMPARISON: 09/05/2017 CLINICAL HISTORY: 87-year-old male Markings for thoracentesis by pulmonary staff. TECHNIQUE: Multiple sonographic images of the bilateral lower hemithoraces for assessment of pleural effusion. FINDINGS: EXAM MEASUREMENTS: Right Pleural Effusion fluid pocket size: 5.4 cm Right skin surface to fluid distance: 2.8 cm Left Pleural Effusion fluid pocket size: 6.6 cm Left skin surface to fluid distance: 2.9 cm Right side marked for possible thoracentesis outside the dept. Left side marked for possible thoracentesis outside the dept. Pulmonologists are able to review the images in the patient?s EMR. IMPRESSIONS: 1. Moderate left greater than right pleural effusions with adjacent atelectatic lung. 2. Markings performed.
--- NOTE | 2017-09-10 13:42 | P.PN ---
Subjective Progress Note Date: 09/10/17 Principal diagnosis: Acute hypoxic respiratory failure and septic shock This is an 87-year-old white male with history of multiple medical problems including dementia, coronary artery disease and previous myocardial infarction, aortic regurgitation, patient was last admitted to the hospital on 08/06 and discharged on 08/15/2017, and he was seen at the time by Dr. Madden on consultation. He was also seen by Dr. Springer. His last admission was related to GI bleeding felt to be upper GI source, EGD showed duodenal ulcer that was not bleeding at the time, and there was also evidence of bloody nidus and antral gastritis. His other issues at the time of admission included acute kidney injury, acute hyperkalemia, chronic hypoxic respiratory failure and COPD , osteogenesis imperfecta, and cachexia with protein calorie malnutrition, and his BMI was 20.1. At any rate patient was readmitted this time mostly with complaints of altered mental status, passing out, possible syncopal episode, shortness of breath, and profound weakness. The admitting physician was Dr. Salomon, follow the patient post admission, and he felt that the patient had pneumonia, and pleural effusion, he also raise the possibility of sepsis, and a parapneumonic effusion. Patient was placed empirically on Levaquin and Zosyn, he was also noted to have intermittent episodes of hypoglycemia requiring D 50. Last night, the patient's condition deteriorated, he became hypotensive, less responsive, and I was notified about the patient shortly after he arrived to the ICU. After reviewing the history with the nurse on the phone, I felt the patient needed to be intubated, he was quite lethargic at the time and hypotensive his blood sugar was also around 60. Patient did not improve much after 1 amp of D50, intubated, given fluid boluses, continue to have low blood pressure, hence I recommended starting norepinephrine drip. Empirically continued on antibiotics in the form of Levaquin and Zosyn. I was also notified that the blood cultures are positive for gram-negative bacilli. Today the patient remains on mechanical ventilation, his ventilator settings are tidal volume of 350 assist-control rate of 16 FiO2 of 40% PEEP of 5, is on levo fed at 3 mcg/m, propofol 15 mcg/kg/m, and IV fluid at 1 25 mL per hour in the form of 0.9 normal saline. Patient is sedated, opens eyes to verbal stimuli, unable to follow simple instructions. Hence I will keep him on mechanical ventilation, will start enteral feeding, and we will continue pressors to maintain a mean arterial pressure of 65. His urine output seems to be reasonable at this point. And he received about 3 L of fluid boluses overnight. Reevaluated today on 09/06/2017, patient remains on mechanical ventilation, his ventilator settings are unchanged except for increase in tidal volume up to 400. His FiO2 is down to 35%, his ABG was noted. PO2 of 129 pCO2 of 45 pH of 7.31. Patient continues to have significant leukocytosis with WBC count of 32.7 , hemoglobin is 7.7. Electrolytes were normal. BUN is 43 creatinine is 2.0. Calcium remains low, more calcium was given, and the patient is now on calcium carbonate via nasogastric tube. Patient remains on enteral feeding. He is on a small dose of norepinephrine being titrated, to maintain a mean arterial pressure of 65. Chest x-ray is showing evidence of interstitial edema and pleural effusions, hence Lasix will be given today. And his IV fluid will be cut down to KVO. Blood cultures were positive for gram-negative bacilli, and the patient is now on Levaquin and Zosyn. Patient denies any specific complaints, arousable, generally weak, follows simple instructions. Patient was reevaluated today on 09/07/2017, remains on mechanical ventilation, patient is awake, arousable, and noted to tolerate spontaneous breathing trial quite well on a pressure support of 8 and CPAP. Chest x-ray continues to show bilateral pleural effusions, and mild congestive changes, electrolytes were noted renal profile was noted BUN of 48 creatinine 1.70. ABG showed a pO2 of 131 pCO2 of 35 pH of 7.44 WBC count remains elevated at 24.5 hemoglobin is 8. Patient was given a weaning trial while I was at bedside, and he seemed to tolerate that quite well, hence I proceeded to extubating the patient. Reevaluated today on 09/08/2017, patient was extubated on 09/07/2017, seems to tolerate the extubation quite well. Patient is now on nasal cannula, in no form of respiratory distress. Patient feels great today. He is alert oriented , and denies any specific complaints. His WBC count is improving down to 22.2, hemoglobin is 8.2, electrolytes are improving, renal profile is improving with a BUN of 42 creatinine of 1.50. His urine output is excellent. Blood cultures and urine cultures were positive for E. coli. Chest x-ray continued to show bilateral pleural effusions, and by basilar atelectasis, possibility of pneumonia is not entirely ruled out, but I believe the primary source of this patient's sepsis is his urine since we were able to culture E. coli from both blood and urine. Patient remains on Zosyn and Levaquin. Reevaluated today on 09/09/2017, patient is doing clinically well, diuresing well , however he continues to have bilateral pleural effusions, and I have increased the Lasix today, and I plan to transfer the patient out of the ICU today. Patient is not in any form of distress. Relatively asymptomatic. Tolerating solid diet quite well. WBC count is 26.4 hemoglobin is 8.8. Electrolytes are improving BUN is improving down to 40 creatinine is improving down to 1.40. Patient is still receiving antibiotics for E. coli sepsis,/ septic shock bacteremia, and urinary tract infection. Reevaluated today on 09/10/2017, patient continues to do well, continues to diurese with Lasix, clinically he sounds and he feels much better, however his chest x-ray continues to show bilateral pleural effusions right more so than left. I did go ahead and order a repeat ultrasound, his previous ultrasound did not show that there was much fluid to safely tap. Labs were reviewed including his electrolytes, renal profile is basically the same with a BUN of 36 and creatinine is 1.40. Patient is still on treatment for E. coli sepsis bacteremia and urinary tract infection as well as septic shock secondary to E. coli. Objective - Vital Signs Vital signs: Vital Signs Temp 97.0 F L 09/10/17 12:00 Pulse 73 09/10/17 12:00 Resp 18 09/10/17 12:00 BP 119/57 09/10/17 12:00 Pulse Ox 97 09/10/17 12:00 Intake & Output 09/09/17 09/10/17 09/10/17 18:59 06:59 18:59 Intake Total 317.5 210 560 Output Total 500 2750 1500 Balance -182.5 -2540 -940 Weight 66.1 kg Intake: IV 97.5 Piperacillin-Tazobactam 3 37.5 .375 gm In Dextrose/Water 1 50ml.bag @ 12.5 mls/hr IVPB Q8HR [facility] Rx#: [id number] Sodium Chloride 0.9% 1, 60 000 ml @ 20 mls/hr IV . Q24H [facility] Rx#:[id number] Intake, IV Titration 100 200 Amount Magnesium Sulfate-D5w Pmx 200 1 gm In Dextrose/Water 1 100ml.bag @ 100 mls/hr IVPB Q1H [facility] Rx#: [id number] Potassium Chloride 10 meq 100 In Water For Injection 1 100ml.bag @ 100 mls/hr IVPB Q1H [facility] Rx#: [id number] Oral 120 210 360 Output: Urine 500 2750 1500 Other: Voiding Method Indwelling Catheter Indwelling Catheter Indwelling Catheter ABP, PAP, CO, CI - Last Documented Arterial Blood Pressure 152/39 - Exam Physical Exam: Revealed an 87-year-old white male, frail looking, in no distress , on few liters nasal cannula. Head: Atraumatic, normocephalic. HEENT: Moist mucous membranes. PERRLA, EOMI. [Neck is supple.] [No neck masses.] [No thyromegaly.] [No JVD.] Chest: minimal crackles and rhonchi at the bases. Symmetrical chest expansion noted..] Cardiac Exam: [Normal S1 and S2, no S3 gallop, 2/6 systolic murmur. Throughout the precordium.] Abdomen: [Soft, nontender, no megaly, no rebound, no guarding, normal bowel sounds.] Extremities: [No clubbing, trace of bipedal edema, no cyanosis.] Neurological Exam: Alert oriented, no gross focal neurologic deficit. Lymphatics: No lymphadenopathy. Psychiatric: Normal mood affect and mental status examination. - Labs CBC & Chem 7: 09/09/17 04:48 09/10/17 06:01 Labs: Abnormal Lab Results - Last 24 Hours (Table) 09/09/17 09/09/17 09/10/17 Range/Units 04:26 18:28 06:01 Potassium 3.2 L (3.5-5.1) mmol/L BUN 36 H (9-20) mg/dL Creatinine 1.40 H (0.66-1.25) mg/dL Calcium 7.4 L (8.4-10.2) mg/dL Ionized Calcium Maria Guadalupe 4.2 L (4.5-5.3) mg/dL PTH Intact 95.8 H (14.0-72.0) pg/mL Assessment and Plan Assessment: 1 acute E. coli sepsis and septic shock, and bacteremia, primary source is urine , acute urinary tract infection. Secondary to E. coli. 2 left lower lobe pneumonia is suspected, but not confirmed. Patient does have bilateral pleural effusions and atelectasis. 3 acute urinary tract infection 4 bilateral pleural effusions, could be cardiac or parapneumonic related. Remains unclear etiology. The size of the fluid is not large enough to consider thoracentesis at this point. Hence we'll continue to monitor, if the fluid size in largest may consider thoracentesis. May consider repeating the ultrasound of the chest, but the last one I looked at few days ago did not show enough fluid to safely perform thoracentesis. 5 acute metabolic encephalopathy from sepsis. Resolved 6 ischemic cardiomyopathy and ejection fraction of 40% 7 acute on chronic hypoxic respiratory failure, multifactorial, secondary to sepsis, COPD, and some component of systolic congestive heart failure. 8 acute tubular necrosis and acute kidney injury secondary to sepsis and septic shock. Improving 9 history of chronic obstructive pulmonary disease, patient is an ex-smoker. 10 osteoGenesis imperfecta 11 history of Alzheimer's dementia 12 cachexia with significant weight loss and total body protein calorie malnutrition, moderately severe, BMI is in the range of 16 13 history of upper GI bleeding secondary to duodenal ulcer 14 history of coronary artery disease and previous [place]. 15 recurrent episodes of hypoglycemia secondary to sepsis, serum cortisol level is pending doubt adrenal insufficiency. Recommendation: Continue present treatment plan, will transfer the patient out of the ICU today, we'll recommend ultrasound of the chest, and will follow closely. May or may not require thoracentesis. Time with Patient: Less than 30
[2017-09-10] MEDS: metroNIDAZOLE 500 MG TAB PO SCH ×2 (17:12→21:13)
[2017-09-10] MEDS: LATANOPROST 0.005% OPHTH DROPS 2.5 ML BTL RIGHT EYE SCH (21:12)
[2017-09-10] MEDS: ATORVASTATIN 20 MG TAB PO SCH (21:13)
[2017-09-10] MEDS ORDERED: CALCIUM CHLORIDE 1,000 MG in SODIUM CHLORIDE 0.9% 100 ML IVPB STA (22:25)
--- NOTE | 2017-09-10 22:41 | PN ---
PROGRESS NOTE DATE OF SERVICE: 09/10/2017 REASON FOR FOLLOW UP: E. coli bacteremia secondary to urinary source. INTERVAL HISTORY: The patient is afebrile. He seems to be awake, alert, breathing comfortably. Denies any chest pain. No cough. No abdominal pain. No nausea, vomiting, or any diarrhea. EXAMINATION: Blood pressure 159/65, pulse of 70, temperature 96.9. He is 92% on room air. General description is an elderly male lying in bed in no distress. RESPIRATORY DISTRESS: Unlabored breathing, clear to auscultation anteriorly. HEART: S1, S2. Regular rate and rhythm. ABDOMEN: Soft, no tenderness. Hemoglobin 8.8, white count of 26.4, BUN of 36, creatinine 1.40. DIAGNOSTIC IMPRESSION AND PLAN: Patient with an E. coli bacteremia secondary to urinary source that was a sensitive pathogen. Currently on Rocephin with persistently elevated white count. Question possible . Sputum positive Stephani. Add Diflucan and see response. Continue supportive care. MMODL / IJN: [id number] /
[2017-09-10] MEDS: FLUCONAZOLE 100 MG TAB PO SCH (22:54)
--- NOTE | 2017-09-10 23:21 | PN ---
PROGRESS NOTE DATE OF SERVICE: 09/10/17 PRESENTING COMPLAINT: Tired. INTERVAL HISTORY: Patient admitted with UTI with sepsis and positive blood cultures for E coli and pneumonia. Was on the ventilator. The patient moved out of ICU. Tolerating a diet. Edema still present. Did sit up on a chair. REVIEW OF SYSTEMS: Done for constitutional, cardiovascular, GI, pulmonary; relevant findings as above. CURRENT MEDICATIONS: Reviewed that include IV ceftriaxone, IV Lasix. PHYSICAL EXAMINATION: Temperature 96.9, pulse 72, respiratory 18, blood pressure 159/65, pulse ox 100% on room air. General appearance: Propped up lying in bed awake. Eyes pupils equal. Conjunctivae pale. HEENT external appearance of nose and ears. Oral cavity normal. Neck JVD not raised. Mass not palpable. Respiratory effort increased. Lungs decreased breath sounds. Cardiovascular 1st and 2nd sounds normal. Edema present. ABDOMEN: Soft, nontender. Liver and spleen not palpable. Psychiatry: Alert and oriented x3. Mood and affect normal. INVESTIGATIONS: Potassium 3.5, BUN 36, creatinine 1.40. Chest ultrasound: There is moderate left greater than right pleural effusion. ASSESSMENT: 1. Pneumonia, probably from gram-negative organism improved. 2. Acute urinary tract infection with sepsis with urine blood cultures positive for E coli. 3. Acute metabolic encephalopathy from sepsis on presentation, now resolved. 4. Coronary artery disease. 5. Ischemic cardiomyopathy ejection fraction 40%. 6. Chronic obstructive pulmonary disease in an ex-smoker. 7. Chronic hypoxic respiratory failure from underlying chronic obstructive pulmonary disease. 8. Acute hypoxic respiratory failure, status post being on the ventilator on nasal cannula. 9. Hyperlipidemia. 10.Osteogenesis imperfecta. 11.Alzheimer's dementia/mild cognitive impairment. 12.Decreased vision in the right eye. 13.Acute renal failure could be acute tubular necrosis from sepsis. 14.Moderate aortic regurgitation, mitral regurgitation, severe tricuspid regurgitation, nonrheumatic. 15.Moderate secondary pulmonary hypertension secondary to congestive heart failure and chronic obstructive pulmonary disease. 16.Normocytic anemia probably nutritional. 17.Hypocalcemia with decreased ionized calcium. 18.Thrombocytopenia from sepsis. 19.Secondary hyperparathyroidism from hypocalcemia. PLAN: The patient is given an amp of calcium chloride yesterday. IV Lasix to continue. Also getting antibiotics antibiotic. The patient's ionized calcium remains low at 4.22. The patient's vitamin D has come back to be normal and parathyroid hormone come back to be increased. MMODL / IJN: [id number] /
[2017-09-11] MEDS: CARVEDILOL 3.125 MG TAB PO SCH ×2 (06:09→15:22)
[2017-09-11] MEDS: PANTOPRAZOLE 40 MG TABLET PO SCH (06:09)
[2017-09-11] MEDS: CALCIUM CARB-VIT D 500MG-200UN 1 EACH TAB PO SCH ×2 (06:09→15:22)
[2017-09-11] MEDS: IPRATROPIUM-ALBUTEROL 3 ML NEB INHALATION SCH ×4 (06:51→19:54)
[2017-09-11] MEDS: ENOXAPARIN 40 MG/0.4 ML SYRINGE SQ SCH (08:12)
[2017-09-11] MEDS: BRIMONIDINE TARTRATE 0.2% DROPS 5 ML BTL RIGHT EYE SCH ×2 (08:12→20:24)
[2017-09-11] MEDS: hydrALAZINE HCL 25 MG TAB PO SCH ×2 (08:13→20:24)
[2017-09-11] MEDS: ISOSORBIDE MONONITRATE ER 15 MG TAB PO SCH (08:13)
[2017-09-11] MEDS: FLUCONAZOLE 100 MG TAB PO SCH (08:13)
[2017-09-11] MEDS: FUROSEMIDE 10 MG/ML 4 ML VIAL IV SCH ×2 (08:13→20:23)
[2017-09-11] MEDS: TIMOLOL 0.5% OPHTH DROPS 5 ML BTL RIGHT EYE SCH ×2 (08:14→20:24)
[2017-09-11] MEDS: cefTRIAXone IN SWFI 2,000 MG/20 ML SYRINGE IVP SCH (08:26)
--- NOTE | 2017-09-11 14:25 | P.PN ---
Subjective Progress Note Date: 09/11/17 Principal diagnosis: Pneumonia, syncope, weakness Progress note dated 09/11/2017 This is a 87-year-old black male with a history of E. coli sepsis with septic shock thought be secondary to urinary tract source. In addition, the patient was thought to have left lower lobe pneumonia. In addition, the patient has a history of bilateral effusions acute metabolic encephalopathy secondary to sepsis ischemic cardiomyopathy with an ejection fraction of 40% acute on chronic hypoxemic respiratory failure secondary to COPD and systolic heart failure ATN osteogenesis imperfecta dementia anorexia/cachexia syndrome upper GI bleeding CAD and multiple episodes of hypoglycemia. Currently the patient's doing relatively well. Was in the unit on the mechanical ventilator. Seemed to be relatively stable this time. Nasal O2 in place. Sitting at the bedside. No distress noted. The patient is not a particularly good historian. Again doesn't appear to be in any distress at this time. Seen by my partner yesterday. The patient did have an ultrasound of the chest done. He was in the ICU up until yesterday. Objective - Vital Signs Vital signs: Vital Signs Temp 98.3 F 09/11/17 08:00 Pulse 77 09/11/17 12:00 Resp 16 09/11/17 12:00 BP 135/61 09/11/17 12:00 Pulse Ox 98 09/11/17 12:00 Intake & Output 09/10/17 09/11/17 09/11/17 18:59 06:59 18:59 Intake Total 920 680 Output Total 1500 1400 Balance -580 -1400 680 Weight 65.5 kg 65.5 kg Intake: Intake, IV Titration 200 Amount Magnesium Sulfate-D5w Pmx 200 1 gm In Dextrose/Water 1 100ml.bag @ 100 mls/hr IVPB Q1H [facility] Rx#: [id number] Oral 720 680 Output: Urine 1500 1400 Stool 0 Other: Voiding Method Indwelling Catheter Indwelling Catheter Indwelling Catheter ABP, PAP, CO, CI - Last Documented Arterial Blood Pressure 152/39 - Exam Physical Exam: Revealed an 87-year-old white male, frail looking, in no distress , on few liters nasal cannula. Head: Atraumatic, normocephalic. HEENT: Moist mucous membranes. PERRLA, EOMI. [Neck is supple.] [No neck masses.] [No thyromegaly.] [No JVD.] Chest: minimal crackles and rhonchi at the bases. Symmetrical chest expansion noted..] Cardiac Exam: [Normal S1 and S2, no S3 gallop, 2/6 systolic murmur. Throughout the precordium.] Abdomen: [Soft, nontender, no megaly, no rebound, no guarding, normal bowel sounds.] Extremities: [No clubbing, trace of bipedal edema, no cyanosis.] Neurological Exam: Alert oriented, no gross focal neurologic deficit. Lymphatics: No lymphadenopathy. Psychiatric: Normal mood affect and mental status examination. - Labs CBC & Chem 7: 09/09/17 04:48 09/10/17 13:07 Assessment and Plan Assessment: Assessment 1 acute E. coli sepsis and septic shock, and bacteremia, primary source is urine , acute urinary tract infection. Secondary to E. coli. 2 left lower lobe pneumonia is suspected, but not confirmed. Patient does have bilateral pleural effusions and atelectasis. 3 acute urinary tract infection 4 bilateral pleural effusions, could be cardiac or parapneumonic related. Remains unclear etiology. The size of the fluid is not large enough to consider thoracentesis at this point. Hence we'll continue to monitor, if the fluid size in largest may consider thoracentesis. May consider repeating the ultrasound of the chest, but the last one I looked at few days ago did not show enough fluid to safely perform thoracentesis. 5 acute metabolic encephalopathy from sepsis. Resolved 6 ischemic cardiomyopathy and ejection fraction of 40% 7 acute on chronic hypoxic respiratory failure, multifactorial, secondary to sepsis, COPD, and some component of systolic congestive heart failure. 8 acute tubular necrosis and acute kidney injury secondary to sepsis and septic shock. Improving 9 history of chronic obstructive pulmonary disease, patient is an ex-smoker. 10 osteoGenesis imperfecta 11 history of Alzheimer's dementia 12 cachexia with significant weight loss and total body protein calorie malnutrition, moderately severe, BMI is in the range of 16 13 history of upper GI bleeding secondary to duodenal ulcer 14 history of coronary artery disease and previous [place]. 15 recurrent episodes of hypoglycemia secondary to sepsis, serum cortisol level is pending doubt adrenal insufficiency. Plan: Plan dated 09/11/2017 We will continue supportive care. This will include antibiotics bronchodilators diuretics GI DVT prophylaxis. The patient was transferred out of the ICU yesterday. Seemed relatively stable today. Meds labs and x-rays are all reviewed. Additional recommendations and suggestions forthcoming. Prognosis is very guarded given his plethora of medical problems. Time with Patient: Less than 30
[2017-09-11] MEDS ORDERED: ACETAMINOPHEN TAB 325 MG TAB PO PRN (14:54)
--- NOTE | 2017-09-11 15:52 | P.PN ---
Subjective Progress Note Date: 09/11/17 This is a 87-year-old gentleman with history of hypertension, dyslipidemia, and also aortic regurgitation who is admitted to the hospital with complaints of altered mental status, weakness and shortness of breath. Patient was initially admitted to the hospital with a diagnosis of pneumonia and possible CHF. Apparently patient became hypotensive and more unresponsive on the floor and was transferred to intensive care unit. Patient was intubated and her on respirator since last night. Apparently he is also found to have evidence of urinary tract infection and also gram-negative bacteremia. His lactic acid is high. He is being treated with antibiotics and also IV fluids. His chest x- ray showed evidence of possible pneumonia and atelectasis. No arrhythmias are detected. 1. Troponin values mildly abnormal. This picture is more consistent with sepsis. We'll continue with current management. I'll obtain an echocardiogram to assess LV function and also aortic regurgitation. Further recommendations depend upon clinical course. Prognosis is guarded. 09/11/2017 Patient was seen and examined this morning, sitting up in the chair at bedside. Continues to have significant amount of bilateral peripheral edema. Maintaining in normal sinus rhythm. At pressure 134/60 with a heart rate in the 80s, 98% on room air. Sodium 144, potassium 4.0 136, creatinine 1.4, magnesium 1.6. Patient continues to be on IV Lasix. Objective - Vital Signs Vital signs: Vital Signs Temp 98.3 F 09/11/17 08:00 Pulse 82 09/11/17 15:40 Resp 16 09/11/17 12:00 BP 135/61 09/11/17 12:00 Pulse Ox 98 09/11/17 12:00 Intake & Output 09/10/17 09/11/17 09/11/17 18:59 06:59 18:59 Intake Total 920 680 Output Total 1500 1400 Balance -580 -1400 680 Weight 65.5 kg 65.5 kg Intake: Intake, IV Titration 200 Amount Magnesium Sulfate-D5w Pmx 200 1 gm In Dextrose/Water 1 100ml.bag @ 100 mls/hr IVPB Q1H [facility] Rx#: [id number] Oral 720 680 Output: Urine 1500 1400 Stool 0 Other: Voiding Method Indwelling Catheter Indwelling Catheter Indwelling Catheter ABP, PAP, CO, CI - Last Documented Arterial Blood Pressure 152/39 - Exam PHYSICAL EXAMINATION: HEENT: Head is atraumatic, normocephalic. Pupils equal, round. Neck is supple. There is no elevated jugular venous pressure. HEART EXAMINATION: Heart S1, S2 normal. No murmur or gallop heard. CHEST EXAMINATION: Lungs are clear with diminished air entry to the bases. ABDOMEN: Soft, nontender. Bowel sounds are heard. No organomegaly noted. EXTREMITIES: 2+ peripheral pulses with 2-3 + evidence of peripheral edema and no calf tenderness noted. NEUROLOGIC patient is awake, alert and oriented -3. . - Labs CBC & Chem 7: 09/09/17 04:48 09/10/17 13:07 Assessment and Plan Plan: Assessment and plan #1 acute E. coli sepsis with septic shock #2 left lower lobe pneumonia #3 bilateral pleural effusions, revealed a left-sided effusion of 6 cm #4 ischemic cardiomyopathy #5 systolic congestive heart failure acute on chronic #6 acute tubular necrosis #7 COPD #8 Alzheimer's Plan From cardiology's perspective, we will recommend to continue the patient on the current medications he is on. We will also obtain a limited echocardiogram with Doppler study to assess the patient's LV function and see if there is been any improvement. Further recommendations will be based on these findings and the patient's clinical course. DNP note has been reviewed, I agree with a documented findings and plan of care. Patient was seen and examined.
--- NOTE | 2017-09-11 17:06 | PN ---
PROGRESS NOTE DATE OF SERVICE: 09/11/2017 PRESENTING COMPLAINT: Tired. INTERVAL HISTORY: Patient was admitted with UTI with sepsis and positive blood cultures for E coli, pneumonia. Patient is status post being on a ventilator. Tolerating a diet. Sitting up on a chair. Edema still present. REVIEW OF SYSTEMS: Done for constitutional, cardiovascular, GI, pulmonary; relevant findings as above. CURRENT MEDICATIONS: Reviewed. They include IV ceftriaxone, IV Lasix. PHYSICAL EXAMINATION: Temperature 98.3, pulse 77, respiration 16, blood pressure 149/66, pulse ox 96% on room air. GENERAL APPEARANCE: Sitting up in a chair, comfortable. EYES: Pupils equal. Conjunctivae pale. HEENT: External appearance of nose and ears normal. Oral cavity normal. NECK: JVD not raised. Mass not palpable. RESPIRATORY: Effort increased. LUNGS: Decreased breath sounds. CARDIOVASCULAR: First and second sounds normal. Edema present. ABDOMEN: Soft, nontender. Liver and spleen not palpable. PSYCHIATRY: Awake, answering questions appropriately. INVESTIGATIONS: Potassium 3.5, BUN 36, creatinine 1.40. ASSESSMENT: 1. Pneumonia, probably from Gram-negative organism, improved. 2. Acute urinary tract infection with sepsis with urine and blood cultures both positive for Escherichia coli. 3. Acute metabolic encephalopathy from sepsis on presentation, now resolved. 4. Coronary artery disease. 5. Ischemic cardiomyopathy; ejection fraction 40%. 6. Chronic obstructive pulmonary disease in an ex-smoker. 7. Chronic hypoxic respiratory failure from underlying chronic obstructive pulmonary disease. 8. Acute hypoxic respiratory failure, status post being on a ventilator. 9. Hyperlipidemia. 10.Osteogenesis imperfecta. 11.Mild cognitive impairment from Alzheimer's dementia. 12.Decreased vision in the right eye. 13.Acute renal failure; could be acute tubular necrosis from sepsis. 14.Moderate aortic regurgitation, mitral regurgitation, severe tricuspid regurgitation, non-rheumatic. 15.Moderate secondary pulmonary hypertension secondary to congestive heart failure and chronic obstructive pulmonary disease. 16.Normocytic anemia, probably nutritional. 17.Hypocalcemia and decreased ionized calcium. 18.Thrombocytopenia from sepsis. 19.Secondary hyperparathyroidism from hypocalcemia. PLAN: Patient is getting calcium supplementations. Continue current medication and treatment plan. Patient is put on Os-Jere with vitamin D. IV antibiotics per Dr. Baker. He is also having the patient on Diflucan. Patient remains on IV Lasix. Will follow. MMODL / IJN: [id number] /
--- NOTE | 2017-09-11 18:50 | ECHOF ---
Referral Reason:limited echo MEASUREMENTS -------- HEIGHT: 172.7 cm WEIGHT: 65.3 kg BP: 135/61 RVIDd: 2.5 cm (< 3.3) IVSd: 1.1 cm (0.6 - 1.1) LVIDd: 5.9 cm (3.9 - 5.3) LVPWd: 1.3 cm (0.6 - 1.1) IVSs: 1.6 cm LVIDs: 4.3 cm LVPWs: 1.6 cm LAESV Index (A-L): 75.25 ml/m FINDINGS -------- Sinus rhythm. This was a technically good study. Limited Study for assessment of left ventricular function. The left ventricle is mildly dilated. There is mild concentric left ventricular hypertrophy. Ther e is mild global hypokinesis of LV . Overall left ventricular systolic function is moderately impai red with, an EF between 35 - 40 %. There is a small, generalized pericardial effusion present. Large Pleural Effusion. CONCLUSIONS -------- 1. Sinus rhythm. 2. This was a technically good study. 3. Limited Study for assessment of left ventricular function. 4. The left ventricle is mildly dilated. 5. There is mild concentric left ventricular hypertrophy. 6. There is mild global hypokinesis of LV . 7. Overall left ventricular systolic function is moderately impaired with, an EF between 35 - 40 %. 8. There is a small, generalized pericardial effusion present. 9. Large Pleural Effusion. BUTTON MAKER: Matt Chun [facility]
[2017-09-11] MEDS: ATORVASTATIN 20 MG TAB PO SCH (20:23)
[2017-09-11] MEDS: LATANOPROST 0.005% OPHTH DROPS 2.5 ML BTL RIGHT EYE SCH (20:24)
--- NOTE | 2017-09-11 20:45 | PN ---
PROGRESS NOTE DATE OF SERVICE: 09/11/2017. REASON FOR FOLLOWUP: E coli bacteremia secondary to urinary source. INTERVAL HISTORY: The patient is afebrile. He is awake, alert, breathing comfortably. Denies having any chest pain or any cough. No abdominal pain or any diarrhea. PHYSICAL EXAMINATION: Blood pressure is 130/66 with a pulse of 82, temperature of 98.3. He is 96% on room air. General description is an elderly male lying in bed in no distress. RESPIRATORY SYSTEM: Unlabored breathing. Clear to auscultation anteriorly. HEART: S1, S2. Regular rate and rhythm. ABDOMEN: Soft. No tenderness. EXTREMITIES: No edema of the feet. LABS: No new labs have been obtained today. DIAGNOSTIC IMPRESSION AND PLAN: Patient with Escherichia coli bacteremia secondary to urinary source. Patient to continue with Rocephin with a plan to finish therapy with oral antibiotics. Check a CBC tomorrow. Continue with supportive care. MMODL / IJN: [id number] /
[2017-09-12] MEDS: CALCIUM CARB-VIT D 500MG-200UN 1 EACH TAB PO SCH ×2 (06:13→15:22)
[2017-09-12] MEDS: CARVEDILOL 3.125 MG TAB PO SCH ×2 (06:13→15:22)
[2017-09-12] MEDS: PANTOPRAZOLE 40 MG TABLET PO SCH (06:13)
[2017-09-12 07:26] LABS: Basophils # (A) 0.1 k/uL (0-0.2); Basophils % (A) 0 %; Eosinophils % (A) 0 %; HCT 26.5 % (39.0-53.0); HGB 8.2 gm/dL (13.0-17.5); Hypochromasia Moderate; Lymphocytes # (A) 1.2 k/uL (1.0-4.8); Lymphocytes % (A) 4 %; MCH 28.3 pg (25.0-35.0); MCHC 31.1 g/dL (31.0-37.0); Mean Platelet Volume 8.6; Monocytes % (A) 4 %; Neutrophils # (A) 25.7 k/uL (1.3-7.7); Neutrophils % (A) 90 %; Platelet Count 252 k/uL (150-450); RBC 2.91 m/uL (4.30-5.90); RDW 15.2 % (11.5-15.5)
[2017-09-12 07:32] LABS: WBC 28.5 k/uL (3.8-10.6)
[2017-09-12 07:46] LABS: Potassium 3.3 mmol/L (3.5-5.1)
[2017-09-12] MEDS: ISOSORBIDE MONONITRATE ER 15 MG TAB PO SCH (08:14)
[2017-09-12] MEDS: FUROSEMIDE 10 MG/ML 4 ML VIAL IV SCH ×2 (08:14→20:03)
[2017-09-12] MEDS: FLUCONAZOLE 100 MG TAB PO SCH (08:14)
[2017-09-12] MEDS: hydrALAZINE HCL 25 MG TAB PO SCH ×2 (08:14→20:04)
[2017-09-12] MEDS: TIMOLOL 0.5% OPHTH DROPS 5 ML BTL RIGHT EYE SCH ×2 (08:15→20:04)
[2017-09-12] MEDS: BRIMONIDINE TARTRATE 0.2% DROPS 5 ML BTL RIGHT EYE SCH ×2 (08:17→20:04)
[2017-09-12] MEDS: cefTRIAXone IN SWFI 2,000 MG/20 ML SYRINGE IVP SCH (08:19)
[2017-09-12] MEDS: IPRATROPIUM-ALBUTEROL 3 ML NEB INHALATION SCH ×4 (08:35→20:51)
[2017-09-12] MEDS: ENOXAPARIN 40 MG/0.4 ML SYRINGE SQ SCH (08:37)
[2017-09-12 09:00] LABS: Poikilocytosis (M) Present; Toxic Granulation Present
--- NOTE | 2017-09-12 11:14 | P.PN ---
Subjective Progress Note Date: 09/12/17 Principal diagnosis: Pneumonia, syncope, weakness Progress note dated 09/11/2017 This is a 87-year-old black male with a history of E. coli sepsis with septic shock thought be secondary to urinary tract source. In addition, the patient was thought to have left lower lobe pneumonia. In addition, the patient has a history of bilateral effusions acute metabolic encephalopathy secondary to sepsis ischemic cardiomyopathy with an ejection fraction of 40% acute on chronic hypoxemic respiratory failure secondary to COPD and systolic heart failure ATN osteogenesis imperfecta dementia anorexia/cachexia syndrome upper GI bleeding CAD and multiple episodes of hypoglycemia. Currently the patient's doing relatively well. Was in the unit on the mechanical ventilator. Seemed to be relatively stable this time. Nasal O2 in place. Sitting at the bedside. No distress noted. The patient is not a particularly good historian. Again doesn't appear to be in any distress at this time. Seen by my partner yesterday. The patient did have an ultrasound of the chest done. He was in the ICU up until yesterday. Progress note dated 09/12/2017 87-year-old black male with a history of E. coli sepsis and septic shock. The source was thought to be the urinary tract. The patient was thought to have a left lower lobe pneumonia as well. In addition, he had bilateral effusions, acute metabolic encephalopathy secondary to sepsis, ischemic cardiomyopathy, ejection fraction of 40%, acute on chronic hypoxemic respiratory failure secondary to COPD, systolic heart failure, ATN, osteogenesis imperfecta, dementia, anorexia/cachexia syndrome, upper GI bleed, CAD and multiple episodes of hypoglycemia. The patient initially was very sick and intubated on the mechanical ventilator in the intensive care unit. The patient is very weak at this time. Very poor historian. Will likely have to be discharged to some [facility] rehab facility. Overall, given his age and is plethora of medical problems , his overall prognosis is very poor. Objective - Vital Signs Vital signs: Vital Signs Temp 97 F L 09/12/17 04:00 Pulse 86 09/12/17 08:45 Resp 18 09/12/17 08:37 BP 110/70 09/12/17 04:00 Pulse Ox 95 09/12/17 04:00 Intake & Output 09/11/17 09/12/17 09/12/17 18:59 06:59 18:59 Intake Total 680 200 240 Output Total 1600 0 Balance 680 -1400 240 Weight 65.5 kg 65 kg Intake: Oral 680 200 240 Output: Urine 1600 Uretheral (Morton) 400 Stool 0 0 Other: Voiding Method Indwelling Catheter Indwelling Catheter Indwelling Catheter # Voids 0 ABP, PAP, CO, CI - Last Documented Arterial Blood Pressure 152/39 - Exam Physical Exam: Revealed an 87-year-old white male, frail looking, in no distress , on few liters nasal cannula. Head: Atraumatic, normocephalic. HEENT: Moist mucous membranes. PERRLA, EOMI. [Neck is supple.] [No neck masses.] [No thyromegaly.] [No JVD.] Chest: minimal crackles and rhonchi at the bases. Symmetrical chest expansion noted..] Cardiac Exam: [Normal S1 and S2, no S3 gallop, 2/6 systolic murmur. Throughout the precordium.] Abdomen: [Soft, nontender, no megaly, no rebound, no guarding, normal bowel sounds.] Extremities: [No clubbing, trace of bipedal edema, no cyanosis.] Neurological Exam: Alert oriented, no gross focal neurologic deficit. Lymphatics: No lymphadenopathy. Psychiatric: Normal mood affect and mental status examination. - Labs CBC & Chem 7: 09/12/17 06:49 09/12/17 06:49 Labs: Abnormal Lab Results - Last 24 Hours (Table) 09/12/17 09/12/17 Range/Units 06:49 06:49 WBC 28.5 H* (3.8-10.6) k/uL RBC 2.91 L (4.30-5.90) m/uL Hgb 8.2 L (13.0-17.5) gm/dL Hct 26.5 L (39.0-53.0) % Neutrophils # 25.7 H (1.3-7.7) k/uL Potassium 3.3 L (3.5-5.1) mmol/L Carbon Dioxide 32 H (22-30) mmol/L BUN 33 H (9-20) mg/dL Glucose 70 L (74-99) mg/dL Calcium 7.0 L (8.4-10.2) mg/dL Assessment and Plan Assessment: Assessment 1 acute E. coli sepsis and septic shock, and bacteremia, primary source is urine , acute urinary tract infection, secondary to E. coli. 2 left lower lobe pneumonia is suspected, but not confirmed. Patient does have bilateral pleural effusions and atelectasis. 3 acute urinary tract infection 4 bilateral pleural effusions, could be cardiac or parapneumonic related. Remains unclear etiology. The size of the fluid is not large enough to consider thoracentesis at this point. Hence we'll continue to monitor, if the fluid size in largest may consider thoracentesis. May consider repeating the ultrasound of the chest, but the last one I looked at few days ago did not show enough fluid to safely perform thoracentesis. 5 acute metabolic encephalopathy from sepsis. Resolved 6 ischemic cardiomyopathy and ejection fraction of 40% 7 acute on chronic hypoxic respiratory failure, multifactorial, secondary to sepsis, COPD, and some component of systolic congestive heart failure. 8 acute tubular necrosis and acute kidney injury secondary to sepsis and septic shock. Improving 9 history of chronic obstructive pulmonary disease, patient is an ex-smoker. 10 osteogenesis imperfecta 11 history of Alzheimer's dementia 12 cachexia with significant weight loss and total body protein calorie malnutrition, moderately severe, BMI is in the range of 16 13 history of upper GI bleeding secondary to duodenal ulcer 14 history of coronary artery disease and previous VT. 15 recurrent episodes of hypoglycemia secondary to sepsis, serum cortisol level is pending doubt adrenal insufficiency. Plan: Plan dated 09/11/2017 We will continue supportive care. This will include antibiotics bronchodilators diuretics GI DVT prophylaxis. The patient was transferred out of the ICU yesterday. Seemed relatively stable today. Meds labs and x-rays are all reviewed. Additional recommendations and suggestions forthcoming. Prognosis is very guarded given his plethora of medical problems. Plan dated 09/12/2017 The patient appears to be very frail. Very sleepy and lethargic. We'll continue with supportive care. White count is 28.5 hemoglobin 8.2 hematocrit 26.5 and platelet count is normal. Sodium is 140 potassium 3.3 chloride is 102 CO2 32 BUN/creatinine were 33 and 1.14. The patient refuses additional procedures including thoracentesis at this time. We will continue to follow. Prognosis is very poor. CODE STATUS should be addressed. I feel the patient should be a no code at the very least. Time with Patient: Less than 30
[2017-09-12] MEDS: POTASSIUM CHLORIDE ER 20 MEQ TAB.ER PO SCH ×2 (15:22→17:26)
--- NOTE | 2017-09-12 15:36 | P.PN ---
Subjective Progress Note Date: 09/12/17 This is a 87-year-old gentleman with history of hypertension, dyslipidemia, and also aortic regurgitation who is admitted to the hospital with complaints of altered mental status, weakness and shortness of breath. Patient was initially admitted to the hospital with a diagnosis of pneumonia and possible CHF. Apparently patient became hypotensive and more unresponsive on the floor and was transferred to intensive care unit. Patient was intubated and her on respirator since last night. Apparently he is also found to have evidence of urinary tract infection and also gram-negative bacteremia. His lactic acid is high. He is being treated with antibiotics and also IV fluids. His chest x- ray showed evidence of possible pneumonia and atelectasis. No arrhythmias are detected. 1. Troponin values mildly abnormal. This picture is more consistent with sepsis. We'll continue with current management. I'll obtain an echocardiogram to assess LV function and also aortic regurgitation. Further recommendations depend upon clinical course. Prognosis is guarded. 09/11/2017 Patient was seen and examined this morning, sitting up in the chair at bedside. Continues to have significant amount of bilateral peripheral edema. Maintaining in normal sinus rhythm. At pressure 134/60 with a heart rate in the 80s, 98% on room air. Sodium 144, potassium 4.0 136, creatinine 1.4, magnesium 1.6. Patient continues to be on IV Lasix. 09/12/2017 Patient seen and examined this morning, lying in bed. Not wanting to get up with physical therapy today. His edema is significantly improved today and he has bilateral Abel wraps in place. Blood pressure 148/60 with a heart rate in the 70s to 80s, 96% on room air. White blood cell count is up to 28,000, hemoglobin 8.2, platelet count 252. Sodium 140, potassium 3.3, BUN 33, creatinine 1.1. Continues to diurese on IV Lasix. We will repeat a chest x- ray tomorrow. We did do a limited echocardiogram with Doppler study to reevaluate the LV function, continues to be 35-40%. Objective - Vital Signs Vital signs: Vital Signs Temp 98.2 F 09/12/17 11:00 Pulse 84 09/12/17 11:36 Resp 18 09/12/17 11:00 BP 148/65 09/12/17 11:00 Pulse Ox 96 09/12/17 11:00 Intake & Output 09/11/17 09/12/17 09/12/17 18:59 06:59 18:59 Intake Total 680 200 480 Output Total 1600 800 Balance 680 -1400 -320 Weight 65.5 kg 65 kg Intake: Oral 680 200 480 Output: Urine 1600 800 Uretheral (Morton) 400 Stool 0 0 Other: Voiding Method Indwelling Catheter Indwelling Catheter Indwelling Catheter # Voids 0 ABP, PAP, CO, CI - Last Documented Arterial Blood Pressure 152/39 - Exam PHYSICAL EXAMINATION: HEENT: Head is atraumatic, normocephalic. Pupils equal, round. Neck is supple. There is no elevated jugular venous pressure. HEART EXAMINATION: Heart S1, S2 normal. No murmur or gallop heard. CHEST EXAMINATION: Lungs are clear with diminished air entry to the bases. ABDOMEN: Soft, nontender. Bowel sounds are heard. No organomegaly noted. EXTREMITIES: 2+ peripheral pulses with 1 + evidence of peripheral edema and no calf tenderness noted. Lateral Abel wraps in place NEUROLOGIC patient is awake, alert and oriented -3. . - Labs CBC & Chem 7: 09/12/17 06:49 09/12/17 06:49 Labs: Abnormal Lab Results - Last 24 Hours (Table) 09/12/17 09/12/17 Range/Units 06:49 06:49 WBC 28.5 H* (3.8-10.6) k/uL RBC 2.91 L (4.30-5.90) m/uL Hgb 8.2 L (13.0-17.5) gm/dL Hct 26.5 L (39.0-53.0) % Neutrophils # 25.7 H (1.3-7.7) k/uL Potassium 3.3 L (3.5-5.1) mmol/L Carbon Dioxide 32 H (22-30) mmol/L BUN 33 H (9-20) mg/dL Glucose 70 L (74-99) mg/dL Calcium 7.0 L (8.4-10.2) mg/dL Assessment and Plan Plan: Assessment and plan #1 acute E. coli sepsis with septic shock #2 left lower lobe pneumonia #3 bilateral pleural effusions, revealed a left-sided effusion of 6 cm #4 ischemic cardiomyopathy #5 systolic congestive heart failure acute on chronic #6 acute tubular necrosis #7 COPD #8 Alzheimer's Plan From cardiology's perspective, we will recommend to continue the patient on the current medications he is on. We will repeat a chest x-ray tomorrow morning, continue to monitor intake and output and daily weights. DNP note has been reviewed, I agree with a documented findings and plan of care. Patient was seen and examined.
--- NOTE | 2017-09-12 16:05 | US ---
EXAMINATION TYPE: US renals and bladder DATE OF EXAM: 09/12/2017 COMPARISON: CT abdomen pelvis 09/06/2017 CLINICAL HISTORY: renal abscess, previous abnormal CT abdomen pelvis. Bladder michaels. Poor historian. EXAM MEASUREMENTS: Right Kidney: 9.0 x 4.1 x 4.0 cm Left Kidney: 8.7 x 4.3 x 4.6 cm Limited exam due to patient unable to turn and overlying bowel gas Right Kidney: Two cystic appearing lesions seen. 1: upper pole = 3.8 x 4.0 x 3.6 cm. 2: mid/medial = 1.1 x 1.5 x 1.2 cm Left Kidney: No prominent masses or lesions identified in portions seen. Inferior pole obscured by karri wel gas Bladder: Nondistended. Michaels seen. Bladder wall - 1.2 cm Bilateral Jets seen: Unable to visualized due to michaels Fluid seen adjacent to spleen and in midline pelvic region. Left pleural effusion noted incidental ly Cystic foci within the right kidney show imperceptible wall, increased through transmission, are anec hoic. These findings are compatible with simple cysts. IMPRESSION: Exam is limited. Simple cysts are associated with the right kidney. Pleural effusion. Small amount of ascites suspected. Bladder is catheterized. Left kidney is poorly seen.
[2017-09-12] MEDS: PIPERACILLIN-TAZOBACTAM 3.375 GM in DEXTROSE/WATER 1 50ML.BAG IVPB SCH ×2 (17:25→23:09)
[2017-09-12] MEDS: ATORVASTATIN 20 MG TAB PO SCH (20:03)
[2017-09-12] MEDS: LATANOPROST 0.005% OPHTH DROPS 2.5 ML BTL RIGHT EYE SCH (20:04)
--- NOTE | 2017-09-12 20:38 | PN ---
PROGRESS NOTE DATE OF SERVICE: 09/12/2017 REASON FOR FOLLOWUP: 1. E coli bacteremia secondary to urinary source. 2. Unexplained elevated white count. INTERVAL HISTORY: The patient is afebrile. He is breathing comfortably. Denies having any chest pain or shortness of breath or cough. No abdominal pain. The patient continues to have a Morton catheter because of retention. No diarrhea. PHYSICAL EXAMINATION: Blood pressure is 141/55 with a pulse of 92, temperature 97.7. He is 97% on room air. General description is an elderly male lying in bed in no distress. RESPIRATORY SYSTEM: Unlabored breathing. Clear to auscultation anteriorly. HEART: S1, S2. Regular rate and rhythm. ABDOMEN: Soft. No tenderness. EXTREMITIES: No edema of the feet. LABS: Hemoglobin 8.2 with a white count of 28.5. BUN of 33, creatinine 1.14. DIAGNOSTIC IMPRESSION AND PLAN: Patient with an Escherichia coli bacteremia secondary to urinary source, for which the patient has been on the antibiotic on the basis of sensitivity of this pathogen; however, the patient did have a jump in the white count with no localizing source of infection. No diarrhea. Repeat urine culture has been ordered. Will check an ultrasound of the kidneys and area. antibiotic therapy to Zosyn. Repeat CBC tomorrow. Continue with supportive care. MMODL / IJN: [id number] /
--- NOTE | 2017-09-12 22:39 | PN ---
PROGRESS NOTE DATE OF SERVICE: 09/12/17 PRESENTING COMPLAINT: Sitting up, tired-appearing. INTERVAL HISTORY: Patient admitted with UTI with sepsis and positive blood cultures with E coli pneumonia, status post being on the ventilator. Continues to tolerate a diet. Propped up in bed, communicating well. REVIEW OF SYSTEMS: Done for constitutional, cardiovascular, GI, pulmonary; relevant findings as above. CURRENT MEDICATIONS: Reviewed that include IV Zosyn and IV Lasix. PHYSICAL EXAMINATION: Temperature 98.2, pulse 77, respiratory 18, blood pressure 148/65, pulse ox 96% on room air. General appearance: Propped up in bed, awake. Eyes: Pupils equal. Conjunctivae pale. HEENT: External appearance of nose and ears normal. Oral cavity normal. Neck: JVD not raised. Mass not palpable. Respiratory effort normal. Lungs decreased breath sounds. Cardiovascular 1st and 2nd sounds normal. Edema present. ABDOMEN: Soft, nontender. Liver and spleen not palpable. Psychiatry: Awake, answering questions appropriately. INVESTIGATIONS: White count 28, hemoglobin 8.5, hemoglobin 8.2, potassium 3.3, BUN 33, creatinine 1.14. ASSESSMENT: 1. Pneumonia probably gram-negative organism, improving. 2. Acute urinary tract infection with sepsis with urine blood cultures both positive for E coli. 3. Acute metabolic encephalopathy from sepsis on presentation, now resolved. 4. Coronary artery disease. 5. Ischemic cardiomyopathy ejection fraction 40%. 6. Chronic obstructive pulmonary disease in an ex-smoker. 7. Chronic hypoxic respiratory failure from underlying chronic obstructive pulmonary disease. 8. Acute hypoxic respiratory failure, status post being on the ventilator. 9. Hyperlipidemia. 10.Osteogenesis imperfecta. 11.Mild cognitive impairment from Alzheimer's dementia. 12.Decreased vision in the right eye. 13.Acute renal failure could be from acute tubular necrosis from sepsis with significant improvement. 14.Moderate aortic regurgitation, mitral regurgitation, severe tricuspid regurgitation, nonrheumatic. 15.Moderate secondary pulmonary hypertension secondary to congestive heart failure and chronic obstructive pulmonary disease. 16.Normocytic anemia, probably nutritional. 17.Hypocalcemia, decreased ionized calcium, being replaced. 18.Thrombocytopenia from sepsis. 19.Secondary hyperparathyroidism from hypocalcemia. PLAN: Overall prognosis remains guarded. The patient is still on IV Lasix. The patient is on IV Lasix per Cardiology. We will have Physical therapy to come back and reassess the patient and go from there. The patient is generally very weak and probably will need rehab to [facility] as per social worker health services. MMODL / IJN: [id number] /
[2017-09-12 22:58] LABS: Appearance,Urine Cloudy (Clear); Bilirubin,Urine Negative (Negative); Blood,Urine Small (Negative); Budding Yeast,Urine Occasional /hpf; Color,Urine Yellow; Glucose,Urine (UA) Negative (Negative); Hyaline Casts,Urine 4 /lpf (0-2); Ketones,Urine Negative (Negative); Leukocyte Esterase,Urine Large (Negative); Mucus,Urine Rare /hpf; Nitrite,Urine Negative (Negative); PH, Urine 5.5 (5.0-8.0); Protein,Urine 1+ (Negative); RBC,Urine 14 /hpf (0-5); Specific Gravity,Urine 1.013 (1.001-1.035); Squamous Epithelial Cell,Urine <1 /hpf (0-4); Urobilinogen,Urine <2.0 mg/dL (<2.0); WBC,Urine 65 /hpf (0-5)
[2017-09-13] MEDS: CARVEDILOL 3.125 MG TAB PO SCH ×2 (06:34→16:19)
[2017-09-13] MEDS: PANTOPRAZOLE 40 MG TABLET PO SCH (06:34)
[2017-09-13] MEDS: CALCIUM CARB-VIT D 500MG-200UN 1 EACH TAB PO SCH ×2 (06:34→16:19)
[2017-09-13 06:57] LABS: Calcium 6.7 mg/dL (8.4-10.2); Potassium 3.5 mmol/L (3.5-5.1)
[2017-09-13 07:31] LABS: Basophils # (A) 0.1 k/uL (0-0.2); Basophils % (A) 0 %; Eosinophils % (A) 0 %; HCT 26.1 % (39.0-53.0); Hypochromasia Moderate; Lymphocytes # (A) 1.5 k/uL (1.0-4.8); Lymphocytes % (A) 6 %; MCH 27.9 pg (25.0-35.0); MCHC 30.7 g/dL (31.0-37.0); MCV 90.6 fL (80.0-100.0); Mean Platelet Volume 8.9; Monocytes # (A) 0.8 k/uL (0-1.0); Monocytes % (A) 3 %; Neutrophils # (A) 24.3 k/uL (1.3-7.7); Neutrophils % (A) 90 %; Platelet Count 256 k/uL (150-450); RBC 2.88 m/uL (4.30-5.90); RDW 15.4 % (11.5-15.5)
[2017-09-13 07:39] LABS: WBC 27.1 k/uL (3.8-10.6)
[2017-09-13] MEDS: ISOSORBIDE MONONITRATE ER 15 MG TAB PO SCH (08:23)
[2017-09-13] MEDS: hydrALAZINE HCL 25 MG TAB PO SCH ×2 (08:23→20:21)
[2017-09-13] MEDS: PIPERACILLIN-TAZOBACTAM 3.375 GM in DEXTROSE/WATER 1 50ML.BAG IVPB SCH ×2 (08:23→16:19)
[2017-09-13] MEDS: FUROSEMIDE 10 MG/ML 4 ML VIAL IV SCH ×2 (08:23→20:21)
[2017-09-13] MEDS: FLUCONAZOLE 100 MG TAB PO SCH (08:23)
[2017-09-13] MEDS: ENOXAPARIN 40 MG/0.4 ML SYRINGE SQ SCH (08:24)
[2017-09-13] MEDS: BRIMONIDINE TARTRATE 0.2% DROPS 5 ML BTL RIGHT EYE SCH ×2 (08:24→20:22)
[2017-09-13] MEDS: TIMOLOL 0.5% OPHTH DROPS 5 ML BTL RIGHT EYE SCH ×2 (08:24→20:22)
[2017-09-13 08:58] LABS: Poikilocytosis (M) Present; Toxic Granulation Present
[2017-09-13] MEDS: IPRATROPIUM-ALBUTEROL 3 ML NEB INHALATION SCH ×4 (09:01→20:02)
--- NOTE | 2017-09-13 13:16 | P.PN ---
Subjective Progress Note Date: 09/13/17 Principal diagnosis: Acute E. coli sepsis and septic shock, recovered, left lower lung pneumonia Progress note dated 09/11/2017 This is a 87-year-old black male with a history of E. coli sepsis with septic shock thought be secondary to urinary tract source. In addition, the patient was thought to have left lower lobe pneumonia. In addition, the patient has a history of bilateral effusions acute metabolic encephalopathy secondary to sepsis ischemic cardiomyopathy with an ejection fraction of 40% acute on chronic hypoxemic respiratory failure secondary to COPD and systolic heart failure ATN osteogenesis imperfecta dementia anorexia/cachexia syndrome upper GI bleeding CAD and multiple episodes of hypoglycemia. Currently the patient's doing relatively well. Was in the unit on the mechanical ventilator. Seemed to be relatively stable this time. Nasal O2 in place. Sitting at the bedside. No distress noted. The patient is not a particularly good historian. Again doesn't appear to be in any distress at this time. Seen by my partner yesterday. The patient did have an ultrasound of the chest done. He was in the ICU up until yesterday. Progress note dated 09/12/2017 87-year-old black male with a history of E. coli sepsis and septic shock. The source was thought to be the urinary tract. The patient was thought to have a left lower lobe pneumonia as well. In addition, he had bilateral effusions, acute metabolic encephalopathy secondary to sepsis, ischemic cardiomyopathy, ejection fraction of 40%, acute on chronic hypoxemic respiratory failure secondary to COPD, systolic heart failure, ATN, osteogenesis imperfecta, dementia, anorexia/cachexia syndrome, upper GI bleed, CAD and multiple episodes of hypoglycemia. The patient initially was very sick and intubated on the mechanical ventilator in the intensive care unit. The patient is very weak at this time. Very poor historian. Will likely have to be discharged to some [facility] facility. Overall, given his age and is plethora of medical problems , his overall prognosis is very poor. On 09/13/2017 patient seen in follow-up care unit. He is awake, alert, denies any acute distress, he is afebrile, he is on room air with pulse ox of 99%. Hemodynamically stable, denies any significant complaints, denies any worsening dyspnea, denies any chest pain, chest congestion. Patient's urinalysis on 09/12 still shows evidence of infected urine, and patient's white count remains elevated at 27.1. Urine culture showed E. coli, blood culture was positive for E. coli as well, with queen sensitivity Patient remains on Zosyn. From pulmonary standpoint patient remains stable, we will repeat his chest x-ray tomorrow, continue with nebulized bronchodilators Objective - Vital Signs Vital signs: Vital Signs Temp 97.8 F 09/13/17 11:43 Pulse 92 09/13/17 11:43 Resp 18 09/13/17 11:43 BP 122/56 09/13/17 11:43 Pulse Ox 99 09/13/17 11:43 Intake & Output 09/12/17 09/13/17 09/13/17 18:59 06:59 18:59 Intake Total 720 80 240 Output Total 800 1950 0 Balance -80 -1870 240 Weight 63.5 kg Intake: IV 80 Sodium Chloride 0.9% 1, 80 000 ml @ 20 mls/hr IV . Q24H [facility] Rx#:[id number] Oral 720 240 Output: Urine 800 1950 Stool 0 0 0 Other: Voiding Method Indwelling Catheter Indwelling Catheter Indwelling Catheter ABP, PAP, CO, CI - Last Documented Arterial Blood Pressure 152/39 - Exam Physical Exam: Revealed an 87-year-old white male, frail looking, in no distress , on few liters nasal cannula. Head: Atraumatic, normocephalic. HEENT: Moist mucous membranes. PERRLA, EOMI. [Neck is supple.] [No neck masses.] [No thyromegaly.] [No JVD.] Chest: minimal crackles and rhonchi at the bases. Symmetrical chest expansion noted..] Cardiac Exam: [Normal S1 and S2, no S3 gallop, 2/6 systolic murmur. Throughout the precordium.] Abdomen: [Soft, nontender, no megaly, no rebound, no guarding, normal bowel sounds.] Extremities: [No clubbing, trace of bipedal edema, no cyanosis.] Neurological Exam: Alert oriented, no gross focal neurologic deficit. Lymphatics: No lymphadenopathy. Psychiatric: Normal mood affect and mental status examination. - Labs CBC & Chem 7: 09/13/17 06:25 09/13/17 06:25 Labs: Abnormal Lab Results - Last 24 Hours (Table) 09/12/17 09/13/17 09/13/17 Range/Units 22:46 06:25 06:25 WBC 27.1 H* (3.8-10.6) k/uL RBC 2.88 L (4.30-5.90) m/uL Hgb 8.0 L (13.0-17.5) gm/dL Hct 26.1 L (39.0-53.0) % MCHC 30.7 L (31.0-37.0) g/dL Neutrophils # 24.3 H (1.3-7.7) k/uL Carbon Dioxide 33 H (22-30) mmol/L BUN 32 H (9-20) mg/dL Calcium 6.7 L (8.4-10.2) mg/dL Urine Protein 1+ H (Negative) Urine Blood Small H (Negative) Ur Leukocyte Esterase Large H (Negative) Urine RBC 14 H (0-5) /hpf Urine WBC 65 H (0-5) /hpf Urine WBC Clumps Few H (None) /hpf Hyaline Casts 4 H (0-2) /lpf Urine Mucus Rare H (None) /hpf Urine Yeast (Budding) Occasional H (None) /hpf Assessment and Plan Plan: Assessment: 1 acute E. coli sepsis and septic shock, and bacteremia, primary source is urine , acute urinary tract infection, secondary to E. coli. 2 left lower lobe pneumonia is suspected, but not confirmed. Patient does have bilateral pleural effusions and atelectasis. 3 acute urinary tract infection 4 bilateral pleural effusions, could be cardiac or parapneumonic related. Remains unclear etiology. The size of the fluid is not large enough to consider thoracentesis at this point. Hence we'll continue to monitor, if the fluid size in largest may consider thoracentesis. May consider repeating the ultrasound of the chest, but the last one I looked at few days ago did not show enough fluid to safely perform thoracentesis. 5 acute metabolic encephalopathy from sepsis. Resolved 6 ischemic cardiomyopathy and ejection fraction of 40% 7 acute on chronic hypoxic respiratory failure, multifactorial, secondary to sepsis, COPD, and some component of systolic congestive heart failure. 8 acute tubular necrosis and acute kidney injury secondary to sepsis and septic shock. Improving 9 history of chronic obstructive pulmonary disease, patient is an ex-smoker. 10 osteogenesis imperfecta 11 history of Alzheimer's dementia 12 cachexia with significant weight loss and total body protein calorie malnutrition, moderately severe, BMI is in the range of 16 13 history of upper GI bleeding secondary to duodenal ulcer 14 history of coronary artery disease and previous NM. 15 recurrent episodes of hypoglycemia secondary to sepsis, serum cortisol level is pending doubt adrenal insufficiency. Plan: Plan dated 09/11/2017 We will continue supportive care. This will include antibiotics bronchodilators diuretics GI DVT prophylaxis. The patient was transferred out of the ICU yesterday. Seemed relatively stable today. Meds labs and x-rays are all reviewed. Additional recommendations and suggestions forthcoming. Prognosis is very guarded given his plethora of medical problems. Plan dated 09/12/2017 The patient appears to be very frail. Very sleepy and lethargic. We'll continue with supportive care. White count is 28.5 hemoglobin 8.2 hematocrit 26.5 and platelet count is normal. Sodium is 140 potassium 3.3 chloride is 102 CO2 32 BUN/creatinine were 33 and 1.14. The patient refuses additional procedures including thoracentesis at this time. We will continue to follow. Prognosis is very poor. CODE STATUS should be addressed. I feel the patient should be a no code at the very least. Plan dated 09/13/2017 Continue current antibiotic coverage, we will repeat another chest x-ray in the morning. Patient is on room air, denies any worsening dyspnea. Patient has persistently elevated white blood cell count, and repeat urinalysis from yesterday showed evidence of infected urine. ID service is on consult. Patient remains very generally weak, encourage activity as tolerated. We'll continue to follow prognosis is very guarded. I performed a history & physical examination of the patient and discussed their management with my nurse practitioner, Anya Barahona. I reviewed the nurse practitioner's note and agree with the documented findings and plan of care. Lung sounds are minimal crackles at the bases. The findings and the impression was discussed with the patient. I attest to the documentation by the nurse practitioner. Time with Patient: Less than 30
--- NOTE | 2017-09-13 15:19 | P.PN ---
Subjective Progress Note Date: 09/13/17 This is a 87-year-old gentleman with history of hypertension, dyslipidemia, and also aortic regurgitation who is admitted to the hospital with complaints of altered mental status, weakness and shortness of breath. Patient was initially admitted to the hospital with a diagnosis of pneumonia and possible CHF. Apparently patient became hypotensive and more unresponsive on the floor and was transferred to intensive care unit. Patient was intubated and her on respirator since last night. Apparently he is also found to have evidence of urinary tract infection and also gram-negative bacteremia. His lactic acid is high. He is being treated with antibiotics and also IV fluids. His chest x- ray showed evidence of possible pneumonia and atelectasis. No arrhythmias are detected. 1. Troponin values mildly abnormal. This picture is more consistent with sepsis. We'll continue with current management. I'll obtain an echocardiogram to assess LV function and also aortic regurgitation. Further recommendations depend upon clinical course. Prognosis is guarded. 09/11/2017 Patient was seen and examined this morning, sitting up in the chair at bedside. Continues to have significant amount of bilateral peripheral edema. Maintaining in normal sinus rhythm. At pressure 134/60 with a heart rate in the 80s, 98% on room air. Sodium 144, potassium 4.0 136, creatinine 1.4, magnesium 1.6. Patient continues to be on IV Lasix. 09/12/2017 Patient seen and examined this morning, lying in bed. Not wanting to get up with physical therapy today. His edema is significantly improved today and he has bilateral Abel wraps in place. Blood pressure 148/60 with a heart rate in the 70s to 80s, 96% on room air. White blood cell count is up to 28,000, hemoglobin 8.2, platelet count 252. Sodium 140, potassium 3.3, BUN 33, creatinine 1.1. Continues to diurese on IV Lasix. We will repeat a chest x- ray tomorrow. We did do a limited echocardiogram with Doppler study to reevaluate the LV function, continues to be 35-40%. Patient seen and examined this morning, sitting up in the chair at bedside. Has significant pain in bilateral legs, significant edema still persists in his bilateral lower legs and 5 area. He continues to be on IV Lasix, weight is down 1.5 kg today. Creatinine 1.04. We will repeat a chest x-ray tomorrow. Objective - Vital Signs Vital signs: Vital Signs Temp 97.8 F 09/13/17 11:43 Pulse 84 09/13/17 13:40 Resp 18 09/13/17 11:43 BP 122/56 09/13/17 11:43 Pulse Ox 99 09/13/17 11:43 Intake & Output 09/12/17 09/13/17 09/13/17 18:59 06:59 18:59 Intake Total 720 80 480 Output Total 800 1950 800 Balance -80 -1870 -320 Weight 63.5 kg Intake: IV 80 Sodium Chloride 0.9% 1, 80 000 ml @ 20 mls/hr IV . Q24H [facility] Rx#:[id number] Oral 720 480 Output: Urine 800 1950 800 Stool 0 0 0 Other: Voiding Method Indwelling Catheter Indwelling Catheter Indwelling Catheter ABP, PAP, CO, CI - Last Documented Arterial Blood Pressure 152/39 - Exam PHYSICAL EXAMINATION: HEENT: Head is atraumatic, normocephalic. Pupils equal, round. Neck is supple. There is no elevated jugular venous pressure. HEART EXAMINATION: Heart S1, S2 normal. No murmur or gallop heard. CHEST EXAMINATION: Lungs are clear with diminished air entry to the bases. ABDOMEN: Soft, nontender. Bowel sounds are heard. No organomegaly noted. EXTREMITIES: 2+ peripheral pulses with 1 + evidence of peripheral edema and no calf tenderness noted. Lateral Abel wraps in place NEUROLOGIC patient is awake, alert and oriented -3. . - Labs CBC & Chem 7: 09/13/17 06:25 09/13/17 06:25 Labs: Abnormal Lab Results - Last 24 Hours (Table) 09/12/17 09/13/17 09/13/17 Range/Units 22:46 06:25 06:25 WBC 27.1 H* (3.8-10.6) k/uL RBC 2.88 L (4.30-5.90) m/uL Hgb 8.0 L (13.0-17.5) gm/dL Hct 26.1 L (39.0-53.0) % MCHC 30.7 L (31.0-37.0) g/dL Neutrophils # 24.3 H (1.3-7.7) k/uL Carbon Dioxide 33 H (22-30) mmol/L BUN 32 H (9-20) mg/dL Calcium 6.7 L (8.4-10.2) mg/dL Urine Protein 1+ H (Negative) Urine Blood Small H (Negative) Ur Leukocyte Esterase Large H (Negative) Urine RBC 14 H (0-5) /hpf Urine WBC 65 H (0-5) /hpf Urine WBC Clumps Few H (None) /hpf Hyaline Casts 4 H (0-2) /lpf Urine Mucus Rare H (None) /hpf Urine Yeast (Budding) Occasional H (None) /hpf Assessment and Plan Plan: Assessment and plan #1 acute E. coli sepsis with septic shock #2 left lower lobe pneumonia #3 bilateral pleural effusions, revealed a left-sided effusion of 6 cm #4 ischemic cardiomyopathy #5 systolic congestive heart failure acute on chronic #6 acute tubular necrosis #7 COPD #8 Alzheimer's Plan From cardiology's perspective, we will recommend to continue the patient on the current medications he is on including the IV Lasix. We will repeat a chest x- ray tomorrow morning, continue to monitor intake and output and daily weights. DNP note has been reviewed, I agree with a documented findings and plan of care. Patient was seen and examined.
--- NOTE | 2017-09-13 18:49 | PN ---
PROGRESS NOTE DATE OF SERVICE: September 13, 2017. PRESENT COMPLAINT: Tired. INTERVAL HISTORY: Patient admitted with UTI with sepsis with positive blood cultures with E coli, pneumonia and patient ventilator. Also remains on IV Lasix. Seen by physical therapy, is a full two assist. Did tolerate some diet, awake, communicating. REVIEW OF SYSTEMS: Done for constitutional, cardiovascular, GI, pulmonary; relevant findings as above. CURRENT MEDICATIONS: Reviewed: IV Lasix an IV Zosyn. PHYSICAL EXAMINATION: VITAL SIGNS: Temperature 97.8, pulse 77, respiratory rate 16, blood pressure 122/56, pulse ox 99% on room air. GENERAL APPEARANCE: Sitting up in a chair, awake. EYES: Pupils are equal. Conjunctivae pale. HEENT: External appearance of nose and ears normal. Oral cavity normal. NECK: JVD not raised. Mass not palpable. RESPIRATORY: Effort increased. LUNGS: Decreased breath sounds at bases. CARDIOVASCULAR: First and second sounds normal. Edema present. ABDOMEN: Soft, nontender. Liver and spleen not palpable. PSYCHIATRY: Alert and oriented x3. Mood and affect normal. INVESTIGATIONS: White count 27.1, hemoglobin 8, potassium 3.5, BUN 32, creatinine 1.04, repeat blood culture from yesterday is negative until now. ASSESSMENT: 1. Pneumonia probably gram-negative organism improved. 2. Acute urinary tract infection with sepsis with urine and blood cultures both positive for E coli. 3. Acute metabolic encephalopathy from sepsis on presentation, improved. 4. Coronary artery disease. 5. Ischemic cardiomyopathy ejection fraction 40%. 6. Chronic obstructive pulmonary disease in an ex-smoker. 7. Chronic hypoxic respiratory failure from underlying chronic obstructive pulmonary disease. 8. Acute hypoxic respiratory failure, status post being on the ventilator. 9. Hyperlipidemia. 10.Osteogenesis imperfecta. 11.Mild cognitive impairment from Alzheimer's dementia. 12.Decreased vision in the right eye. 13.Acute renal failure could be acute tubular necrosis from sepsis with significant improvement. 14.Moderate aortic regurgitation, mitral regurgitation, severe tricuspid regurgitation, nonrheumatic. 15.Moderate secondary pulmonary hypertension secondary to congestive heart failure and chronic obstructive pulmonary disease. 16.Normocytic anemia probably nutritional. 17.Hypocalcemia, decreased ionized calcium, being replaced. 18.Thrombocytopenia from sepsis. 19.Secondary hyperparathyroidism from hypercalcemia. PLAN: Patient to continue on IV Lasix per Cardiology. Antibiotics are to continue. The patient remains a full assist when discharged ECF. Continue current medication and treatment plan. MMGRETAL / CHARLYN: [id number] /
[2017-09-13] MEDS: ATORVASTATIN 20 MG TAB PO SCH (20:21)
[2017-09-13] MEDS: LATANOPROST 0.005% OPHTH DROPS 2.5 ML BTL RIGHT EYE SCH (20:21)
--- NOTE | 2017-09-13 20:34 | PN ---
PROGRESS NOTE DATE OF SERVICE: 09/13/2017 REASON FOR FOLLOWUP: 1. E coli urinary tract infection with bacteremia. 2. Persistent elevated white count. INTERVAL HISTORY: The patient is afebrile. He is breathing comfortably. Denies having any chest pain or shortness of breath or cough. No abdominal pain or diarrhea. PHYSICAL EXAMINATION: Blood pressure 148/68 with a pulse of 85, temperature 97.6. He is 99% on room air. General description is an elderly male lying in bed in no distress. RESPIRATORY SYSTEM: Unlabored breathing. Clear to auscultation anteriorly. HEART: S1, S2. Regular rate and rhythm. ABDOMEN: Soft. No tenderness. EXTREMITIES: No edema of the feet. LABS: His white count is still elevated at 27,000. Repeat urine is positive and shows significant yeast. DIAGNOSTIC IMPRESSION AND PLAN: Patient with an Escherichia coli urinary tract infection with secondary bacteremia in a patient with persistently elevated white count, more likely due to his current Morton catheter. That should be discontinued and patient watched closely for any urinary retention. His CT of abdomen and pelvis as well as the ultrasound will be reviewed with Dr. Rosas, the radiologist. No evidence of any abscess or colitis. Continue with supportive care. MMODL / IJN: [id number] /
[2017-09-14] MEDS: PIPERACILLIN-TAZOBACTAM 3.375 GM in DEXTROSE/WATER 1 50ML.BAG IVPB SCH ×3 (00:21→15:46)
[2017-09-14] MEDS: PANTOPRAZOLE 40 MG TABLET PO SCH (06:22)
[2017-09-14] MEDS: CALCIUM CARB-VIT D 500MG-200UN 1 EACH TAB PO SCH ×2 (06:22→15:46)
[2017-09-14] MEDS: CARVEDILOL 3.125 MG TAB PO SCH ×2 (06:22→15:46)
[2017-09-14] MEDS: hydrALAZINE HCL 25 MG TAB PO SCH ×2 (07:46→20:42)
[2017-09-14] MEDS: ISOSORBIDE MONONITRATE ER 15 MG TAB PO SCH (07:46)
[2017-09-14] MEDS: FLUCONAZOLE 100 MG TAB PO SCH (07:47)
[2017-09-14] MEDS: FUROSEMIDE 10 MG/ML 4 ML VIAL IV SCH (07:47)
[2017-09-14] MEDS: ENOXAPARIN 40 MG/0.4 ML SYRINGE SQ SCH (07:47)
[2017-09-14] MEDS: BRIMONIDINE TARTRATE 0.2% DROPS 5 ML BTL RIGHT EYE SCH ×2 (07:47→20:42)
[2017-09-14] MEDS: TIMOLOL 0.5% OPHTH DROPS 5 ML BTL RIGHT EYE SCH ×2 (07:48→20:42)
[2017-09-14] MEDS: IPRATROPIUM-ALBUTEROL 3 ML NEB INHALATION SCH ×3 (09:08→19:05)
[2017-09-14 11:32] VITALS: BMI 21.1
--- NOTE | 2017-09-14 13:01 | XR ---
EXAMINATION TYPE: XR chest 2V DATE OF EXAM: 09/14/2017 COMPARISON: Prior chest 09/10/2017 HISTORY: Follow-up left lower lung pneumonia TECHNIQUE: Frontal and lateral views of the chest are obtained. FINDINGS: Patient is rotated and there are overlying cardiac leads. Bibasilar increased densities pr esent. There is interval improved visualization of the right hemidiaphragm. No evident pneumothorax. Heart is likely stable. IMPRESSION: There may be some improvement in aeration at the right lung base. Correlate for basilar pneumonia versus edema, there are bilateral associated effusions.
--- NOTE | 2017-09-14 13:04 | P.PN ---
Subjective Progress Note Date: 09/14/17 This is a 87-year-old gentleman with history of hypertension, dyslipidemia, and also aortic regurgitation who is admitted to the hospital with complaints of altered mental status, weakness and shortness of breath. Patient was initially admitted to the hospital with a diagnosis of pneumonia and possible CHF. Apparently patient became hypotensive and more unresponsive on the floor and was transferred to intensive care unit. Patient was intubated and her on respirator since last night. Apparently he is also found to have evidence of urinary tract infection and also gram-negative bacteremia. His lactic acid is high. He is being treated with antibiotics and also IV fluids. His chest x- ray showed evidence of possible pneumonia and atelectasis. No arrhythmias are detected. 1. Troponin values mildly abnormal. This picture is more consistent with sepsis. We'll continue with current management. I'll obtain an echocardiogram to assess LV function and also aortic regurgitation. Further recommendations depend upon clinical course. Prognosis is guarded. 09/11/2017 Patient was seen and examined this morning, sitting up in the chair at bedside. Continues to have significant amount of bilateral peripheral edema. Maintaining in normal sinus rhythm. At pressure 134/60 with a heart rate in the 80s, 98% on room air. Sodium 144, potassium 4.0 136, creatinine 1.4, magnesium 1.6. Patient continues to be on IV Lasix. 09/12/2017 Patient seen and examined this morning, lying in bed. Not wanting to get up with physical therapy today. His edema is significantly improved today and he has bilateral Abel wraps in place. Blood pressure 148/60 with a heart rate in the 70s to 80s, 96% on room air. White blood cell count is up to 28,000, hemoglobin 8.2, platelet count 252. Sodium 140, potassium 3.3, BUN 33, creatinine 1.1. Continues to diurese on IV Lasix. We will repeat a chest x- ray tomorrow. We did do a limited echocardiogram with Doppler study to reevaluate the LV function, continues to be 35-40%. Patient seen and examined this morning, sitting up in the chair at bedside. Has significant pain in bilateral legs, significant edema still persists in his bilateral lower legs and 5 area. He continues to be on IV Lasix, weight is down 1.5 kg today. Creatinine 1.04. We will repeat a chest x-ray tomorrow. 09/14/2017 Patient seen and examined this morning, appears to be a better overall. Chest x -ray was repeated this morning and shows improvement in aeration to the right lung base. His weight as showing is unchanged however urine output and his Morton bag is significant. White blood cell count 27.1, hemoglobin 8.0, platelet count 256. Sodium 140, potassium 3.5, BUN 32, creatinine 1.0. We will discontinue the IV Lasix today and start the patient on oral diuretics. Objective - Vital Signs Vital signs: Vital Signs Temp 97.7 F 09/14/17 07:50 Pulse 80 09/14/17 12:17 Resp 18 09/14/17 07:50 BP 172/74 09/14/17 07:50 Pulse Ox 98 09/14/17 07:50 Intake & Output 09/13/17 09/14/17 09/14/17 18:59 06:59 18:59 Intake Total 480 480 Output Total 800 1700 0 Balance -320 -1700 480 Weight 63 kg 63 kg Intake: Oral 480 480 Output: Urine 800 1700 Stool 0 0 0 Other: Voiding Method Indwelling Catheter Indwelling Catheter Indwelling Catheter # Voids 0 # Bowel Movements 1 ABP, PAP, CO, CI - Last Documented Arterial Blood Pressure 152/39 - Exam PHYSICAL EXAMINATION: HEENT: Head is atraumatic, normocephalic. Pupils equal, round. Neck is supple. There is no elevated jugular venous pressure. HEART EXAMINATION: Heart S1, S2 normal. No murmur or gallop heard. CHEST EXAMINATION: Lungs are clear with diminished air entry to the bases. ABDOMEN: Soft, nontender. Bowel sounds are heard. No organomegaly noted. EXTREMITIES: 2+ peripheral pulses with 1 + evidence of peripheral edema and no calf tenderness noted. Lateral Abel wraps in place NEUROLOGIC patient is awake, alert and oriented -3. . - Labs CBC & Chem 7: 09/13/17 06:25 09/13/17 06:25 Labs: Microbiology - Last 24 Hours (Table) 09/13/17 12:38 Urine Culture - Preliminary Urine,Catheterized 09/12/17 14:15 Blood Culture - Preliminary Blood No Growth after 24 hours Assessment and Plan Plan: Assessment and plan #1 acute E. coli sepsis with septic shock #2 left lower lobe pneumonia #3 bilateral pleural effusions, revealed a left-sided effusion of 6 cm #4 ischemic cardiomyopathy #5 systolic congestive heart failure acute on chronic #6 acute tubular necrosis #7 COPD #8 Alzheimer's Plan From cardiology's perspective, we will recommend to his continue IV Lasix today and start the patient on oral diuretics. Check lytes BUN and creatinine in the morning. DNP note has been reviewed, I agree with a documented findings and plan of care. Patient was seen and examined.
--- NOTE | 2017-09-14 13:24 | P.PN ---
Subjective Progress Note Date: 09/14/17 Principal diagnosis: Pneumonia, syncope, weakness Progress note dated 09/11/2017 This is a 87-year-old black male with a history of E. coli sepsis with septic shock thought be secondary to urinary tract source. In addition, the patient was thought to have left lower lobe pneumonia. In addition, the patient has a history of bilateral effusions acute metabolic encephalopathy secondary to sepsis ischemic cardiomyopathy with an ejection fraction of 40% acute on chronic hypoxemic respiratory failure secondary to COPD and systolic heart failure ATN osteogenesis imperfecta dementia anorexia/cachexia syndrome upper GI bleeding CAD and multiple episodes of hypoglycemia. Currently the patient's doing relatively well. Was in the unit on the mechanical ventilator. Seemed to be relatively stable this time. Nasal O2 in place. Sitting at the bedside. No distress noted. The patient is not a particularly good historian. Again doesn't appear to be in any distress at this time. Seen by my partner yesterday. The patient did have an ultrasound of the chest done. He was in the ICU up until yesterday. Progress note dated 09/12/2017 87-year-old black male with a history of E. coli sepsis and septic shock. The source was thought to be the urinary tract. The patient was thought to have a left lower lobe pneumonia as well. In addition, he had bilateral effusions, acute metabolic encephalopathy secondary to sepsis, ischemic cardiomyopathy, ejection fraction of 40%, acute on chronic hypoxemic respiratory failure secondary to COPD, systolic heart failure, ATN, osteogenesis imperfecta, dementia, anorexia/cachexia syndrome, upper GI bleed, CAD and multiple episodes of hypoglycemia. The patient initially was very sick and intubated on the mechanical ventilator in the intensive care unit. The patient is very weak at this time. Very poor historian. Will likely have to be discharged to some soda rehab facility. Overall, given his age and is plethora of medical problems , his overall prognosis is very poor. Progress note dated 09/14/2017 This is an 87-year-old black male with history of E. coli sepsis and septic shock. Source was thought to be the urinary tract. The patient was also possibly thought to have a left lower lobe pneumonia. I can't report that the chest x-ray has shown improvement. There may be some mild atelectasis at the bases and/or small effusions at the bases. 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 The patient is doing relatively well. Likely ready for discharge soon to rehab facility. He is currently too weak to go home. His overall prognosis remains very guarded to poor. Anyway, on a positive note, I do believe his chest x-ray has shown significant improvement. Objective - Vital Signs Vital signs: Vital Signs Temp 97.6 F 09/14/17 12:00 Pulse 80 09/14/17 12:17 Resp 18 09/14/17 12:00 BP 132/58 09/14/17 12:00 Pulse Ox 99 09/14/17 12:00 Intake & Output 09/13/17 09/14/17 09/14/17 18:59 06:59 18:59 Intake Total 480 480 Output Total 800 1700 1400 Balance -320 -1700 -920 Weight 63 kg 63 kg Intake: Oral 480 480 Output: Urine 800 1700 1400 Uretheral (Morton) 1400 Stool 0 0 0 Other: Voiding Method Indwelling Catheter Indwelling Catheter Indwelling Catheter # Voids 0 # Bowel Movements 1 ABP, PAP, CO, CI - Last Documented Arterial Blood Pressure 152/39 - Exam Physical Exam: Revealed an 87-year-old white male, frail looking, in no distress , on few liters nasal cannula. Head: Atraumatic, normocephalic. HEENT: Moist mucous membranes. PERRLA, EOMI. [Neck is supple.] [No neck masses.] [No thyromegaly.] [No JVD.] Chest: minimal crackles and rhonchi at the bases. Symmetrical chest expansion noted..] Cardiac Exam: [Normal S1 and S2, no S3 gallop, 2/6 systolic murmur. Throughout the precordium.] Abdomen: [Soft, nontender, no megaly, no rebound, no guarding, normal bowel sounds.] Extremities: [No clubbing, trace of bipedal edema, no cyanosis.] Neurological Exam: Alert oriented, no gross focal neurologic deficit. Lymphatics: No lymphadenopathy. Psychiatric: Normal mood affect and mental status examination. - Labs CBC & Chem 7: 09/13/17 06:25 09/13/17 06:25 Labs: Microbiology - Last 24 Hours (Table) 09/13/17 12:38 Urine Culture - Preliminary Urine,Catheterized 09/12/17 14:15 Blood Culture - Preliminary Blood No Growth after 24 hours Assessment and Plan Assessment: Assessment 1 acute E. coli sepsis and septic shock, and bacteremia, primary source is urine , acute urinary tract infection, secondary to E. coli. 2 left lower lobe pneumonia is suspected, but not confirmed. Patient does have bilateral pleural effusions and atelectasis. 3 acute urinary tract infection 4 bilateral pleural effusions, could be cardiac or parapneumonic related. Remains unclear etiology. The size of the fluid is not large enough to consider thoracentesis at this point. Hence we'll continue to monitor, if the fluid size in largest may consider thoracentesis. May consider repeating the ultrasound of the chest, but the last one I looked at few days ago did not show enough fluid to safely perform thoracentesis. 5 acute metabolic encephalopathy from sepsis. Resolved 6 ischemic cardiomyopathy and ejection fraction of 40% 7 acute on chronic hypoxic respiratory failure, multifactorial, secondary to sepsis, COPD, and some component of systolic congestive heart failure. 8 acute tubular necrosis and acute kidney injury secondary to sepsis and septic shock. Improving 9 history of chronic obstructive pulmonary disease, patient is an ex-smoker. 10 osteogenesis imperfecta 11 history of Alzheimer's dementia 12 cachexia with significant weight loss and total body protein calorie malnutrition, moderately severe, BMI is in the range of 16 13 history of upper GI bleeding secondary to duodenal ulcer 14 history of coronary artery disease and previous MS. 15 recurrent episodes of hypoglycemia secondary to sepsis, serum cortisol level is pending doubt adrenal insufficiency. Plan: Plan dated 09/11/2017 We will continue supportive care. This will include antibiotics bronchodilators diuretics GI DVT prophylaxis. The patient was transferred out of the ICU yesterday. Seemed relatively stable today. Meds labs and x-rays are all reviewed. Additional recommendations and suggestions forthcoming. Prognosis is very guarded given his plethora of medical problems. Plan dated 09/12/2017 The patient appears to be very frail. Very sleepy and lethargic. We'll continue with supportive care. White count is 28.5 hemoglobin 8.2 hematocrit 26.5 and platelet count is normal. Sodium is 140 potassium 3.3 chloride is 102 CO2 32 BUN/creatinine were 33 and 1.14. The patient refuses additional procedures including thoracentesis at this time. We will continue to follow. Prognosis is very poor. CODE STATUS should be addressed. I feel the patient should be a no code at the very least. Plan dated 09/14/2017. The patient is doing relatively well. Chest x-ray has improved. The patient's currently not requiring any oxygen therapy. He seems awake and alert. The patient is likely to be discharged to a nursing facility or rehab facility of some sort. The patient otherwise is doing better. CODE STATUS should be addressed. He currently still is a full code. He is 87-year-old with a whole host of medical problems. Mechanical ventilation will be very difficult for this patient. Anyway, discharge planning underway. Time with Patient: Less than 30
--- NOTE | 2017-09-14 13:56 | PN ---
PROGRESS NOTE DATE OF SERVICE: 09/14/2017 REASON FOR FOLLOWUP: 1. E coli bacteremia secondary to UTI. 2. Possible pneumonia. INTERVAL HISTORY: The patient is afebrile, he is breathing comfortably. Denies having any chest pain, shortness of breath or cough. No abdominal pain or any diarrhea. Morton was supposed to be discontinued yesterday, not done. PHYSICAL EXAMINATION: Blood pressure 132/58 with a pulse of 72, temperature 97.6, he is 99% on room air. General description is an elderly male lying in bed, in no distress. RESPIRATORY SYSTEM: Unlabored breathing, clear to auscultation anteriorly. HEART: S1, S2. Regular rate and rhythm. ABDOMEN: Soft, no tenderness. LABS: No new labs have been obtained today. DIAGNOSTIC IMPRESSION AND PLAN: Patient with Escherichia coli bacteremia secondary to urinary tract infection, now with persistent elevated white count, more likely due to Morton colonization or infection. This catheter which was supposed to be discontinued yesterday. RN has instructed to remove it today and give the patient a voiding trial. If he can not void, to insert the Morton. Diflucan will be increased to 20 mg daily and Zosyn can be switched to Augmentin 875 b.i.d. for another 10 days with close outpatient followup. Plan of care discussed with the admitting physician. COCO / CHARLYN: [id number] /
[2017-09-14] MEDS: FUROSEMIDE 40 MG TAB PO SCH (15:46)
[2017-09-14] MEDS: LATANOPROST 0.005% OPHTH DROPS 2.5 ML BTL RIGHT EYE SCH (20:41)
[2017-09-14] MEDS: ATORVASTATIN 20 MG TAB PO SCH (20:42)
--- NOTE | 2017-09-14 21:29 | DS ---
DISCHARGE SUMMARY DATE OF ADMISSION: 09/04/2017. DATE OF DISCHARGE: 09/14/2017 FINAL DIAGNOSES: 1. Pneumonia, suspect gram-negative organism, improved. 2. Acute urinary tract infection with sepsis with urine and blood cultures both positive for Escherichia coli, present on admission. 3. Acute metabolic encephalopathy from sepsis on presentation, improved. 4. Coronary artery disease. 5. Ischemic cardiomyopathy, ejection fraction 40%. 6. Chronic obstructive pulmonary disease in an ex-smoker. 7. Chronic hypoxic respiratory failure from underlying chronic obstructive pulmonary disease. 8. Acute hypoxic respiratory failure, status post being on the ventilator, present on admission. 9. Hyperlipidemia. 10.Osteogenesis imperfecta. 11.Mild cognitive impairment from Alzheimer's dementia. 12.Decreased vision in the right eye. 13.Acute renal failure, possibly acute tubular necrosis from sepsis. 14.Moderate aortic regurgitation, mitral regurgitation, severe tricuspid regurgitation, nonrheumatic. 15.Moderate secondary pulmonary hypertension secondary to congestive heart failure and chronic obstructive pulmonary disease. 16.Normocytic anemia, probably nutritional. 17.Hypercalcemia and decreased ionized calcium. 18.Thrombocytopenia from sepsis. 19.Secondary hyperparathyroidism from hypercalcemia. 20.Acute on chronic congestive heart failure exacerbation from ischemic cardiomyopathy, ejection fraction 40%. CONSULTATION: Dr. Baker from infectious disease, Dr. Springer from pulmonary/critical care, Dr. Dubose from cardiology. HOSPITAL COURSE: This patient with multiple issues, including COPD exacerbation, pneumonia, UTI with sepsis, CHF exacerbation, was also on the ventilator, eventually did get better. Now the patient is tolerating a diet. He is a full assist, has still some residual edema in the lower extremity and able to communicate. The patient will need a trial of discharge Morton. CODE STATUS IS FULL CODE. I discussed with Dr. Dubose today. The patient is okay to be discharged. EXAM: LUNGS: Decreased breath sounds. Edema present. PSYCH: AO x3. DISCHARGE MEDICATIONS: 1. Lipitor 20 mg P.O. q.h.s. 2. Magnesium oxide 400 mg p.o. daily. 3. Vitamin D2 50,000 units p.o. every 7 days. 4. Tylenol 650 mg every 6 hours. 5. Alphagan 0.2% 1 drop to right eye b.i.d. 6. DuoNeb 3 mL q.i.d. 7. Dilantin 0.005% 1 drop to right eye q.h.s. 8. Timoptic 0.5% 1 drop to right eye b.i.d. 9. Coreg 3.125 p.o. b.i.d. 10.Diflucan 200 mg p.o. daily for 10 days. 11.Lasix 40 mg p.o. b.i.d. 12.Imdur ER 50 mg p.o. daily. 13.Hydralazine 25 mg p.o. b.i.d. 14.Augmentin 875, 1 tablet p.o. b.i.d. for 7 days. DISPOSITION: [facility]. FOLLOWUP: With Dr. Fischer at [facility]. Follow up with Dr. Wellington Greenfield after discharge from [facility]. CODE STATUS: FULL CODE. LABS: CBC, BMP in 3 days. FOLLOWUP: With Cardiology in 10 days. DISCHARGE PLANNING: More than 35 minutes. TODAY'S LABS: White count 27.1, hemoglobin 8. Potassium 3.9, BUN 32, creatinine 1.044. Prognosis guarded. Also, follow up with Dr. Baker in 1 week. MMODL / IJN: [id number] /
[2017-09-15] MEDS: PIPERACILLIN-TAZOBACTAM 3.375 GM in DEXTROSE/WATER 1 50ML.BAG IVPB SCH ×2 (02:26→08:38)
[2017-09-15] MEDS: CALCIUM CARB-VIT D 500MG-200UN 1 EACH TAB PO SCH (06:41)
[2017-09-15] MEDS: PANTOPRAZOLE 40 MG TABLET PO SCH (06:41)
[2017-09-15] MEDS: CARVEDILOL 3.125 MG TAB PO SCH (06:41)
[2017-09-15] MEDS: IPRATROPIUM-ALBUTEROL 3 ML NEB INHALATION SCH (08:11)
[2017-09-15] MEDS: ENOXAPARIN 40 MG/0.4 ML SYRINGE SQ SCH (08:39)
[2017-09-15] MEDS: BRIMONIDINE TARTRATE 0.2% DROPS 5 ML BTL RIGHT EYE SCH (08:39)
[2017-09-15] MEDS: hydrALAZINE HCL 25 MG TAB PO SCH (08:40)
[2017-09-15] MEDS: TIMOLOL 0.5% OPHTH DROPS 5 ML BTL RIGHT EYE SCH (08:40)
[2017-09-15] MEDS: ISOSORBIDE MONONITRATE ER 15 MG TAB PO SCH (08:40)
[2017-09-15] MEDS: FUROSEMIDE 40 MG TAB PO SCH (08:40)
[2017-09-15] MEDS ORDERED: FLUCONAZOLE 100 MG TAB PO SCH (09:00)
[2017-09-15 09:33] VITALS: BP 146/65; PULSE 82; RESP 18; TEMP 97.6
--- NOTE | 2017-09-15 13:51 | P.PN ---
Subjective Progress Note Date: 09/15/17 This is a 87-year-old gentleman with history of hypertension, dyslipidemia, and also aortic regurgitation who is admitted to the hospital with complaints of altered mental status, weakness and shortness of breath. Patient was initially admitted to the hospital with a diagnosis of pneumonia and possible CHF. Apparently patient became hypotensive and more unresponsive on the floor and was transferred to intensive care unit. Patient was intubated and her on respirator since last night. Apparently he is also found to have evidence of urinary tract infection and also gram-negative bacteremia. His lactic acid is high. He is being treated with antibiotics and also IV fluids. His chest x- ray showed evidence of possible pneumonia and atelectasis. No arrhythmias are detected. 1. Troponin values mildly abnormal. This picture is more consistent with sepsis. We'll continue with current management. I'll obtain an echocardiogram to assess LV function and also aortic regurgitation. Further recommendations depend upon clinical course. Prognosis is guarded. 09/11/2017 Patient was seen and examined this morning, sitting up in the chair at bedside. Continues to have significant amount of bilateral peripheral edema. Maintaining in normal sinus rhythm. At pressure 134/60 with a heart rate in the 80s, 98% on room air. Sodium 144, potassium 4.0 136, creatinine 1.4, magnesium 1.6. Patient continues to be on IV Lasix. 09/12/2017 Patient seen and examined this morning, lying in bed. Not wanting to get up with physical therapy today. His edema is significantly improved today and he has bilateral Abel wraps in place. Blood pressure 148/60 with a heart rate in the 70s to 80s, 96% on room air. White blood cell count is up to 28,000, hemoglobin 8.2, platelet count 252. Sodium 140, potassium 3.3, BUN 33, creatinine 1.1. Continues to diurese on IV Lasix. We will repeat a chest x- ray tomorrow. We did do a limited echocardiogram with Doppler study to reevaluate the LV function, continues to be 35-40%. Patient seen and examined this morning, sitting up in the chair at bedside. Has significant pain in bilateral legs, significant edema still persists in his bilateral lower legs and 5 area. He continues to be on IV Lasix, weight is down 1.5 kg today. Creatinine 1.04. We will repeat a chest x-ray tomorrow. 09/14/2017 Patient seen and examined this morning, appears to be a better overall. Chest x -ray was repeated this morning and shows improvement in aeration to the right lung base. His weight as showing is unchanged however urine output and his Morton bag is significant. White blood cell count 27.1, hemoglobin 8.0, platelet count 256. Sodium 140, potassium 3.5, BUN 32, creatinine 1.0. We will discontinue the IV Lasix today and start the patient on oral diuretics. 2017 Patient seen and examined this morning, doing well overall. Arrangements are being made for discharge today. Objective - Vital Signs Vital signs: Vital Signs Temp 97.6 F 09/15/17 08:45 Pulse 82 09/15/17 08:45 Resp 18 09/15/17 08:45 BP 146/65 09/15/17 08:45 Pulse Ox 98 09/15/17 08:45 Intake & Output 09/14/17 09/15/17 09/15/17 18:59 06:59 18:59 Intake Total 480 240 Output Total 1400 1 601 Balance -920 -1 -361 Weight 63 kg 62.5 kg Intake: Oral 480 240 Output: Urine 1400 600 Uretheral (Morton) 1400 Stool 0 1 1 Other: Voiding Method Indwelling Catheter Indwelling Catheter Indwelling Catheter # Voids 0 1 # Bowel Movements 1 1 ABP, PAP, CO, CI - Last Documented Arterial Blood Pressure 152/39 - Exam PHYSICAL EXAMINATION: HEENT: Head is atraumatic, normocephalic. Pupils equal, round. Neck is supple. There is no elevated jugular venous pressure. HEART EXAMINATION: Heart S1, S2 normal. No murmur or gallop heard. CHEST EXAMINATION: Lungs are clear with diminished air entry to the bases. ABDOMEN: Soft, nontender. Bowel sounds are heard. No organomegaly noted. EXTREMITIES: 2+ peripheral pulses with 1 + evidence of peripheral edema and no calf tenderness noted. Lateral Abel wraps in place NEUROLOGIC patient is awake, alert and oriented -3. . - Labs CBC & Chem 7: 09/13/17 06:25 09/13/17 06:25 Labs: Microbiology - Last 24 Hours (Table) 09/13/17 12:38 Urine Culture - Final Urine,Catheterized 09/12/17 14:15 Blood Culture - Preliminary Blood No Growth after 48 hours Assessment and Plan Plan: Assessment and plan #1 acute E. coli sepsis with septic shock #2 left lower lobe pneumonia #3 bilateral pleural effusions, revealed a left-sided effusion of 6 cm #4 ischemic cardiomyopathy #5 systolic congestive heart failure acute on chronic #6 acute tubular necrosis #7 COPD #8 Alzheimer's Plan Cardiology's perspective, patient may be able to be discharged once cleared by her primary. We'll make a follow-up appointment in the office post discharge. DNP note has been reviewed, I agree with a documented findings and plan of care. Patient was seen and examined.
== END 2017-09-15 11:32 | DRG 871 ==
LOC: EC 09:50 → 6SEL 13:05 → 6ICU 23:29 → 6SEL 09-10 11:31
PROVIDERS: ADMIT Hospitalist; ATTEND Hospitalist
PROC: 5A09357 Assistance with Respiratory Ventilation, Less than 24 Consecutive Hours, Continuous Positive Airway Pressure (ICD-10-PCS; 2017-09-04)
PROC: 5A1945Z Respiratory Ventilation, 24-96 Consecutive Hours (ICD-10-PCS; principal; 2017-09-05)
PROC: 0BH17EZ Insertion of Endotracheal Airway into Trachea, Via Natural or Artificial Opening (ICD-10-PCS; 2017-09-05)
PROC: 03HY32Z Insertion of Monitoring Device into Upper Artery, Percutaneous Approach (ICD-10-PCS; 2017-09-05)
PROC: 4A133B1 Monitoring of Arterial Pressure, Peripheral, Percutaneous Approach (ICD-10-PCS; 2017-09-05)
PROC: 4A133J1 Monitoring of Arterial Pulse, Peripheral, Percutaneous Approach (ICD-10-PCS; 2017-09-05)
PROC: 06HM33Z Insertion of Infusion Device into Right Femoral Vein, Percutaneous Approach (ICD-10-PCS; 2017-09-05)
PROC: 0D9670Z Drainage of Stomach with Drainage Device, Via Natural or Artificial Opening (ICD-10-PCS; 2017-09-05)
PROC: 3E0G76Z Introduction of Nutritional Substance into Upper GI, Via Natural or Artificial Opening (ICD-10-PCS; 2017-09-05)
DX: A41.51 Sepsis due to Escherichia coli [E. coli] (principal); I50.23 Acute on chronic systolic (congestive) heart failure; G93.41 Metabolic encephalopathy; N17.0 Acute kidney failure with tubular necrosis; J96.21 Acute and chronic respiratory failure with hypoxia; R65.21 Severe sepsis with septic shock; J15.5 Pneumonia due to Escherichia coli; Q78.0 Osteogenesis imperfecta; R64 Cachexia; J44.0 Chronic obstructive pulmonary disease with (acute) lower respiratory infection; J44.1 Chronic obstructive pulmonary disease with (acute) exacerbation; E46 Unspecified protein-calorie malnutrition; N39.0 Urinary tract infection, site not specified; N25.81 Secondary hyperparathyroidism of renal origin; J98.11 Atelectasis; K26.9 Duodenal ulcer, unspecified as acute or chronic, without hemorrhage or perforation; I11.0 Hypertensive heart disease with heart failure; E86.0 Dehydration; E87.5 Hyperkalemia; D69.59 Other secondary thrombocytopenia; I27.29 Other secondary pulmonary hypertension; E83.51 Hypocalcemia; I25.5 Ischemic cardiomyopathy; I08.3 Combined rheumatic disorders of mitral, aortic and tricuspid valves; E83.52 Hypercalcemia; F02.80 Dementia in other diseases classified elsewhere, unspecified severity, without behavioral disturbance, psychotic disturbance, mood disturbance, and anxiety; G30.9 Alzheimer's disease, unspecified; D53.9 Nutritional anemia, unspecified; E16.2 Hypoglycemia, unspecified; I25.10 Atherosclerotic heart disease of native coronary artery without angina pectoris; E78.5 Hyperlipidemia, unspecified; H54.61 Unqualified visual loss, right eye, normal vision left eye; I25.2 Old myocardial infarction; Y95 Nosocomial condition; Z68.21 Body mass index [BMI] 21.0-21.9, adult; Z79.899 Other long term (current) drug therapy; Z99.81 Dependence on supplemental oxygen; Z87.891 Personal history of nicotine dependence; Z96.643 Presence of artificial hip joint, bilateral; Z87.11 Personal history of peptic ulcer disease; Z96.621 Presence of right artificial elbow joint; Z96.1 Presence of intraocular lens; Z98.42 Cataract extraction status, left eye; Z98.41 Cataract extraction status, right eye; Z82.79 Family history of other congenital malformations, deformations and chromosomal abnormalities
CPT/HCPCS: 36415; 36600; 71045; 71046; 74176; 76604; 76700; 76770; 78580; 80048; 80053; 81001; 82306; 82330; 82533; 82550; 82553; 82652; 82805; 83605; 83735; 83880; 83970; 84100; 84132; 84439; 84443; 84484; 85025; 85027; 85379; 85610; 85730; 87040; 87070; 87077; 87086; 87186; 87205; 93306; 93308; 94002; 94003; 94640; 94760; 96361; 96365; 99285

== ENCOUNTER 2017-10-02 11:57 | Inpatient (IN) | payer MEDICARE, BC ==
--- NOTE | 2017-10-02 12:08 | ED ---
Altered Mental Status HPI - General Stated Complaint: altered Time Seen by Provider: 10/02/17 12:00 Source: patient, EMS, RN notes reviewed Mode of arrival: EMS - History of Present Illness Initial Comments: This is a 87-year-old male was brought in by EMS from a [facility] with complaints of decreased level of consciousness. Apparently he is normally awake and alert and oriented does have a history of dementia. He is found to be lethargic and less responsive after rounds this morning. Also additionally he's had decreased oral intake for the past 1-2 days. He was noted be intermittently TACHIPNIC Per paramedics. MD Complaint: altered mental status, decreased responsiveness - Related Data Home Medications Medication Instructions Recorded Confirmed Atorvastatin Calcium [Lipitor] 20 mg PO HS 12/07/15 10/02/17 Magnesium Oxide [Mag-Ox] 400 mg PO DAILY@1700 12/07/15 10/02/17 Ergocalciferol (Vitamin D2) 50,000 unit PO FR 08/06/17 10/02/17 [Vitamin D2] Bisacodyl [Dulcolax] 10 mg RECTAL DAILY PRN 10/02/17 10/02/17 Calcium Carb-Vit D 500Mg-200Un 1 tab PO TID@08,12,10/02/17 10/02/17 [Oscal 500+D] [place] Instant Breakfast 1 packet PO BID@08,17 10/02/17 10/02/17 Furosemide [Lasix] 40 mg PO BID@06,14 10/02/17 10/02/17 Ipratropium-Albuterol Nebulize 3 ml INHALATION RT-Q4H PRN 10/02/17 10/02/17 [Duoneb 0.5 mg-3 mg/3 ml Soln] Ipratropium-Albuterol Nebulize 3 ml INHALATION RT-QID@08,12,17,21 10/02/1710/02 [Duoneb 0.5 mg-3 mg/3 ml Soln] Isosorbide Mononitrate ER [Imdur] 30 mg PO DAILY 10/02/17 10/02/17 Magic Cup 120 ml PO DAILY@1200 10/02/17 10/02/17 Magnesium Hydroxide [Milk of 2,400 mg PO DAILY PRN 10/02/17 10/02/17 Magnesia] Metolazone [Zaroxolyn] 2.5 mg PO DAILY 10/02/17 10/02/17 Na Phos,M-B/Na Phos,Di-Ba [Fleet 133 ml RECTAL ONCE PRN 10/02/17 10/02/17 Adult] Potassium Chloride ER [K-Dur 20] 20 meq PO DAILY@1700 10/02/17 10/02/17 hydrALAZINE HCL [Apresoline] 25 mg PO BID@08,17 10/02/17 10/02/17 Previous Rx's Medication Instructions Recorded Acetaminophen Tab [Tylenol] 650 mg PO Q6HR PRN tab 08/15/17 Brimonidine Tartrate [Alphagan P 1 drops RIGHT EYE BID ml 08/15/17 0.2% Ophth Soln] Latanoprost Ophth [Xalatan 0.005%] 1 drops RIGHT EYE HS ml 08/15/17 Timolol 0.5% Ophth Soln [Timoptic 1 drops RIGHT EYE BID ml 08/15/17 0.5% Ophth Soln] Carvedilol [Coreg] 3.125 mg PO BID #1 tablet 09/14/17 Allergies Allergy/AdvReac Type Severity Reaction Status Date / Time No Known Allergies Allergy Verified 10/02/17 12:25 Review of Systems ROS Statement: Those systems with pertinent positive or pertinent negative responses have been documented in the HPI. ROS Other: All systems not noted in ROS Statement are negative. Past Medical History Past Medical History: Coronary Artery Disease (CAD), Heart Failure, COPD, Dementia, Eye Disorder, GI Bleed, Hyperlipidemia, Hypertension, Myocardial Infarction (MS) Additional Past Medical History / Comment(s): Pt recently admitted to [facility] on with acute blood loss anemia, GI bleed, duodenal ulcers,with dark burgundy stools, protein calorie malnutrition, hyperkalemia. 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 Past Anesthesia/Blood Transfusion Reactions: No Reported Reaction Additional Past Anesthesia/Blood Transfusion Reaction / Comment(s): Pt has received blood without reaction. Smoking Status: Former smoker - Past Family History Father History Unknown: Yes Family Medical History: Unable to Obtain Additional Family Medical History / Comment(s): Father had osteogenesis imperfecta. Mother Family Medical History: No Reported History General Exam - General Exam Comments Initial Comments: This is a well-developed asthenic appearing male who seems awake and alert he does respond to questioning. Limitations: physical limitation General appearance: alert, lethargic Head exam: Present: atraumatic, normocephalic, normal inspection Eye exam: Present: PERRL, EOMI, other (Bilateral arcus senilis) ENT exam: Present: mucous membranes dry Neck exam: Present: normal inspection. Absent: tenderness, meningismus, lymphadenopathy Respiratory exam: Present: decreased breath sounds. Absent: respiratory distress, wheezes, rales, rhonchi, stridor Cardiovascular Exam: Present: regular rate, normal rhythm, normal heart sounds. Absent: systolic murmur, diastolic murmur, rubs, gallop, clicks GI/Abdominal exam: Present: soft, normal bowel sounds. Absent: distended, tenderness, guarding, rebound, rigid Extremities exam: Present: normal inspection, full ROM, normal capillary refill , pedal edema. Absent: tenderness, joint swelling, calf tenderness Back exam: Present: normal inspection Neurological exam: Present: alert, altered, CN II-XII intact Psychiatric exam: Present: normal affect, normal mood Skin exam: Present: warm, dry, intact, normal color. Absent: rash Course Vital Signs 10/02/17 10/02/17 12:09 13:36 Temperature 97 F L 96.9 F L Pulse Rate 65 65 Respiratory 16 16 Rate Blood Pressure 136/62 148/67 O2 Sat by Pulse 100 Oximetry - Reevaluation(s) Reevaluation #1: 10/02/17 15:00 Patient is resting relatively comfortably he denies any dyspnea at this time. Medical Decision Making - Medical Decision Making The clinical presentation consistent with CHF and pleural effusions. I did discuss case with the patient and family members patient will be admitted. Additionally the patient does have an elevated troponin - Lab Data Result diagrams: 10/02/17 13:30 10/02/17 13:30 Lab Results 10/02/17 10/02/17 10/02/17 Range/Units 12:05 12:30 13:30 WBC 8.2 (3.8-10.6) k/uL RBC 3.91 L (4.30-5.90) m/uL Hgb 11.2 L (13.0-17.5) gm/dL Hct 37.9 L (39.0-53.0) % MCV 97.0 (80.0-100.0) fL MCH 28.6 (25.0-35.0) pg MCHC 29.4 L (31.0-37.0) g/dL RDW 17.6 H (11.5-15.5) % Plt Count 251 (150-450) k/uL Neutrophils % 88 % Lymphocytes % 6 % Monocytes % 5 % Eosinophils % 0 % Basophils % 0 % Neutrophils # 7.2 (1.3-7.7) k/uL Lymphocytes # 0.5 L (1.0-4.8) k/uL Monocytes # 0.4 (0-1.0) k/uL Eosinophils # 0.0 (0-0.7) k/uL Basophils # 0.0 (0-0.2) k/uL Hypochromasia Marked Anisocytosis Slight Macrocytosis Slight Sodium (137-145) mmol/L Potassium (3.5-5.1) mmol/L Chloride (98-107) mmol/L Carbon Dioxide (22-30) mmol/L Anion Gap mmol/L BUN (9-20) mg/dL Creatinine (0.66-1.25) mg/dL Est GFR (CKD-EPI)AfAm (>60 ml/min/1.73 sqM) Est GFR (CKD-EPI)NonAf (>60 ml/min/1.73 sqM) Glucose (74-99) mg/dL POC Glucose (mg/dL) 103 H (75-99) mg/dL POC Glu Field Liability Generalist ID Petitpren, Tonya Plasma Lactic Acid Rommel (0.7-2.0) mmol/L Calcium (8.4-10.2) mg/dL Magnesium (1.6-2.3) mg/dL Total Bilirubin (0.2-1.3) mg/dL AST (17-59) U/L ALT (21-72) U/L Alkaline Phosphatase (38-126) U/L Total Creatine Kinase (55-170) U/L CK-MB (CK-2) (0.0-2.4) ng/mL CK-MB (CK-2) Rel Index Troponin I (0.000-0.034) ng/mL NT-Pro-B Natriuret Pep pg/mL Total Protein (6.3-8.2) g/dL Albumin (3.5-5.0) g/dL Amylase (30-110) U/L Lipase (23-300) U/L Urine Color Light Yellow Urine Appearance Clear (Clear) Urine pH 5.0 (5.0-8.0) Ur Specific [place] 1.007 (1.001-1.035) Urine Protein Negative (Negative) Urine Glucose (UA) Negative (Negative) Urine Ketones Negative (Negative) Urine Blood Negative (Negative) Urine Nitrite Negative (Negative) Urine Bilirubin Negative (Negative) Urine Urobilinogen <2.0 (<2.0) mg/dL Ur Leukocyte Esterase Negative (Negative) 10/02/17 10/02/17 10/02/17 Range/Units 13:30 13:30 13:30 WBC (3.8-10.6) k/uL RBC (4.30-5.90) m/uL Hgb (13.0-17.5) gm/dL Hct (39.0-53.0) % MCV (80.0-100.0) fL MCH (25.0-35.0) pg MCHC (31.0-37.0) g/dL RDW (11.5-15.5) % Plt Count (150-450) k/uL Neutrophils % % Lymphocytes % % Monocytes % % Eosinophils % % Basophils % % Neutrophils # (1.3-7.7) k/uL Lymphocytes # (1.0-4.8) k/uL Monocytes # (0-1.0) k/uL Eosinophils # (0-0.7) k/uL Basophils # (0-0.2) k/uL Hypochromasia Anisocytosis Macrocytosis Sodium 144 (137-145) mmol/L Potassium 3.6 (3.5-5.1) mmol/L Chloride 90 L (98-107) mmol/L Carbon Dioxide 44 H* (22-30) mmol/L Anion Gap 10 mmol/L BUN 54 H (9-20) mg/dL Creatinine 1.45 H (0.66-1.25) mg/dL Est GFR (CKD-EPI)AfAm 50 (>60 ml/min/1.73 sqM) Est GFR (CKD-EPI)NonAf 44 (>60 ml/min/1.73 sqM) Glucose 105 H (74-99) mg/dL POC Glucose (mg/dL) (75-99) mg/dL POC Glu Field Liability Generalist ID Plasma Lactic Acid Rommel 1.5 (0.7-2.0) mmol/L Calcium 8.2 L (8.4-10.2) mg/dL Magnesium 2.0 (1.6-2.3) mg/dL Total Bilirubin 0.4 (0.2-1.3) mg/dL AST 42 (17-59) U/L ALT 44 (21-72) U/L Alkaline Phosphatase 135 H (38-126) U/L Total Creatine Kinase <20 L (55-170) U/L CK-MB (CK-2) 0.7 (0.0-2.4) ng/mL CK-MB (CK-2) Rel Index Troponin I 0.076 H* (0.000-0.034) ng/mL NT-Pro-B Natriuret Pep pg/mL Total Protein 6.0 L (6.3-8.2) g/dL Albumin 2.9 L (3.5-5.0) g/dL Amylase 55 (30-110) U/L Lipase 65 (23-300) U/L Urine Color Urine Appearance (Clear) Urine pH (5.0-8.0) Ur Specific [place] (1.001-1.035) Urine Protein (Negative) Urine Glucose (UA) (Negative) Urine Ketones (Negative) Urine Blood (Negative) Urine Nitrite (Negative) Urine Bilirubin (Negative) Urine Urobilinogen (<2.0) mg/dL Ur Leukocyte Esterase (Negative) 10/02/17 Range/Units 13:30 WBC (3.8-10.6) k/uL RBC (4.30-5.90) m/uL Hgb (13.0-17.5) gm/dL Hct (39.0-53.0) % MCV (80.0-100.0) fL MCH (25.0-35.0) pg MCHC (31.0-37.0) g/dL RDW (11.5-15.5) % Plt Count (150-450) k/uL Neutrophils % % Lymphocytes % % Monocytes % % Eosinophils % % Basophils % % Neutrophils # (1.3-7.7) k/uL Lymphocytes # (1.0-4.8) k/uL Monocytes # (0-1.0) k/uL Eosinophils # (0-0.7) k/uL Basophils # (0-0.2) k/uL Hypochromasia Anisocytosis Macrocytosis Sodium (137-145) mmol/L Potassium (3.5-5.1) mmol/L Chloride (98-107) mmol/L Carbon Dioxide (22-30) mmol/L Anion Gap mmol/L BUN (9-20) mg/dL Creatinine (0.66-1.25) mg/dL Est GFR (CKD-EPI)AfAm (>60 ml/min/1.73 sqM) Est GFR (CKD-EPI)NonAf (>60 ml/min/1.73 sqM) Glucose (74-99) mg/dL POC Glucose (mg/dL) (75-99) mg/dL POC Glu Field Liability Generalist ID Plasma Lactic Acid Rommel (0.7-2.0) mmol/L Calcium (8.4-10.2) mg/dL Magnesium (1.6-2.3) mg/dL Total Bilirubin (0.2-1.3) mg/dL AST (17-59) U/L ALT (21-72) U/L Alkaline Phosphatase (38-126) U/L Total Creatine Kinase (55-170) U/L CK-MB (CK-2) (0.0-2.4) ng/mL CK-MB (CK-2) Rel Index Troponin I (0.000-0.034) ng/mL NT-Pro-B Natriuret Pep 41811 pg/mL Total Protein (6.3-8.2) g/dL Albumin (3.5-5.0) g/dL Amylase (30-110) U/L Lipase (23-300) U/L Urine Color Urine Appearance (Clear) Urine pH (5.0-8.0) Ur Specific [place] (1.001-1.035) Urine Protein (Negative) Urine Glucose (UA) (Negative) Urine Ketones (Negative) Urine Blood (Negative) Urine Nitrite (Negative) Urine Bilirubin (Negative) Urine Urobilinogen (<2.0) mg/dL Ur Leukocyte Esterase (Negative) - EKG Data -: EKG Interpreted by Me EKG shows normal: sinus rhythm (Sinus rhythm a 62. Interval 122 QRS duration 102 QT since QTC of 466/472 LVH possible left atrial enlargement) - Radiology Data Radiology results: report reviewed (I did review the imaging and report is evidence of bilateral pleural effusions and evidence of pulmonary vascular congestion. Consistent with CHF.), image reviewed Critical Care Time Critical Care Time: Yes Critical Care Time: 33 minutes of critical care time which includes monitoring the EMS run and discussed with paramedics history physical labs x-rays on the patient reevaluation patient several occasions discuss with the patient family regarding findings discussion the admitting physician documentation of the above also review old charting that was available. Disposition Clinical Impression: Congestive heart failure (CHF), Pleural cavity effusion, Renal insufficiency syndrome, Encephalopathy, Elevated troponin Disposition: ADMITTED IP TO THIS [facility] Condition: Stable Referrals: Bk Ferrer MD [STAFF PHYSICIAN] - 1-2 days
[2017-10-02 12:18] LABS: Glucose,Whole Blood 103 mg/dL (75-99)
--- NOTE | 2017-10-02 13:09 | CT ---
EXAMINATION TYPE: CT brain wo con DATE OF EXAM: 10/02/2017 HISTORY: Patient poor historian. Altered mental status. CT DLP: 776.2 mGycm. Automated Exposure Control for Dose Reduction was Utilized. TECHNIQUE: CT scan of the head is performed without contrast. COMPARISON: None. FINDINGS: There is no acute intracranial hemorrhage or midline shift identified. There is diffuse v entricular and sulcal prominence consistent with diffuse age-related cerebral atrophy. There is low- attenuation in the periventricular white matter most likely on basis of product of chronic small vess el ischemic change in patient of this age. The globes are intact and the visualized sinuses are la r. Moderate calcified plaque distal internal carotid arteries bilaterally is present. IMPRESSION: No acute intracranial hemorrhage or midline shift. There is mild to moderate diffuse ag e-related cerebral atrophy and fairly advanced chronic small vessel ischemic change noted.
[2017-10-02 13:34] LABS: Appearance,Urine Clear (Clear); Bilirubin,Urine Negative (Negative); Blood,Urine Negative (Negative); Color,Urine Light Yellow; Glucose,Urine (UA) Negative (Negative); Ketones,Urine Negative (Negative); Leukocyte Esterase,Urine Negative (Negative); Nitrite,Urine Negative (Negative); Protein,Urine Negative (Negative); Specific Gravity,Urine 1.007 (1.001-1.035); Urobilinogen,Urine <2.0 mg/dL (<2.0)
[2017-10-02 13:43] LABS: Anisocytosis Slight; Basophils % (A) 0 %; Eosinophils % (A) 0 %; HCT 37.9 % (39.0-53.0); HGB 11.2 gm/dL (13.0-17.5); Hypochromasia Marked; Lymphocytes # (A) 0.5 k/uL (1.0-4.8); Lymphocytes % (A) 6 %; MCH 28.6 pg (25.0-35.0); MCHC 29.4 g/dL (31.0-37.0); Macrocytosis Slight; Mean Platelet Volume 7.9; Monocytes # (A) 0.4 k/uL (0-1.0); Monocytes % (A) 5 %; Neutrophils # (A) 7.2 k/uL (1.3-7.7); Neutrophils % (A) 88 %; Platelet Count 251 k/uL (150-450); RBC 3.91 m/uL (4.30-5.90); RDW 17.6 % (11.5-15.5); WBC 8.2 k/uL (3.8-10.6)
--- NOTE | 2017-10-02 13:44 | XR ---
EXAMINATION TYPE: XR chest 2V DATE OF EXAM: 10/02/2017 COMPARISON: Chest x-ray September 14, 2017 HISTORY: Cough and weakness TECHNIQUE: Frontal and lateral views of the chest are obtained. FINDINGS: There are persistent small to moderate-sized bilateral pleural effusions with cardiomegaly and central vascular congestion more prominent than prior. The osseous structures are intact. Surg ical clips anteriorly in the upper abdomen are seen on lateral view IMPRESSION: Correlate for CHF exacerbation as there is cardiomegaly with increasing central vascular congestion and increasing small to moderate-sized bilateral pleural effusions now present. Underlyin g atelectasis and/or infiltrate is seen.
[2017-10-02 14:01] LABS: Albumin 2.9 g/dL (3.5-5.0); Calcium 8.2 mg/dL (8.4-10.2); Potassium 3.6 mmol/L (3.5-5.1); Total Bilirubin 0.4 mg/dL (0.2-1.3)
[2017-10-02 14:24] LABS: Creatine Kinase MB 0.7 ng/mL (0.0-2.4)
[2017-10-02 14:26] LABS: Troponin I 0.076 ng/mL (0.000-0.034)
[2017-10-02 14:27] LABS: Creatine Kinase <20 U/L (55-170)
[2017-10-02] MEDS ORDERED: FUROSEMIDE 10 MG/ML 4 ML VIAL IV STA (15:01)
[2017-10-02] MEDS ORDERED: BISACODYL 10 MG SUPP RECTAL PRN (15:09)
[2017-10-02] MEDS ORDERED: IPRATROPIUM-ALBUTEROL 3 ML NEB INHALATION PRN (15:09)
[2017-10-02] MEDS ORDERED: ACETAMINOPHEN TAB 325 MG TAB PO PRN (15:09)
[2017-10-02] MEDS ORDERED: MAGNESIUM HYDROXIDE 2,400 MG/10 ML CUP PO PRN (15:09)
[2017-10-02] MEDS ORDERED: [UNRECOGNIZED DRUG - OTHER] PO SCH (17:00)
[2017-10-02] MEDS: SODIUM CHLORIDE 0.9% 1,000 ML IV SCH (17:38)
[2017-10-02] MEDS: MAGNESIUM OXIDE 400 MG TAB PO SCH (17:44)
[2017-10-02] MEDS: CARVEDILOL 3.125 MG TAB PO SCH (17:44)
[2017-10-02] MEDS: POTASSIUM CHLORIDE ER 20 MEQ TAB.ER PO SCH (17:44)
[2017-10-02] MEDS: hydrALAZINE HCL 25 MG TAB PO SCH (17:44)
[2017-10-02] MEDS: CALCIUM CARB-VIT D 500MG-200UN 1 EACH TAB PO SCH (17:44)
[2017-10-02 20:29] LABS: Glucose,Whole Blood 140 mg/dL (75-99)
[2017-10-02] MEDS: LATANOPROST 0.005% OPHTH DROPS 2.5 ML BTL RIGHT EYE SCH (20:30)
[2017-10-02] MEDS: TIMOLOL 0.5% OPHTH DROPS 5 ML BTL RIGHT EYE SCH (20:30)
[2017-10-02] MEDS: BRIMONIDINE TARTRATE 0.2% DROPS 5 ML BTL RIGHT EYE SCH (20:31)
[2017-10-02] MEDS: ATORVASTATIN 20 MG TAB PO SCH (20:31)
[2017-10-02] MEDS ORDERED: ONDANSETRON 4 MG/2 ML VIAL IVP PRN (23:20)
[2017-10-02] MEDS ORDERED: MELATONIN 3 MG TABLET PO PRN (23:20)
[2017-10-02] MEDS ORDERED: CALCIUM CARBONATE 500 MG CHEWABLE PO PRN (23:20)
[2017-10-02] MEDS ORDERED: ALPRAZolam 0.25 MG TAB PO PRN (23:20)
[2017-10-02] MEDS ORDERED: LACTATED RINGERS 1,000 ML IV SCH (23:30)
--- NOTE | 2017-10-03 | HP ---
HISTORY AND PHYSICAL DATE OF ADMISSION: 10/02/2017 DATE OF SERVICE: 10/02/2017 PRESENT COMPLAINT: Lethargic. HISTORY OF PRESENTING COMPLAINT: This is an 87-year-old patient who was here about 2 weeks ago discharged from the hospital. At that time, the patient was treated for pneumonia and acute UTI with sepsis. Had urine blood cultures both positive for E. coli. The patient's chronic stable medical conditions include coronary artery disease, ischemic cardiomyopathy, EF 40%, COPD, chronic hypoxic respiratory failure, some cognitive impairment, decreased vision in the right eye. EMS was called out. Initially reported as a stroke, but per their report, the patient was very lethargic, was able to follow commands. Denies any chest pain, short of breath, but not really able to speak much. The patient was moving his hand. Myself I am able to arouse the patient and if I lift his hand up he can keep it up in the air, but then just simply dozes off. Difficult to obtain any history. REVIEW OF SYSTEMS: Unable to obtain. PAST MEDICAL HISTORY: Two weeks ago, the patient had pneumonia and acute UTI with sepsis with blood cultures, urine both positive for E. 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 SOCIAL HISTORY: The patient is retired, used to work at [employer]. Currently a resident of [facility]. The patient is nonambulatory, drives a [employer], incontinent of bowel. The patient smoked from a teenager to up in the 1970s. FAMILY HISTORY: Father had osteogenesis imperfecta. HOME MEDICATIONS: 1. Hydralazine 25 mg p.o. b.i.d. 2. Timolol 0.5% 1 drop to right eye b.i.d. 3. Potassium 20 mEq p.o. daily. 4. Adult Fleet 133 rectal p.r.n. 5. Zaroxolyn 2.5 p.o. daily. 6. Magnesium oxide 400 mg p.o. daily. 7. Milk of magnesia. 8. Xalatan 0.005% 1 drop to right eye q.h.s. 9. Imdur ER 30 mg p.o. daily. 10.DuoNeb q.i.d. plus p.r.n. 11.Lasix 40 mg b.i.d. 12.Vitamin D2 50,000 units on Fridays. 13.Coreg 3.125 p.o. b.i.d. 14.[place] instant breakfast 1 packet p.o. b.i.d. 15.[place] with vitamin D 1 tablet p.o. t.i.d.. 16.Alphagan 0.2% 1 drop to right eye b.i.d. 17.Lipitor 20 mg q.h.s. 18.Tylenol 650 mg q.6h p.r.n. ALLERGIES: None. PHYSICAL EXAMINATION: Temperature 96.8, pulse 60, respiratory rate 14, blood pressure 132/58, pulse ox 100% on 3 L. GENERAL APPEARANCE: Lying in bed, rather diffuse muscle wasting. BMI 18.7, very lethargic but arousable. EYES: Pupils equal. Conjunctivae dirty appearing with some arcus senilis. HEENT: External appearance of nose and ears normal. Oral cavity dry mucous membrane. NECK: JVD not raised. Mass not palpable. Respiratory effort increased. LUNGS: Decreased breath sounds. CARDIOVASCULAR: Heart sounds irregular. Some dependent edema. ABDOMEN: Soft, nontender. Liver and spleen not palpable. LYMPHATIC: No lymph node palpable in neck or axillae. PSYCHIATRY: Unable to assess. NEUROLOGICAL: The patient just about arousable. Pupils are equal. The patient does move his limbs. Planters are equivocal. MUSCULOSKELETAL: Evidence of osteoarthritis and diffuse wasting of the muscles. INVESTIGATIONS: White count 8.2, hemoglobin 11.2, potassium 3.6, BUN 54, creatinine 1.45. The patient's labs on 09/13/2017 showed a BUN of 32, creatinine 1.04, bicarb was 33. ASSESSMENT: 1. Acute metabolic encephalopathy from renal failure, likely uremic in nature, probably from diuresis and poor oral intake. 2. Coronary artery disease. 3. Ischemic cardiomyopathy, ejection fraction 40%. 4. Chronic obstructive pulmonary disease in an ex-smoker. 5. Chronic hypoxic respiratory failure from underlying chronic obstructive pulmonary disease. 6. Osteogenesis imperfecta. 7. Mild cognitive impairment from Alzheimer's dementia. 8. Decreased vision in the right eye. 9. Moderate aortic regurgitation, mitral regurgitation, severe tricuspid regurgitation, nonrheumatic. 10.Moderate secondary pulmonary hypertension secondary to congestive heart failure and chronic obstructive pulmonary disease. 11.Normocytic anemia, probably multifactorial. 12.Chronic congestive heart failure from ischemic cardiomyopathy, ejection fraction 40%. PLAN: At this point we will discontinue the patient's diuretics as the patient does appear to be prerenal. Will gently hydrate the patient. The patient's prognosis is extremely poor. We will talk to patient's family. We will maintain aspiration precautions. The patient is overall doing poorly given his multiple comorbidities. MMODL / IJN: [id number] /
[2017-10-03 05:56] LABS: Glucose,Whole Blood 123 mg/dL (75-99)
[2017-10-03] MEDS ORDERED: FUROSEMIDE 40 MG TAB PO SCH (06:00)
[2017-10-03] MEDS ORDERED: FUROSEMIDE 10 MG/ML 4 ML VIAL IV SCH (06:00)
[2017-10-03] MEDS: CARVEDILOL 3.125 MG TAB PO SCH ×2 (06:34→18:27)
[2017-10-03] MEDS ORDERED: METOLAZONE 2.5 MG TAB PO SCH (09:00)
[2017-10-03] MEDS: BRIMONIDINE TARTRATE 0.2% DROPS 5 ML BTL RIGHT EYE SCH ×2 (09:11→20:52)
[2017-10-03] MEDS: CALCIUM CARB-VIT D 500MG-200UN 1 EACH TAB PO SCH ×4 (09:11→17:22)
[2017-10-03] MEDS: hydrALAZINE HCL 25 MG TAB PO SCH (09:11)
[2017-10-03] MEDS: ISOSORBIDE MONONITRATE ER 30 MG TAB.ER.24H PO SCH (09:11)
[2017-10-03] MEDS: TIMOLOL 0.5% OPHTH DROPS 5 ML BTL RIGHT EYE SCH ×2 (09:11→20:52)
[2017-10-03] MEDS ORDERED: hydrALAZINE HCL 25 MG TAB PO ONE (09:30)
--- NOTE | 2017-10-03 10:37 | P.CRDCN ---
History of Present Illness Consult date: 10/03/17 Requesting physician: Lambert Salomon Consult reason: congestive heart failure Chief complaint: Shortness of breath and weakness History of present illness: This is an pleasant 87-year-old -[place] gentleman with history of hypertension, hyperlipidemia, aortic regurgitation, COPD, prior GI bleed, who presented to the hospital with symptoms of shortness of breath with associated weakness. He had a recent admission to the hospital in August at which time he presented with pneumonia and sepsis, became hypotensive and was ultimately intubated. EKG on arrival here showed a normal sinus rhythm with LVH strain pattern, nonspecific ST-T wave changes. Chest x-ray showed CHF exacerbation, cardiomegaly and moderate sized bilateral pleural effusions. CAT scan of the brain did not reveal any acute intracranial hemorrhage or midline shift. White blood cell count is normal. Hemoglobin 11.2, platelet count 251. Sodium 144, potassium 3.6, BUN 54, creatinine 1.4. Magnesium 2.0, BNP level 97,000. Troponins 0.076, 0.068, 0.075. Patient was given a one-time dose of IV Lasix in the emergency room and then was initiated on IV fluids. Blood pressure this morning 160/70 with heart rates in the 60s, 99% on 2 L of oxygen. Patient lying down in bed at the time of our examination, appears to be quite frail, complains of feeling weak. He is lying flat in bed with no overt evidence of significant shortness of breath. We will start the patient on IV Lasix drip this morning, and initiate a small dose of Cozaar, increase hydralazine to 50 3 times a day, if patient tolerates in the next day or so we will also consider the addition of Aldactone. Past Medical History Past Medical History: Coronary Artery Disease (CAD), Heart Failure, COPD, Dementia, Eye Disorder, GI Bleed, Hyperlipidemia, Hypertension, Myocardial Infarction ([place]), Pneumonia Additional Past Medical History / Comment(s): 09/04/17 pne, uti w sepsis/ with acute blood loss anemia, GI bleed, duodenal ulcers,with dark burgundy stools, protein calorie malnutrition, hyperkalemia. 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 Past Anesthesia/Blood Transfusion Reactions: No Reported Reaction Additional Past Anesthesia/Blood Transfusion Reaction / Comment(s): Pt has received blood without reaction. Past Psychological History: No Psychological Hx Reported Additional Psychological History / Comment(s): pt retired, used to work at [employer]. Pt living at [facility], per transfer papers. pt non ambulatory , sal lift x1, incont of bowel . He uses oxygen. Smoking Status: Former smoker Past Alcohol Use History: None Reported Additional Past Alcohol Use History / Comment(s): Pt started smoking as a teen and quit in 1969. Past Drug Use History: None Reported - Past Family History Father History Unknown: Yes Family Medical History: Unable to Obtain Additional Family Medical History / Comment(s): Father had osteogenesis imperfecta. Mother Family Medical History: No Reported History Medications and Allergies Home Medications Medication Instructions Recorded Confirmed Type Atorvastatin Calcium [Lipitor] 20 mg PO HS 12/07/15 10/02/17 History Magnesium Oxide [Mag-Ox] 400 mg PO DAILY@1700 12/07/15 10/02/17 History Ergocalciferol (Vitamin D2) 50,000 unit PO FR 08/06/17 10/02/17 History [Vitamin D2] Acetaminophen Tab [Tylenol] 650 mg PO Q6HR PRN tab 08/15/17 10/02/17 Rx Brimonidine Tartrate [Alphagan P 1 drops RIGHT EYE BID ml 08/15/17 10/02/17 Rx 0.2% Ophth Soln] Latanoprost Ophth [Xalatan 0.005%] 1 drops RIGHT EYE HS ml 08/15/17 10/02/17 Rx Timolol 0.5% Ophth Soln [Timoptic 1 drops RIGHT EYE BID ml 08/15/17 10/02/17 Rx 0.5% Ophth Soln] Carvedilol [Coreg] 3.125 mg PO BID #1 tablet 09/14/17 10/02/17 Rx Bisacodyl [Dulcolax] 10 mg RECTAL DAILY PRN 10/02/17 10/02/17 History Calcium Carb-Vit D 500Mg-200Un 1 tab PO TID@,,10/02/17 10/02/17 History [Oscal 500+D] Leslie Instant Breakfast 1 packet PO BID@,10/02/17 10/02/17 History Furosemide [Lasix] 40 mg PO BID@,10/02/17 10/02/17 History Ipratropium-Albuterol Nebulize 3 ml INHALATION RT-Q4H PRN 10/02/17 10/02/17 History [Duoneb 0.5 mg-3 mg/3 ml Soln] Ipratropium-Albuterol Nebulize 3 ml INHALATION RT-QID@,,,10/02/1710/02 History [Duoneb 0.5 mg-3 mg/3 ml Soln] Isosorbide Mononitrate ER [Imdur] 30 mg PO DAILY 10/02/17 10/02/17 History Magic Cup 120 ml PO DAILY@1200 10/02/17 10/02/17 History Magnesium Hydroxide [Milk of 2,400 mg PO DAILY PRN 10/02/17 10/02/17 History Magnesia] Metolazone [Zaroxolyn] 2.5 mg PO DAILY 10/02/17 10/02/17 History Na Phos,M-B/Na Phos,Di-Ba [Fleet 133 ml RECTAL ONCE PRN 10/02/17 10/02/17 History Adult] Potassium Chloride ER [K-Dur 20] 20 meq PO DAILY@1700 10/02/17 10/02/17 History hydrALAZINE HCL [Apresoline] 25 mg PO BID@,17 10/02/17 10/02/17 History Allergies Allergy/AdvReac Type Severity Reaction Status Date / Time No Known Allergies Allergy Verified 10/02/17 12:25 Physical Exam Vitals: Vital Signs Temp Pulse Pulse Resp BP BP Pulse Ox 10/03/17 04:00 97.5 F L 72 16 146/54 100 10/03/17 00:20 97.6 F 10/03/17 00:00 96.2 F L 66 16 170/70 98 10/02/17 20:00 96.8 F L 68 14 132/58 100 10/02/17 18:39 97.4 F L 72 18 160/70 99 10/02/17 16:42 96.5 F L 67 16 164/72 99 10/02/17 15:00 96.6 F L 65 16 161/72 96 10/02/17 14:00 16 148/67 94 L 10/02/17 13:36 96.9 F L 65 16 148/67 10/02/17 12:09 97 F L 65 16 136/62 100 Intake and Output 10/02/17 10/03/17 10/03/17 22:59 06:59 14:59 Intake Total 200 Output Total 1150 Balance 200 -1150 Intake: Oral 200 Output: Urine 1150 Other: Voiding Method Indwelling Catheter Indwelling Catheter PHYSICAL EXAMINATION: GENERAL: 87-year-old -[place] gentleman frail, in no. Distress at the time of my examination. HEENT: Head is atraumatic, normocephalic. Pupils equal, round. Sclera anicteric. Conjunctiva are clear. Mucous membranes of the mouth are moist. Neck is supple. There is elevated jugular venous pressure up to the angle of the jaw.] No carotid bruit is heard. HEART EXAMINATION: Heart S1 and S2, systolic and diastolic heart murmur heard. CHEST EXAMINATION: Lungs clear with fine crackles to bilateral bases. ABDOMEN: Soft, nontender. Bowel sounds are heard. No organomegaly noted. EXTREMITIES: 2+ peripheral pulses with trace evidence of peripheral edema and no calf tenderness noted. NEUROLOGIC patient is awake, alert and oriented -3. . Results 10/02/17 13:30 10/02/17 13:30 Cardiac Enzymes 10/02/17 10/02/17 10/02/17 Range/Units 13:30 13:30 19:09 AST 42 (17-59) U/L CK-MB (CK-2) 0.7 (0.0-2.4) ng/mL Troponin I 0.076 H* 0.068 H* (0.000-0.034) ng/mL 10/03/17 Range/Units 01:24 AST (17-59) U/L CK-MB (CK-2) (0.0-2.4) ng/mL Troponin I 0.075 H* (0.000-0.034) ng/mL CBC 10/02/17 Range/Units 13:30 WBC 8.2 (3.8-10.6) k/uL RBC 3.91 L (4.30-5.90) m/uL Hgb 11.2 L (13.0-17.5) gm/dL Hct 37.9 L (39.0-53.0) % Plt Count 251 (150-450) k/uL Comprehensive Metabolic Panel 10/02/17 Range/Units 13:30 Sodium 144 (137-145) mmol/L Potassium 3.6 (3.5-5.1) mmol/L Chloride 90 L (98-107) mmol/L Carbon Dioxide 44 H* (22-30) mmol/L BUN 54 H (9-20) mg/dL Creatinine 1.45 H (0.66-1.25) mg/dL Glucose 105 H (74-99) mg/dL Calcium 8.2 L (8.4-10.2) mg/dL AST 42 (17-59) U/L ALT 44 (21-72) U/L Alkaline Phosphatase 135 H (38-126) U/L Total Protein 6.0 L (6.3-8.2) g/dL Albumin 2.9 L (3.5-5.0) g/dL Current Medications Generic Name Dose Route Start Last Admin Trade Name Freq PRN Reason Stop Dose Admin Acetaminophen 650 mg 10/02/17 15:09 Tylenol Tab PO Q6HR PRN Fever and/ or MILD Pain Albuterol/Ipratropium 3 ml 10/02/17 15:09 Duoneb 0.5 Mg-3 Mg/3 Ml Soln INHALATION RT-Q4H PRN SOB w/pneumonia Alprazolam 0.25 mg 10/02/17 23:20 Xanax PO Q6HR PRN Anxiety Atorvastatin Calcium 20 mg 10/02/17 21:00 10/02/17 20:31 Lipitor PO 20 mg HS JOCELYN Administration Bisacodyl 10 mg 10/02/17 15:09 Dulcolax RECTAL DAILY PRN Constipation Brimonidine Tartrate 1 drops 10/02/17 21:00 10/03/17 09:11 Alphagan P 0.2% Ophth Soln RIGHT EYE 1 drops BID [facility] Administration Calcium Carbonate 1 each 10/02/17 17:00 10/03/17 09:11 Oscal 500+D PO 1 each TID@,,17 JOCELYN Administration Calcium Carbonate/Glycine 1,000 mg 10/02/17 23:20 Tums PO Q4HR PRN Dyspepsia Carvedilol 3.125 mg 10/02/17 17:30 10/03/17 06:34 Coreg PO 3.125 mg AC-BID JOCELYN Administration Ergocalciferol 50,000 unit 10/06/17 09:00 Vitamin D2 PO FR JOCELYN Hydralazine HCl 50 mg 10/03/17 16:00 Apresoline PO TID JOCELYN Sodium Chloride 1,000 mls @ 20 mls/hr 10/02/17 15:15 10/02/17 17:38 Saline 0.9% IV Not Given .Q24H JOCELYN Furosemide 250 mg/ Sodium 250 mls @ 10 mls/hr 10/03/17 10:00 Chloride IVP .Q24H JOCELYN 10 MG/HR Isosorbide Mononitrate 30 mg 10/03/17 09:00 10/03/17 09:11 Imdur PO 30 mg DAILY [facility] Administration Latanoprost 1 drops 10/02/17 21:00 10/02/17 20:30 Xalatan 0.005% RIGHT EYE 1 drops HS [facility] Administration Losartan Potassium 25 mg 10/03/17 09:30 Cozaar PO DAILY JOCELYN Magnesium Hydroxide 2,400 mg 10/02/17 15:09 Milk Of Magnesia PO DAILY PRN Constipation Magnesium Oxide 400 mg 10/02/17 17:00 10/02/17 17:44 Mag-Ox PO 400 mg DAILY@1700 [facility] Administration Melatonin 3 mg 10/02/17 23:20 Melatonin PO HS PRN Insomnia Ondansetron HCl 4 mg 10/02/17 23:20 Zofran IVP Q8HR PRN Nausea And Vomiting Potassium Chloride 20 meq 10/02/17 17:00 10/02/17 17:44 K-Dur 20 PO 20 meq DAILY@1700 [facility] Administration Timolol Maleate 1 drops 10/02/17 21:00 10/03/17 09:11 Timoptic RIGHT EYE 1 drops BID JOCELYN Administration Intake and Output 10/02/17 10/03/17 10/03/17 22:59 06:59 14:59 Intake Total 200 Output Total 1150 Balance 200 -1150 Intake: Oral 200 Output: Urine 1150 Other: Voiding Method Indwelling Catheter Indwelling Catheter 10/02/17 13:30 10/02/17 13:30 EKG Interpretations (text) EKG shows normal sinus rhythm with evidence of LVH strain pattern, nonspecific ST-T wave changes Assessment and Plan Plan: Assessment and plan #1 systolic congestive heart failure acute on chronic #2 hypertension #3 hyperlipidemia #4 known aortic regurgitation #5 COPD #6 dementia #7 recent GI bleed Plan We will start the patient on IV Lasix drip at 10 mg per hour, Cozaar 25 mg daily along with increasing the hydralazine to 50 mg by mouth 3 times a day. Monitor intake and output along with daily weights daily lytes BUN and creatinine. Recent echo performed last month showed an ejection fraction of 25- 30%, moderate aortic regurgitation cannot exclude a possible bicuspid valve, moderate MR and severe TR. We will not repeat an echo on this admission. DNP note has been reviewed, I agree with a documented findings and plan of care. Patient was seen and examined.
[2017-10-03] MEDS: FUROSEMIDE 250 MG in SODIUM CHLORIDE 0.9% 225 ML IVP SCH (11:29)
[2017-10-03] MEDS: LOSARTAN 25 MG TAB PO SCH (11:32)
[2017-10-03 11:54] LABS: Glucose,Whole Blood 124 mg/dL (75-99)
[2017-10-03] MEDS ORDERED: MAGIC CUP PO SCH (12:00)
--- NOTE | 2017-10-03 12:46 | P.CNPUL ---
History of Present Illness Consult date: 10/03/17 Reason for consult: dyspnea, hypoxemia, abnormal CXR/CT, other Chief complaint: Shortness of breath History of present illness: Pulmonary consult dated 10/03/2017 This is an 87-year-old black male brought to the emergency room by EMS from the detention with complaints of decreased level of consciousness. Apparently is normally awake and alert and oriented and apparently was found to be more confused lethargic and less responsive. For that reason he was admitted to the emergency department. He was found apparently to have heart failure. Chest x- ray was consistent with heart failure and his N-terminal proBNP was 97,000. He' s very poorly responsive. He was recently inpatient and we saw him at that time. He does have lower extremity edema as well. His history is consistent with hyperlipidemia, CAD, heart failure, COPD, dementia, GI bleed, hyperlipidemia, hypertension, myocardial infarction, blood loss anemia, protein calorie malnutrition, osteogenesis imperfecta,. Currently the patient is resting comfortably. Very lethargic and sleepy. Does not appear to be any distress whatsoever. Again chest x-ray examination in N-terminal proBNP all point towards CHF as the cause for the patient's issues. Review of Systems A 12 point review of system obtained from the medical records include decreased mental status and lethargy with confusion. Typically her. Apparently the patient's quite oriented. It's not clear as to whether or not the patient had shortness of breath. Past Medical History Past Medical History: Coronary Artery Disease (CAD), Heart Failure, COPD, Dementia, Eye Disorder, GI Bleed, Hyperlipidemia, Hypertension, Myocardial Infarction ([place]), Pneumonia Additional Past Medical History / Comment(s): 09/04/17 pne, uti w sepsis/ with acute blood loss anemia, GI bleed, duodenal ulcers,with dark burgundy stools, protein calorie malnutrition, hyperkalemia. 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 Past Anesthesia/Blood Transfusion Reactions: No Reported Reaction Additional Past Anesthesia/Blood Transfusion Reaction / Comment(s): Pt has received blood without reaction. Past Psychological History: No Psychological Hx Reported Additional Psychological History / Comment(s): pt retired, used to work at [employer]. Pt living at [employer], per [employer]. pt non ambulatory , sal lift x1, incont of bowel . He uses oxygen. Smoking Status: Former smoker Past Alcohol Use History: None Reported Additional Past Alcohol Use History / Comment(s): Pt started smoking as a teen and quit in 1969. Past Drug Use History: None Reported - Past Family History Father History Unknown: Yes Family Medical History: Unable to Obtain Additional Family Medical History / Comment(s): Father had osteogenesis imperfecta. Mother Family Medical History: No Reported History Medications and Allergies Home Medications Medication Instructions Recorded Confirmed Type Atorvastatin Calcium [Lipitor] 20 mg PO HS 12/07/15 10/02/17 History Magnesium Oxide [Mag-Ox] 400 mg PO DAILY@1700 12/07/15 10/02/17 History Ergocalciferol (Vitamin D2) 50,000 unit PO FR 08/06/17 10/02/17 History [Vitamin D2] Acetaminophen Tab [Tylenol] 650 mg PO Q6HR PRN tab 08/15/17 10/02/17 Rx Brimonidine Tartrate [Alphagan P 1 drops RIGHT EYE BID ml 08/15/17 10/02/17 Rx 0.2% Ophth Soln] Latanoprost Ophth [Xalatan 0.005%] 1 drops RIGHT EYE HS ml 08/15/17 10/02/17 Rx Timolol 0.5% Ophth Soln [Timoptic 1 drops RIGHT EYE BID ml 08/15/17 10/02/17 Rx 0.5% Ophth Soln] Carvedilol [Coreg] 3.125 mg PO BID #1 tablet 09/14/17 10/02/17 Rx Bisacodyl [Dulcolax] 10 mg RECTAL DAILY PRN 10/02/17 10/02/17 History Calcium Carb-Vit D 500Mg-200Un 1 tab PO TID@08,12,17 10/02/17 10/02/17 History [Oscal 500+D] Elrod Instant Breakfast 1 packet PO BID@08,17 10/02/17 10/02/17 History Furosemide [Lasix] 40 mg PO BID@06,14 10/02/17 10/02/17 History Ipratropium-Albuterol Nebulize 3 ml INHALATION RT-Q4H PRN 10/02/17 10/02/17 History [Duoneb 0.5 mg-3 mg/3 ml Soln] Ipratropium-Albuterol Nebulize 3 ml INHALATION RT-QID@08,,,10/02/1710/02 History [Duoneb 0.5 mg-3 mg/3 ml Soln] Isosorbide Mononitrate ER [Imdur] 30 mg PO DAILY 10/02/17 10/02/17 History Magic Cup 120 ml PO DAILY@1200 10/02/17 10/02/17 History Magnesium Hydroxide [Milk of 2,400 mg PO DAILY PRN 10/02/17 10/02/17 History Magnesia] Metolazone [Zaroxolyn] 2.5 mg PO DAILY 10/02/17 10/02/17 History Na Phos,M-B/Na Phos,Di-Ba [Fleet 133 ml RECTAL ONCE PRN 10/02/17 10/02/17 History Adult] Potassium Chloride ER [K-Dur 20] 20 meq PO DAILY@1700 10/02/17 10/02/17 History hydrALAZINE HCL [Apresoline] 25 mg PO BID@08,17 10/02/17 10/02/17 History Allergies Allergy/AdvReac Type Severity Reaction Status Date / Time No Known Allergies Allergy Verified 10/02/17 12:25 Physical Exam Osteopathic Statement: *. No significant issues noted on an osteopathic structural exam other than those noted in the History and Physical/Consult. Vitals: Vital Signs Temp Pulse Pulse Resp BP BP Pulse Ox 10/03/17 08:00 96.5 F L 69 17 157/67 97 10/03/17 04:00 97.5 F L 72 16 146/54 100 10/03/17 00:20 97.6 F 10/03/17 00:00 96.2 F L 66 16 170/70 98 10/02/17 20:00 96.8 F L 68 14 132/58 100 10/02/17 18:39 97.4 F L 72 18 160/70 99 10/02/17 16:42 96.5 F L 67 16 164/72 99 10/02/17 15:00 96.6 F L 65 16 161/72 96 10/02/17 14:00 16 148/67 94 L 10/02/17 13:36 96.9 F L 65 16 148/67 Intake and Output 10/02/17 10/03/17 10/03/17 22:59 06:59 14:59 Intake Total 200 Output Total 1150 Balance 200 -1150 Intake: Oral 200 Output: Urine 1150 Other: Voiding Method Indwelling Catheter Indwelling Catheter Indwelling Catheter Weight 62.596 kg No acute distress, oriented 1, the patient is sleepy. Nasal O2 in place.. HEENT examination is grossly unremarkable. Mucous membranes are moist. No oral lesions. Positive arcus senilis. Neck supple. Full range of motion. No adenopathy thyromegaly or neck vein distention. Cardiovascular examination reveals regular rhythm and rate. Heart rate about 85. S1-S2 normal. No distinct murmur noted. Lungs reveal crackles throughout. A few scattered rhonchi are noted. No wheezes. Breath sounds equal bilaterally. Abdomen soft bowel sounds are heard. No masses or tenderness. Extremities are intact. 1+ pitting edema is noted. Skin is without rash or lesion. Neurologic examination was very limited. Results - Laboratory Findings CBC and BMP: 10/02/17 13:30 10/02/17 13:30 Abnormal lab findings: Abnormal Labs 10/02/17 10/02/17 10/02/17 12:05 13:30 13:30 RBC 3.91 L Hgb 11.2 L Hct 37.9 L MCHC 29.4 L RDW 17.6 H Lymphocytes # 0.5 L Chloride 90 L Carbon Dioxide 44 H* BUN 54 H Creatinine 1.45 H Glucose 105 H POC Glucose (mg/dL) 103 H Calcium 8.2 L Alkaline Phosphatase 135 H Total Creatine Kinase Troponin I Total Protein 6.0 L Albumin 2.9 L 10/02/17 10/02/1710/02/18 13:30 19:09 20:27 RBC Hgb Hct MCHC RDW Lymphocytes # Chloride Carbon Dioxide BUN Creatinine Glucose POC Glucose (mg/dL) 140 H Calcium Alkaline Phosphatase Total Creatine Kinase <20 L Troponin I 0.076 H* 0.068 H* Total Protein Albumin 10/03/17 10/03/17 10/03/17 01:24 05:54 11:51 RBC Hgb Hct MCHC RDW Lymphocytes # Chloride Carbon Dioxide BUN Creatinine Glucose POC Glucose (mg/dL) 123 H 124 H Calcium Alkaline Phosphatase Total Creatine Kinase Troponin I 0.075 H* Total Protein Albumin - Diagnostic Findings Chest x-ray: report reviewed (Chest x-ray labs and medications are all reviewed. ), image reviewed Assessment and Plan Assessment: Assessment Acute congestive heart failure, likely systolic in nature with a slightly impaired ejection fraction History of CAD History of COPD Mental status changes, of unclear etiology, may reflect metabolic encephalopathy Hypoxemic respiratory failure Osteogenesis imperfecta History of Alzheimer's dementia History of valvular heart disease in the form of aortic regurgitation and mitral regurgitation and tricuspid regurgitation Secondary pulmonary hypertension Anemia of chronic disease Plan: Plan dated 10/03/2017 Labs x-rays a medications are reviewed. We'll make sure that he has updrafts ordered. He should be on diuretics as I believe he is. He's been seen by cardiology in the hospital service. Prognosis is poor. CODE STATUS really needs to be addressed on this patient. Additional recommendations and suggestions are forthcoming. Time with Patient: Greater than 30
[2017-10-03] MEDS: SODIUM CHLORIDE 0.9% 1,000 ML IV SCH (15:55)
[2017-10-03] MEDS: POTASSIUM CHLORIDE ER 20 MEQ TAB.ER PO SCH (17:21)
[2017-10-03] MEDS: hydrALAZINE HCL 50 MG TAB PO SCH ×2 (17:22→20:52)
[2017-10-03] MEDS: MAGNESIUM OXIDE 400 MG TAB PO SCH (17:22)
[2017-10-03] MEDS: ATORVASTATIN 20 MG TAB PO SCH (20:50)
[2017-10-03] MEDS: LATANOPROST 0.005% OPHTH DROPS 2.5 ML BTL RIGHT EYE SCH (20:52)
[2017-10-03 21:16] LABS: Glucose,Whole Blood 134 mg/dL (75-99)
[2017-10-04 05:55] LABS: Glucose,Whole Blood 110 mg/dL (75-99)
[2017-10-04] MEDS: CARVEDILOL 3.125 MG TAB PO SCH ×2 (06:30→18:13)
[2017-10-04] MEDS: FUROSEMIDE 250 MG in SODIUM CHLORIDE 0.9% 225 ML IVP SCH (06:30)
[2017-10-04] MEDS: BRIMONIDINE TARTRATE 0.2% DROPS 5 ML BTL RIGHT EYE SCH ×2 (08:34→20:15)
[2017-10-04] MEDS: TIMOLOL 0.5% OPHTH DROPS 5 ML BTL RIGHT EYE SCH ×2 (08:34→20:15)
[2017-10-04] MEDS: LOSARTAN 25 MG TAB PO SCH (08:35)
[2017-10-04] MEDS: ISOSORBIDE MONONITRATE ER 30 MG TAB.ER.24H PO SCH (08:35)
[2017-10-04] MEDS: CALCIUM CARB-VIT D 500MG-200UN 1 EACH TAB PO SCH ×3 (08:35→18:13)
[2017-10-04] MEDS: hydrALAZINE HCL 50 MG TAB PO SCH ×3 (08:35→20:14)
[2017-10-04 11:16] LABS: Glucose,Whole Blood 256 mg/dL (75-99)
--- NOTE | 2017-10-04 11:48 | CDI ---
Last Revision, March 2017 Documentation Clarification Form Date: 10/04/17 1145 From: Mana Bravo RN, CCDS Admit Date: 10/02/2017 3:05:00 PM Patient Name: Tylor Dempsey Visit Number: [id number] ATTENTION: The Clinical Documentation Specialists (CDI) and [facility] Coding Staff appreciate your assistance in clarifying documentation. Please respond to the clarification below the line at the bottom and electronically sign. The CDI & [facility] Coding staff will review the response and follow-up if needed. Please note: Queries are made part of the Legal Health Record. If you have any questions, please contact the author of this message via ITS. Dr. Lambert Salomon History/Risk Factors: Chronic hypoxic respiratory failure, ischemic cardiomyopathy, COPD, osteogenesis imperfect, alzheimers dementia, pulmonary HTN Clinical Indicators: Patients weight is 62.6 kg Patients height is 72 in Calculated BMI is 18.7 Skin care/assessment: Stage 2 pressure ulcer to coccyx Treatments: Daily weights per unit protocol Nutritional Education provided by dietary 10/04/17 1012 Dietary Consult Completed 10/03/17 1039 Administration of vitamins/supplements: Glucerna TID In order to capture the severity of condition associated with patient BMI of 18.7, a clinical diagnoses needs to be documented by the physician. Please clarify: Protein Calorie Malnutrition, (further specify severity- Mild, Moderate, Severe ) Emaciated Cachexia Underweight Other Unable to determine Please continue to document in your progress notes and discharge summary in order to capture severity of illness and risk of mortality. Include clinical findings that support your diagnosis. * see progress note - already addressed MTDD
--- NOTE | 2017-10-04 11:56 | CDI ---
Last Revision, March 2017 Documentation Clarification Form Date: 10/04/17 1154 From: Mana Bravo RN, CCDS Admit Date: 10/02/2017 3:05:00 PM Patient Name: Tylor Dempsey Visit Number: [id number] ATTENTION: The Clinical Documentation Specialists (CDI) and [facility] Coding Staff appreciate your assistance in clarifying documentation. Please respond to the clarification below the line at the bottom and electronically sign. The CDI & [facility] Coding staff will review the response and follow-up if needed. Please note: Queries are made part of the Legal Health Record. If you have any questions, please contact the author of this message via ITS. Dr. Lambert Salomon Renal Failure was documented in the H&P and requires further specificity. History/Risk Factors: 10/02/17 baseline BUN/CR/GFR: 58/1. Clinical Indicators: 10/02 H&P: "Acute metabolic encephalopathy from renal failure, likely uremic in nature, probably from diuresis and poor oral intake." Current BUN/Cr/GFR: 54/1.45/44 Treatment: Consults: Cardiology and Pulmonology IVF: 0.9% NS @ 20 cc/hr Lasix 40 mg IVP Q 12 hrs changed to Lasix Gtt @ 10 cc/hr In order to capture the severity of condition, please clarify if the condition signifies: Acute renal failure, Please specify etiology (if known): Cortical Necrosis Medullary Necrosis Tubular Necrosis Acute kidney injury Acute on chronic renal failure CKD Stage 1 GFR >90 CKD Stage 2 GFR 60-89 CKD Stage 3 GFR 30-59 CKD Stage 4 GFR 15-29 CKD Stage 5 GFR <15 Chronic renal failure/Chronic Kidney disease (CKD) please stage if known CKD Stage 1 GFR >90 CKD Stage 2 GFR 60-89 CKD Stage 3 GFR 30-59 CKD Stage 4 GFR 15-29 CKD Stage 5 GFR <15 ESRD Other, please specify Unable to determine Please continue to document in your progress notes and discharge summary in order to capture severity of illness and risk of mortality. Include clinical findings that support your diagnosis. __ - acute renal failure from diuresis-type prerenal MTDD
--- NOTE | 2017-10-04 12:29 | P.PN ---
Subjective Progress Note Date: 10/04/17 Principal diagnosis: Acute congestive heart failure, systolic, in a patient with the LV EF of 35-40% Pulmonary consult dated 10/03/2017 This is an 87-year-old black male brought to the emergency room by EMS from the half-way with complaints of decreased level of consciousness. Apparently is normally awake and alert and oriented and apparently was found to be more confused lethargic and less responsive. For that reason he was admitted to the emergency department. He was found apparently to have heart failure. Chest x- ray was consistent with heart failure and his N-terminal proBNP was 97,000. He' s very poorly responsive. He was recently inpatient and we saw him at that time. He does have lower extremity edema as well. His history is consistent with hyperlipidemia, CAD, heart failure, COPD, dementia, GI bleed, hyperlipidemia, hypertension, myocardial infarction, blood loss anemia, protein calorie malnutrition, osteogenesis imperfecta,. Currently the patient is resting comfortably. Very lethargic and sleepy. Does not appear to be any distress whatsoever. Again chest x-ray examination in N-terminal proBNP all point towards CHF as the cause for the patient's issues. On 10/04/2017 patient seen in follow-up on selective care unit. He is more awake today, responds appropriately, denies any acute distress. Remains very generally weak, does have some chest discomfort with coughing. But no acute distress noted. No socks on 2 L per nasal cannula is 93%, patient is afebrile, hemodynamically stable. He remains on Lasix drip at 10 mg per hour, and he is in -1519 mL fluid balance over the last 24 hours. Lung sounds are positive for fine crackles over bilateral bases. Brain CT showed no acute intracranial hemorrhage, and mild to moderate diffuse age-related cerebral atrophy and fairly advanced chronic small vessel ischemic changes. No new chest x-ray. No new lab work. Overall patient is improving, however in view of his multiple chronic comorbidities, advanced age, recurrent readmissions, poor baseline functional performance his CODE STATUS will need to be addressed with his family Objective - Vital Signs Vital signs: Vital Signs Temp 96.3 F L 10/04/17 08:30 Pulse 73 10/04/17 08:30 Resp 18 10/04/17 08:30 BP 149/66 10/04/17 08:30 Pulse Ox 93 L 10/04/17 08:30 Intake & Output 10/03/17 10/04/17 10/04/17 18:59 06:59 18:59 Intake Total 440 190.167 240 Output Total 2150 Balance 440 -1959.833 240 Weight 62.596 kg Intake: Intake, IV Titration 260 190.167 Amount Furosemide 250 mg In 30 190.167 Sodium Chloride 0.9% 225 ml @ 10 MG/HR 10 mls/hr IVP .Q24H JOCELYN Rx#: [id number] Lactated Ringers 1,000 ml 230 @ 50 mls/hr IV .Q20H JOCELYN Rx#:[id number] Oral 180 240 Output: Urine 2150 Other: Voiding Method Indwelling Catheter Indwelling Catheter Indwelling Catheter # Bowel Movements 1 - Exam No acute distress, oriented 1, the patient is sleepy. Nasal O2 in place.. HEENT examination is grossly unremarkable. Mucous membranes are moist. No oral lesions. Positive arcus senilis. Neck supple. Full range of motion. No adenopathy thyromegaly or neck vein distention. Cardiovascular examination reveals regular rhythm and rate. Heart rate about 85. S1-S2 normal. No distinct murmur noted. Lungs reveal bibasilar fine crackles Abdomen soft bowel sounds are heard. No masses or tenderness. Extremities are intact. 1+ pitting edema is noted. Skin is without rash or lesion. Neurologic examination was very limited. - Labs CBC & Chem 7: 10/02/17 13:30 10/02/17 13:30 Labs: Abnormal Lab Results - Last 24 Hours (Table) 10/03/17 10/04/17 10/04/17 Range/Units 21:15 05:53 11:14 POC Glucose (mg/dL) 134 H 110 H 256 H (75-99) mg/dL Assessment and Plan Plan: Assessment: Acute congestive heart failure, likely systolic in nature, based on his previous 2-D echocardiogram that showed impaired LV function with an EF between 35-40% History of CAD History of COPD Mental status changes, of unclear etiology, may reflect metabolic encephalopathy , improving Hypoxemic respiratory failure Osteogenesis imperfecta History of Alzheimer's dementia History of valvular heart disease in the form of aortic regurgitation and mitral regurgitation and tricuspid regurgitation Secondary pulmonary hypertension Anemia of chronic disease Plan: Continue current plan of treatment, continue IV diuresis per cardiology recommendations. Patient's mentation is improving, more awake and alert, and responsive today. Patient denies any acute distress, overall remains very weak. In view of patient's multiple comorbidities, recurrent readmissions, poor baseline functional performance, it is recommended that his CODE STATUS addressed with his family. I performed a history & physical examination of the patient and discussed their management with my nurse practitioner, Anya Barahona. I reviewed the nurse practitioner's note and agree with the documented findings and plan of care. Lung sounds are positive for fine rales at the bases. The findings and the impression was discussed with the patient. I attest to the documentation by the nurse practitioner. Time with Patient: Less than 30
[2017-10-04 12:55] LABS: Albumin 2.6 g/dL (3.5-5.0); Potassium 3.6 mmol/L (3.5-5.1); Total Bilirubin 0.4 mg/dL (0.2-1.3); Total Protein 5.5 g/dL (6.3-8.2)
--- NOTE | 2017-10-04 14:04 | P.PN ---
Subjective Progress Note Date: 10/04/17 This is an pleasant 87-year-old -[place] gentleman with history of hypertension, hyperlipidemia, aortic regurgitation, COPD, prior GI bleed, who presented to the hospital with symptoms of shortness of breath with associated weakness. He had a recent admission to the hospital in August at which time he presented with pneumonia and sepsis, became hypotensive and was ultimately intubated. EKG on arrival here showed a normal sinus rhythm with LVH strain pattern, nonspecific ST-T wave changes. Chest x-ray showed CHF exacerbation, cardiomegaly and moderate sized bilateral pleural effusions. CAT scan of the brain did not reveal any acute intracranial hemorrhage or midline shift. White blood cell count is normal. Hemoglobin 11.2, platelet count 251. Sodium 144, potassium 3.6, BUN 54, creatinine 1.4. Magnesium 2.0, BNP level 97,000. Troponins 0.076, 0.068, 0.075. Patient was given a one-time dose of IV Lasix in the emergency room and then was initiated on IV fluids. Blood pressure this morning 160/70 with heart rates in the 60s, 99% on 2 L of oxygen. Patient lying down in bed at the time of our examination, appears to be quite frail, complains of feeling weak. He is lying flat in bed with no overt evidence of significant shortness of breath. We will start the patient on IV Lasix drip this morning, and initiate a small dose of Cozaar, increase hydralazine to 50 3 times a day, if patient tolerates in the next day or so we will also consider the addition of Aldactone. 10/04/2017 Patient seen and examined this morning, appears quite frail, seems to be diuresing well on a Lasix drip, no weight was put in today. Sodium 143, potassium 3.6, BUN 57, creatinine 1.1. P Objective - Vital Signs Vital signs: Vital Signs Temp 96.3 F L 10/04/17 08:30 Pulse 73 10/04/17 08:30 Resp 18 10/04/17 08:30 BP 149/66 10/04/17 08:30 Pulse Ox 93 L 10/04/17 08:30 Intake & Output 10/03/17 10/04/17 10/04/17 18:59 06:59 18:59 Intake Total 440 190.167 240 Output Total 2150 Balance 440 -0659.833 240 Weight 62.596 kg Intake: Intake, IV Titration 260 190.167 Amount Furosemide 250 mg In 30 190.167 Sodium Chloride 0.9% 225 ml @ 10 MG/HR 10 mls/hr IVP .Q24H JOCELYN Rx#: [id number] Lactated Ringers 1,000 ml 230 @ 50 mls/hr IV .Q20H JOCELYN Rx#:[id number] Oral 180 240 Output: Urine 2150 Other: Voiding Method Indwelling Catheter Indwelling Catheter Indwelling Catheter # Bowel Movements 1 - Exam PHYSICAL EXAMINATION: GENERAL: 87-year-old -[place] gentleman frail, in no. Distress at the time of my examination. HEENT: Head is atraumatic, normocephalic. Pupils equal, round. Sclera anicteric. Conjunctiva are clear. Mucous membranes of the mouth are moist. Neck is supple. There is elevated jugular venous pressure up to the angle of the jaw.] No carotid bruit is heard. HEART EXAMINATION: Heart S1 and S2, systolic and diastolic heart murmur heard. CHEST EXAMINATION: Lungs clear with fine crackles to bilateral bases. ABDOMEN: Soft, nontender. Bowel sounds are heard. No organomegaly noted. EXTREMITIES: 2+ peripheral pulses with trace evidence of peripheral edema and no calf tenderness noted. NEUROLOGIC patient is awake, alert and oriented -3. - Labs CBC & Chem 7: 10/02/17 13:30 10/04/17 12:34 Labs: Abnormal Lab Results - Last 24 Hours (Table) 10/03/17 10/04/17 10/04/17 Range/Units 21:15 05:53 11:14 Chloride (98-107) mmol/L Carbon Dioxide (22-30) mmol/L BUN (9-20) mg/dL Glucose (74-99) mg/dL POC Glucose (mg/dL) 134 H 110 H 256 H (75-99) mg/dL Calcium (8.4-10.2) mg/dL Total Protein (6.3-8.2) g/dL Albumin (3.5-5.0) g/dL 10/04/17 Range/Units 12:34 Chloride 86 L (98-107) mmol/L Carbon Dioxide 52 H* (22-30) mmol/L BUN 57 H (9-20) mg/dL Glucose 138 H (74-99) mg/dL POC Glucose (mg/dL) (75-99) mg/dL Calcium 8.0 L (8.4-10.2) mg/dL Total Protein 5.5 L (6.3-8.2) g/dL Albumin 2.6 L (3.5-5.0) g/dL Assessment and Plan Plan: Assessment and plan #1 systolic congestive heart failure acute on chronic #2 hypertension #3 hyperlipidemia #4 known aortic regurgitation #5 COPD #6 dementia #7 recent GI bleed Plan From cardiology's perspective, we will recommend to continue the patient on IV Lasix drip. We will get a weight today, monitor intake and output along with daily weights daily lytes BUN and creatinine closely. DNP note has been reviewed, I agree with a documented findings and plan of care. Patient was seen and examined.
[2017-10-04] MEDS: SODIUM CHLORIDE 0.9% 1,000 ML IV SCH (16:13)
[2017-10-04 16:34] LABS: Glucose,Whole Blood 147 mg/dL (75-99)
--- NOTE | 2017-10-04 17:40 | XR ---
EXAMINATION TYPE: XR chest 1V portable DATE OF EXAM: 10/04/2017 COMPARISON: 10/02/2017 HISTORY: Heart failure TECHNIQUE: Single frontal view of the chest is obtained. FINDINGS: Heart is enlarged. There is pulmonary vascular congestion. There is blunting of costophren ic angles. There are chest leads. IMPRESSION: Congestive heart failure with moderate pleural effusions. No change.
[2017-10-04] MEDS: POTASSIUM CHLORIDE ER 20 MEQ TAB.ER PO SCH (18:13)
[2017-10-04] MEDS: MAGNESIUM OXIDE 400 MG TAB PO SCH (18:13)
--- NOTE | 2017-10-04 18:23 | PN ---
PROGRESS NOTE DATE OF SERVICE: 10/03/2017 PRESENTING COMPLAINT: Tired. INTERVAL HISTORY: This patient was seen by me yesterday. He was seen by Cardiology. The patient was started on Lasix drip for fluid overload/CHF exacerbation. Patient is slightly more awake today, answering some simple questions. Eating less than 25% with some meals. Moving his limbs. REVIEW OF SYSTEMS: Review of systems was attempted for constitutional, cardiovascular, GI, pulmonary; relevant findings as above. Patient is rather tired-appearing. CURRENT MEDICATIONS: Reviewed. They include IV Lasix drip. PHYSICAL EXAMINATION: Temperature 96.8, pulse 93, respiration 18, blood pressure 149/66, pulse ox 99% on 2 L. GENERAL APPEARANCE: Lying in bed, slightly more awake, tired-appearing, lethargic. EYES: Pupils equal. Conjunctivae dirty-appearing. HEENT: External appearance of nose and ears normal. Oral cavity dry. NECK: JVD unable to assess. Mass not palpable. RESPIRATORY: Effort increased. LUNGS: Decreased breath sounds. CARDIOVASCULAR: Heart sounds irregular. Some dependent edema. ABDOMEN: Soft, nontender. Liver and spleen not palpable. PSYCHIATRY: Patient is a bit more awake, answering some simple questions in monotones. INVESTIGATIONS: Accu-Cheks are noted. ASSESSMENT: 1. Acute on chronic congestive heart failure from ischemic cardiomyopathy; ejection fraction 40%. On Lasix drip as per Cardiology. 2. Acute metabolic encephalopathy, slow to respond. 3. Coronary artery disease. 4. Chronic obstructive pulmonary disease in an ex-smoker. 5. Chronic hypoxic respiratory failure from underlying chronic obstructive pulmonary disease. 6. Osteogenesis imperfecta. 7. Mild cognitive impairment from Alzheimer's dementia. 8. Decreased vision in the right eye. 9. Moderate aortic regurgitation, mitral regurgitation, severe tricuspid regurgitation, non-rheumatic. 10.Moderate secondary pulmonary hypertension secondary to congestive heart failure and chronic obstructive pulmonary disease. 11.Normocytic anemia, probably multifactorial. PLAN: Patient is on a Lasix drip. Will follow with Cardiology. Overall prognosis is guarded. When last addressed, patient's CODE STATUS was FULL CODE. Will follow. Prognosis not good. MMODL / IJN: [id number] /
[2017-10-04] MEDS ORDERED: Potassium Replacement Protocol 1 EACH MISC MISCELLANE PRN (18:49)
[2017-10-04] MEDS ORDERED: POTASSIUM CHLORIDE ER 20 MEQ TAB.ER PO SCH (19:00)
[2017-10-04] MEDS: ATORVASTATIN 20 MG TAB PO SCH (20:14)
[2017-10-04] MEDS: LATANOPROST 0.005% OPHTH DROPS 2.5 ML BTL RIGHT EYE SCH (20:15)
[2017-10-04 20:59] LABS: Glucose,Whole Blood 222 mg/dL (75-99)
[2017-10-05] MEDS: FUROSEMIDE 250 MG in SODIUM CHLORIDE 0.9% 225 ML IVP SCH (03:30)
[2017-10-05 05:55] LABS: Glucose,Whole Blood 127 mg/dL (75-99)
[2017-10-05] MEDS: CARVEDILOL 3.125 MG TAB PO SCH (06:27)
[2017-10-05 06:58] LABS: Albumin 2.8 g/dL (3.5-5.0); Calcium 8.4 mg/dL (8.4-10.2); Magnesium 1.8 mg/dL (1.6-2.3); Potassium 3.6 mmol/L (3.5-5.1); Total Bilirubin 0.5 mg/dL (0.2-1.3); Total Protein 5.7 g/dL (6.3-8.2)
[2017-10-05] MEDS: ISOSORBIDE MONONITRATE ER 30 MG TAB.ER.24H PO SCH (08:14)
[2017-10-05] MEDS: LOSARTAN 25 MG TAB PO SCH (08:14)
[2017-10-05] MEDS: TIMOLOL 0.5% OPHTH DROPS 5 ML BTL RIGHT EYE SCH ×2 (08:14→21:37)
[2017-10-05] MEDS: BRIMONIDINE TARTRATE 0.2% DROPS 5 ML BTL RIGHT EYE SCH ×2 (08:14→21:37)
[2017-10-05] MEDS: hydrALAZINE HCL 50 MG TAB PO SCH ×3 (08:14→21:38)
[2017-10-05] MEDS: CALCIUM CARB-VIT D 500MG-200UN 1 EACH TAB PO SCH ×3 (08:14→17:48)
[2017-10-05] MEDS ORDERED: LOSARTAN 25 MG TAB PO ONE (08:30)
--- NOTE | 2017-10-05 08:54 | PN ---
PROGRESS NOTE DATE OF SERVICE: 10/04/2017. PRESENTING COMPLAINT: Tired. INTERVAL HISTORY: This patient was seen by me yesterday. The patient is on Lasix drip for fluid overload, CHF exacerbation. The patient is eating some food with assistance. Tired. Answering some questions, but still rather lethargic. Very weak, tired, run down. REVIEW OF SYSTEMS: Attempted but the patient is not able to talk much, remains very tired. Does answer some occasional questions. CURRENT MEDICATIONS: Include IV Lasix drip. PHYSICAL EXAMINATION: Temperature 96.3, pulse 93, respiratory rate 18, blood pressure 149/66, pulse ox 93% on 2 liters. GENERAL APPEARANCE: Lying in bed, rather tired, lethargic, but answers some simple questions. EYES: Pupils equal. Conjunctivae dirty appearing. HEENT: External appearance or nose and ears normal. Oral cavity dry. NECK: JVD unable to assess. Mass not palpable. Respiratory effort increased. LUNGS: Decreased breath sounds. CARDIOVASCULAR: Heart sounds irregular. No dependent edema. ABDOMEN: Soft, nontender. Liver and spleen not palpable. PSYCHIATRY: Patient lethargic but able to answer some simple questions. NEUROLOGICAL: The patient does move his limbs. INVESTIGATIONS: Potassium 3.6, bicarb 52, BUN 57, creatinine 1.14, albumin 2.6. Chest x-ray shows evidence of pulmonary edema. ASSESSMENT: 1. Acute on chronic congestive heart failure exacerbation from ischemic cardiomyopathy. Ejection fraction 40%. Slow to respond on Lasix drip. 2. Acute metabolic encephalopathy, slow to respond. 3. Coronary artery disease. 4. Chronic obstructive pulmonary disease in an ex-smoker. 5. Chronic hypoxic respiratory failure from underlying chronic obstructive pulmonary disease. 6. Osteogenesis imperfecta. 7. Mild cognitive impairment from Alzheimer's dementia. 8. Decreased vision in the right eye. 9. Moderate aortic regurgitation, mitral regurgitation. 10.Severe tricuspid regurgitation, nonrheumatic. 11.Moderate secondary pulmonary hypertension secondary to congestive heart failure and chronic obstructive pulmonary disease. 12.Normocytic anemia, probably multifactorial. 13.Moderate protein-calorie malnutrition with a body mass index of 16.7, poor oral intake. 14.Metabolic alkalosis probably from volume contraction. 15.Significant medical debility. PLAN: Patient remains FULL CODE. He makes his own decisions. At this point he is not in a state where I can discuss CODE STATUS with him. His prognosis is very poor. We will follow with my retail client solutions consultant colleagues day-by-day. COCO / TIANA: [id number] /
[2017-10-05] MEDS: SPIRONOLACTONE 25 MG TAB PO SCH (10:33)
[2017-10-05 12:05] LABS: Glucose,Whole Blood 125 mg/dL (75-99)
--- NOTE | 2017-10-05 12:35 | P.PN ---
Subjective Progress Note Date: 10/05/17 This is an pleasant 87-year-old -[place] gentleman with history of hypertension, hyperlipidemia, aortic regurgitation, COPD, prior GI bleed, who presented to the hospital with symptoms of shortness of breath with associated weakness. He had a recent admission to the hospital in August at which time he presented with pneumonia and sepsis, became hypotensive and was ultimately intubated. EKG on arrival here showed a normal sinus rhythm with LVH strain pattern, nonspecific ST-T wave changes. Chest x-ray showed CHF exacerbation, cardiomegaly and moderate sized bilateral pleural effusions. CAT scan of the brain did not reveal any acute intracranial hemorrhage or midline shift. White blood cell count is normal. Hemoglobin 11.2, platelet count 251. Sodium 144, potassium 3.6, BUN 54, creatinine 1.4. Magnesium 2.0, BNP level 97,000. Troponins 0.076, 0.068, 0.075. Patient was given a one-time dose of IV Lasix in the emergency room and then was initiated on IV fluids. Blood pressure this morning 160/70 with heart rates in the 60s, 99% on 2 L of oxygen. Patient lying down in bed at the time of our examination, appears to be quite frail, complains of feeling weak. He is lying flat in bed with no overt evidence of significant shortness of breath. We will start the patient on IV Lasix drip this morning, and initiate a small dose of Cozaar, increase hydralazine to 50 3 times a day, if patient tolerates in the next day or so we will also consider the addition of Aldactone. 10/04/2017 Patient seen and examined this morning, appears quite frail, seems to be diuresing well on a Lasix drip, no weight was put in today. Sodium 143, potassium 3.6, BUN 57, creatinine 1.1. 10/05/2017 Patient seen and examined this morning, he does state today that he is noticing himself to be feeling better. Weight is down 4 kg from admission. Blood pressure this morning 174/78 with a heart rate in the 90s, 94% on 2 L of oxygen. Sodium 145, potassium 3.6, BUN 55, creatinine 1.0. Magnesium 1.8. He continues to be on the IV Lasix drip at 10 mg per hour which we will continue. We will also increase his beta raheel to 6.25 mg twice a day and increase the Cozaar to 50 mg daily. We will add Aldactone 25 mg daily as well to his medication. He did lie the patient down flat this morning, he did become much more short of breath, sitting up straight in his breathing is significantly improved. Objective - Vital Signs Vital signs: Vital Signs Temp 98 F 10/05/17 11:36 Pulse 91 10/05/17 11:36 Resp 16 10/05/17 11:36 BP 175/78 10/05/17 11:36 Pulse Ox 94 L 10/05/17 11:36 Intake & Output 10/04/17 10/05/17 10/05/17 18:59 06:59 18:59 Intake Total 400 370 Output Total 1650 Balance 400 -1280 Weight 60.781 kg 56 kg 56 kg Intake: Intake, IV Titration 160 370 Amount Furosemide 250 mg In 210 Sodium Chloride 0.9% 225 ml @ 10 MG/HR 10 mls/hr IVP .Q24H JOCELYN Rx#: [id number] Sodium Chloride 0.9% 1, 160 160 000 ml @ 20 mls/hr IV . Q24H JOCELYN Rx#:[id number] Oral 240 Output: Urine 1650 Other: Voiding Method Indwelling Catheter Indwelling Catheter Indwelling Catheter - Exam PHYSICAL EXAMINATION: GENERAL: 87-year-old -[place] gentleman frail, in no. Distress at the time of my examination. HEENT: Head is atraumatic, normocephalic. Pupils equal, round. Sclera anicteric. Conjunctiva are clear. Mucous membranes of the mouth are moist. Neck is supple. There is elevated jugular venous pressure up to the angle of the jaw.] No carotid bruit is heard. HEART EXAMINATION: Heart S1 and S2, systolic and diastolic heart murmur heard. CHEST EXAMINATION: Lungs clear with fine crackles to bilateral bases. ABDOMEN: Soft, nontender. Bowel sounds are heard. No organomegaly noted. EXTREMITIES: 2+ peripheral pulses with trace evidence of peripheral edema and no calf tenderness noted. NEUROLOGIC patient is awake, alert and oriented -3. - Labs CBC & Chem 7: 10/02/17 13:30 10/05/17 06:23 Labs: Abnormal Lab Results - Last 24 Hours (Table) 10/04/17 10/04/17 10/04/17 Range/Units 12:34 16:22 20:58 Chloride 86 L (98-107) mmol/L Carbon Dioxide 52 H* (22-30) mmol/L BUN 57 H (9-20) mg/dL Glucose 138 H (74-99) mg/dL POC Glucose (mg/dL) 147 H 222 H (75-99) mg/dL Calcium 8.0 L (8.4-10.2) mg/dL Total Protein 5.5 L (6.3-8.2) g/dL Albumin 2.6 L (3.5-5.0) g/dL 10/05/17 10/05/17 10/05/17 Range/Units 05:54 06:23 12:01 Chloride 85 L (98-107) mmol/L Carbon Dioxide 55 H* (22-30) mmol/L BUN 55 H (9-20) mg/dL Glucose 108 H (74-99) mg/dL POC Glucose (mg/dL) 127 H 125 H (75-99) mg/dL Calcium (8.4-10.2) mg/dL Total Protein 5.7 L (6.3-8.2) g/dL Albumin 2.8 L (3.5-5.0) g/dL Assessment and Plan Plan: Assessment and plan #1 systolic congestive heart failure acute on chronic #2 hypertension #3 hyperlipidemia #4 known aortic regurgitation #5 COPD #6 dementia #7 recent GI bleed Plan From cardiology's perspective, we will recommend to continue the patient on IV Lasix drip. Increase Coreg to 6.25 mg twice a day, increase Cozaar to 50 mg daily, add Aldactone 25 mg to his medication regime. Check lytes BUN creatinine and daily weights intake and output in the morning. DNP note has been reviewed, I agree with a documented findings and plan of care. Patient was seen and examined.
--- NOTE | 2017-10-05 14:11 | P.PN ---
Subjective Progress Note Date: 10/05/17 Principal diagnosis: Shortness of breath Progress note dated 10/05/2017 87-year-old black male with a history of acute heart failure. He has systolic heart failure with ejection fraction about 35%. In addition, he has a history of CAD, COPD, mental status changes, hypoxemic respiratory failure, osteogenesis imperfecta, Alzheimer's dementia, valvular heart disease in the form of aortic regurgitation and mitral regurgitation and some secondary pulmonary hypertension as well as anemia of chronic disease. The patient seemed to do relatively well. He has no particular complaints today. Denies any shortness of breath chest pain chest discomfort cough phlegm wheezing or hemoptysis. No fever chills or diarrhea. Objective - Vital Signs Vital signs: Vital Signs Temp 98 F 10/05/17 11:36 Pulse 91 10/05/17 11:36 Resp 16 10/05/17 11:36 BP 175/78 10/05/17 11:36 Pulse Ox 94 L 10/05/17 11:36 Intake & Output 10/04/17 10/05/17 10/05/17 18:59 06:59 18:59 Intake Total 400 370 Output Total 1650 Balance 400 -1280 Weight 60.781 kg 56 kg 56 kg Intake: Intake, IV Titration 160 370 Amount Furosemide 250 mg In 210 Sodium Chloride 0.9% 225 ml @ 10 MG/HR 10 mls/hr IVP .Q24H JOCELYN Rx#: [id number] Sodium Chloride 0.9% 1, 160 160 000 ml @ 20 mls/hr IV . Q24H [facility]OC[facility] Rx#:[id number] Oral 240 Output: Urine 1650 Other: Voiding Method Indwelling Catheter Indwelling Catheter Indwelling Catheter - Exam No acute distress, oriented 3. Patient more awake today. Nasal O2 in place. HEENT examination is grossly unremarkable. Mucous membranes are moist. No oral lesions. The patient had bilateral arcus senilis. Neck supple. Full range of motion. No adenopathy thyromegaly or neck vein distention. Cardiovascular examination reveals regular rhythm rate. S1-S2 normal. No S3 or S4. No discernible murmur noted. Lungs reveal bibasilar crackles. Breath sounds are diminished throughout but equal bilaterally.. Abdomen soft bowel sounds are heard. No masses or tenderness. Extremities are intact. Slight edema noted. No cyanosis or clubbing. Skin is without rash or lesion. Neurologic examination is brief but nonfocal. - Labs CBC & Chem 7: 10/02/17 13:30 10/05/17 06:23 Labs: Abnormal Lab Results - Last 24 Hours (Table) 10/04/17 10/04/17 10/05/17 Range/Units 16:22 20:58 05:54 Chloride (98-107) mmol/L Carbon Dioxide (22-30) mmol/L BUN (9-20) mg/dL Glucose (74-99) mg/dL POC Glucose (mg/dL) 147 H 222 H 127 H (75-99) mg/dL Total Protein (6.3-8.2) g/dL Albumin (3.5-5.0) g/dL 10/05/17 10/05/17 Range/Units 06:23 12:01 Chloride 85 L (98-107) mmol/L Carbon Dioxide 55 H* (22-30) mmol/L BUN 55 H (9-20) mg/dL Glucose 108 H (74-99) mg/dL POC Glucose (mg/dL) 125 H (75-99) mg/dL Total Protein 5.7 L (6.3-8.2) g/dL Albumin 2.8 L (3.5-5.0) g/dL Assessment and Plan Assessment: Assessment Acute congestive heart failure, likely systolic in nature with a slightly impaired ejection fraction History of CAD History of COPD Mental status changes, of unclear etiology, may reflect metabolic encephalopathy Hypoxemic respiratory failure Osteogenesis imperfecta History of Alzheimer's dementia History of valvular heart disease in the form of aortic regurgitation and mitral regurgitation and tricuspid regurgitation Secondary pulmonary hypertension Anemia of chronic disease Plan: Plan dated 10/03/2017 Labs x-rays a medications are reviewed. We'll make sure that he has updrafts ordered. He should be on diuretics as I believe he is. He's been seen by cardiology in the hospital service. Prognosis is poor. CODE STATUS really needs to be addressed on this patient. Additional recommendations and suggestions are forthcoming. Plan dated 10/05/2017 Chest x-ray labs and medications are reviewed. CODE STATUS should be addressed. The patient's has a very poor prognosis. Medications are reviewed. No changes in medications are needed at this time. The patient seemed be doing a bit better. Much more awake and alert. Denies any issues relating to his chest either chest pain chest discomfort palpitations skipped beats or anything like this and also denies any difficulty breathing coughing wheezing shortness of breath phlegm production hemoptysis or any other lung complaints for that matter. Time with Patient: Less than 30
[2017-10-05 17:23] LABS: Glucose,Whole Blood 122 mg/dL (75-99)
[2017-10-05] MEDS: POTASSIUM CHLORIDE ER 20 MEQ TAB.ER PO SCH (17:48)
[2017-10-05] MEDS: CARVEDILOL 6.25 MG TAB PO SCH (17:48)
[2017-10-05] MEDS: MAGNESIUM OXIDE 400 MG TAB PO SCH (17:48)
[2017-10-05] MEDS: SODIUM CHLORIDE 0.9% 1,000 ML IV SCH (18:02)
--- NOTE | 2017-10-05 18:33 | PN ---
PROGRESS NOTE DATE OF SERVICE: 10/05/2017 PRESENTING COMPLAINT: Tired, lethargic. INTERVAL HISTORY: Patient presented with CHF exacerbation, remains on Lasix drip, is tired still and a little bit encephalopathic, does answer some questions, not much, barely eating 10%, a few bites here and there. REVIEW OF SYSTEMS: Attempted, but the patient really does not communicate much. CURRENT MEDICATIONS: Reviewed that include IV Lasix drip. EXAMINATION: Temperature 98, pulse 91, respirations 16, blood pressure 135/78, pulse ox 94% on 2L. GENERAL APPEARANCE: Lying in bed, lethargic, but answers minimal questions. EYES: Pupils equal. Conjunctivae dirty-appearing. HEENT: External nose and ears normal. Oral cavity dry. NECK: JVD unable to assess. Mass not palpable. RESPIRATORY: Effort increased. LUNGS: Decreased breath sounds. CARDIOVASCULAR: Heart sounds irregular. Decreased edema. ABDOMEN: Soft, nontender. Liver and spleen not palpable. PSYCHIATRY: Patient does follow some simple commands. INVESTIGATIONS: Potassium 3.6, bicarb 55, BUN 55, creatinine 1.04. ASSESSMENT: 1. Acute on chronic congestive heart failure exacerbation from ischemic cardiomyopathy, ejection fraction 40%, slow to respond. Patient remains on a Lasix drip. 2. Acute metabolic encephalopathy, slow to respond. Patient is still not really able to communicate much. 3. Coronary artery disease. 4. Chronic obstructive pulmonary disease in an ex-smoker. 5. Chronic hypoxic respiratory failure from underlying chronic obstructive pulmonary disease. 6. Osteogenesis imperfecta. 7. Mild cognitive impairment from Alzheimer's dementia. 8. Decreased vision in the right eye. 9. Moderate aortic regurgitation, mitral regurgitation, severe tricuspid regurgitation, nonrheumatic. 10.Moderate secondary pulmonary hypertension secondary to congestive heart failure and chronic obstructive pulmonary disease. 11.Normocytic anemia, probably multifactorial. 12.Moderate protein-calorie malnutrition with a body mass index of 16.7, poor oral intake. 13.Metabolic alkalosis, probably from volume contraction. 14.Significant medical debility. PLAN: I did try to talk to the patient about code status, but his mental state is not there that I can discuss with him. Prognosis remains guarded. Continue with current medication and treatment plan. Follow. MMODL / IJN: [id number] /
[2017-10-05 20:32] LABS: Glucose,Whole Blood 225 mg/dL (75-99)
[2017-10-05] MEDS: ATORVASTATIN 20 MG TAB PO SCH (21:37)
[2017-10-05] MEDS: LATANOPROST 0.005% OPHTH DROPS 2.5 ML BTL RIGHT EYE SCH (21:37)
[2017-10-06] MEDS: FUROSEMIDE 250 MG in SODIUM CHLORIDE 0.9% 225 ML IVP SCH (02:44)
[2017-10-06 06:03] LABS: Glucose,Whole Blood 141 mg/dL (75-99)
[2017-10-06] MEDS: CARVEDILOL 6.25 MG TAB PO SCH ×2 (06:30→16:27)
[2017-10-06 06:40] LABS: Calcium 8.7 mg/dL (8.4-10.2); Potassium 3.8 mmol/L (3.5-5.1)
[2017-10-06] MEDS: TIMOLOL 0.5% OPHTH DROPS 5 ML BTL RIGHT EYE SCH ×2 (07:59→20:27)
[2017-10-06] MEDS: LOSARTAN 50 MG TAB PO SCH (08:00)
[2017-10-06] MEDS: CALCIUM CARB-VIT D 500MG-200UN 1 EACH TAB PO SCH ×3 (08:00→16:24)
[2017-10-06] MEDS: BRIMONIDINE TARTRATE 0.2% DROPS 5 ML BTL RIGHT EYE SCH ×2 (08:00→20:28)
[2017-10-06] MEDS: hydrALAZINE HCL 50 MG TAB PO SCH ×3 (08:00→20:27)
[2017-10-06] MEDS: ISOSORBIDE MONONITRATE ER 30 MG TAB.ER.24H PO SCH (08:00)
[2017-10-06] MEDS: SPIRONOLACTONE 25 MG TAB PO SCH (08:00)
[2017-10-06] MEDS ORDERED: ERGOCALCIFEROL 50,000 UNIT CAP PO SCH (09:00)
--- NOTE | 2017-10-06 11:46 | P.PN ---
Subjective Progress Note Date: 10/06/17 Principal diagnosis: Acute congestive heart failure, systolic, in a patient with the LV EF of 35-40% Pulmonary consult dated 10/03/2017 This is an 87-year-old black male brought to the emergency room by EMS from the intermediate with complaints of decreased level of consciousness. Apparently is normally awake and alert and oriented and apparently was found to be more confused lethargic and less responsive. For that reason he was admitted to the emergency department. He was found apparently to have heart failure. Chest x- ray was consistent with heart failure and his N-terminal proBNP was 97,000. He' s very poorly responsive. He was recently inpatient and we saw him at that time. He does have lower extremity edema as well. His history is consistent with hyperlipidemia, CAD, heart failure, COPD, dementia, GI bleed, hyperlipidemia, hypertension, myocardial infarction, blood loss anemia, protein calorie malnutrition, osteogenesis imperfecta,. Currently the patient is resting comfortably. Very lethargic and sleepy. Does not appear to be any distress whatsoever. Again chest x-ray examination in N-terminal proBNP all point towards CHF as the cause for the patient's issues. On 10/04/2017 patient seen in follow-up on selective care unit. He is more awake today, responds appropriately, denies any acute distress. Remains very generally weak, does have some chest discomfort with coughing. But no acute distress noted. No socks on 2 L per nasal cannula is 93%, patient is afebrile, hemodynamically stable. He remains on Lasix drip at 10 mg per hour, and he is in -1519 mL fluid balance over the last 24 hours. Lung sounds are positive for fine crackles over bilateral bases. Brain CT showed no acute intracranial hemorrhage, and mild to moderate diffuse age-related cerebral atrophy and fairly advanced chronic small vessel ischemic changes. No new chest x-ray. No new lab work. Overall patient is improving, however in view of his multiple chronic comorbidities, advanced age, recurrent readmissions, poor baseline functional performance his CODE STATUS will need to be addressed with his family On 10/06/2017 patient seen in follow-up on selective care unit. He is lethargic , but arousable to verbal stimuli. Very frail, and weak. [place] any distress, denies any worsening dyspnea. He remains on Lasix drip at a rate of 10 mg per hour, he is in -4400 mL fluid balance over the last 24 hours. Respirations are shallow, but nonlabored. Lung sounds are positive for bibasilar fine crackles, remains on 3 L per nasal cannula with a pulse ox of 100%, his been afebrile, vital signs are stable. These labs were reviewed, BNP was done, no CBC. Sodium was 145, potassium is 3.8, chloride is 82, CO2 is 56, BUN of 55, creatinine is 1.2. New chest x-rays today. His weight is down to 51.5 kg from 56 kg. At this time patient remains a full code, this was probably has to be readdressed with the patient's family. Altered prognosis is poor based on the patient's multiple comorbidities, poor left ventricular function, COPD with chronic hypercapnic respiratory failure, Alzheimer's dementia, poor overall baseline functional status. Objective - Vital Signs Vital signs: Vital Signs Temp 96.0 F L 10/06/17 11:20 Pulse 78 10/06/17 11:20 Resp 18 10/06/17 11:20 BP 128/56 10/06/17 11:20 Pulse Ox 100 10/06/17 11:20 Intake & Output 10/05/17 10/06/17 10/06/17 18:59 06:59 18:59 Intake Total 596 532.333 80 Output Total 1800 3753 Balance -1204 -3220.667 80 Weight 56 kg 51.5 kg Intake: Intake, IV Titration 232.333 80 Amount Furosemide 250 mg In 232.333 Sodium Chloride 0.9% 225 ml @ 10 MG/HR 10 mls/hr IVP .Q24H [facility] Rx#: [id number] Sodium Chloride 0.9% 1, 80 000 ml @ 20 mls/hr IV . Q24H [facility] Rx#:[id number] Oral 596 300 Output: Urine 1800 3750 Stool 3 Other: Voiding Method Indwelling Catheter Indwelling Catheter Indwelling Catheter # Bowel Movements 1 - Exam No acute distress, oriented 1, the patient is sleepy. Nasal O2 in place.. HEENT examination is grossly unremarkable. Mucous membranes are moist. No oral lesions. Positive arcus senilis. Neck supple. Full range of motion. No adenopathy thyromegaly or neck vein distention. Cardiovascular examination reveals regular rhythm and rate. Heart rate about 85. S1-S2 normal. No distinct murmur noted. Lungs reveal bibasilar fine crackles Abdomen soft bowel sounds are heard. No masses or tenderness. Extremities are intact. 1+ pitting edema is noted. Skin is without rash or lesion. Neurologic examination was very limited. - Labs CBC & Chem 7: 10/02/17 13:30 10/06/17 05:32 Labs: Abnormal Lab Results - Last 24 Hours (Table) 10/05/17 10/05/17 10/05/17 Range/Units 12:01 17:22 20:30 Chloride (98-107) mmol/L Carbon Dioxide (22-30) mmol/L BUN (9-20) mg/dL Glucose (74-99) mg/dL POC Glucose (mg/dL) 125 H 122 H 225 H (75-99) mg/dL 10/06/17 10/06/17 Range/Units 05:32 06:01 Chloride 82 L (98-107) mmol/L Carbon Dioxide 56 H* (22-30) mmol/L BUN 55 H (9-20) mg/dL Glucose 139 H (74-99) mg/dL POC Glucose (mg/dL) 141 H (75-99) mg/dL Assessment and Plan Plan: Assessment: Acute congestive heart failure, likely systolic in nature, based on his previous 2-D echocardiogram that showed impaired LV function with an EF between 35-40% History of CAD History of COPD Mental status changes, of unclear etiology, may reflect metabolic encephalopathy , improving Hypoxemic respiratory failure Osteogenesis imperfecta History of Alzheimer's dementia History of valvular heart disease in the form of aortic regurgitation and mitral regurgitation and tricuspid regurgitation Secondary pulmonary hypertension Anemia of chronic disease Plan: Continue current treatment, he remains on IV Lasix drip, continues to diurese, maintaining negative fluid balance. Lethargic today, but in no acute distress. Very frail overall. Clinically is stable, however in view of his multiple comorbidities, her baseline functional status, frequent readmissions for congestive heart failure exacerbations, his CODE STATUS needs to be readdressed with his family. Long-term prognosis is guarded due to the above mentioned reasons. I performed a history & physical examination of the patient and discussed their management with my nurse practitioner, Anya Barahona. I reviewed the nurse practitioner's note and agree with the documented findings and plan of care. Lung sounds are positive for fine rales at the bases. The findings and the impression was discussed with the patient. I attest to the documentation by the nurse practitioner. Time with Patient: Less than 30
[2017-10-06 11:54] LABS: Glucose,Whole Blood 134 mg/dL (75-99)
--- NOTE | 2017-10-06 13:25 | P.PN ---
Subjective Progress Note Date: 10/06/17 This is an pleasant 87-year-old -Citizen Of [place] gentleman with history of hypertension, hyperlipidemia, aortic regurgitation, COPD, prior GI bleed, who presented to the hospital with symptoms of shortness of breath with associated weakness. He had a recent admission to the hospital in August at which time he presented with pneumonia and sepsis, became hypotensive and was ultimately intubated. EKG on arrival here showed a normal sinus rhythm with LVH strain pattern, nonspecific ST-T wave changes. Chest x-ray showed CHF exacerbation, cardiomegaly and moderate sized bilateral pleural effusions. CAT scan of the brain did not reveal any acute intracranial hemorrhage or midline shift. White blood cell count is normal. Hemoglobin 11.2, platelet count 251. Sodium 144, potassium 3.6, BUN 54, creatinine 1.4. Magnesium 2.0, BNP level 97,000. Troponins 0.076, 0.068, 0.075. Patient was given a one-time dose of IV Lasix in the emergency room and then was initiated on IV fluids. Blood pressure this morning 160/70 with heart rates in the 60s, 99% on 2 L of oxygen. Patient lying down in bed at the time of our examination, appears to be quite frail, complains of feeling weak. He is lying flat in bed with no overt evidence of significant shortness of breath. We will start the patient on IV Lasix drip this morning, and initiate a small dose of Cozaar, increase hydralazine to 50 3 times a day, if patient tolerates in the next day or so we will also consider the addition of Aldactone. 10/04/2017 Patient seen and examined this morning, appears quite frail, seems to be diuresing well on a Lasix drip, no weight was put in today. Sodium 143, potassium 3.6, BUN 57, creatinine 1.1. 10/05/2017 Patient seen and examined this morning, he does state today that he is noticing himself to be feeling better. Weight is down 4 kg from admission. Blood pressure this morning 174/78 with a heart rate in the 90s, 94% on 2 L of oxygen. Sodium 145, potassium 3.6, BUN 55, creatinine 1.0. Magnesium 1.8. He continues to be on the IV Lasix drip at 10 mg per hour which we will continue. We will also increase his beta raheel to 6.25 mg twice a day and increase the Cozaar to 50 mg daily. We will add Aldactone 25 mg daily as well to his medication. He did lie the patient down flat this morning, he did become much more short of breath, sitting up straight in his breathing is significantly improved. 10/06/2017 Patient seen and examined this morning, significant change from yesterday. Patient appears to be staring out in a gaze, appears as though he may have had a stroke. Lethargic, arousable to verbal stimuli. Family is at bedside, they were called by the nursing staff to command. Dr. Salomon to have a discussion with the family today regarding possible hospice care. He continues to be on a Lasix drip at this time, diuresed very well through the night last night. Objective - Vital Signs Vital signs: Vital Signs Temp 96.0 F L 10/06/17 11:20 Pulse 78 10/06/17 11:20 Resp 18 10/06/17 11:20 BP 128/56 10/06/17 11:20 Pulse Ox 100 10/06/17 11:20 Intake & Output 10/05/17 10/06/17 10/06/17 18:59 06:59 18:59 Intake Total 596 532.333 80 Output Total 1800 3753 Balance -1204 -3220.667 80 Weight 56 kg 51.5 kg Intake: Intake, IV Titration 232.333 80 Amount Furosemide 250 mg In 232.333 Sodium Chloride 0.9% 225 ml @ 10 MG/HR 10 mls/hr IVP .Q24H [facility] Rx#: [id number] Sodium Chloride 0.9% 1, 80 000 ml @ 20 mls/hr IV . Q24H [facility] Rx#:[id number] Oral 596 300 Output: Urine 1800 3750 Stool 3 Other: Voiding Method Indwelling Catheter Indwelling Catheter Indwelling Catheter # Bowel Movements 1 - Exam PHYSICAL EXAMINATION: GENERAL: 87-year-old -Citizen Of [place] gentleman frail, in no. Distress at the time of my examination. HEENT: Head is atraumatic, normocephalic. Pupils equal, round. Sclera anicteric. Conjunctiva are clear. Mucous membranes of the mouth are moist. Neck is supple. There is elevated jugular venous pressure up to the angle of the jaw.] No carotid bruit is heard. HEART EXAMINATION: Heart S1 and S2, systolic and diastolic heart murmur heard. CHEST EXAMINATION: Lungs clear with fine crackles to bilateral bases. ABDOMEN: Soft, nontender. Bowel sounds are heard. No organomegaly noted. EXTREMITIES: 2+ peripheral pulses with trace evidence of peripheral edema and no calf tenderness noted. NEUROLOGIC patient is lethargic, arouses to verbal stimuli. - Labs CBC & Chem 7: 10/02/17 13:30 10/06/17 05:32 Labs: Abnormal Lab Results - Last 24 Hours (Table) 10/05/17 10/05/17 10/06/17 Range/Units 17:22 20:30 05:32 Chloride 82 L (98-107) mmol/L Carbon Dioxide 56 H* (22-30) mmol/L BUN 55 H (9-20) mg/dL Glucose 139 H (74-99) mg/dL POC Glucose (mg/dL) 122 H 225 H (75-99) mg/dL 10/06/17 10/06/17 Range/Units 06:01 11:27 Chloride (98-107) mmol/L Carbon Dioxide (22-30) mmol/L BUN (9-20) mg/dL Glucose (74-99) mg/dL POC Glucose (mg/dL) 141 H 134 H (75-99) mg/dL Assessment and Plan Plan: Assessment and plan #1 systolic congestive heart failure acute on chronic #2 hypertension #3 hyperlipidemia #4 known aortic regurgitation #5 COPD #6 dementia #7 recent GI bleed Plan From cardiology's perspective, we will discontinue the IV lasix drip, start the patient on oral Lasix. A discussion is going to be made today with the patient' s family regarding possible hospice care. We will follow this patient along with you now on an as-needed basis only, please don't hesitate to call with any questions. DNP note has been reviewed, I agree with a documented findings and plan of care. Patient was seen and examined.
[2017-10-06] MEDS: SODIUM CHLORIDE 0.9% 1,000 ML IV SCH (15:09)
[2017-10-06] MEDS: MAGNESIUM OXIDE 400 MG TAB PO SCH (16:24)
[2017-10-06] MEDS: POTASSIUM CHLORIDE ER 20 MEQ TAB.ER PO SCH (16:24)
[2017-10-06] MEDS: FUROSEMIDE 80 MG TAB PO SCH (16:24)
[2017-10-06 16:50] LABS: Glucose,Whole Blood 148 mg/dL (75-99)
[2017-10-06] MEDS: ATORVASTATIN 20 MG TAB PO SCH (20:27)
[2017-10-06] MEDS: LATANOPROST 0.005% OPHTH DROPS 2.5 ML BTL RIGHT EYE SCH (20:28)
--- NOTE | 2017-10-06 20:49 | PN ---
PROGRESS NOTE DATE OF SERVICE: 10/06/2017 PRESENTING COMPLAINT: Lethargic. INTERVAL HISTORY: The patient presented with CHF exacerbation, had been on Lasix drip. More and more lethargic, barely able to correspond, does nod his head sometimes. Made good urine output. REVIEW OF SYSTEMS: The patient is barely able to communicate. CURRENT MEDICATIONS: Reviewed with an Lasix IV Lasix drip this morning switched over to p.o. Lasix per Cardiology. EXAMINATION: Temperature 96.1, pulse 89, respirations 18, blood pressure 113/53, pulse ox 100% on 3L. GENERAL APPEARANCE: Lying in bed, more lethargic. EYES: Pupils equal. Conjunctivae dry. HEENT: External nose and ears normal. Oral cavity dry. NECK: JVD unable to assess. Mass not palpable. RESPIRATORY: Effort increased. LUNGS: Decreased breath sounds. CARDIOVASCULAR: Heart sounds irregular. Decreased edema. ABDOMEN: Soft, nontender. Liver and spleen not palpable. PSYCHIATRY: Lethargic, just about following commands. INVESTIGATIONS: Potassium 3.8 carbon dioxide 36, BUN 55, creatinine 1.20. ASSESSMENT: 1. Acute on chronic congestive heart failure exacerbation from ischemic cardiomyopathy, ejection fraction 40%. The patient was on Lasix drip until this morning. 2. Acute metabolic encephalopathy, worsening. 3. Coronary artery disease. 4. Chronic obstructive pulmonary disease in an ex-smoker. 5. Chronic hypoxic respiratory failure from underlying chronic obstructive pulmonary disease. 6. Osteogenesis imperfecta. 7. Mild cognitive impairment from Alzheimer dementia at baseline. 8. Decreased vision in the right eye. 9. Moderate aortic regurgitation, mitral regurgitation, severe tricuspid regurgitation, nonrheumatic. 10.Moderate secondary pulmonary hypertension secondary to congestive heart failure and chronic obstructive pulmonary disease. 11.Normocytic anemia, probably multifactorial. 12.Moderate protein-calorie malnutrition with a BMI 16.7, poor oral intake. 13.Metabolic alkalosis from volume contraction. 14.Significant medical debility. PLAN: Per Cardiology, patient was switched over to oral Lasix. The patient continues to do poorly. ADVANCED CARE PLANNING: I spoke to patient's son, Jeff Dempsey, did explain to him to the patient's overall guarded prognosis. Patient continues to do poorly in multiple comorbidities. He does understand that the father is not doing well and is agreeable to proceed with DO NOT RESUSCITATE status. We will see how things go and if there is no change in next 24 hours, then we will probably head toward hospice. Additional about 20 minutes were spent for advanced care planning. MMODL / IJN: [id number] /
[2017-10-06 20:58] LABS: Glucose,Whole Blood 177 mg/dL (75-99)
[2017-10-07 06:30] LABS: Glucose,Whole Blood 100 mg/dL (75-99)
[2017-10-07] MEDS: CARVEDILOL 6.25 MG TAB PO SCH ×2 (06:40→16:27)
[2017-10-07 06:56] LABS: Calcium 7.9 mg/dL (8.4-10.2); Potassium 3.4 mmol/L (3.5-5.1)
[2017-10-07] MEDS: CALCIUM CARB-VIT D 500MG-200UN 1 EACH TAB PO SCH ×3 (08:18→16:26)
[2017-10-07] MEDS: TIMOLOL 0.5% OPHTH DROPS 5 ML BTL RIGHT EYE SCH ×2 (08:22→21:07)
[2017-10-07] MEDS: SPIRONOLACTONE 25 MG TAB PO SCH (08:22)
[2017-10-07] MEDS: ISOSORBIDE MONONITRATE ER 30 MG TAB.ER.24H PO SCH (08:22)
[2017-10-07] MEDS: LOSARTAN 50 MG TAB PO SCH (08:22)
[2017-10-07] MEDS: FUROSEMIDE 80 MG TAB PO SCH ×2 (08:22→16:27)
[2017-10-07] MEDS: BRIMONIDINE TARTRATE 0.2% DROPS 5 ML BTL RIGHT EYE SCH ×2 (08:22→21:07)
[2017-10-07] MEDS: hydrALAZINE HCL 50 MG TAB PO SCH ×3 (08:22→21:04)
[2017-10-07 12:19] LABS: Glucose,Whole Blood 135 mg/dL (75-99)
[2017-10-07] MEDS: SODIUM CHLORIDE 0.9% 1,000 ML IV SCH (14:27)
[2017-10-07] MEDS: MAGNESIUM OXIDE 400 MG TAB PO SCH (16:27)
[2017-10-07] MEDS: POTASSIUM CHLORIDE ER 20 MEQ TAB.ER PO SCH (16:27)
[2017-10-07 17:06] LABS: Glucose,Whole Blood 136 mg/dL (75-99)
--- NOTE | 2017-10-07 18:41 | PN ---
PROGRESS NOTE DATE OF SERVICE: 10/07/17. PRESENT COMPLAINT: Lethargic. INTERVAL HISTORY: Patient presented with CHF exacerbation, was on Lasix drip. Still remains lethargic. Does not really say much. I talked to the nurse later in the evening. He may take a sip or two here and there. REVIEW OF SYSTEMS: Unable to obtain. CURRENT MEDICATIONS: Reviewed. The patient did take some of his medications. PHYSICAL EXAMINATION: Temperature 96, pulse 61, respirations 16, blood pressure 140/55, pulse ox 100% on 2-L. GENERAL APPEARANCE: Lying in bed, tired, lethargic. EYES: Pupils equal. Conjunctiva dry. HEENT: External appearance of nose and ears normal. Oral cavity dry. NECK: JVD unable to assess. Mass not palpable. RESPIRATORY: Effort increased. Lungs decreased breath sounds. CARDIOVASCULAR: Heart sounds irregular, decreased edema. ABDOMEN: Soft, nontender. Liver and spleen palpable. PSYCHIATRY: Lethargic, does move his limbs. INVESTIGATIONS: Potassium 3.4, bicarb 62, BUN 59, creatinine 1.50. ASSESSMENT: 1. Acute on chronic congestive heart failure exacerbation from ischemic cardiomyopathy, EF 40%, status post Lasix drip. 2. Acute metabolic encephalopathy. 3. Coronary artery disease. 4. Chronic obstructive pulmonary disease in an ex-smoker. 5. Chronic hypoxic respiratory failure underlying chronic obstructive pulmonary disease. 6. Osteogenesis imperfecta. 7. Mild cognitive impairment from underlying dementia at baseline. 8. Decreased vision in the right eye. 9. Moderate aortic regurgitation, mitral regurgitation, severe tricuspid regurgitation, nonrheumatic. 10.Moderate secondary pulmonary hypertension secondary to congestive heart failure and chronic obstructive pulmonary disease. 11.Normocytic anemia, probably multifactorial. 12.Moderate protein-calorie malnutrition, BMI 16.7, from poor oral intake. 13.Metabolic alkalosis from volume contraction. 14.Severe medical debility. PLAN: Prognosis remains not good. call and given an update. Strongly leaning towards hospice if the patient does not make any significant improvement. MMODL / IJN: [id number] /
[2017-10-07 21:00] LABS: Glucose,Whole Blood 129 mg/dL (75-99)
[2017-10-07] MEDS: ATORVASTATIN 20 MG TAB PO SCH (21:04)
[2017-10-07] MEDS: LATANOPROST 0.005% OPHTH DROPS 2.5 ML BTL RIGHT EYE SCH (21:07)
[2017-10-08 06:18] LABS: Glucose,Whole Blood 98 mg/dL (75-99)
[2017-10-08] MEDS: CARVEDILOL 6.25 MG TAB PO SCH ×2 (06:19→16:54)
[2017-10-08 06:34] LABS: Potassium 3.2 mmol/L (3.5-5.1)
[2017-10-08] MEDS: CALCIUM CARB-VIT D 500MG-200UN 1 EACH TAB PO SCH ×3 (08:04→16:53)
[2017-10-08] MEDS: LOSARTAN 50 MG TAB PO SCH (08:06)
[2017-10-08] MEDS: TIMOLOL 0.5% OPHTH DROPS 5 ML BTL RIGHT EYE SCH ×2 (08:06→22:12)
[2017-10-08] MEDS: ISOSORBIDE MONONITRATE ER 30 MG TAB.ER.24H PO SCH (08:06)
[2017-10-08] MEDS: SPIRONOLACTONE 25 MG TAB PO SCH (08:06)
[2017-10-08] MEDS: FUROSEMIDE 80 MG TAB PO SCH ×2 (08:06→16:55)
[2017-10-08] MEDS: BRIMONIDINE TARTRATE 0.2% DROPS 5 ML BTL RIGHT EYE SCH ×2 (08:06→22:12)
[2017-10-08] MEDS: hydrALAZINE HCL 50 MG TAB PO SCH ×3 (08:06→22:02)
[2017-10-08 11:39] LABS: Glucose,Whole Blood 96 mg/dL (75-99)
[2017-10-08] MEDS: SODIUM CHLORIDE 0.9% 1,000 ML IV SCH (16:09)
[2017-10-08] MEDS: MAGNESIUM OXIDE 400 MG TAB PO SCH (16:54)
[2017-10-08 16:55] LABS: Glucose,Whole Blood 116 mg/dL (75-99)
[2017-10-08] MEDS: POTASSIUM CHLORIDE ER 20 MEQ TAB.ER PO SCH (16:55)
[2017-10-08 21:06] LABS: Glucose,Whole Blood 160 mg/dL (75-99)
[2017-10-08] MEDS: ATORVASTATIN 20 MG TAB PO SCH (22:02)
[2017-10-08] MEDS: LATANOPROST 0.005% OPHTH DROPS 2.5 ML BTL RIGHT EYE SCH (22:12)
--- NOTE | 2017-10-09 06:10 | PN ---
PROGRESS NOTE DATE OF SERVICE: 10/08/2017 PRESENTING COMPLAINT: Lethargic. INTERVAL HISTORY: The patient presented with CHF exacerbation, status post Lasix drip. A shade more awake today, attempting to speak some words. The patient's son at the bedside, Tylor Dempsey Jr. with whom the patient lives. The patient ate a few bites of that I gave him and a nurse was present. REVIEW OF SYSTEMS: Patient is not really answering any questions. CURRENT MEDICATIONS: Current medications are reviewed. Patient had not taken today. PHYSICAL EXAMINATION: On examination, temperature 97.4, pulse 68, respiratory 18, blood pressure 144/61, pulse ox 100% on room air. GENERAL APPEARANCE: Tired appearing, awake, follows with his eyes, seems to understand some things at least. EYES: Pupils equal. Conjunctivae dry. HENT: External appearance of nose and ears normal. Oral cavity dry. NECK: JVD unable to assess. Mass not palpable. RESPIRATORY: Effort increased. LUNGS: Decreased breath sounds. CARDIOVASCULAR: Heart sounds irregular. Decreased edema. ABDOMEN: Soft, nontender. Liver and spleen not palpable. PSYCHIATRY: The patient is tired appearing. INVESTIGATIONS: Potassium 3.2, bicarb 62. BUN 61, creatinine 1.50. ASSESSMENT: 1. Acute on chronic congestive heart failure from ischemic cardiomyopathy ejection fraction 40%, status post Lasix drip. 2. Acute metabolic encephalopathy. 3. Coronary artery disease. 4. Chronic obstructive pulmonary disease in an ex-smoker. 5. Chronic hypoxic respiratory failure underlying chronic obstructive pulmonary disease. 6. Osteogenesis imperfecta. 7. Mild cognitive impairment from underlying dementia at baseline. 8. Decreased vision in the right eye. 9. Moderate aortic regurgitation, mitral regurgitation, severe tricuspid regurgitation, nonrheumatic. 10.Moderate secondary pulmonary hypertension secondary to congestive heart failure and chronic obstructive pulmonary disease. 11.Normocytic anemia, probably multifactorial. 12.Moderate protein-calorie malnutrition from poor oral intake. 13.Metabolic alkalosis from volume contraction. 14.Severe medical debility. PLAN: Prognosis guarded. I spoke to the nurse, told her to keep the patient on a thickened liquid and applesauce diet for right now. ADVANCED CARE PLANNING: I had again talk and talked to the patient and the patient's son, not clear how much the patient actually understood, but patient's son is present. Given that patient has not made any significant improvement in 48 hours at this point, it is best felt to keep him comfortable. The patient's son is agreeable that the patient may go back to the rehab place and if he continues not to improve then he will get hospice. The patient is taking a few bites of food here and there and a support will be done. Twenty minutes was spent for about this part of the discussion. COCO / CHARLYN: [id number] /
[2017-10-09 06:34] LABS: Glucose,Whole Blood 123 mg/dL (75-99)
--- NOTE | 2017-10-09 10:07 | P.PN ---
Subjective This is a pleasant 87 years old male with past medical history of heart failure , coronary artery disease, COPD, dementia, GI bleed, hyperlipidemia, hypertension, pneumonia, was recently discharged from the hospital on 2017 for metabolic encephalopathy secondary to pneumonia, UTI with septic shock and bilateral pleural effusion and CHF. [facility] for [facility] status when he found lethargic and less responding with decreased oral intake over 2 days In the ED, Chest x-ray shows CHF exacerbation and small to moderate bilateral pleural effusion with possible underlying atelectasis and/or infiltrate. CT of the brain shows no acute hemorrhage. On admission he found to be in acute kidney injury with creatinine up from baseline of 0.8 1.1 up to 1.45, and 1.50 Patient looks has baseline advanced dementia, he looks cachectic and he doesn't care for himself. He barely talks with yes or no as per staff. When I saw the patient he was staring in the air and he is not responding to me even to "simple questions like whats is your name". As per staff family were at bedside and were thinking of hospice care for the patient given his advanced disease and multiple admissions with similar problem Objective - Vital Signs Vital signs: Vital Signs Temp 98.1 F 10/09/17 08:00 Pulse 73 10/09/17 08:00 Resp 18 10/09/17 08:00 BP 164/44 10/09/17 08:00 Pulse Ox 100 10/09/17 08:00 Intake & Output 10/08/17 10/09/17 10/09/17 18:59 06:59 18:59 Intake Total 0 100 0 Output Total 952 801 Balance -952 -701 0 Weight 53 kg Intake: Intake, IV Titration 0 Amount Sodium Chloride 0.9% 1, 0 000 ml @ 20 mls/hr IV . Q24H [facility] Rx#:[id number] Oral 100 0 Output: Urine 950 800 Stool 2 1 Other: Voiding Method Indwelling Catheter Indwelling Catheter Indwelling Catheter - Exam GENERAL: The patient is awake however he doesn't answer questions or follow commands, not in any acute distress. He is cachectic HEENT: Pupils are round and equally reacting to light. EOMI. No scleral icterus. No conjunctival pallor. Normocephalic, atraumatic. No pharyngeal erythema. No thyromegaly. CARDIOVASCULAR: S1 and S2 present. No murmurs, rubs, or gallops. PULMONARY: Chest is clear to auscultation, no wheezing or crackles. ABDOMEN: Soft, nontender, nondistended, normoactive bowel sounds. No palpable organomegaly. MUSCULOSKELETAL: No joint swelling or deformity. EXTREMITIES: No cyanosis, clubbing, or pedal edema. NEUROLOGICAL: Gross neurological examination did not reveal any focal deficits. SKIN: No rashes. - Labs CBC & Chem 7: 10/02/17 13:30 10/08/17 06:01 Labs: Abnormal Lab Results - Last 24 Hours (Table) 10/08/17 10/08/17 10/09/17 Range/Units 16:25 21:04 06:29 POC Glucose (mg/dL) 116 H 160 H 123 H (75-99) mg/dL Assessment and Plan Plan: -Dementia, looks advanced. Patient is not able take care of himself, his nonverbal and poor historian. As per staff he answers with yes or no only. Family considering hospice care -Acute on chronic systolic CHF. Recent echo shows EF 25-30% moderate AR, moderate MR, and severe TR. Cardiology consultation is appreciated, continue with diuretics with Lasix and Diamox. -Acute kidney injury, creatinine up at 1.5 area at 1.5. creatinine baseline 0.8- 1.1. Patient is on Diuretics 18 mg twice a day, However patient is on Diamox Hypernatremic at 148. UA is negative -Metabolic encephalopathy, mostly due to CHF and renal impairment. Cardiology and pulmonary consultation is appreciated -Hypertension continue with hydralazine, Lasix, Diamox, Imdur, losartan, and Aldactone -Hyperlipidemia continue with statin DVT prophylaxis heparin GI prophylaxis Pepcid -
[2017-10-09 11:19] VITALS: BMI 15.8
[2017-10-09 11:37] LABS: Glucose,Whole Blood 106 mg/dL (75-99)
[2017-10-09] MEDS: CALCIUM CARB-VIT D 500MG-200UN 1 EACH TAB PO SCH ×3 (13:16→16:52)
[2017-10-09] MEDS: CARVEDILOL 6.25 MG TAB PO SCH ×2 (13:16→16:53)
[2017-10-09] MEDS: SPIRONOLACTONE 25 MG TAB PO SCH (13:38)
[2017-10-09] MEDS: LOSARTAN 50 MG TAB PO SCH (13:38)
[2017-10-09] MEDS: ISOSORBIDE MONONITRATE ER 30 MG TAB.ER.24H PO SCH (13:39)
[2017-10-09] MEDS: hydrALAZINE HCL 50 MG TAB PO SCH ×3 (13:39→22:41)
[2017-10-09] MEDS: FUROSEMIDE 80 MG TAB PO SCH ×2 (13:39→16:52)
[2017-10-09] MEDS: TIMOLOL 0.5% OPHTH DROPS 5 ML BTL RIGHT EYE SCH (13:40)
[2017-10-09] MEDS: BRIMONIDINE TARTRATE 0.2% DROPS 5 ML BTL RIGHT EYE SCH (13:40)
[2017-10-09 16:29] LABS: Glucose,Whole Blood 133 mg/dL (75-99)
[2017-10-09] MEDS: SODIUM CHLORIDE 0.9% 1,000 ML IV SCH (16:51)
[2017-10-09] MEDS: MAGNESIUM OXIDE 400 MG TAB PO SCH (16:52)
[2017-10-09] MEDS: POTASSIUM CHLORIDE ER 20 MEQ TAB.ER PO SCH (16:53)
[2017-10-09 20:50] LABS: Glucose,Whole Blood 101 mg/dL (75-99)
[2017-10-09] MEDS ORDERED: FAMOTIDINE 20 MG/2 ML VIAL IV SCH (21:00)
[2017-10-09] MEDS: ATORVASTATIN 20 MG TAB PO SCH (22:41)
[2017-10-09] MEDS: LATANOPROST 0.005% OPHTH DROPS 2.5 ML BTL RIGHT EYE SCH (22:45)
[2017-10-10 03:36] VITALS: RESP 18
[2017-10-10] MEDS: TIMOLOL 0.5% OPHTH DROPS 5 ML BTL RIGHT EYE SCH ×2 (05:04→09:58)
[2017-10-10] MEDS: BRIMONIDINE TARTRATE 0.2% DROPS 5 ML BTL RIGHT EYE SCH ×2 (05:04→09:57)
[2017-10-10 06:02] LABS: Glucose,Whole Blood 79 mg/dL (75-99)
--- NOTE | 2017-10-10 07:53 | P.PN ---
Subjective This is a pleasant 87 years old male with past medical history of heart failure , coronary artery disease, COPD, dementia, GI bleed, hyperlipidemia, hypertension, pneumonia, was recently discharged from the hospital on 2017 for metabolic encephalopathy secondary to pneumonia, UTI with septic shock and bilateral pleural effusion and CHF. [facility] status when he found lethargic and less responding with decreased oral intake over 2 days In the ED, Chest x-ray shows CHF exacerbation and small to moderate bilateral pleural effusion with possible underlying atelectasis and/or infiltrate. CT of the brain shows no acute hemorrhage. On admission he found to be in acute kidney injury with creatinine up from baseline of 0.8 1.1 up to 1.45, and 1.50 Patient looks has baseline advanced dementia, he looks cachectic and he doesn't care for himself. He barely talks with yes or no as per staff. When I saw the patient he was staring in the air and he is not responding to me even to "simple questions like whats is your name". As per staff family were at bedside and were thinking of hospice care for the patient given his advanced disease and multiple admissions with similar problem Objective - Vital Signs Vital signs: Vital Signs Temp 97.1 F L 10/10/17 06:24 Pulse 74 10/10/17 07:43 Resp 18 10/10/17 07:43 BP 160/71 10/10/17 06:24 Pulse Ox 96 10/10/17 06:24 Intake & Output 10/09/17 10/10/17 10/10/17 18:59 06:59 18:59 Intake Total 100 Output Total 1050 Balance 100 -1050 Weight 53 kg 52 kg Intake: Oral 100 Output: Urine 1050 Other: Voiding Method Indwelling Catheter Indwelling Catheter Indwelling Catheter # Bowel Movements 1 - Exam GENERAL: The patient is awake however he doesn't answer questions or follow commands, not in any acute distress. He is cachectic HEENT: Pupils are round and equally reacting to light. EOMI. No scleral icterus. No conjunctival pallor. Normocephalic, atraumatic. No pharyngeal erythema. No thyromegaly. CARDIOVASCULAR: S1 and S2 present. No murmurs, rubs, or gallops. PULMONARY: Chest is clear to auscultation, no wheezing or crackles. ABDOMEN: Soft, nontender, nondistended, normoactive bowel sounds. No palpable organomegaly. MUSCULOSKELETAL: No joint swelling or deformity. EXTREMITIES: No cyanosis, clubbing, or pedal edema. NEUROLOGICAL: Gross neurological examination did not reveal any focal deficits. SKIN: No rashes. - Labs CBC & Chem 7: 10/02/17 13:30 10/08/17 06:01 Labs: Abnormal Lab Results - Last 24 Hours (Table) 10/09/17 10/09/17 10/09/17 Range/Units 11:34 16:21 20:48 POC Glucose (mg/dL) 106 H 133 H 101 H (75-99) mg/dL Assessment and Plan Plan: -Dementia, looks advanced. Patient is not able take care of himself, his nonverbal and poor historian. As per staff he answers with yes or no only. Family considering hospice care -Acute on chronic systolic CHF. Recent echo shows EF 25-30% moderate AR, moderate MR, and severe TR. Cardiology consultation is appreciated, continue with diuretics with Lasix and Diamox. -Acute kidney injury, creatinine up at 1.5 area at 1.5. creatinine baseline 0.8- 1.1. Patient is on Diuretics 18 mg twice a day, However patient is on Diamox Hypernatremic at 148. UA is negative -Metabolic encephalopathy, mostly due to CHF and renal impairment. Cardiology and pulmonary consultation is appreciated -Hypertension continue with hydralazine, Lasix, Diamox, Imdur, losartan, and Aldactone -Hyperlipidemia continue with statin DVT prophylaxis heparin GI prophylaxis Pepcid Pending: Hospice care evaluation with the family later on this morning
[2017-10-10] MEDS ORDERED: FAMOTIDINE 20 MG TAB PO SCH (09:00)
[2017-10-10] MEDS ORDERED: HEPARIN SODIUM,PORCINE 5,000 UNIT/ML 1 ML VIAL SQ SCH (09:00)
[2017-10-10] MEDS: CARVEDILOL 6.25 MG TAB PO SCH (09:56)
[2017-10-10] MEDS: CALCIUM CARB-VIT D 500MG-200UN 1 EACH TAB PO SCH ×2 (09:57→12:34)
[2017-10-10] MEDS: hydrALAZINE HCL 50 MG TAB PO SCH (09:57)
[2017-10-10] MEDS: FUROSEMIDE 80 MG TAB PO SCH (09:57)
[2017-10-10] MEDS: SPIRONOLACTONE 25 MG TAB PO SCH (09:58)
[2017-10-10] MEDS: LOSARTAN 50 MG TAB PO SCH (09:58)
[2017-10-10] MEDS: ISOSORBIDE MONONITRATE ER 30 MG TAB.ER.24H PO SCH (09:58)
[2017-10-10 11:50] LABS: Glucose,Whole Blood 70 mg/dL (75-99)
[2017-10-10] MEDS ORDERED: DEXTROSE 50%-WATER 50 ML SYRINGE IVP STA (12:29)
[2017-10-10 14:46] VITALS: BP 156/49; PULSE 68; TEMP 97.7
--- NOTE | 2017-10-11 07:30 | P.DS ---
Providers Date of admission: 10/02/17 15:05 Attending physician: Lambert Salomon Consults: 10/02/17 15:04 Consult Physician Routine Consulting Provider: Olimpia Dubose Consult Reason/Comments: CHF, elevated troponin Do you want consulting provider notified?: Yes 10/02/17 23:19 Consult Physician Routine Consulting Provider: Aly Springer Consult Reason/Comments: pl effusion Do you want consulting provider notified?: Yes Primary care physician: Moises Hamptonqvi Hospital Course: This is a pleasant 87 years old male with past medical history of heart failure , coronary artery disease, COPD, dementia, GI bleed, hyperlipidemia, hypertension, pneumonia, was recently discharged from the hospital on 2017 for metabolic encephalopathy secondary to pneumonia, UTI with septic shock and bilateral pleural effusion and CHF. He presents on 10/10/2027 from [facility] for altered mental status when he found lethargic and less responding with decreased oral intake over 2 days In the ED, Chest x-ray shows CHF exacerbation and small to moderate bilateral pleural effusion with possible underlying atelectasis and/or infiltrate. CT of the brain shows no acute hemorrhage. On admission he found to be in acute kidney injury with creatinine up from baseline of 0.8 1.1 up to 1.45, and 1.50 Patient looks has baseline advanced dementia, he looks cachectic and he doesn't care for himself. He barely talks with yes or no as per staff. When I saw the patient he was staring in the air and he is not responding to me even to "simple questions like whats is your name". As per staff family were at bedside and were thinking of hospice care for the patient given his advanced disease and multiple admissions with similar problem Hospice team have evaluated the patient and got accepted as per staff Patient looks his stable but his prognosis is very poor and he can be discharged for hospice care GENERAL: The patient is awake however he doesn't answer questions or follow commands, he just status with no response, not in any acute distress. He is cachectic HEENT: Pupils are round and equally reacting to light. EOMI. No scleral icterus. No conjunctival pallor. Normocephalic, atraumatic. No pharyngeal erythema. No thyromegaly. CARDIOVASCULAR: S1 and S2 present. No murmurs, rubs, or gallops. PULMONARY: Chest is clear to auscultation, no wheezing or crackles. ABDOMEN: Soft, nontender, nondistended, normoactive bowel sounds. No palpable organomegaly. MUSCULOSKELETAL: No joint swelling or deformity. EXTREMITIES: No cyanosis, clubbing, or pedal edema. NEUROLOGICAL: Gross neurological examination did not reveal any focal deficits. SKIN: No rashes. TIME SPENT LESS THAN 35 MIN Patient Condition at Discharge: Poor Plan - Discharge Summary Discharge Rx Participant: No New Discharge Prescriptions: No Action Magnesium Oxide [Mag-Ox] 400 mg PO DAILY@1700 Atorvastatin Calcium [Lipitor] 20 mg PO HS Ergocalciferol (Vitamin D2) [Vitamin D2] 50,000 unit PO FR Acetaminophen Tab [Tylenol] 650 mg PO Q6HR PRN tab PRN Reason: Fever And/ Or Pain Brimonidine Tartrate [Alphagan P 0.2% Ophth Soln] 1 drops RIGHT EYE BID ml Latanoprost Ophth [Xalatan 0.005%] 1 drops RIGHT EYE HS ml Timolol 0.5% Ophth Soln [Timoptic 0.5% Ophth Soln] 1 drops RIGHT EYE BID ml Carvedilol [Coreg] 3.125 mg PO BID #1 tablet Na Phos,M-B/Na Phos,Di-Ba [Fleet Adult] 133 ml RECTAL ONCE PRN PRN Reason: Constipation Ipratropium-Albuterol Nebulize [Duoneb 0.5 mg-3 mg/3 ml Soln] 3 ml INHALATION RT-Q4H PRN PRN Reason: pneumonia Bisacodyl [Dulcolax] 10 mg RECTAL DAILY PRN PRN Reason: Constipation Calcium Carb-Vit D 500Mg-200Un [Oscal 500+D] 1 tab PO TID@08,12,17 [place] Instant Breakfast 1 packet PO BID@08,17 Potassium Chloride ER [K-Dur 20] 20 meq PO DAILY@1700 Metolazone [Zaroxolyn] 2.5 mg PO DAILY Magic Cup 120 ml PO DAILY@1200 Isosorbide Mononitrate ER [Imdur] 30 mg PO DAILY Magnesium Hydroxide [Milk of Magnesia] 2,400 mg PO DAILY PRN PRN Reason: Constipation Ipratropium-Albuterol Nebulize [Duoneb 0.5 mg-3 mg/3 ml Soln] 3 ml INHALATION RT-QID@,,, Furosemide [Lasix] 40 mg PO BID@, hydrALAZINE HCL [Apresoline] 25 mg PO BID@, Discharge Medication List Atorvastatin Calcium [Lipitor] 20 mg PO HS 12/07/15 [History] Magnesium Oxide [Mag-Ox] 400 mg PO DAILY@1700 12/07/15 [History] Ergocalciferol (Vitamin D2) [Vitamin D2] 50,000 unit PO FR 08/06/17 [History] Acetaminophen Tab [Tylenol] 650 mg PO Q6HR PRN tab 08/15/17 [Rx] Brimonidine Tartrate [Alphagan P 0.2% Ophth Soln] 1 drops RIGHT EYE BID ml [Rx] Latanoprost Ophth [Xalatan 0.005%] 1 drops RIGHT EYE HS ml 08/15/17 [Rx] Timolol 0.5% Ophth Soln [Timoptic 0.5% Ophth Soln] 1 drops RIGHT EYE BID ml [Rx] Carvedilol [Coreg] 3.125 mg PO BID #1 tablet 09/14/17 [Rx] Bisacodyl [Dulcolax] 10 mg RECTAL DAILY PRN 10/02/17 [History] Calcium Carb-Vit D 500Mg-200Un [Oscal 500+D] 1 tab PO TID@08,12,17 10/02/17 [ History] [place] Instant Breakfast 1 packet PO BID@08,17 10/02/17 [History] Furosemide [Lasix] 40 mg PO BID@,14 10/02/17 [History] Ipratropium-Albuterol Nebulize [Duoneb 0.5 mg-3 mg/3 ml Soln] 3 ml INHALATION RT -Q4H PRN 10/02/17 [History] Ipratropium-Albuterol Nebulize [Duoneb 0.5 mg-3 mg/3 ml Soln] 3 ml INHALATION RT -QID@08,12,17,21 10/02/17 [History] Isosorbide Mononitrate ER [Imdur] 30 mg PO DAILY 10/02/17 [History] Magic Cup 120 ml PO DAILY@1200 10/02/17 [History] Magnesium Hydroxide [Milk of Magnesia] 2,400 mg PO DAILY PRN 10/02/17 [History] Metolazone [Zaroxolyn] 2.5 mg PO DAILY 10/02/17 [History] Na Phos,M-B/Na Phos,Di-Ba [Fleet Adult] 133 ml RECTAL ONCE PRN 10/02/17 [History ] Potassium Chloride ER [K-Dur 20] 20 meq PO DAILY@1700 10/02/17 [History] hydrALAZINE HCL [Apresoline] 25 mg PO BID@08,17 10/02/17 [History] Follow up Appointment(s)/Referral(s): Moises Bliss MD [Primary Care Provider] - 1 Week () Activity/Diet/Wound Care/Special Instructions: Brisa on discharge Discharge Disposition: HOME WITH HOSPICE
== END 2017-10-10 15:29 | disposition hospice, home (50) | DRG 291 ==
LOC: EC 11:57 → 6SEL 15:05
PROVIDERS: ADMIT Hospitalist; ATTEND Hospitalist
DX: I11.0 Hypertensive heart disease with heart failure (principal); G93.41 Metabolic encephalopathy; E44.0 Moderate protein-calorie malnutrition; E87.3 Alkalosis; J96.11 Chronic respiratory failure with hypoxia; J96.12 Chronic respiratory failure with hypercapnia; N17.9 Acute kidney failure, unspecified; N25.81 Secondary hyperparathyroidism of renal origin; Q78.0 Osteogenesis imperfecta; R64 Cachexia; Z68.1 Body mass index [BMI] 19.9 or less, adult; I50.23 Acute on chronic systolic (congestive) heart failure; H54.61 Unqualified visual loss, right eye, normal vision left eye; I08.3 Combined rheumatic disorders of mitral, aortic and tricuspid valves; I25.10 Atherosclerotic heart disease of native coronary artery without angina pectoris; I25.2 Old myocardial infarction; I25.5 Ischemic cardiomyopathy; I27.29 Other secondary pulmonary hypertension; Z87.01 Personal history of pneumonia (recurrent); Z87.440 Personal history of urinary (tract) infections; D63.8 Anemia in other chronic diseases classified elsewhere; E78.5 Hyperlipidemia, unspecified; F02.80 Dementia in other diseases classified elsewhere, unspecified severity, without behavioral disturbance, psychotic disturbance, mood disturbance, and anxiety; G30.9 Alzheimer's disease, unspecified; J44.9 Chronic obstructive pulmonary disease, unspecified; Z87.891 Personal history of nicotine dependence; Z51.5 Encounter for palliative care; Z79.899 Other long term (current) drug therapy; Z96.621 Presence of right artificial elbow joint; Z96.643 Presence of artificial hip joint, bilateral; Z82.62 Family history of osteoporosis; T50.2X5A Adverse effect of carbonic-anhydrase inhibitors, benzothiadiazides and other diuretics, initial encounter; Z99.81 Dependence on supplemental oxygen; L89.152 Pressure ulcer of sacral region, stage 2; Z98.42 Cataract extraction status, left eye; Z98.41 Cataract extraction status, right eye; R15.9 Full incontinence of feces; Z87.11 Personal history of peptic ulcer disease
CPT/HCPCS: 36415; 70450; 71045; 71046; 80048; 80053; 81003; 82140; 82150; 82550; 82553; 83605; 83690; 83735; 83880; 84484; 85025; 93005; 94760; 96374; 99291

== ENCOUNTER 2017-10-10 14:34 | Inpatient (IN) | payer MEDICAID ==
[2017-10-10] MEDS ORDERED: ATROPINE OPHTH SOLN 1% 5ML BTL SUBLINGUAL PRN (14:45)
[2017-10-10] MEDS ORDERED: ACETAMINOPHEN SUPPOSITORY 650 MG SUPP RECTAL PRN (14:45)
[2017-10-10] MEDS ORDERED: BISACODYL 10 MG SUPP RECTAL PRN (14:47)
[2017-10-10] MEDS ORDERED: IPRATROPIUM-ALBUTEROL 3 ML NEB INHALATION PRN (14:48)
[2017-10-10] MEDS ORDERED: MORPHINE ORAL SOL CONC 20 MG/ML BOTTLE PO PRN (14:50)
[2017-10-10] MEDS ORDERED: LORazepam 0.5 MG TAB PO PRN (14:51)
[2017-10-10] MEDS ORDERED: ONDANSETRON 4 MG TAB PO PRN (14:57)
[2017-10-10] MEDS ORDERED: MORPHINE CONC SOLN 10mg/0.5mL ORAL SYRG PO PRN (17:49)
--- NOTE | 2017-10-11 07:42 | P.HPIM ---
History of Present Illness This is a pleasant 87 years old male with past medical history of heart failure , coronary artery disease, COPD, dementia, GI bleed, hyperlipidemia, hypertension, pneumonia, was recently discharged from the hospital on 2017 for metabolic encephalopathy secondary to pneumonia, UTI with septic shock and bilateral pleural effusion and CHF. [facility] when he found lethargic and less responding with decreased oral intake over 2 days In the ED, Chest x-ray shows CHF exacerbation and small to moderate bilateral pleural effusion with possible underlying atelectasis and/or infiltrate. CT of the brain shows no acute hemorrhage. On admission he found to be in acute kidney injury with creatinine up from baseline of 0.8 1.1 up to 1.45, and 1.50 Patient looks has baseline advanced dementia, he looks cachectic and he doesn't care for himself. He barely talks with yes or no as per staff. When I saw the patient he was staring in the air and he is not responding to me even to "simple questions like whats is your name". As per staff family were at bedside and were thinking of hospice care for the patient given his advanced disease and multiple admissions with similar problem Hospice team have evaluated the patient and got accepted as per staff Patient looks his stable but his prognosis is very poor as he has end-stage dementia, with advanced CHF and COPD given his bad prognosis and expected demise within months or sooner pt has been evaluated by hospice team and they accepted the patient. Patient was discharged and admitted to the same hospital of [place]. Discussed the case with the hospice nurse Review of Systems Unable to perform due to patient clinical status Past Medical History Past Medical History: Coronary Artery Disease (CAD), Heart Failure, COPD, Dementia, Eye Disorder, GI Bleed, Hyperlipidemia, Hypertension, Myocardial Infarction (AR), Pneumonia Additional Past Medical History / Comment(s): 09/04/17 pne, uti w sepsis/ with acute blood loss anemia, GI bleed, duodenal ulcers,with dark burgundy stools, protein calorie malnutrition, hyperkalemia. 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 Past Anesthesia/Blood Transfusion Reactions: No Reported Reaction Additional Past Anesthesia/Blood Transfusion Reaction / Comment(s): Pt has received blood without reaction. Past Psychological History: No Psychological Hx Reported Additional Psychological History / Comment(s): pt retired, used to work at [employer]. Pt living at [facility], per [employer]. pt non ambulatory , sal lift x1, incont of bowel . He uses oxygen. Smoking Status: Former smoker Past Alcohol Use History: None Reported Additional Past Alcohol Use History / Comment(s): Pt started smoking as a teen and quit in 1969. Past Drug Use History: None Reported - Past Family History Father History Unknown: Yes Family Medical History: Unable to Obtain Additional Family Medical History / Comment(s): Father had osteogenesis imperfecta. Mother Family Medical History: No Reported History Medications and Allergies Home Medications Medication Instructions Recorded Confirmed Type Atorvastatin Calcium [Lipitor] 20 mg PO HS 12/07/15 10/10/17 History Magnesium Oxide [Mag-Ox] 400 mg PO DAILY@1700 12/07/15 10/10/17 History Ergocalciferol (Vitamin D2) 50,000 unit PO FR 08/06/17 10/10/17 History [Vitamin D2] Acetaminophen Tab [Tylenol] 650 mg PO Q6HR PRN tab 08/15/17 10/10/17 Rx Brimonidine Tartrate [Alphagan P 1 drops RIGHT EYE BID ml 08/15/17 10/10/17 Rx 0.2% Ophth Soln] Latanoprost Ophth [Xalatan 0.005%] 1 drops RIGHT EYE HS ml 08/15/17 10/10/17 Rx Timolol 0.5% Ophth Soln [Timoptic 1 drops RIGHT EYE BID ml 08/15/17 10/10/17 Rx 0.5% Ophth Soln] Carvedilol [Coreg] 3.125 mg PO BID #1 tablet 09/14/17 10/10/17 Rx Bisacodyl [Dulcolax] 10 mg RECTAL DAILY PRN 10/02/17 10/10/17 History Calcium Carb-Vit D 500Mg-200Un 1 tab PO TID@08,12,10/02/17 10/10/17 History [Oscal 500+D] [place] Instant Breakfast 1 packet PO BID@08,10/02/17 10/10/17 History Furosemide [Lasix] 40 mg PO BID@06,10/02/17 10/10/17 History Ipratropium-Albuterol Nebulize 3 ml INHALATION RT-Q4H PRN 10/02/17 10/10/17 History [Duoneb 0.5 mg-3 mg/3 ml Soln] Ipratropium-Albuterol Nebulize 3 ml INHALATION RT-QID@08,12,17,10/02/1710/10 History [Duoneb 0.5 mg-3 mg/3 ml Soln] Isosorbide Mononitrate ER [Imdur] 30 mg PO DAILY 10/02/17 10/10/17 History Magic Cup 120 ml PO DAILY@1200 10/02/17 10/10/17 History Magnesium Hydroxide [Milk of 2,400 mg PO DAILY PRN 10/02/17 10/10/17 History Magnesia] Metolazone [Zaroxolyn] 2.5 mg PO DAILY 10/02/17 10/10/17 History Na Phos,M-B/Na Phos,Di-Ba [Fleet 133 ml RECTAL ONCE PRN 10/02/17 10/10/17 History Adult] Potassium Chloride ER [K-Dur 20] 20 meq PO DAILY@1700 10/02/17 10/10/17 History hydrALAZINE HCL [Apresoline] 25 mg PO BID@,10/02/17 10/10/17 History Allergies Allergy/AdvReac Type Severity Reaction Status Date / Time No Known Allergies Allergy Verified 10/10/17 15:52 Physical Exam Vitals: Vital Signs Pulse Resp Pulse Ox 10/11/17 07:20 70 10/11/17 04:00 70 20 95 10/11/17 00:00 69 20 95 10/10/17 21:00 72 20 97 Intake and Output 10/10/17 10/11/17 10/11/17 22:59 06:59 14:59 Output Total 1000 Balance -1000 Output: Urine 1000 Other: Voiding Method Indwelling Catheter Indwelling Catheter Indwelling Catheter # Bowel Movements 1 Weight 40 kg GENERAL: The patient is less awake however he doesn't answer questions or follow commands, he just status with no response, not in any acute distress. He is cachectic HEENT: Pupils are round and equally reacting to light. EOMI. No scleral icterus. No conjunctival pallor. Normocephalic, atraumatic. No pharyngeal erythema. No thyromegaly. CARDIOVASCULAR: S1 and S2 present. No murmurs, rubs, or gallops. PULMONARY: Chest is clear to auscultation, no wheezing or crackles. ABDOMEN: Soft, nontender, nondistended, normoactive bowel sounds. No palpable organomegaly. MUSCULOSKELETAL: No joint swelling or deformity. EXTREMITIES: No cyanosis, clubbing, or pedal edema. NEUROLOGICAL: Gross neurological examination did not reveal any focal deficits. SKIN: No rashes. Assessment and Plan Assessment: -Advanced and end-stage dementia -Advanced CHF, with ischemic cardiomyopathy -Advanced COPD -History of GI bleed -Duodenal ulcer -Hypertension -Hyperlipidemia -OT calorie malnutrition -Osteogenesis imperfecta -Almost blindness of the right eye Plan: Patient is with very poor prognosis given his multiple and advanced stages of the multiple diseases including advanced and end-stage dementia, advanced COPD and advanced CHF. Patient has been accepted by hospice. Patient admitted to the hospice care and family agreeable [please see documentation to]. Patient while in hospital didn't show any improvement and he continue to show no signs of interaction despite therapy. Patient is admitted for hospice care care and discussed with the hospice nurse please, see orders
--- NOTE | 2017-10-11 14:38 | P.DS ---
Providers Date of admission: 10/10/17 15:28 Attending physician: Lambert Salomon Primary care physician: Stated None Hospital Course: This is a pleasant 87 years old male with past medical history of heart failure , coronary artery disease, COPD, dementia, GI bleed, hyperlipidemia, hypertension, pneumonia, was recently discharged from the hospital on 2017 for metabolic encephalopathy secondary to pneumonia, UTI with septic shock and bilateral pleural effusion and CHF. He presents on 10/10/2027 from detention for altered mental status when he found lethargic and less responding with decreased oral intake over 2 days In the ED, Chest x-ray shows CHF exacerbation and small to moderate bilateral pleural effusion with possible underlying atelectasis and/or infiltrate. CT of the brain shows no acute hemorrhage. On admission he found to be in acute kidney injury with creatinine up from baseline of 0.8 1.1 up to 1.45, and 1.50 Patient looks has baseline advanced dementia, he looks cachectic and he doesn't care for himself. He barely talks with yes or no as per staff. When I saw the patient he was staring in the air and he is not responding to me even to "simple questions like whats is your name". As per staff family were at bedside and were thinking of hospice care for the patient given his advanced disease and multiple admissions with similar problem Hospice team have evaluated the patient and got accepted as per staff Patient looks his stable but his prognosis is very poor as he has end-stage dementia, with advanced CHF and COPD given his bad prognosis and expected demise within months or sooner pt has been evaluated by hospice team and they accepted the patient. Patient was discharged and admitted to the same hospital of [place]. Discussed the case with the hospice care nurse Patient will be discharged today to [facility] , prescription for morphine and Ativan as provided for the patient GENERAL: The patient is less awake however he doesn't answer questions or follow commands, he just status with no response, not in any acute distress. He is cachectic HEENT: Pupils are round and equally reacting to light. EOMI. No scleral icterus. No conjunctival pallor. Normocephalic, atraumatic. No pharyngeal erythema. No thyromegaly. CARDIOVASCULAR: S1 and S2 present. No murmurs, rubs, or gallops. PULMONARY: Chest is clear to auscultation, no wheezing or crackles. ABDOMEN: Soft, nontender, nondistended, normoactive bowel sounds. No palpable organomegaly. MUSCULOSKELETAL: No joint swelling or deformity. EXTREMITIES: No cyanosis, clubbing, or pedal edema. NEUROLOGICAL: Gross neurological examination did not reveal any focal deficits. SKIN: No rashes. Plan - Discharge Summary New Discharge Prescriptions: No Action Magnesium Oxide [Mag-Ox] 400 mg PO DAILY@1700 Atorvastatin Calcium [Lipitor] 20 mg PO HS Ergocalciferol (Vitamin D2) [Vitamin D2] 50,000 unit PO FR Acetaminophen Tab [Tylenol] 650 mg PO Q6HR PRN tab PRN Reason: Fever And/ Or Pain Brimonidine Tartrate [Alphagan P 0.2% Ophth Soln] 1 drops RIGHT EYE BID ml Latanoprost Ophth [Xalatan 0.005%] 1 drops RIGHT EYE HS ml Timolol 0.5% Ophth Soln [Timoptic 0.5% Ophth Soln] 1 drops RIGHT EYE BID ml Carvedilol [Coreg] 3.125 mg PO BID #1 tablet Na Phos,M-B/Na Phos,Di-Ba [Fleet Adult] 133 ml RECTAL ONCE PRN PRN Reason: Constipation Ipratropium-Albuterol Nebulize [Duoneb 0.5 mg-3 mg/3 ml Soln] 3 ml INHALATION RT-Q4H PRN PRN Reason: pneumonia Bisacodyl [Dulcolax] 10 mg RECTAL DAILY PRN PRN Reason: Constipation Calcium Carb-Vit D 500Mg-200Un [Oscal 500+D] 1 tab PO TID@,,17 [place] Instant Breakfast 1 packet PO BID@08,17 Potassium Chloride ER [K-Dur 20] 20 meq PO DAILY@1700 Metolazone [Zaroxolyn] 2.5 mg PO DAILY Magic Cup 120 ml PO DAILY@1200 Isosorbide Mononitrate ER [Imdur] 30 mg PO DAILY Magnesium Hydroxide [Milk of Magnesia] 2,400 mg PO DAILY PRN PRN Reason: Constipation Ipratropium-Albuterol Nebulize [Duoneb 0.5 mg-3 mg/3 ml Soln] 3 ml INHALATION RT-QID@,12,17,21 Furosemide [Lasix] 40 mg PO BID@06,14 hydrALAZINE HCL [Apresoline] 25 mg PO BID@,17 Discharge Medication List Atorvastatin Calcium [Lipitor] 20 mg PO HS 12/07/15 [History] Magnesium Oxide [Mag-Ox] 400 mg PO DAILY@1700 12/07/15 [History] Ergocalciferol (Vitamin D2) [Vitamin D2] 50,000 unit PO FR 08/06/17 [History] Acetaminophen Tab [Tylenol] 650 mg PO Q6HR PRN tab 08/15/17 [Rx] Brimonidine Tartrate [Alphagan P 0.2% Ophth Soln] 1 drops RIGHT EYE BID ml [Rx] Latanoprost Ophth [Xalatan 0.005%] 1 drops RIGHT EYE HS ml 08/15/17 [Rx] Timolol 0.5% Ophth Soln [Timoptic 0.5% Ophth Soln] 1 drops RIGHT EYE BID ml [Rx] Carvedilol [Coreg] 3.125 mg PO BID #1 tablet 09/14/17 [Rx] Bisacodyl [Dulcolax] 10 mg RECTAL DAILY PRN 10/02/17 [History] Calcium Carb-Vit D 500Mg-200Un [Oscal 500+D] 1 tab PO TID@08,12,17 10/02/17 [ History] [place] Instant Breakfast 1 packet PO BID@08,17 10/02/17 [History] Furosemide [Lasix] 40 mg PO BID@06,14 10/02/17 [History] Ipratropium-Albuterol Nebulize [Duoneb 0.5 mg-3 mg/3 ml Soln] 3 ml INHALATION RT -Q4H PRN 10/02/17 [History] Ipratropium-Albuterol Nebulize [Duoneb 0.5 mg-3 mg/3 ml Soln] 3 ml INHALATION RT -QID@08,12,17,21 10/02/17 [History] Isosorbide Mononitrate ER [Imdur] 30 mg PO DAILY 10/02/17 [History] Magic Cup 120 ml PO DAILY@1200 10/02/17 [History] Magnesium Hydroxide [Milk of Magnesia] 2,400 mg PO DAILY PRN 10/02/17 [History] Metolazone [Zaroxolyn] 2.5 mg PO DAILY 10/02/17 [History] Na Phos,M-B/Na Phos,Di-Ba [Fleet Adult] 133 ml RECTAL ONCE PRN 10/02/17 [History ] Potassium Chloride ER [K-Dur 20] 20 meq PO DAILY@1700 10/02/17 [History] hydrALAZINE HCL [Apresoline] 25 mg PO BID@08,17 10/02/17 [History]
--- NOTE | 2017-10-12 07:25 | P.DS ---
Providers Date of admission: 10/10/17 15:28 Attending physician: Lambert Salomon Primary care physician: Stated None Hospital Course: This is a pleasant 87 years old male with past medical history of heart failure , coronary artery disease, COPD, dementia, GI bleed, hyperlipidemia, hypertension, pneumonia, was recently discharged from the hospital on 2017 for metabolic encephalopathy secondary to pneumonia, UTI with septic shock and bilateral pleural effusion and CHF. He presents on 10/10/2027 from assisted for altered mental status when he found lethargic and less responding with decreased oral intake over 2 days In the ED, Chest x-ray shows CHF exacerbation and small to moderate bilateral pleural effusion with possible underlying atelectasis and/or infiltrate. CT of the brain shows no acute hemorrhage. On admission he found to be in acute kidney injury with creatinine up from baseline of 0.8 1.1 up to 1.45, and 1.50 Patient looks has baseline advanced dementia, he looks cachectic and he doesn't care for himself. He barely talks with yes or no as per staff. When I saw the patient he was staring in the air and he is not responding to me even to "simple questions like whats is your name". As per staff family were at bedside and were thinking of hospice care for the patient given his advanced disease and multiple admissions with similar problem Hospice team have evaluated the patient and got accepted as per staff Patient looks his stable but his prognosis is very poor as he has end-stage dementia, with advanced CHF and COPD given his bad prognosis and expected demise within months or sooner pt has been evaluated by hospice team and they accepted the patient. Patient was discharged and admitted to the same hospital of [place]. Discussed the case with the hospice care nurse Patient will be discharged today to [facility] , prescription for morphine and Ativan as provided for the patient GENERAL: The patient is more awake today however he only few words , which are unrelated and dont make sense, pt when asked "what is your name" he answers inappropriately, he does not follow commands, he just stares with no response, not in any acute distress. He is cachectic HEENT: Pupils are round and equally reacting to light. EOMI. No scleral icterus. No conjunctival pallor. Normocephalic, atraumatic. No pharyngeal erythema. No thyromegaly. CARDIOVASCULAR: S1 and S2 present. No murmurs, rubs, or gallops. PULMONARY: Chest is clear to auscultation, no wheezing or crackles. ABDOMEN: Soft, nontender, nondistended, normoactive bowel sounds. No palpable organomegaly. MUSCULOSKELETAL: No joint swelling or deformity. EXTREMITIES: No cyanosis, clubbing, or pedal edema. NEUROLOGICAL: Gross neurological examination did not reveal any focal deficits. SKIN: No rashes. Plan - Discharge Summary New Discharge Prescriptions: No Action Magnesium Oxide [Mag-Ox] 400 mg PO DAILY@1700 Atorvastatin Calcium [Lipitor] 20 mg PO HS Ergocalciferol (Vitamin D2) [Vitamin D2] 50,000 unit PO FR Acetaminophen Tab [Tylenol] 650 mg PO Q6HR PRN tab PRN Reason: Fever And/ Or Pain Brimonidine Tartrate [Alphagan P 0.2% Ophth Soln] 1 drops RIGHT EYE BID ml Latanoprost Ophth [Xalatan 0.005%] 1 drops RIGHT EYE HS ml Timolol 0.5% Ophth Soln [Timoptic 0.5% Ophth Soln] 1 drops RIGHT EYE BID ml Carvedilol [Coreg] 3.125 mg PO BID #1 tablet Na Phos,M-B/Na Phos,Di-Ba [Fleet Adult] 133 ml RECTAL ONCE PRN PRN Reason: Constipation Ipratropium-Albuterol Nebulize [Duoneb 0.5 mg-3 mg/3 ml Soln] 3 ml INHALATION RT-Q4H PRN PRN Reason: pneumonia Bisacodyl [Dulcolax] 10 mg RECTAL DAILY PRN PRN Reason: Constipation Calcium Carb-Vit D 500Mg-200Un [Oscal 500+D] 1 tab PO TID@08,12,17 [place] Instant Breakfast 1 packet PO BID@08,17 Potassium Chloride ER [K-Dur 20] 20 meq PO DAILY@1700 Metolazone [Zaroxolyn] 2.5 mg PO DAILY Magic Cup 120 ml PO DAILY@1200 Isosorbide Mononitrate ER [Imdur] 30 mg PO DAILY Magnesium Hydroxide [Milk of Magnesia] 2,400 mg PO DAILY PRN PRN Reason: Constipation Ipratropium-Albuterol Nebulize [Duoneb 0.5 mg-3 mg/3 ml Soln] 3 ml INHALATION RT-QID@,,, Furosemide [Lasix] 40 mg PO BID@, hydrALAZINE HCL [Apresoline] 25 mg PO BID@, Discharge Medication List Atorvastatin Calcium [Lipitor] 20 mg PO HS 12/07/15 [History] Magnesium Oxide [Mag-Ox] 400 mg PO DAILY@1700 12/07/15 [History] Ergocalciferol (Vitamin D2) [Vitamin D2] 50,000 unit PO FR 08/06/17 [History] Acetaminophen Tab [Tylenol] 650 mg PO Q6HR PRN tab 08/15/17 [Rx] Brimonidine Tartrate [Alphagan P 0.2% Ophth Soln] 1 drops RIGHT EYE BID ml [Rx] Latanoprost Ophth [Xalatan 0.005%] 1 drops RIGHT EYE HS ml 08/15/17 [Rx] Timolol 0.5% Ophth Soln [Timoptic 0.5% Ophth Soln] 1 drops RIGHT EYE BID ml [Rx] Carvedilol [Coreg] 3.125 mg PO BID #1 tablet 09/14/17 [Rx] Bisacodyl [Dulcolax] 10 mg RECTAL DAILY PRN 10/02/17 [History] Calcium Carb-Vit D 500Mg-200Un [Oscal 500+D] 1 tab PO TID@08,12,17 10/02/17 [ History] [place] Instant Breakfast 1 packet PO BID@08,17 10/02/17 [History] Furosemide [Lasix] 40 mg PO BID@,14 10/02/17 [History] Ipratropium-Albuterol Nebulize [Duoneb 0.5 mg-3 mg/3 ml Soln] 3 ml INHALATION RT -Q4H PRN 10/02/17 [History] Ipratropium-Albuterol Nebulize [Duoneb 0.5 mg-3 mg/3 ml Soln] 3 ml INHALATION RT -QID@08,12,17,21 10/02/17 [History] Isosorbide Mononitrate ER [Imdur] 30 mg PO DAILY 10/02/17 [History] Magic Cup 120 ml PO DAILY@1200 10/02/17 [History] Magnesium Hydroxide [Milk of Magnesia] 2,400 mg PO DAILY PRN 10/02/17 [History] Metolazone [Zaroxolyn] 2.5 mg PO DAILY 10/02/17 [History] Na Phos,M-B/Na Phos,Di-Ba [Fleet Adult] 133 ml RECTAL ONCE PRN 10/02/17 [History ] Potassium Chloride ER [K-Dur 20] 20 meq PO DAILY@1700 10/02/17 [History] hydrALAZINE HCL [Apresoline] 25 mg PO BID@08,17 10/02/17 [History]
[2017-10-12 21:13] VITALS: BP 159/60; PULSE 74; RESP 14; TEMP 96.2
--- NOTE | 2017-10-13 10:14 | P.DS ---
Providers Date of admission: 10/10/17 15:28 Attending physician: Lambert Salomon Primary care physician: Stated None Hospital Course: This is a pleasant 87 years old male with past medical history of heart failure , coronary artery disease, COPD, dementia, GI bleed, hyperlipidemia, hypertension, pneumonia, was recently discharged from the hospital on 2017 for metabolic encephalopathy secondary to pneumonia, UTI with septic shock and bilateral pleural effusion and CHF. He presents on 10/10/2027 from alf for altered mental status when he found lethargic and less responding with decreased oral intake over 2 days In the ED, Chest x-ray shows CHF exacerbation and small to moderate bilateral pleural effusion with possible underlying atelectasis and/or infiltrate. CT of the brain shows no acute hemorrhage. On admission he found to be in acute kidney injury with creatinine up from baseline of 0.8 1.1 up to 1.45, and 1.50 Patient looks has baseline advanced dementia, he looks cachectic and he doesn't care for himself. He barely talks with yes or no as per staff. When I saw the patient he was staring in the air and he is not responding to me even to "simple questions like whats is your name". As per staff family were at bedside and were thinking of hospice care for the patient given his advanced disease and multiple admissions with similar problem Hospice team have evaluated the patient and got accepted as per staff Patient looks his stable but his prognosis is very poor as he has end-stage dementia, with advanced CHF and COPD given his bad prognosis and expected demise within months or sooner pt has been evaluated by hospice team and they accepted the patient. Patient was discharged and admitted to the same hospital of [place]. Discussed the case with the hospice care nurse. Hospice team evaluated the patient while he is in-house and then he's got accepted for hospice. Patient was going to be discharged yesterday to [facility] hospice , however her family decided to take him to home with hospice today. prescription for morphine and Ativan as provided for the patient GENERAL: The patient is more awake today however he only few words , which are unrelated and dont make sense, pt when asked "what is your name" he answers inappropriately, he does not follow commands, he just stares with no response, not in any acute distress. He is cachectic HEENT: Pupils are round and equally reacting to light. EOMI. No scleral icterus. No conjunctival pallor. Normocephalic, atraumatic. No pharyngeal erythema. No thyromegaly. CARDIOVASCULAR: S1 and S2 present. No murmurs, rubs, or gallops. PULMONARY: Chest is clear to auscultation, no wheezing or crackles. ABDOMEN: Soft, nontender, nondistended, normoactive bowel sounds. No palpable organomegaly. MUSCULOSKELETAL: No joint swelling or deformity. EXTREMITIES: No cyanosis, clubbing, or pedal edema. NEUROLOGICAL: Gross neurological examination did not reveal any focal deficits. SKIN: No rashes. Plan - Discharge Summary New Discharge Prescriptions: No Action Magnesium Oxide [Mag-Ox] 400 mg PO DAILY@1700 Atorvastatin Calcium [Lipitor] 20 mg PO HS Ergocalciferol (Vitamin D2) [Vitamin D2] 50,000 unit PO FR Acetaminophen Tab [Tylenol] 650 mg PO Q6HR PRN tab PRN Reason: Fever And/ Or Pain Brimonidine Tartrate [Alphagan P 0.2% Ophth Soln] 1 drops RIGHT EYE BID ml Latanoprost Ophth [Xalatan 0.005%] 1 drops RIGHT EYE HS ml Timolol 0.5% Ophth Soln [Timoptic 0.5% Ophth Soln] 1 drops RIGHT EYE BID ml Carvedilol [Coreg] 3.125 mg PO BID #1 tablet Na Phos,M-B/Na Phos,Di-Ba [Fleet Adult] 133 ml RECTAL ONCE PRN PRN Reason: Constipation Ipratropium-Albuterol Nebulize [Duoneb 0.5 mg-3 mg/3 ml Soln] 3 ml INHALATION RT-Q4H PRN PRN Reason: pneumonia Bisacodyl [Dulcolax] 10 mg RECTAL DAILY PRN PRN Reason: Constipation Calcium Carb-Vit D 500Mg-200Un [Oscal 500+D] 1 tab PO TID@08,12,17 [place] Instant Breakfast 1 packet PO BID@08,17 Potassium Chloride ER [K-Dur 20] 20 meq PO DAILY@1700 Metolazone [Zaroxolyn] 2.5 mg PO DAILY Magic Cup 120 ml PO DAILY@1200 Isosorbide Mononitrate ER [Imdur] 30 mg PO DAILY Magnesium Hydroxide [Milk of Magnesia] 2,400 mg PO DAILY PRN PRN Reason: Constipation Ipratropium-Albuterol Nebulize [Duoneb 0.5 mg-3 mg/3 ml Soln] 3 ml INHALATION RT-QID@,,, Furosemide [Lasix] 40 mg PO BID@, hydrALAZINE HCL [Apresoline] 25 mg PO BID@,17 Discharge Medication List Atorvastatin Calcium [Lipitor] 20 mg PO HS 12/07/15 [History] Magnesium Oxide [Mag-Ox] 400 mg PO DAILY@1700 12/07/15 [History] Ergocalciferol (Vitamin D2) [Vitamin D2] 50,000 unit PO FR 08/06/17 [History] Acetaminophen Tab [Tylenol] 650 mg PO Q6HR PRN tab 08/15/17 [Rx] Brimonidine Tartrate [Alphagan P 0.2% Ophth Soln] 1 drops RIGHT EYE BID ml [Rx] Latanoprost Ophth [Xalatan 0.005%] 1 drops RIGHT EYE HS ml 08/15/17 [Rx] Timolol 0.5% Ophth Soln [Timoptic 0.5% Ophth Soln] 1 drops RIGHT EYE BID ml [Rx] Carvedilol [Coreg] 3.125 mg PO BID #1 tablet 09/14/17 [Rx] Bisacodyl [Dulcolax] 10 mg RECTAL DAILY PRN 10/02/17 [History] Calcium Carb-Vit D 500Mg-200Un [Oscal 500+D] 1 tab PO TID@,,17 10/02/17 [ History] [place] Instant Breakfast 1 packet PO BID@,10/02/17 [History] Furosemide [Lasix] 40 mg PO BID@06,14 10/02/17 [History] Ipratropium-Albuterol Nebulize [Duoneb 0.5 mg-3 mg/3 ml Soln] 3 ml INHALATION RT -Q4H PRN 10/02/17 [History] Ipratropium-Albuterol Nebulize [Duoneb 0.5 mg-3 mg/3 ml Soln] 3 ml INHALATION RT -QID@,,17,10/02/17 [History] Isosorbide Mononitrate ER [Imdur] 30 mg PO DAILY 10/02/17 [History] Magic Cup 120 ml PO DAILY@1200 10/02/17 [History] Magnesium Hydroxide [Milk of Magnesia] 2,400 mg PO DAILY PRN 10/02/17 [History] Metolazone [Zaroxolyn] 2.5 mg PO DAILY 10/02/17 [History] Na Phos,M-B/Na Phos,Di-Ba [Fleet Adult] 133 ml RECTAL ONCE PRN 10/02/17 [History ] Potassium Chloride ER [K-Dur 20] 20 meq PO DAILY@1700 10/02/17 [History] hydrALAZINE HCL [Apresoline] 25 mg PO BID@08,17 10/02/17 [History] Activity/Diet/Wound Care/Special Instructions: regular diet activity as tolerated Discharge Disposition: DISCH TO HOSPICE MED FACILTY
== END 2017-10-13 16:25 | disposition hospice, home (50) | DRG 951 ==
LOC: 6SEL 15:28 → 5MS5E 10-11 18:29 → 5ONC 10-12 18:16
PROVIDERS: ADMIT Hospitalist; ATTEND Hospitalist
DX: Z51.5 Encounter for palliative care (principal); E46 Unspecified protein-calorie malnutrition; J96.11 Chronic respiratory failure with hypoxia; N17.9 Acute kidney failure, unspecified; Q78.0 Osteogenesis imperfecta; R64 Cachexia; E78.5 Hyperlipidemia, unspecified; F03.90 Unspecified dementia, unspecified severity, without behavioral disturbance, psychotic disturbance, mood disturbance, and anxiety; H54.61 Unqualified visual loss, right eye, normal vision left eye; I11.0 Hypertensive heart disease with heart failure; I25.10 Atherosclerotic heart disease of native coronary artery without angina pectoris; I25.2 Old myocardial infarction; I25.5 Ischemic cardiomyopathy; I50.9 Heart failure, unspecified; J44.9 Chronic obstructive pulmonary disease, unspecified; K26.9 Duodenal ulcer, unspecified as acute or chronic, without hemorrhage or perforation; M25.822 Other specified joint disorders, left elbow; Z79.899 Other long term (current) drug therapy; Z87.891 Personal history of nicotine dependence; Z87.01 Personal history of pneumonia (recurrent); Z87.440 Personal history of urinary (tract) infections; Z96.643 Presence of artificial hip joint, bilateral; Z96.621 Presence of right artificial elbow joint; Z98.42 Cataract extraction status, left eye; Z98.41 Cataract extraction status, right eye; Z96.1 Presence of intraocular lens